=== PATIENT | male | born 1970 | race Caucasian/White ===

== ENCOUNTER 2023-08-25 18:22 | Emergency (ER) | payer MEDICARE, MEDICAID, SELFPAY ==
--- NOTE | ~2023-08-25 | CT_ITS ---
EXAMINATION: NONCONTRAST HEAD CT NONCONTRAST MAXILLOFACIAL CT INDICATION INFORMATION: Trauma. COMPARISON: None. TECHNIQUE: Separate noncontrast CT examinations of the head and maxillofacial bones were performed. Coronal and sagittal images were created for each examination at the technologist workstation. This CT examination was performed using dose optimization techniques as appropriate, variously including the following: *Automated exposure control *Adjustment of mA and/or kV according to patient size (this includes techniques or standardized protocols for targeted exams where dose is matched to indication/reason for exam; i.e. extremities or head) *Use of iterative reconstruction technique DLP: 629 and 303 mGy-cm FINDINGS: Head: Age indeterminate small hypodensity along the anterior-inferior left frontal lobe (3:16). There is no evidence of acute intracranial hemorrhage or edematous territorial infarction. No abnormal mass effect or midline shift is seen. No extra-axial fluid collections are identified. No hydrocephalus. Proportional prominence of the ventricles and sulcal spaces is consistent with mild volume loss. Patchy periventricular and deep white matter hypoattenuation is consistent with mild small vessel ischemic changes. No acute soft tissue abnormality. No calvarial fracture. The mastoid air cells are well aerated. Maxillofacial: Bilateral comminuted nasal alae fractures with greater displacement on the right side. No additional maxillofacial fractures. The frontal, maxillary, ethmoid, and sphenoid sinuses are well aerated. The mandibular heads are well-seated in the condylar fossa. The orbits demonstrate a normal appearance bilaterally. The globes are intact, and there are no suspicious findings to suggest retrobulbar hemorrhage. Visualized portions of the cervical spine are unremarkable. CT/CT facial bones wo IV con IMPRESSION: 1. Age-indeterminate small hypodensity along the anterior-inferior left frontal lobe. Further characterization could be obtained with an MRI of the brain as clinically deemed appropriate. 2. No acute intracranial hemorrhage or edematous territorial infarction. 3. Bilateral comminuted nasal alae fractures with greater displacement on the right side.
--- NOTE | ~2023-08-25 | XR_ITS ---
EXAMINATION: XR KNEE, LEFT CLINICAL INFORMATION: Pain, fall. COMPARISON: None available. TECHNIQUE: Four views of the left knee. FINDINGS: No acute fracture or subluxation. Mild joint space narrowing of the medial compartment. No abnormal soft tissue calcifications. No osseous erosions. No joint effusion. Scattered vascular calcifications. XR/XR knee LT 4V IMPRESSION: 1. No acute fracture or subluxation. 2. Mild degenerative osteoarthritis of the medial compartment.
[2023-08-25 18:48] VITALS: BP 106/72; PULSE 63; RESP 16; TEMP 36.6; O2SAT 96
[2023-08-25 18:53] VITALS: BP 140/90; PULSE 89; RESP 16; O2SAT 98; BMI 20.4
[2023-08-25] MEDS: Acetaminophen 325 MG TABLET 975 MG PO (19:15)
--- NOTE | 2023-08-25 19:43 | ED.GENADULT ---
HPI - General Adult General Chief complaint: Fall Stated complaint: fell face first.does not remember fall, nose bleed Time Seen by Provider: 08/25/23 18:30 Source: patient, RN notes reviewed and old records reviewed Mode of arrival: ambulatory Limitations: no limitations History of Present Illness HPI narrative: 52-year-old male presents for evaluation of left knee pain and facial pain. patient was playing a basketball game with his significant other when he slipped and fell face forward. His significant other is in the room with him and reports that she washed him hit his face on the ground and he had a bloody nose the patient does not remember hitting his head he does complain of some mild facial pain around his nose apparently after he fell he got up complaining of arm pain and then fell back down to the ground he also complains of left knee pain after the fall. The patient reports that he slipped because my shoes are very good and they slipped out from under me. He describes a nonsyncopal fall. Never had any chest pain, shortness of breath Related Data Previous Rx's Medication Instructions Recorded amoxicillin 500 mg tablet 500 mg PO Q8H #15 tabs 08/25/23 Allergies Allergy/AdvReac Type Severity Reaction Status Date / Time No Known Allergies Allergy Verified 08/25/23 18:45 Review of Systems Constitutional: Constitutional: Denies chills, Denies fever(s) and Denies headache(s) Eyes: Eyes: Denies blurry vision ENT: Denies headache(s) and Denies neck pain Cardiovascular: Cardiovascular: Denies chest pain, Denies syncope and Denies dyspnea Respiratory: Respiratory: Denies cough and Denies dyspnea Gastrointestinal: Gastrointestinal: Denies abdominal pain, Denies nausea and Denies vomiting Musculoskeletal: Musculoskeletal: Denies back pain, Reports arthralgias and Denies neck pain Integumentary/Breasts: Skin/Breast: Denies rash Neurologic: Denies syncope and Denies headache(s) [facility] Social History Social History Smoked in Last 30 Days: Yes Use of substances other than those prescribed or required for medical reasons: Yes Substance Use Type: Marijuana Advance Directives: No Advance Directives Information Provided: No Physical Exam ED Vital Signs: Vital Signs - 24 hr 08/25/23 18:48 08/25/23 18:53 Temperature 98 F Pulse Rate 63 Respiratory Rate 16 16 Blood Pressure 106/72 Pulse Oximetry 96 Oxygen Delivery Method Room Air BMI result Body Mass Index 20.4 Const General: healthy appearing, comfortable, no acute distress, alert and awake Nutritional Appearance: well nourished Orientation/consciousness: patient oriented x3 HENMT Throat: Yes posterior oropharynx normal Eyes Eyelids: Yes eyelids normal Conjunctivae: conjunctivae normal Sclerae: sclerae normal Corneas: corneas normal Pupils: Equal, round and reactive pupils present EOM: EOMs intact bilaterally Neck Neck: Yes full ROM Resp Effort & Inspection: normal respiratory effort, able to speak in complete sentences and not labored GI Inspection: No distended Palpation (GI): Soft to palpation, not firm, nontender, no guarding and not rigid General: Yes no CVA tenderness Back/Spine/Pelvis Back: no CVA tenderness Skin General skin exam: elasticity normal Neuro General: patient oriented x3 Cranial nerves: Yes CN's II-XII intact bilaterally, Yes Equal, round and reactive pupils present and Yes Bilaterally intact EOM present Cognition (Neuro): normal cognition Extrem Other: Moving all extremities well without any obvious deformities the patient does have some tenderness to the left patella with no obvious deformity or joint effusion.. Course Reevaluation(s) Reevaluation #1: discussed patient's workup with him including nasal fractures and the brain lesion left frontal lobe. He has no neuro deficits, this is favored to be an incidental finding. will discharge the patient antibiotics and ENT follow-up. [facility] Time: 20:09 Medications Administered Discontinued Medications Generic Name Dose Route Start Last Admin Trade Name Freq PRN Reason Stop Dose Admin Acetaminophen 975 mg 08/25/23 18:45 08/25/23 19:15 Acetaminophen 325 Mg Tablet PO 08/25/23 18:46 975 mg ONCE ONE Administration Medical Decision Making Medical Decision Making [facility] Narrative: A 52-year-old male presents for evaluation after a fall while playing basketball. He has a small abrasion to his nose but no other signs of trauma to head or neck. He has no C-spine tenderness. Given that he does not remember the fall but was witnessed striking his head will do CT scan the brain, facial bones are an x-ray of the left knee. Differential Diagnosis Differential Diagnoses: The differential diagnosis associated with the presentation includes Mechanical fall Contusion Nasal fracture Intracranial hemorrhage Calvarial fracture Left knee sprain Knee fracture Independent Interpretation I performed an independent interpretation of an: Plain X-Ray (No fracture or dislocation of the left knee) and CT Scan ( no obvious intracranial hemorrhage) Radiology Impression Discussion of test interpretation with radiology: I have reviewed the radiologist's reading. ( small left frontal lobe lesion. Bilateral nasal fracture) Discharge Plan Discharge Clinical Impression: Closed fracture nasal bone, Brain lesion Patient Disposition: Home, Self-Care Instructions: Nasal Fracture (ED) Additional Instructions: your x-ray did not show any fractures of your knee. Your CT scans showed a nasal bone fracture for this you may follow-up with Dr. Barrett, ENT you had an incidental finding of a brain lesion in your left frontal lobe. Follow this up with your primary doctor for a brain MRI Prescriptions: New amoxicillin 500 mg tablet 500 mg PO Q8H Qty: 15 0RF Referrals: Vin Barrett [Physician] - ( nasal fracture follow-up)
--- NOTE | 2023-08-25 19:51 | PC.NURSE ---
pt a&o x4, pleasant, calm, and cooperative. pt medicated per mar. asking for food. educated on having to wait until tests/scans are back. pt significant other at bedside. pt reports nose and left knee pain 5/10 and 7/10, respectively. currently resting quietly on stretcher. report given to TRAVIS Boateng.
--- NOTE | 2023-08-25 20:00 | PC.NURSE ---
Patient resting on stretcher with SO, no s/s of distress noted at this time. Patient able to make needs known.
[2023-08-25 20:30] VITALS: BP 112/70; PULSE 65; RESP 18; O2SAT 95
[2023-08-25] MEDS: Amoxicillin 500 MG CAPSULE PO (20:35)
== END 2023-08-25 21:22 | disposition home or self-care (01) ==
PROVIDERS: Emergency Provider Emergency Medicine
DX: S02.2XXA Fracture of nasal bones, initial encounter for closed fracture (principal); W01.198A Fall on same level from slipping, tripping and stumbling with subsequent striking against other object, initial encounter; G93.9 Disorder of brain, unspecified; F12.90 Cannabis use, unspecified, uncomplicated; Y93.67 Activity, basketball; Y92.9 Unspecified place or not applicable; Y99.9 Unspecified external cause status
CPT/HCPCS: 70450; 70486; 73564; 99284

== ENCOUNTER 2024-06-03 08:52 | Inpatient (IN) | payer OTHER, SELFPAY ==
[2024-06-03] VITALS (9 sets, daily range): BP systolic 140–184; BP diastolic 75–106; PULSE 86–115; RESP 16–20; TEMP 36.5–37.1; O2SAT 96–100; BMI 18.4; BMI 19.1
--- NOTE | ~2024-06-03 | XR_ITS ---
EXAMINATION: XR FOOT, LEFT CLINICAL INFORMATION: Multiple months. Question osteomyelitis COMPARISON: None available. TECHNIQUE: AP, lateral, and oblique views of the left foot. FINDINGS: Bones are osteopenic. Regions of marked osteopenia/osteolysis in varying degrees of osseous destruction are evident at the first, second, third, and fifth metatarsal heads and proximal phalangeal bases as well as the great toe distal phalanx, most consistent with osteomyelitis. The osseous destruction in these regions is more notable at the first, second, and third MTP joints. No appreciable findings to indicate involvement of the midfoot including the TMT joints. Soft tissues are markedly swollen and the forefoot. Wounds are evident at the medial and lateral aspects of the first and fifth MTP joints, respectively. XR/XR foot LT min 3V IMPRESSION: Septic arthritis and osteomyelitis at the first, second, third, and fifth MTP joints and great toe distal phalanx.
--- NOTE | ~2024-06-03 | US_ITS ---
EXAMINATION: COLOR-FLOW DUPLEX IMAGING OF THE LEFT LOWER EXTREMITY ARTERIAL SYSTEM, WITH VELOCITY MEASUREMENTS CLINICAL INFORMATION: The patient is a 53 year-old man who presents with osteomyelitis of the left first, second, third and fifth toes. LEFT FEMORAL RUNOFF VELOCITIES: The left common femoral artery peak systolic velocity is 105.0 cm/s. The waveform is triphasic. The left profunda femoral artery peak systolic velocity is 123.0 cm/s. The waveform is triphasic. The left proximal superficial femoral artery peak systolic velocity is 120.0 cm/s. The waveform is triphasic. The left mid superficial femoral artery peak systolic velocity is 172.0 cm/s. The waveform is triphasic. The left distal superficial femoral artery peak systolic velocity is 100.0 cm/s. The waveform is triphasic. The left popliteal artery peak systolic velocity is 107.0 cm/s. The waveform is triphasic. The left anterior tibial artery peak systolic velocity is 118.0 cm/s. The waveform is monophasic. The left dorsalis pedis artery peak systolic velocity is 202.0 cm/s. The waveform is monophasic. The left peroneal artery peak systolic velocity is 84.8 cm/s. The waveform is triphasic. The left posterior tibial artery peak systolic velocity is 87.6 cm/s. The waveform is triphasic. 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
--- NOTE | ~2024-06-03 | CT_ITS ---
EXAMINATION: CT ABDOMEN AND PELVIS WITH CONTRAST CLINICAL INFORMATION: Left upper quadrant abdominal pain, nausea COMPARISON: None available. TECHNIQUE: Multidetector volumetric images were obtained from the superior aspect of the liver through the pubic symphysis following administration 85 mL of Omnipaque 350 intravenous contrast. Sagittal and coronal reformatted images were obtained on the technologist's workstation. Oral contrast: No This CT examination was performed using dose optimization techniques as appropriate, variously including the following: *Automated exposure control *Adjustment of mA and/or kV according to patient size (this includes techniques or standardized protocols for targeted exams where dose is matched to indication/reason for exam; i.e. extremities or head) *Use of iterative reconstruction technique DLP: 328 mGy-cm FINDINGS: LUNG BASES: Unremarkable. ABDOMINAL AND PELVIC WALL: Unremarkable. LIVER AND BILIARY TREE: Unremarkable. GALLBLADDER: Unremarkable. PANCREAS: Unremarkable. SPLEEN: Unremarkable. ADRENAL GLANDS: A 1.4 cm homogeneous left adrenal nodule, 37 Hounsfield units. KIDNEYS AND URETERS: Multiple nonobstructing bilateral renal stones measuring up to 6 mm in the right upper pole. No hydronephrosis. GASTROINTESTINAL TRACT: There is mild gastric wall thickening and hyperenhancement and duodenal wall thickening, recommend correlation with symptoms of gastroenteritis or peptic ulcer disease, and correlation with endoscopy could be considered if/when clinically appropriate. Normal appendix. VASCULAR: Moderate atherosclerosis of the abdominal aorta and branch vessels. LYMPH NODES/PERITONEUM: No lymphadenopathy. FREE FLUID: None. BLADDER: Unremarkable. PELVIC VISCERA: Unremarkable. OSSEOUS STRUCTURES: Unremarkable. CT/CT abdomen pelvis w IV con IMPRESSION: 1. There is mild gastric wall thickening and hyperenhancement and duodenal wall thickening, recommend correlation with symptoms of gastroenteritis or peptic ulcer disease, and correlation with endoscopy could be considered if/when clinically appropriate. 2. Multiple nonobstructing bilateral renal stones measuring up to 6 mm in the right upper pole. No hydronephrosis. 3. A 1.4 cm homogeneous left adrenal nodule, 37 Hounsfield units, probable to reflect an adenoma. Recommend further characterization with CT adrenal protocol in 1 year.
--- NOTE | 2024-06-03 09:24 | ECG_ITS ---
Test Reason : BACK PAIN Blood Pressure : / mmHG Vent. Rate : 094 BPM Atrial Rate : 094 BPM P-R Int : 128 ms QRS Dur : 094 ms QT Int : 384 ms P-R-T Axes : 063 059 058 degrees QTc Int : 480 ms Normal sinus rhythm Prolonged QT Abnormal ECG When compared with ECG of 24-DEC-2004 00:58, Vent. rate has increased BY 37 BPM QT has lengthened Referred By: Lilian Patel Electronically Signed By:HIEN KAM
--- NOTE | 2024-06-03 09:24 | ED_ITS ---
HPI - General Adult General Chief complaint: Back Pain/Injury Stated complaint: BACK PAIN, L FOOT PAIN/INF,HIGH BP 163/98 PER EMS Time Seen by Provider: 06/03/24 09:04 Source: patient Mode of arrival: ambulatory Limitations: no limitations History of Present Illness HPI narrative: Patient is a 53-year-old male who presents to the emergency department for evaluation of multiple complaints. He reports he is a newly diagnosed diabetic within the past year. He states last night he was feeling ?off? described as feeling out of place, clammy, and having diffuse back spasms below his shoulder blades/lateral chest, but felt it all the way down his back. Denies associated chest pain, dizziness, lightheadedness, neck pain, numbness or tingling of the extremities. He states he checked his blood sugar and it was 540. He took his metformin 1 g which he is prescribed, checked his sugar sometime after and it was up to 580. He states that he is compliant with his metformin, he has not yet been told that he needs to take insulin. He did not check his sugars today but he still continues to feel unwell with persistent back pain. He admits to having left upper quadrant abdominal pain and poor oral intake over the past 2 days, reporting he has had a lack of appetite, has been nauseous but no vomiting. He denies any alcohol usage. He admits to intranasal cocaine usage denies any intravenous usage or additional recreational drugs. He expresses concern for a left foot infection, he reports approximately 1 month ago he had a blister that popped and opened up, and has subsequently developed a large wounds, redness swelling and pain with a foul odor. He states he has not yet been seen for this because he ?does not like hospitals?. Related Data Previous Rx's ?Medication ?Instructions ?Recorded amoxicillin 500 mg tablet 500 mg PO Q8H #15 tabs 08/25/23 Allergies Allergy/AdvReac Type Severity Reaction Status Date / Time No Known Allergies Allergy Verified 06/03/24 09:00 Review of Systems 2 Review of Systems: Yes all other systems are reviewed and are negative FORMERLY [facility], [facility] Past Medical History Attestation statement: The following information was validated with the patient. Source: old records reviewed Medical History (Updated 06/03/24 @ 16:43 by Lilian Patel CNP) Non-insulin dependent type 2 diabetes mellitus Social History Social History Alcohol intake: current Alcohol intake frequency: does not drink Patient Tobacco Use Status: Current everyday Tobacco user Smoked in Last 30 Days: Yes Substance Use Type: Marijuana Advance Directives: No Advance Directives Information Provided: No Do you have a plan to hurt others: No Plan Nutrition Risks: No Nutritional Risk Physical Exam ED Vital Signs: Vital Signs - 24 hr 06/03/24 08:57 06/03/24 10:37 06/03/24 11:48 Temperature 97.7 F Pulse Rate 102 H 109 H 111 H Respiratory Rate 20 18 17 Blood Pressure 184/91 H 157/89 H 158/85 H Pulse Oximetry 97 97 99 Oxygen Delivery Method Room Air Room Air Room Air 06/03/24 13:02 06/03/24 13:34 Temperature 98.8 F 98.3 F Pulse Rate 95 98 Respiratory Rate 18 20 Blood Pressure 164/82 H 140/82 H Pulse Oximetry 96 96 Oxygen Delivery Method Room Air Room Air BMI result Body Mass Index 18.4 Appearance: Alert.?Oriented to person, place and time. No acute distress.?Normal affect. Unkempt. Eyes: Pupils equal, round and reactive to light.? ENT: Pharynx normal.?? Neck: Normal inspection.? Neck supple.?? CVS: Heart sounds normal. Hypertensive, mildly tachycardic Pulses normal and equal bilaterally..?? Respiratory: No respiratory distress.? Lung sounds clear to auscultation bilaterally?? Abdomen: Soft and non-tender. Normoactive bowel sounds. No pulsatile mass.?? Skin: Skin warm and dry.? Skin appears pale. Extremities: Left foot erythema, edema, foul smelling meals. No calf ttp?full range of motion to ankle. 2+ PT pulse, unable to palpate DP pulse due to degree of pain Neuro: Moves all extremities spontaneously. Sensation intact bilaterally. CN II- XII intact. No focal neuro deficits. Course Reevaluation(s) Reevaluation #1: CBC reveals for endoscopy leukocytosis 18,000 with left shift, normocytic anemia, thrombocytosis 649,000. XR revealing extensive osteomyelitis septic arthritis of the left MTP joints and 1st distal phalanx. Urinalysis with glucosuria and ketonuria, no evidence of infection. Sepsis fluid bolus was ordered Received call from lab regarding critical lab values; significant lactic acidosis 7.3, random glucose of 502. No acidosis with venous pH, anion gap at 21, I suspect this is secondary to his lactic acidosis and DKA patient to receive insulin regular 5 units IV. Corrected sodium of 135 for hyperglycemia. CRP 13.45, ESR 88. . Reevaluation #2: CT of the abdomen pelvis revealing mild gastric wall thickening and hyperenhancement with duodenal wall thickening radiologist concern for gastroenteritis versus PUD. he is experiencing nausea pain to the left upper quadrant, no vomiting, no hematochezia. Patient to receive pantoprazole IV. Time: 12:17 Reevaluation #3: Repeat lactic acid 3.2, glucose 379 Time: 13:27 Medications Administered Generic Name Dose Route Start Last Admin Trade Name Freq PRN Reason Stop Dose Admin Enoxaparin Sodium 40 mg 06/03/24 16:00 06/03/24 15:57 Enoxaparin Sodium 40 Mg/0.4 Ml Syringe SUBCUT 40 mg Q24H DREA Administration Nicotine 14 mg 06/03/24 14:55 06/03/24 15:54 Nicotine 14 Mg Patch.Td24 TRANSDERMA Not Given DAILY DREA Sodium Chloride 3 ml 06/03/24 16:00 06/03/24 15:56 0.9 % Sodium Chloride Flush 3 Ml Syringe IVFLUSH 3 ml QSHIFT DREA Administration Discontinued Medications Generic Name Dose Route Start Last Admin Trade Name Freq PRN Reason Stop Dose Admin Piperacillin Sod/Tazobactam 50 mls @ 100 mls/hr 06/03/24 09:24 06/03/24 10:56 Sod 3.375 gm/ Sodium Chloride IV 06/03/24 09:53 Infused ONCE ONE Infusion Vancomycin HCl 1,250 mg/ 250 mls @ 166.667 mls/hr 06/03/24 09:24 06/03/24 12:43 Sodium Chloride IV 06/03/24 10:53 Infused ONCE ONE Infusion Sodium Chloride 1,000 mls @ 999 mls/hr 06/03/24 09:30 06/03/24 12:00 Ns IV 06/03/24 10:30 Infused .Q1H1M DREA Infusion Sodium Chloride 1,599 mls @ 1,599 mls/hr 06/03/24 10:47 06/03/24 13:00 Ns 30 ml/kg infuse over 1 hr (1599 ml) 06/03/24 11:46 Infused IV Infusion .Q1H STA Insulin Human Regular 5 unit 06/03/24 10:50 06/03/24 11:15 Insulin Regular, Human 100 Unit/Ml 10 Ml Vial IVPUSH 06/03/24 10:51 5 unit ONCE ONE Administration Iohexol 100 ml 06/03/24 11:07 06/03/24 11:07 Iohexol 350 Mg/Ml 100 Ml Infus..Btl IV 06/03/24 11:08 85 ml ONCE ONE Administration Morphine Sulfate 4 mg 06/03/24 09:29 06/03/24 10:26 Morphine Sulfate 4 Mg/Ml Cartridge IVPUSH 06/03/24 09:30 4 mg ONCE ONE Administration Protocol Ondansetron HCl 4 mg 06/03/24 09:29 06/03/24 10:26 Ondansetron Hcl 4 Mg/2 Ml Vial IVPUSH 06/03/24 09:30 4 mg ONCE ONE Administration Pantoprazole Sodium 40 mg 06/03/24 12:19 06/03/24 12:25 Pantoprazole Sodium 40 Mg/10 Ml Vial IVPUSH 06/03/24 12:20 40 mg ONCE ONE Administration Medical Decision Making Medical Decision Making [facility] Narrative: Patient is a 53-year-old male with past medical history type 2 diabetes, presents emergency department for multiple complaints, back pain, abdominal pain, poor appetite, left foot infection and hyperglycemia as per HPI. Overall he appears unwell, he is ill kempt and frail, arrives hypertensive and tachycardic he hit however is afebrile with a rectal temperature, no respiratory distress. He has tenderness upon palpation in the left upper quadrant there is no rigidity or guarding. He has extensive wounds to his left foot with significant concern for osteomyelitis. Plan to obtain serum labs including lactic acid and blood cultures, EKG, CT of the abdomen and pelvis, XR of the foot plan to cover with Rocephin and vancomycin. Greatest concerns at this time for osteomyelitis of the left foot, DKA, pancreatitis. Pain in his back is beneath the scapula bilaterally towards the lateral chest, denies notable pain to the mid upper back or chest pain, does not appear consistent with AAA/dissection, and pulses are equal bilaterally. Anticipate admission inpatient. Differential Diagnosis Differential Diagnoses: The differential diagnosis associated with the presentation includes (See narrative above) Admission/Observation Consideration of admission/observation: Escalation of care including admission/observation considered Consult Healthcare Provider Management of the patient was discussed with: Hospitalist Lab Data MDM Lab Attestation statement: I reviewed the patient's lab results. (See course narrative) 06/03/24 10:10 06/03/24 12:27 Labs: Lab Results 06/03/24 06/03/24 06/03/24 Range/Units 10:10 10:34 12:20 WBC 18.0 H (4.8-10.8) X10*3/uL RBC 4.19 L (4.60-5.80) X10*6/uL Hgb 12.1 L (14.0-18.0) g/dl Hct 35.6 L (42.0-52.0) % MCV 85.0 (80.0-98.0) fL MCH 28.9 (27.0-33.0) pg MCHC 34.0 (31.0-36.0) g/dl RDW 13.3 (11.0-16.0) % Plt Count 649 H (160-400) X10*3/uL MPV 8.4 L (9.4-12.4) fL Immature Gran % (Auto) 0.7 H (0.0-0.4) % Neut % (Auto) 89.1 H (45-73) % Lymph % (Auto) 6.7 L (20-40) % [place] % (Auto) 3.3 (2-11) % Eos % (Auto) 0.0 (0-4) % Baso % (Auto) 0.2 (0-2) % Lymph # (Auto) 1.2 (1.2-4.9) X10*3/uL [place] # (Auto) 0.6 (0.1-1.2) X10*3/uL Eos # (Auto) 0.0 (0.0-0.4) X10*3/uL Baso # (Auto) 0.0 (0.0-0.2) X10*3/uL Abs Immat Gran (auto) 0.13 H (0.00-0.03) X10*3/uL Absolute Neuts (auto) 16.0 H (2.0-8.3) x10*3/uL Absolute Nucleated RBC 0.000 (0.0-0.012) X10*3/uL Nucleated RBC % (auto) 0.0 (0.0-0.2) /100WBC ESR 88 H (0-15) MM/HR VBG pH 7.40 (7.32-7.43) VBG pCO2 35 mmHg VBG pO2 72 mmHg VBG HCO3 22 (22-26) mmol/L VBG O2 Saturation 92.0 % VBG Base Excess -1.6 mmol/L Sodium 129 L (135-145) mmol/L Potassium 3.6 (3.3-5.1) mmol/L Chloride 93 L (96-108) mmol/L Carbon Dioxide 19 L (22-29) mmol/L Anion Gap 21 H (12-20) BUN 7 L (9-16) mg/dL Creatinine 0.98 (0.5-1.4) mg/dL Estim Creat Clear Calc 64.2 Estimated GFR > 60 POC Glucose 347 H (60-115) mg/dL Random Glucose 502 H* (60-115) mg/dL Estimat Average Glucose 214 mg/dL Hemoglobin A1c % 9.1 H (<6.0) % Lactic Acid 7.3 H* (0.5-2.0) mmol/L Lactic Acid F/U @ 2Hr (0.5-2.0) mmol/L Calcium 9.4 (8.4-10.2) mg/dL Magnesium 1.8 (1.6-2.6) mg/dL Total Bilirubin 0.5 (0.0-1.0) mg/dL AST 9 (5-37) U/L ALT 12 (0-40) U/L Alkaline Phosphatase 148 H (39-117) U/L Troponin I High Sens 5.1 (<3.5-35.0) ng/L C-Reactive Protein 13.45 H (< or = 0.50) mg/dL Total Protein 7.9 (6.5-8.0) g/dL Albumin 3.6 (3.5-5.0) g/dL Lipase 10 (8-78) U/L Beta-Hydroxybutyrate 0.66 H (0.02-0.27) mmol/L Urine Color Yellow Urine Appearance Clear Urine pH 6.5 (5.0-9.0) Ur Specific [place] 1.025 (1.005-1.025) Urine Protein Negative (Neg-Trace) mg/dL Urine Glucose (UA) >=1000 H (Negative) mg/dL Urine Ketones 15 (Negative) mg/dL Urine Blood Negative (Negative) Urine Nitrite Negative (Negative) Ur Leukocyte Esterase Negative (Negative) Urine RBC 0-2 (0-2) /HPF Urine WBC 0-5 (0-5) /HPF Ur Squamous Epith Cells 0-2 (0-2) /HPF Urine Bacteria None Seen (None Seen) Hyaline Casts 0-2 (0-2) /LPF Urine Opiates Screen Not Detected (Not Detect) Ur Buprenorphine Scrn Not Detected (Not Detect) ng/mL Ur Oxycodone Screen Not Detected (Not Detect) ng/mL Urine Methadone Screen Not Detected (Not Detect) ng/mL Urine Fentanyl Screen Not Detected (Not Detect) Ur Barbiturates Screen Not Detected (Not Detect) Ur Phencyclidine Scrn Not Detected (Not Detect) Ur Amphetamines Screen Not Detected (Not Detect) U Benzodiazepines Scrn Not Detected (Not Detect) Urine Cocaine Screen POSITIVE H (Not Detect) U Marijuana (THC) Screen POSITIVE H (Not Detect) Ethyl Alcohol < 10 mg/dL Influenza Type A (PCR) NEGATIVE (Negative) Influenza Type B (PCR) NEGATIVE (Negative) RSV RNA Qual (PCR) NEGATIVE (Negative) SARS-CoV-2 RNA (RT-PCR) NEGATIVE (Negative) 06/03/24 Range/Units 12:27 WBC (4.8-10.8) X10*3/uL RBC (4.60-5.80) X10*6/uL Hgb (14.0-18.0) g/dl Hct (42.0-52.0) % MCV (80.0-98.0) fL MCH (27.0-33.0) pg MCHC (31.0-36.0) g/dl RDW (11.0-16.0) % Plt Count (160-400) X10*3/uL MPV (9.4-12.4) fL Immature Gran % (Auto) (0.0-0.4) % Neut % (Auto) (45-73) % Lymph % (Auto) (20-40) % [place] % (Auto) (2-11) % Eos % (Auto) (0-4) % Baso % (Auto) (0-2) % Lymph # (Auto) (1.2-4.9) X10*3/uL [place] # (Auto) (0.1-1.2) X10*3/uL Eos # (Auto) (0.0-0.4) X10*3/uL Baso # (Auto) (0.0-0.2) X10*3/uL Abs Immat Gran (auto) (0.00-0.03) X10*3/uL Absolute Neuts (auto) (2.0-8.3) x10*3/uL Absolute Nucleated RBC (0.0-0.012) X10*3/uL Nucleated RBC % (auto) (0.0-0.2) /100WBC ESR (0-15) MM/HR VBG pH (7.32-7.43) VBG pCO2 mmHg VBG pO2 mmHg VBG HCO3 (22-26) mmol/L VBG O2 Saturation % VBG Base Excess mmol/L Sodium 132 L (135-145) mmol/L Potassium 4.0 (3.3-5.1) mmol/L Chloride 98 (96-108) mmol/L Carbon Dioxide 19 L (22-29) mmol/L Anion Gap 19 (12-20) BUN 6 L (9-16) mg/dL Creatinine 0.74 (0.5-1.4) mg/dL Estim Creat Clear Calc 85.0 Estimated GFR > 60 POC Glucose (60-115) mg/dL Random Glucose 379 H* (60-115) mg/dL Estimat Average Glucose mg/dL Hemoglobin A1c % (<6.0) % Lactic Acid (0.5-2.0) mmol/L Lactic Acid F/U @ 2Hr 3.2 H* (0.5-2.0) mmol/L Calcium 8.8 D (8.4-10.2) mg/dL Magnesium (1.6-2.6) mg/dL Total Bilirubin (0.0-1.0) mg/dL AST (5-37) U/L ALT (0-40) U/L Alkaline Phosphatase (39-117) U/L Troponin I High Sens (<3.5-35.0) ng/L C-Reactive Protein (< or = 0.50) mg/dL Total Protein (6.5-8.0) g/dL Albumin (3.5-5.0) g/dL Lipase (8-78) U/L Beta-Hydroxybutyrate (0.02-0.27) mmol/L Urine Color Urine Appearance Urine pH (5.0-9.0) Ur Specific [place] (1.005-1.025) Urine Protein (Neg-Trace) mg/dL Urine Glucose (UA) (Negative) mg/dL Urine Ketones (Negative) mg/dL Urine Blood (Negative) Urine Nitrite (Negative) Ur Leukocyte Esterase (Negative) Urine RBC (0-2) /HPF Urine WBC (0-5) /HPF Ur Squamous Epith Cells (0-2) /HPF Urine Bacteria (None Seen) Hyaline Casts (0-2) /LPF Urine Opiates Screen (Not Detect) Ur Buprenorphine Scrn (Not Detect) ng/mL Ur Oxycodone Screen (Not Detect) ng/mL Urine Methadone Screen (Not Detect) ng/mL Urine Fentanyl Screen (Not Detect) Ur Barbiturates Screen (Not Detect) Ur Phencyclidine Scrn (Not Detect) Ur Amphetamines Screen (Not Detect) U Benzodiazepines Scrn (Not Detect) Urine Cocaine Screen (Not Detect) U Marijuana (THC) Screen (Not Detect) Ethyl Alcohol mg/dL Influenza Type A (PCR) (Negative) Influenza Type B (PCR) (Negative) RSV RNA Qual (PCR) (Negative) SARS-CoV-2 RNA (RT-PCR) (Negative) Independent Interpretation I performed an independent interpretation of an: EKG and Plain X-Ray (Osteomyelitis 1st - 5th MTP with extensive erosion) Interpretation: Rate:94 Rhythm:? Normal sinus rhythm Normal P waves.? Normal LUZ.?? Normal QRS complex.?? ST T wave :??No ST elevation, no ST depression, T-wave inversion qTC: 480 The study has been interpreted contemporaneously by me. Radiology Impression Discussion of test interpretation with radiology: I have reviewed the radiologist's reading. Radiologist Impression: XR/XR foot LT min 3V IMPRESSION: Septic arthritis and osteomyelitis at the first, second, third, and fifth MTP joints and great toe distal phalanx. CT/CT abdomen pelvis w IV con IMPRESSION: 1. There is mild gastric wall thickening and hyperenhancement and duodenal wall thickening, recommend correlation with symptoms of gastroenteritis or peptic ulcer disease, and correlation with endoscopy could be considered if/when clinically appropriate. 2. Multiple nonobstructing bilateral renal stones measuring up to 6 mm in the right upper pole. No hydronephrosis. 3. A 1.4 cm homogeneous left adrenal nodule, 37 Hounsfield units, probable to reflect an adenoma. Recommend further characterization with CT adrenal protocol in 1 year. Independent Historian Clinical information obtained from an independent historian. History obtained from or confirmed by: EMS External Record Review External record reviewed: Outpatient record Tests considered The following testing was considered but not selected: See narrative above Critical Care Time Critical Care Time Critical Care Time: Yes Total Critical Care Time: 43 Attestation: I personally attest to this critical care time spent taking care of the patient exclusive of all other billable procedures was approximately 43 minutes including initial evaluation of patient, ordering tests, sepsis protocols, IV morphine and re-evaluation, EKG interpretation, medical consultation, documentation, re-evaluation. Discharge Plan Discharge Clinical Impression: Osteomyelitis, Sepsis Patient Disposition: Admitted As Inpatient
--- NOTE | 2024-06-03 10:04 | PC.NURSE ---
first contact with pt: awake and alert, crying, ambulated from EMS stretcher. room air, resp even and unlabored. speaking in full clear sentences. abd soft. significant wounds to L foot.
--- NOTE | 2024-06-03 10:12 | PC.NURSE ---
new non-adherent and gauze dsg applied to L foot.
[2024-06-03 10:19] LABS: MANUAL DIFF FLAG NO
[2024-06-03 10:21] LABS: Appearance Urine Clear; Basophils Percent Auto 0.2 % (0-2); Color Urine Yellow; Glucose Urine UA >=1000 mg/dL (Negative); Hematocrit 35.6 % (42.0-52.0); Hemoglobin 12.1 g/dl (14.0-18.0); Imm Gran Abs Auto 0.13 X10*3/uL (0.00-0.03); Imm Gran Pct Auto 0.7 % (0.0-0.4); Leukocyte Esterase Urine Negative (Negative); Lymphocytes Absolute Auto 1.2 X10*3/uL (1.2-4.9); Lymphocytes Percent Auto 6.7 % (20-40); Mean Corpuscular Hemoglobin 28.9 pg (27.0-33.0); Mean Platelet Volume 8.4 fL (9.4-12.4); Monocytes Absolute Auto 0.6 X10*3/uL (0.1-1.2); Monocytes Percent Auto 3.3 % (2-11); Neutrophils Percent Auto 89.1 % (45-73); Nitrite Urine Negative (Negative); PH 6.5 (5.0-9.0); Platelet Count 649 X10*3/uL (160-400); Red Blood Count 4.19 X10*6/uL (4.60-5.80); Red Cell Distribution Width 13.3 % (11.0-16.0); Specific Gravity - Urine 1.025 (1.005-1.025); UMIC TRIGGER UACC YES; Urine Blood Negative (Negative); Urine Ketones 15 mg/dL (Negative); Urine Protein Negative (Neg-Trace)
[2024-06-03 10:26] LABS: Bacteria Urine None Seen (None Seen); Hyaline Casts Urine 0-2 /LPF (0-2); RBC Urine 0-2 /HPF (0-2); Squamous Epithelial Cell Urine 0-2 /HPF (0-2); WBC Urine 0-5 /HPF (0-5)
[2024-06-03] MEDS: ondansetron HCL 4 MG/2 ML VIAL IVPUSH (10:26)
[2024-06-03] MEDS: Morphine Sulfate 4 MG/ML CARTRIDGE IVPUSH (10:26)
[2024-06-03] MEDS: 0.9 % Sodium Chloride 1,000 ML 999 ML IV (10:26)
[2024-06-03] MEDS: Piperacillin Sodium/Tazobactam 3.375 GM in 0.9 % Sodium Chloride 50 ML IV ×3 (10:26→23:00)
[2024-06-03 10:31] LABS: Amphetamine Screen Urine Not Detected (Not Detect); Barbiturates, Urine Not Detected (Not Detect); Benzodiazepines Screen Urine Not Detected (Not Detect); Buprenorphine Scr Not Detected (Not Detect); Cannabinoid Screen Urine POSITIVE (Not Detect); Cocaine Screen Urine POSITIVE (Not Detect); Fentanyl, urine Not Detected (Not Detect); Methadone Screen, Urine Not Detected (Not Detect); Opiate Screen Urine Not Detected (Not Detect); Oxycodone Screen Urine Not Detected (Not Detect); Phencyclidine Screen Urine Not Detected (Not Detect)
[2024-06-03 10:43] LABS: VBG Base Excess -1.6 mmol/L; VBG HCO3 22 mmol/L (22-26); VBG pCO2 35 mmHg; VBG pO2 72 mmHg
[2024-06-03 10:43] LABS: Venous Blood Gas Refer to POC result
[2024-06-03 10:43] LABS: Ethanol < 10 mg/dL
[2024-06-03 10:45] LABS: Alanine Aminotransferase 12 U/L (0-40); Albumin Level 3.6 g/dL (3.5-5.0); Alkaline Phosphatase 148 U/L (39-117); Anion Gap 21 (12-20); Aspartate Amino Transferase 9 U/L (5-37); Bilirubin Total 0.5 mg/dL (0.0-1.0); Blood Urea Nitrogen 7 mg/dL (9-16); C Reactive Protein 13.45 mg/dL (< or = 0.50); Calcium 9.4 mg/dL (8.4-10.2); Carbon Dioxide 19 mmol/L (22-29); Chloride 93 mmol/L (96-108); Creatinine Clr Calc Pharmacy 64.2; Estimated Glomerular Filt Rate > 60; Lipase 10 U/L (8-78); Magnesium 1.8 mg/dL (1.6-2.6); Potassium 3.6 mmol/L (3.3-5.1); Sodium 129 mmol/L (135-145); Total Protein 7.9 g/dL (6.5-8.0)
[2024-06-03 10:47] LABS: Glucose Random 502 mg/dL (60-115); Troponin-I High Sensitivity 5.1 ng/L (<3.5-35.0)
[2024-06-03 10:48] LABS: Lactic Acid 7.3 mmol/L (0.5-2.0)
[2024-06-03 11:07] LABS: Beta-Hydroxybutyrate 0.66 mmol/L (0.02-0.27)
[2024-06-03] MEDS: iohexoL 350 MG/ML 100 ML INFUS..BTL IV (11:07)
[2024-06-03 11:09] LABS: Influenza A PCR NEGATIVE (Negative); Influenza B PCR NEGATIVE (Negative); Resp Syncy Virus RNA Qual PCR NEGATIVE (Negative); SARS COV2 PCR INHOUSE NEGATIVE (Negative)
[2024-06-03] MEDS: vancomycin HCL 1,250 MG in 0.9 % Sodium Chloride 250 ML 166.67 MG IV ×2 (11:13→22:21)
[2024-06-03] MEDS: Insulin Regular, Human 100 UNIT/ML 10 ML VIAL IVPUSH (11:15)
[2024-06-03 11:16] LABS: Erythrocyte Sedimentation Rate 88 MM/HR (0-15)
[2024-06-03] MEDS: SODIUM CHLORIDE 1599 ML IV (11:27)
--- NOTE | 2024-06-03 11:35 | PC.NURSE ---
this nurse took report from jean-pierre and assisted him in filling out sepsis checklist, pt curently a&o, IVF hanging, IV abx now hanging per order, pt currently c/o 05/16 back pain- previously medicated for pain, lt foot dressing c/d/i, call [facility]ak within reach, will continue to monitor
[2024-06-03 12:16] LABS: Reflex Lactate? Lactic Acid Added
[2024-06-03] MEDS: Pantoprazole Sodium 40 MG/10 ML VIAL IVPUSH (12:25)
--- NOTE | 2024-06-03 12:31 | PC.NURSE ---
repeat labs drawn, poc obtained, pt medicated per order
--- NOTE | 2024-06-03 12:31 | PC.NURSE ---
IVF continue to run
[2024-06-03 12:33] LABS: Glucose, Whole Blood 347 mg/dL (60-115)
[2024-06-03 13:26] LABS: Anion Gap 19 (12-20); Blood Urea Nitrogen 6 mg/dL (9-16); Calcium 8.8 mg/dL (8.4-10.2); Carbon Dioxide 19 mmol/L (22-29); Chloride 98 mmol/L (96-108); Estimated Glomerular Filt Rate > 60; Sodium 132 mmol/L (135-145)
[2024-06-03 13:28] LABS: Glucose Random 379 mg/dL (60-115); ~Lactic Acid-LAB USE ONLY 3.2 mmol/L (0.5-2.0)
--- NOTE | 2024-06-03 13:44 | PC.NURSE ---
pt currently sleeping, vss, electronic device monitor remains intact nsr to sinus tach [id number] at times, call novak within reach, will continue to monitor
--- NOTE | 2024-06-03 14:04 | PM.IMHP ---
History of Present Illness Date of Service: 06/03/24 Attending physician on admission: Hossein Perales Chief Complaint: Left foot and back pain Pt is a 53-year-old male with a PMH significant for?dxg-uxzqdgg-crnlddwsb type 2 diabetes who presents to the ED with?worsening diabetic left foot ulcers x1 month. Patient reports has been experiencing increasing pain in his left foot for the past 4 weeks with purulent, foul-smelling discharge for the past 3 weeks. Patient presents to the hospital today after feeling ?weird? last night and feeling ?out of body? and that ?something was different?. Checked his sugars and found they were in the 500s so decided to present to the ED for further evaluation. Patient reports he currently is on metformin only and [facility]. Currently is living and housing. Reports smoking half a pack daily along with marijuana and occasionally snorting cocaine. Denies fever, chills, nausea, vomiting, abdominal pain. No chest pain/pressure, palpitations. Denies shortness or breath or difficulty breathing. In the ED pt was tachycardic up to 111 and hypertensive up to 184/91. Labs were significant for leukocytosis of 18.0, H&H 12.1/35.6, platelets 649, ESR 88, sodium 129, chloride 93, initial random glucose 502, lactic acid 7.3 with repeat 3.2, alk-phos 148, C-reactive protein 13.45, and beta hydroxybutyrate mildly elevated at 0.66. UA negative for UTI. Tox screen positive for cocaine and marijuana. Negative for ethyl alcohol. Tested negative for flu, RSV, COVID. X-ray of left foot showed septic arthritis and osteomyelitis at the 1st, 2nd, 3rd, and 5th TMT joints and great toe distal phalanx. CT?of abdomen and pelvis showed mild gastric wall thickening hyperenhancement of duodenal wall thickening, question of gastroenteritis or PUD. Also showed multiple nonobstructing bilateral renal stones up to 6 mm in right upper pole without hydronephrosis. Also showed 1.4 cm homogeneous left adrenal nodule. EKG demonstrated normal sinus rhythmc with QTc 480 without evidence of significant ST elevations or depressions. Pt was treated with 2.6 L IVF, ondansetron, morphine, insulin 5 units, Protonix, vanc and Zosyn. Pt will be admitted to the hospital for treatment and further evaluation of acute left foot osteomyelitis with sepsis. Review of Systems Review of Systems: Left foot pain, foul-smelling and purulent discharge Denies fever, chills, nausea, vomiting, abdominal Chest pain/pressure, palpitations Denies shortness of breath or difficulty breathing [facility] Medical History (Updated 06/03/24 @ 15:29 by CHEMA Meléndez) Non-insulin dependent type 2 diabetes mellitus Social History Alcohol intake: current Alcohol intake frequency: does not drink Smoked in Last 30 Days: Yes Substance Use Type: Marijuana Advance Directives: No Advance Directives Information Provided: No Do you have a plan to hurt others: No Plan Meds Allergies Allergy/AdvReac Type Severity Reaction Status Date / Time No Known Allergies Allergy Verified 06/03/24 09:00 Physical Exam Vital Signs and Narrative: Vital Signs: Last Vital Signs Temp 98.3 F 06/03/24 13:34 Pulse 98 06/03/24 13:34 Resp 20 06/03/24 13:34 BP 140/82 H 06/03/24 13:34 Pulse Ox 96 06/03/24 13:34 O2 Del Method Room Air 06/03/24 13:34 BMI result Body Mass Index 18.4 Constitutional: Alert, in no acute distress. Disheveled, unkempt. Mental Status: Oriented to person, place and time. Eyes: Pupils are equal, round, and reactive to light. Ear, Nose, and Throat: Oropharynx clear, mucous membranes moist. Ears and nose without deformities. Trachea midline. Respiratory: Clear to auscultation bilaterally. No wheezing, rales, or rhonchi. Cardiovascular: S1, S2 regular. No murmurs, rubs, or gallops. Gastrointestinal: Abdomen soft, non-tender, non-distended. Normal bowel sounds. Neurologic: Cranial nerves II-XII are grossly intact bilaterally. No focal neurological deficits. Moves all extremities spontaneously. Skin: Warm, dry. Extremities: Left foot warmth, swelling, and erythema. Chronic wounds with foul-smelling and purulent discharge on medial and lateral aspects as pictured below. Psychiatric: Normal mood and affect. Results Labs 06/03/24 10:10 06/03/24 12:27 Labs: Laboratory Results - last 24 hr 07/28/24 07/28/24 07/28/24 10:10 10:34 12:20 MCV 85.0 MCH 28.9 MCHC 34.0 RDW 13.3 Plt Count 649 H MPV 8.4 L Immature Gran % (Auto) 0.7 H Neut % (Auto) 89.1 H Lymph % (Auto) 6.7 L [place] % (Auto) 3.3 Eos % (Auto) 0.0 Baso % (Auto) 0.2 Lymph # (Auto) 1.2 [place] # (Auto) 0.6 Eos # (Auto) 0.0 Baso # (Auto) 0.0 Abs Immat Gran (auto) 0.13 H Absolute Neuts (auto) 16.0 H Absolute Nucleated RBC 0.000 Nucleated RBC % (auto) 0.0 ESR 88 H VBG pH 7.40 VBG pCO2 35 VBG pO2 72 VBG HCO3 22 VBG O2 Saturation 92.0 VBG Base Excess -1.6 Anion Gap 21 H Estim Creat Clear Calc 64.2 Estimated GFR > 60 POC Glucose 347 H Random Glucose 502 H* Lactic Acid 7.3 H* Lactic Acid F/U @ 2Hr Calcium 9.4 Magnesium 1.8 Total Bilirubin 0.5 AST 9 ALT 12 Alkaline Phosphatase 148 H Troponin I High Sens 5.1 C-Reactive Protein 13.45 H Total Protein 7.9 Albumin 3.6 Lipase 10 Beta-Hydroxybutyrate 0.66 H Urine Color Yellow Urine Appearance Clear Urine pH 6.5 Ur Specific [place] 1.025 Urine Protein Negative Urine Glucose (UA) >=1000 H Urine Ketones 15 Urine Blood Negative Urine Nitrite Negative Ur Leukocyte Esterase Negative Urine RBC 0-2 Urine WBC 0-5 Ur Squamous Epith Cells 0-2 Urine Bacteria None Seen Hyaline Casts 0-2 Urine Opiates Screen Not Detected Ur Buprenorphine Scrn Not Detected Ur Oxycodone Screen Not Detected Urine Methadone Screen Not Detected Urine Fentanyl Screen Not Detected Ur Barbiturates Screen Not Detected Ur Phencyclidine Scrn Not Detected Ur Amphetamines Screen Not Detected U Benzodiazepines Scrn Not Detected Urine Cocaine Screen POSITIVE H U Marijuana (THC) Screen POSITIVE H Ethyl Alcohol < 10 Influenza Type A (PCR) NEGATIVE Influenza Type B (PCR) NEGATIVE RSV RNA Qual (PCR) NEGATIVE SARS-CoV-2 RNA (RT-PCR) NEGATIVE 06/03/24 12:27 MCV MCH MCHC RDW Plt Count MPV Immature Gran % (Auto) Neut % (Auto) Lymph % (Auto) [place] % (Auto) Eos % (Auto) Baso % (Auto) Lymph # (Auto) [place] # (Auto) Eos # (Auto) Baso # (Auto) Abs Immat Gran (auto) Absolute Neuts (auto) Absolute Nucleated RBC Nucleated RBC % (auto) ESR VBG pH VBG pCO2 VBG pO2 VBG HCO3 VBG O2 Saturation VBG Base Excess Anion Gap 19 Estim Creat Clear Calc 85.0 Estimated GFR > 60 POC Glucose Random Glucose 379 H* Lactic Acid Lactic Acid F/U @ 2Hr 3.2 H* Calcium 8.8 D Magnesium Total Bilirubin AST ALT Alkaline Phosphatase Troponin I High Sens C-Reactive Protein Total Protein Albumin Lipase Beta-Hydroxybutyrate Urine Color Urine Appearance Urine pH Ur Specific [place] Urine Protein Urine Glucose (UA) Urine Ketones Urine Blood Urine Nitrite Ur Leukocyte Esterase Urine RBC Urine WBC Ur Squamous Epith Cells Urine Bacteria Hyaline Casts Urine Opiates Screen Ur Buprenorphine Scrn Ur Oxycodone Screen Urine Methadone Screen Urine Fentanyl Screen Ur Barbiturates Screen Ur Phencyclidine Scrn Ur Amphetamines Screen U Benzodiazepines Scrn Urine Cocaine Screen U Marijuana (THC) Screen Ethyl Alcohol Influenza Type A (PCR) Influenza Type B (PCR) RSV RNA Qual (PCR) SARS-CoV-2 RNA (RT-PCR) Imaging Radiologist's Impressions: Impressions Foot X-Ray 06/03/24 09:45 IMPRESSION: Septic arthritis and osteomyelitis at the first, second, third, and fifth MTP joints and great toe distal phalanx. Abdomen/Pelvis CT 06/03/24 11:09 IMPRESSION: 1. There is mild gastric wall thickening and hyperenhancement and duodenal wall thickening, recommend correlation with symptoms of gastroenteritis or peptic ulcer disease, and correlation with endoscopy could be considered if/when clinically appropriate. 2. Multiple nonobstructing bilateral renal stones measuring up to 6 mm in the right upper pole. No hydronephrosis. 3. A 1.4 cm homogeneous left adrenal nodule, 37 Hounsfield units, probable to reflect an adenoma. Recommend further characterization with CT adrenal protocol in 1 year. Assessment and Plan (1) Osteomyelitis: Qualifiers: Osteomyelitis type: other acute Osteomyelitis location: foot Laterality: left Qualified Code(s): M86.172 - Other acute osteomyelitis, left ankle and foot Status: Acute Plan Pt is a 53-year-old male with a PMH significant for?lbj-ipjkrdf-vjsevhoms type 2 diabetes who presents to the ED with?worsening diabetic left foot ulcers x1 month. Pt will be admitted to the hospital for treatment and further evaluation of acute left foot osteomyelitis with sepsis. Left foot osteomyelitis with severe sepsis Secondary to chronic diabetic foot ulcers Pt with foul-smelling & purulent discharge, Elevated ESR and CRP, x-ray of left foot showing septic arthritis and osteomyelitis at the 1st, 2nd, 3rd, and 5th MTP joints and great toe distal phalanx Pt meets sepsis criteria: Tachycardia, leukocytosis; lactic acid 7.3 Patient was administered sepsis bolus IVF and started on broad-spectrum antibiotics Will treat with vancomycin and Zosyn, started 06/03/2024 Analgesics for pain management Vascular surgery consult Pt currently appears set on trying IV abx rather than amputation Follow cultures Hyperglycemia/uncontrolled type 2 diabetes Patient reports currently only on metformin POC 502 at time of presentation A1c 9.1, beta hydroxybutyrate 0.66 Patient received 5 units insulin in the ED Will currently cover with sliding scale insulin Diabetic diet Hyponatremia Pt's sodium 129 at time of presentation, increased to 132 after fluids Follow BMP Adrenal nodule CT of abdomen and pelvis found 1.4 cm homogeneous left adrenal nodule Recommendation is for CT adrenal protocol in 1 year Full Code Attending:?Dr. Perales DVT Prophylaxis: Lovenox Pt will require a hospitalization of at least two nights for treatment of?acute left foot osteomyelitis with sepsis. Patient will require administration of IV antibiotics, close monitoring of labs, and specialist consultation with vascular surgery for possible amputation. Quality Stroke Does the patient have a stroke diagnosis?: No VTE Prior VTE?: No VTE Risk Level:: Medical - moderate - high VTE Device Contraindication: Treatment Not Indicated VTE Drug Contraindication: N/A - Med Ordered
[2024-06-03 14:57] LABS: Estimated Average Glucose 214 mg/dL; Hemoglobin A1c % 9.1 % (<6.0)
[2024-06-03 15:07] LABS: Cancel Lactic Acid Canceled
[2024-06-03 15:08] LABS: Reflex Lactate? 2 N
--- NOTE | 2024-06-03 15:54 | PC.NURSE ---
pt currently refusing nicoderm patch.
[2024-06-03] MEDS: 0.9 % Sodium Chloride Flush 3 ML SYRINGE IVFLUSH (15:56)
[2024-06-03] MEDS: Enoxaparin Sodium 40 MG/0.4 ML SYRINGE SUBCUT (15:57)
--- NOTE | 2024-06-03 15:58 | PC.NURSE ---
pt medicated per order
[2024-06-03 17:14] LABS: Glucose, Whole Blood 269 mg/dL (60-115)
--- NOTE | 2024-06-03 17:50 | PC.NURSE ---
iv abx hung per order
--- NOTE | 2024-06-03 17:55 | PHA.MEDREC ---
Pharmacy Consult ? Medication Reconciliation Pharmacy has completed the medication reconciliation. Patient states they haven't taken atorvastatin in a month, but state that they should still be on it. Report that they haven't taken it in over a month because of noncompliance. Metformin is ER.
[2024-06-03] MEDS: Insulin Lispro 100 UNIT/ML 3 ML VIAL SUBCUT ×2 (18:05→20:34)
[2024-06-03 20:26] LABS: Glucose, Whole Blood 179 mg/dL (60-115)
[2024-06-04] MEDS: 0.9 % Sodium Chloride Flush 3 ML SYRINGE IVFLUSH ×4 (00:18→19:48)
[2024-06-04 03:25] VITALS: BP 150/73; PULSE 85; RESP 18; TEMP 36.5; O2SAT 99
[2024-06-04] MEDS: Piperacillin Sodium/Tazobactam 3.375 GM in 0.9 % Sodium Chloride 50 ML IV ×4 (04:04→22:30)
[2024-06-04 06:46] LABS: Anion Gap 15 (12-20); Blood Urea Nitrogen 7 mg/dL (9-16); Calcium 8.8 mg/dL (8.4-10.2); Carbon Dioxide 23 mmol/L (22-29); Chloride 101 mmol/L (96-108); Creatinine Clr Calc Pharmacy 88.2; Estimated Glomerular Filt Rate > 60; Glucose Random 182 mg/dL (60-115); Potassium 3.6 mmol/L (3.3-5.1); Sodium 135 mmol/L (135-145)
[2024-06-04 06:59] LABS: Hematocrit 31.1 % (42.0-52.0); Hemoglobin 10.3 g/dl (14.0-18.0); Mean Corpuscular HGB Conc 33.1 g/dl (31.0-36.0); Mean Corpuscular Hemoglobin 28.6 pg (27.0-33.0); Mean Corpuscular Volume 86.4 fL (80.0-98.0); Mean Platelet Volume 8.4 fL (9.4-12.4); Platelet Count 518 X10*3/uL (160-400); Red Cell Distribution Width 13.5 % (11.0-16.0); White Blood Count 15.6 X10*3/uL (4.8-10.8)
[2024-06-04 07:12] LABS: Glucose, Whole Blood 162 mg/dL (60-115)
[2024-06-04 07:24] VITALS: BP 162/90; PULSE 100; RESP 14; TEMP 36.5; O2SAT 99
[2024-06-04] MEDS: Insulin Lispro 100 UNIT/ML 3 ML VIAL SUBCUT ×3 (07:54→17:19)
[2024-06-04 09:49] LABS: Vancomycin Random 13.6 mcg/mL (15-20)
[2024-06-04] MEDS: Nicotine Polacrilex 2 MG GUM BUCCAL (10:31)
--- NOTE | 2024-06-04 10:48 | P.PNIM_ITS ---
Subjective Subjective Date of Service: 06/04/24 Interval History: Complaining of queasy stomach, denies pain, no fevers, no chills, craving for cigarettes, tolerated diet no nausea no vomiting no abdominal pain no diarrhea no other acute events overnight. Review of Systems All other systems are reviewed and are negative. Physical Exam 2 Vital Signs: Vital Signs: Last Vital Signs Temp 97.7 F 06/04/24 07:24 Pulse 100 06/04/24 07:24 Resp 14 06/04/24 07:24 BP 162/90 H 06/04/24 07:24 Pulse Ox 99 06/04/24 07:24 O2 Del Method Room Air 06/04/24 07:24 BMI result Body Mass Index 19.1 Const: Other: General in no acute distress. Neck supple no JVD. CVS regular rate rhythm, Respiratory lungs clear to auscultation, no respiratory distress, no wheeze, no rhonchi. Gastrointestinal abdomen soft, non tender, bowel sounds audible, no guarding , no rigidity. Extremities see left foot picture in admission note, dressing in place no drainage noted Neuro non focal Skin no rash Psych appropriate affect Objective Data Active Medications Acetaminophen (Acetaminophen 325 Mg Tablet) 650 mg PO Q6H PRN PRN Reason: Pain, Mild (Pain Scale 1-3), fever or headache Albuterol Sulfate (Albuterol Sulfate 90 Mcg 8 Gm Inhaler) 2 puff INHALE DAILY PRN PRN Reason: Shortness Of Breath Or Wheezing Atorvastatin Calcium (Atorvastatin Calcium 40 Mg Tablet) 40 mg PO DAILY [facility] Benzonatate (Benzonatate 100 Mg Capsule) 100 mg PO TID PRN PRN Reason: Cough Calcium Carbonate (Calcium Carbonate 750 Mg Tab.Chew) 750 mg PO Q4H PRN PRN Reason: Heartburn Enoxaparin Sodium (Enoxaparin Sodium 40 Mg/0.4 Ml Syringe) 40 mg SUBCUT Q24H [facility] Last Admin: 06/03/24 15:57 Dose: 40 mg Documented By: ADALGISA Glucose (Glucose Gel 15 Gm Gel..Gram.) 15 gm PO Q15M PRN; Protocol PRN Reason: per Hypoglycemia Standing Ord. Dextrose (D10) 250 mls @ 750 mls/hr IV Q15M PRN; Protocol PRN Reason: per Hypoglycemia Standing Ord. Vancomycin HCl 1,000 mg/ (Sodium Chloride) 270 mls @ 270 mls/hr IV Q12H [facility] Piperacillin Sod/Tazobactam (Sod 3.375 gm/ Sodium Chloride) 50 mls @ 100 mls/hr IV Q6H [facility] Last Admin: 06/04/24 10:31 Dose: 100 mls/hr Documented By: CALEB Insulin Human Lispro (Insulin Lispro 100 Unit/Ml 3 Ml Vial) 0 unit SUBCUT QIDACHS [facility]; Protocol Last Admin: 06/04/24 07:54 Dose: 2 unit Documented By: CALEB Magnesium Hydroxide (Milk Of Magnesia 30 Ml Oral.Susp) 30 ml PO DAILY PRN PRN Reason: Constipation Melatonin (Melatonin 3 Mg Tablet) 6 mg PO BEDTIME PRN PRN Reason: Insomnia Morphine Sulfate (Morphine Sulfate 4 Mg/Ml Cartridge) 4 mg IVPUSH Q4H PRN; Protocol PRN Reason: Pain, Severe (Pain Scale 7-10) Nicotine (Nicotine 14 Mg Patch.Td24) 14 mg TRANSDERMA DAILY [facility] Last Admin: 06/04/24 08:26 Dose: Not Given Documented By: CALEB Non-Admin Reason: Patient Refused Nicotine Polacrilex (Nicotine Polacrilex 2 Mg Gum) 2 mg BUCCAL Q2H PRN PRN Reason: Nicotine Cravings Last Admin: 06/04/24 10:31 Dose: 2 mg Documented By: CALEB Ondansetron HCl (Ondansetron Hcl 4 Mg/2 Ml Vial) 4 mg IVPUSH Q8H PRN PRN Reason: Nausea and Vomiting Oxycodone HCl (Oxycodone Hcl Immed Release 5 Mg Tablet) 5 mg PO Q6H PRN PRN Reason: Pain, Moderate(Pain Scale 4-6) Pharmacy Consult (Consult Rx Vancomycin Dosing) 1 each MISCELLANE DAILY PRN PRN Reason: Consult order Sodium Chloride (0.9 % Sodium Chloride Flush 3 Ml Syringe) [facility] Last Admin: 06/04/24 07:55 Dose: 3 ml Documented By: CALEB Labs 06/04/24 05:52 06/04/24 05:52 Labs: Laboratory Results - last 24 hr 06/03/24 06/03/24 06/03/24 10:10 12:20 12:27 MCV MCH MCHC RDW Plt Count MPV Absolute Nucleated RBC Nucleated RBC % (auto) ESR 88 H Anion Gap 19 Estim Creat Clear Calc 85.0 Estimated GFR > 60 POC Glucose 347 H Random Glucose 502 H* 379 H* Estimat Average Glucose 214 Hemoglobin A1c % 9.1 H Lactic Acid 7.3 H* Lactic Acid F/U @ 2Hr 3.2 H* Calcium 8.8 D Troponin I High Sens 5.1 Beta-Hydroxybutyrate 0.66 H Random Vancomycin Influenza Type A (PCR) NEGATIVE Influenza Type B (PCR) NEGATIVE RSV RNA Qual (PCR) NEGATIVE SARS-CoV-2 RNA (RT-PCR) NEGATIVE 06/03/24 06/03/24 06/04/24 17:10 20:15 05:52 MCV 86.4 MCH 28.6 MCHC 33.1 RDW 13.5 Plt Count 518 H MPV 8.4 L Absolute Nucleated RBC 0.000 Nucleated RBC % (auto) 0.0 ESR Anion Gap 15 Estim Creat Clear Calc 88.2 Estimated GFR > 60 POC Glucose 269 H 179 H Random Glucose 182 H Estimat Average Glucose Hemoglobin A1c % Lactic Acid Lactic Acid F/U @ 2Hr Calcium 8.8 Troponin I High Sens Beta-Hydroxybutyrate Random Vancomycin Influenza Type A (PCR) Influenza Type B (PCR) RSV RNA Qual (PCR) SARS-CoV-2 RNA (RT-PCR) 06/04/24 06/04/24 07:08 09:00 MCV MCH MCHC RDW Plt Count MPV Absolute Nucleated RBC Nucleated RBC % (auto) ESR Anion Gap Estim Creat Clear Calc Estimated GFR POC Glucose 162 H Random Glucose Estimat Average Glucose Hemoglobin A1c % Lactic Acid Lactic Acid F/U @ 2Hr Calcium Troponin I High Sens Beta-Hydroxybutyrate Random Vancomycin 13.6 L Influenza Type A (PCR) Influenza Type B (PCR) RSV RNA Qual (PCR) SARS-CoV-2 RNA (RT-PCR) Assessment and Plan (1) Sepsis: Status: Acute (2) Osteomyelitis: Status: Acute Plan 53-year-old male with a PMH significant for?yht-jpcpbfx-yztchwodw type 2 diabetes who presents to the ED with?worsening diabetic left foot ulcers x1 month. Pt will be admitted to the hospital for treatment and further evaluation of acute left foot osteomyelitis with sepsis. Left foot osteomyelitis with severe sepsis secondary to chronic diabetic foot ulcers. No pain, presented with foul-smelling & purulent discharge, Elevated ESR and CRP, x-ray of left foot showed septic arthritis and osteomyelitis at the 1st, 2nd, 3rd, and 5th MTP joints and great toe distal phalanx. WBC and lactic acidosis trending down . Continue vancomycin and Zosyn, started 06/03/[address] Follow Vascular surgery consult. Follow blood cultures Hyperglycemia/uncontrolled type 2 diabetes only on metformin at home POC 502 at time of presentation, blood sugar improved to 162 this a.m. A1c 9.1, beta hydroxybutyrate 0.66 Continue insulin sliding scale and diabetic diet, will monitor blood sugar and add Lantus. Hyponatremia Likely due to hyperglycemia resolved Hyperlipidemia continue statin Tobacco use disorder continue nicotine patch, added nicotine gum, counseling done. Cocaine/marijuana use disorder obtain addiction consult Adrenal nodule CT of abdomen and pelvis found 1.4 cm homogeneous left adrenal nodule Recommendation is for CT adrenal protocol in 1 year Full Code DVT Prophylaxis: Lovenox Pt will require continued inpatient hospitalization for treatment of?acute left foot osteomyelitis with sepsis. Patient will require administration of IV antibiotics, close monitoring of labs, and specialist consultation with vascular surgery. Quality Stroke Does the patient have a stroke diagnosis?: No VTE Prior VTE?: No VTE Risk Level:: Medical - moderate - high VTE Device Contraindication: Treatment Not Indicated VTE Drug Contraindication: N/A - Med Ordered
[2024-06-04 11:08] VITALS: BMI 19.1
[2024-06-04 11:19] LABS: Glucose, Whole Blood 270 mg/dL (60-115)
[2024-06-04] MEDS: vancomycin HCL 1,000 MG in 0.9 % Sodium Chloride 250 ML 270 MG IV ×2 (11:31→23:48)
--- NOTE | 2024-06-04 11:36 | MHC.CLN ---
NUTRITION CONSULT FOR UNINTENTIONAL WEIGHT LOSS. DIET=DIABETIC 2000 KCALS. QUALIFIES MODERATELY MALNOURISHED IN THE CONTEXT OF SOCIAL/BEHAVIORAL/ENVIRONMENTAL CIRCUMSTANCES. REPORTS 30# WEIGHT LOSS BUT UNABLE TO QUANTIFY. WEIGHT HX SHOWS -6.2% WEIGHT LOSS X 9 MONTHS. BMI=19.1 AND IS 82% OF IBW. REPORTS LACK OF APPETITE. SKIN WITH LEFT FOOT OSTEOMYELITIS. ADDING ENSURE MAX PROTEIN TID. PROVIDES 450 KCALS, 90 G PROTEIN. THIS IS A LOWER CARBOHYDRATE PRODUCT, APPROPRIATE FOR DM. CURRENT HOUSING IS LONG-TERM WITH MINIMAL FOOD PROVIDED. FOLLOW FOR INTAKE AND DIET TOLERANCE. SEE CLINICAL NUTRITION ASSESSMENT 06/04/24.
--- NOTE | 2024-06-04 13:19 | MHC.RECOVRN ---
Met with pt in 362 after consult placed to Addiction Medicine for cocaine and marijuana use. Pt had presented to the ED reporting back pain, left foot infection, and inability to take insulin. Upon provider evaluation, pt admitted for osteomyelitis. Pt laying in bed, awake, alert, engages in conversation. Pt reports using cocaine, IN, $20-$40 daily x 2 months. Prior to that, pt had not used for 6 months. Pt reports using cocaine to manage pain. Pt denies concerns regarding marijuana and cocaine use. Pt states he has not used recovery supports/resources in the past and feels that he does not need them currently. Pt denies cravings for substances. Pt denies use of other substances. Educated pt on possible presence of fentanyl in cocaine, pt reports he feels comfortable with the supplier he has but was receptive to education. Pt agreeable to taking written resources as well as t/w contact information if needed. Denies questions or concerns at this time. Discussed with Alena Gomez APRN.
[2024-06-04 15:52] VITALS: BP 160/80; PULSE 97; RESP 14; TEMP 36.3; O2SAT 99
[2024-06-04 16:04] LABS: Glucose, Whole Blood 252 mg/dL (60-115)
[2024-06-04] MEDS: Enoxaparin Sodium 40 MG/0.4 ML SYRINGE SUBCUT (17:19)
[2024-06-04 19:23] VITALS: BP 143/90; PULSE 107; RESP 18; TEMP 36.3; O2SAT 98
[2024-06-04] MEDS: ondansetron HCL 4 MG/2 ML VIAL IVPUSH (19:47)
[2024-06-04 20:09] LABS: Glucose, Whole Blood 113 mg/dL (60-115)
[2024-06-04] MEDS: Sodium Hypochlorite 0.125% 473 ML SOLUTION 1 APPL TOPICAL (20:25)
--- NOTE | 2024-06-05 00:58 | PM.CNGS ---
History of Present Illness Consult details Consult date: 06/04/24 Requesting physician: Valente Gross Narrative: The pt is a 53 yo male uncontrolled diabetic with left diabetic foot infection - has several wounds worse the medial left foot with some necrotic tissue and involved bone and osteo. xrays showing changes across all the MTP heads consistent with osteo. Pt doesnt take good control of his health. Review of Systems Review of Systems: Yes all other systems are reviewed and are negative PMFSH Past Medical History Medical History (Updated 06/03/24 @ 16:43 by Liilan Patel CNP) Non-insulin dependent type 2 diabetes mellitus Social History Social History Household Members: Other Housing: Other Housing Other:: Homeless [facility] Do you presently have visiting nurse or other home services: No Alcohol intake: current Alcohol intake frequency: does not drink Patient Tobacco Use Status: Never used Tobacco Smoked in Last 30 Days: Yes Use of substances other than those prescribed or required for medical reasons: Yes Substance Use Type: Crack/Cocaine and Inhalants Substance Use Frequency: Daily Currently Displaying Signs/Symptoms of Drug Intoxication Withdrawal: No Have you been hit, kicked, punched, or otherwise hurt by someone within the past year? If so, by whom?: No Do you feel safe in your current relationship?: No Current Relationship Is there a partner from a previous relationship who is making you feel unsafe now?: No Are you made to feel afraid or neglected: No Advance Directives: No Advance Directives Information Provided: No Do you have a plan to hurt others: No Plan Recently lost weight without trying: Yes How much weight loss: 24-33 pounds Eating poorly because of decreased appetite: Yes Nutrition screen score: 6 Nutrition Risks: No Nutritional Risk Poor oral hygiene: Yes Meds Allergies Allergy/AdvReac Type Severity Reaction Status Date / Time No Known Allergies Allergy Verified 06/03/24 09:00 Active Medications: Current Medications Acetaminophen (Acetaminophen 325 Mg Tablet) 650 mg PO Q6H PRN PRN Reason: Pain, Mild (Pain Scale 1-3), fever or headache Albuterol Sulfate (Albuterol Sulfate 90 Mcg 8 Gm Inhaler) 2 puff INHALE DAILY PRN PRN Reason: Shortness Of Breath Or Wheezing Atorvastatin Calcium (Atorvastatin Calcium 40 Mg Tablet) 40 mg PO DAILY DREA Benzonatate (Benzonatate 100 Mg Capsule) 100 mg PO TID PRN PRN Reason: Cough Calcium Carbonate (Calcium Carbonate 750 Mg Tab.Chew) 750 mg PO Q4H PRN PRN Reason: Heartburn Enoxaparin Sodium (Enoxaparin Sodium 40 Mg/0.4 Ml Syringe) 40 mg SUBCUT Q24H [facility] Last Admin: 06/04/24 17:19 Dose: 40 mg Glucose (Glucose Gel 15 Gm Gel..Gram.) 15 gm PO Q15M PRN; Protocol PRN Reason: per Hypoglycemia Standing Ord. Dextrose (D10) 250 mls @ 750 mls/hr IV Q15M PRN; Protocol PRN Reason: per Hypoglycemia Standing Ord. Vancomycin HCl 1,000 mg/ (Sodium Chloride) 270 mls @ 270 mls/hr IV Q12H [facility] Last Infusion: 06/05/24 00:48 Dose: Infused Piperacillin Sod/Tazobactam (Sod 3.375 gm/ Sodium Chloride) 50 mls @ 100 mls/hr IV Q6H [facility] Last Infusion: 06/04/24 23:07 Dose: Infused Insulin Human Lispro (Insulin Lispro 100 Unit/Ml 3 Ml Vial) 0 unit SUBCUT QIDACHS [facility]; Protocol Last Admin: 06/04/24 20:17 Dose: Not Given Magnesium Hydroxide (Milk Of Magnesia 30 Ml Oral.Susp) 30 ml PO DAILY PRN PRN Reason: Constipation Melatonin (Melatonin 3 Mg Tablet) 6 mg PO BEDTIME PRN PRN Reason: Insomnia Morphine Sulfate (Morphine Sulfate 4 Mg/Ml Cartridge) 4 mg IVPUSH Q4H PRN; Protocol PRN Reason: Pain, Severe (Pain Scale 7-10) Nicotine (Nicotine 14 Mg Patch.Td24) 14 mg TRANSDERMA DAILY [facility] Last Admin: 06/04/24 08:26 Dose: Not Given Nicotine Polacrilex (Nicotine Polacrilex 2 Mg Gum) 2 mg BUCCAL Q2H PRN PRN Reason: Nicotine Cravings Last Admin: 06/04/24 10:31 Dose: 2 mg Ondansetron HCl (Ondansetron Hcl 4 Mg/2 Ml Vial) 4 mg IVPUSH Q8H PRN PRN Reason: Nausea and Vomiting Last Admin: 06/04/24 19:47 Dose: 4 mg Oxycodone HCl (Oxycodone Hcl Immed Release 5 Mg Tablet) 5 mg PO Q6H PRN PRN Reason: Pain, Moderate(Pain Scale 4-6) Pharmacy Consult (Consult Rx Vancomycin Dosing) 1 each MISCELLANE DAILY PRN PRN Reason: Consult order Sodium Chloride (0.9 % Sodium Chloride Flush 3 Ml Syringe) 3 ml IVFLUSH QSHIFT [facility] Last Admin: 06/04/24 19:48 Dose: 3 ml Sodium Hypochlorite (Sodium Hypochlorite 0.125% 473 Ml Solution) 1 appl TOPICAL DAILY [facility] Last Admin: 06/04/24 20:25 Dose: 1 appl Home Medications ?Medication ?Instructions ?Recorded ?Confirmed ?Last Taken ?Type albuterol sulfate 90 mcg/actuation 2 puff inhalation DAILY PRN 06/03/24 06/03/24 Unknown History aerosol inhaler Shortness Of Breath Or Wheezing atorvastatin 40 mg tablet 40 mg PO DAILY 06/03/24 06/03/24 1 Month Ago History ~05/04/24 metformin 500 mg tablet,extended 1,000 mg PO DAILY 06/03/24 06/03/24 06/02/24 History release 24hr (osmotic) Physical Exam Vital Signs: Vital Signs: Last Vital Signs Temp 97.3 F 06/04/24 19:23 Pulse 107 H 06/04/24 19:23 Resp 18 06/04/24 19:23 BP 143/90 H 06/04/24 19:23 Pulse Ox 98 06/04/24 19:23 O2 Del Method Room Air 06/04/24 19:23 BMI result Body Mass Index 19.1 Skin: Other: left foot with some erythema and left medial area near the mtp region with open wound with fat and muscle and some necrotic tissue but then a area which tunnels deeper to bone which is necrotic and in some pieces. the dorsal foot on the lateral aspect with an open area which is water filter cleaner with more pink tissue. pt with neuropathy but has sensation when pushing deeper into medial aspect of the wound. Results Labs 06/04/24 05:52 06/04/24 05:52 Labs: Abnormal lab results 06/04/24 06/04/24 06/04/24 Range/Units 05:52 07:08 09:00 WBC 15.6 H (4.8-10.8) X10*3/uL RBC 3.60 L (4.60-5.80) X10*6/uL Hgb 10.3 L (14.0-18.0) g/dl Hct 31.1 L (42.0-52.0) % Plt Count 518 H (160-400) X10*3/uL MPV 8.4 L (9.4-12.4) fL BUN 7 L (9-16) mg/dL POC Glucose 162 H (60-115) mg/dL Random Glucose 182 H (60-115) mg/dL Random Vancomycin 13.6 L (15-20) mcg/mL 06/04/24 06/04/24 Range/Units 11:10 16:00 WBC (4.8-10.8) X10*3/uL RBC (4.60-5.80) X10*6/uL Hgb (14.0-18.0) g/dl Hct (42.0-52.0) % Plt Count (160-400) X10*3/uL MPV (9.4-12.4) fL BUN (9-16) mg/dL POC Glucose 270 H 252 H (60-115) mg/dL Random Glucose (60-115) mg/dL Random Vancomycin (15-20) mcg/mL Short CBC 06/04/24 Range/Units 05:52 WBC 15.6 H (4.8-10.8) X10*3/uL Hgb 10.3 L (14.0-18.0) g/dl Hct 31.1 L (42.0-52.0) % Plt Count 518 H (160-400) X10*3/uL BMP 06/04/24 05:52 Sodium 135 Potassium 3.6 Chloride 101 Carbon Dioxide 23 BUN 7 L Creatinine 0.74 Calcium 8.8 Urine 06/03/24 Range/Units 10:10 Urine Color Yellow Urine Appearance Clear Urine pH 6.5 (5.0-9.0) Ur Specific [place] 1.025 (1.005-1.025) Urine Protein Negative (Neg-Trace) mg/dL Urine Glucose (UA) >=1000 H (Negative) mg/dL All other labs normal. Imaging Additional studies: Chart - [facility] ? Diagnostics Subcategory All Activity ??:?? All Time ??:?? All Subcategories Filter Laboratory Imaging Microbiology Pathology Blood Bank Tests Cardiovascular Other Specialty DATE TYPE STATUS REF RANGE/AUTHOR Hx 06/04/24 15:30 Duplex Scan Lower Extremity Artery Signed Aric Shearer 06/03/24 11:09 Abdomen/Pelvis CT Signed Siena Dodge 06/03/24 09:45 Foot X-Ray Signed Joe Louie 08/25/23 19:06 Knee X-Ray Signed Pam Escalante 08/25/23 19:[address] Signed AlysaoscarPam 08/25/23 19:[address] Signed Pam Escalante Angel L Acute 53, M?1970 MRN#? [id number] ADM IN,?HO.S3??362?-1? 5ft 7in 121lb 14.65oz BSA: 1.62m? BMI: 19.1kg/m? Acc#? [id number] Full Code Historical Visits Allergies No Known Allergies Problems ? ONSET Sepsis Osteomyelitis Vital Signs 06/04/24 19:23 BP 143/90?H Pulse 107?H Resp 18? Temp 97.3 F? O2 Sat 98? Delivery Room Air? Home Meds Confirmed Prescription Monitoring Program MEDICATIONS (INSTRUCTIONS) LAST TAKEN Active albuterol sulfate 2 puffinhalationDAILYPRNShortness Of Breath Or Wheezing Unknown atorvastatin 40 mgPODAILY ~ 05/04/24 metformin 1,000 mgPODAILY 06/02/24 My Widget No Data to Display Diagnostics Reports Gurpreet Moreno??53??M??1970 ? Allergy/Adv: No Known Allergies Close Duplex Scan Lower Extremity Artery (Signed) ManfredAric - 06/04/24 Abdomen/Pelvis CT (Signed) Siena Dodge - 06/03/24 Foot X-Ray (Signed) Joe Louie - 06/03/24 Knee X-Ray (Signed) Pam Escalante - 08/25/[address] (Signed) Pam Escalante - 08/25/[address] (Signed) Pam Escalante - 08/25/23 Launch?Image [address] [address] XRay Report Signed Patient: Gurpreet Moreno MR#: [id number] : 1970 Acct:[id number] Age/Sex: 53 / M ADM Date: 06/03/24 Loc: HO.ED Attending Dr: Ordering Physician: Lilian Patel CNP Date of Service: 06/03/24 Procedure(s): XR foot LT min 3V Accession Number(s): [id number] cc: Lilian Patel CNP~ EXAMINATION: XR FOOT, LEFT CLINICAL INFORMATION: Multiple months. Question osteomyelitis COMPARISON: None available. TECHNIQUE: AP, lateral, and oblique views of the left foot. FINDINGS: Bones are osteopenic. Regions of marked osteopenia/osteolysis in varying degrees of osseous destruction are evident at the first, second, third, and fifth metatarsal heads and proximal phalangeal bases as well as the great toe distal phalanx, most consistent with osteomyelitis. The osseous destruction in these regions is more notable at the first, second, and third MTP joints. No appreciable findings to indicate involvement of the midfoot including the TMT joints. Soft tissues are markedly swollen and the forefoot. Wounds are evident at the medial and lateral aspects of the first and fifth MTP joints, respectively. XR/XR foot LT min 3V IMPRESSION: Septic arthritis and osteomyelitis at the first, second, third, and fifth MTP joints and great toe distal phalanx. Dictated By: Joe Louie MD Signed By: <Electronically signed by Joe Louie MD in OV> 06/03/2452 DD/ TD/TT: Warehouseman: [facility] ? Diagnostics Subcategory All Activity ??:?? All Time ??:?? All Subcategories Filter Laboratory Imaging Microbiology Pathology Blood Bank Tests Cardiovascular Other Specialty DATE TYPE STATUS REF RANGE/AUTHOR Hx 06/04/24 15:30 Duplex Scan Lower Extremity Artery Signed Aric Shearer 06/03/24 11:09 Abdomen/Pelvis CT Signed Siena Dodge 06/03/24 09:45 Foot X-Ray Signed Joe Louie 08/25/23 19:06 Knee X-Ray Signed Pam Escalante 08/25/23 19:[address] Signed Pam Escalante 08/25/23 19:[address] Signed Pam Escalante Angel L Acute 53, M?1970 MRN#? [id number] ADM IN,?HO.S3??362?-1? 5ft 7in 121lb 14.65oz BSA: 1.62m? BMI: 19.1kg/m? Acc#? [id number] Full Code Historical Visits Allergies No Known Allergies Problems ? ONSET Sepsis Osteomyelitis Vital Signs 06/04/24 19:23 BP 143/90?H Pulse 107?H Resp 18? Temp 97.3 F? O2 Sat 98? Delivery Room Air? Home Meds Confirmed Prescription Monitoring Program MEDICATIONS (INSTRUCTIONS) LAST TAKEN Active albuterol sulfate 2 puffinhalationDAILYPRNShortness Of Breath Or Wheezing Unknown atorvastatin 40 mgPODAILY ~ 05/04/24 metformin 1,000 mgPODAILY 06/02/24 My Widget No Data to Display Diagnostics Reports Gurpreet Moreno??53??M??1970 ? Allergy/Adv: No Known Allergies Close Duplex Scan Lower Extremity Artery (Signed) Aric Shearer - 06/04/24 Abdomen/Pelvis CT (Signed) Siena Dodge - 06/03/24 Foot X-Ray (Signed) Joe Louie - 06/03/24 Knee X-Ray (Signed) Pam Escalante - 08/25/[address] (Signed) Pam Escalante - 08/25/[address] (Signed) Pam Escalante - 08/25/23 Launch?Image [place] [address] Ultrasound Report Signed Patient: Gurpreet Moreno MR#: [id number] : 1970 Acct:[id number] Age/Sex: 53 / M ADM Date: 06/03/24 Loc: .S3 362-[address]: Valente Gross MD Ordering Physician: Valente Gross MD Date of Service: 06/04/24 Procedure(s): US arterial duplex LE LT Accession Number(s): [id number] cc: Valente Gross MD; Physician,Unknown ~ EXAMINATION: COLOR-FLOW DUPLEX IMAGING OF THE LEFT LOWER EXTREMITY ARTERIAL SYSTEM, WITH VELOCITY MEASUREMENTS CLINICAL INFORMATION: The patient is a 53 year-old man who presents with osteomyelitis of the left first, second, third and fifth toes. LEFT FEMORAL RUNOFF VELOCITIES: The left common femoral artery peak systolic velocity is 105.0 cm/s. The waveform is triphasic. The left profunda femoral artery peak systolic velocity is 123.0 cm/s. The waveform is triphasic. The left proximal superficial femoral artery peak systolic velocity is 120.0 cm/s. The waveform is triphasic. The left mid superficial femoral artery peak systolic velocity is 172.0 cm/s. The waveform is triphasic. The left distal superficial femoral artery peak systolic velocity is 100.0 cm/s. The waveform is triphasic. The left popliteal artery peak systolic velocity is 107.0 cm/s. The waveform is triphasic. The left anterior tibial artery peak systolic velocity is 118.0 cm/s. The waveform is monophasic. The left dorsalis pedis artery peak systolic velocity is 202.0 cm/s. The waveform is monophasic. The left peroneal artery peak systolic velocity is 84.8 cm/s. The waveform is triphasic. The left posterior tibial artery peak systolic velocity is 87.6 cm/s. The waveform is triphasic. 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 Dictated By: Aric Shearer MD Signed By: <Electronically signed by Aric Shearer MD in OV> 06/05/24 0031 DD/ 1530 TD/TT: Warehouseman: [facility] ? Diagnostics Subcategory All Activity ??:?? All Time ??:?? All Subcategories Filter Laboratory Imaging Microbiology Pathology Blood Bank Tests Cardiovascular Other Specialty DATE TYPE STATUS REF RANGE/AUTHOR Hx 06/04/24 15:30 Duplex Scan Lower Extremity Artery Signed Aric Shearer 06/03/24 11:09 Abdomen/Pelvis CT Signed Siena Dodge 06/03/24 09:45 Foot X-Ray Signed Joe Louie 08/25/23 19:06 Knee X-Ray Signed Pam Escalante 08/25/23 19:[address] Signed Pam Escalante 08/25/23 19:[address] Signed Pam Escalante Angel L Acute 53, M?1970 MRN#? [id number] ADM IN,?HO.S3??362?-1? 5ft 7in 121lb 14.65oz BSA: 1.62m? BMI: 19.1kg/m? Acc#? [id number] Full Code Historical Visits Allergies No Known Allergies Problems ? ONSET Sepsis Osteomyelitis Vital Signs 06/04/24 19:23 BP 143/90?H Pulse 107?H Resp 18? Temp 97.3 F? O2 Sat 98? Delivery Room Air? Home Meds Confirmed Prescription Monitoring Program MEDICATIONS (INSTRUCTIONS) LAST TAKEN Active albuterol sulfate 2 puffinhalationDAILYPRNShortness Of Breath Or Wheezing Unknown atorvastatin 40 mgPODAILY ~ 05/04/24 metformin 1,000 mgPODAILY 06/02/24 My Widget No Data to Display Diagnostics Reports Gurpreet Moreno??53??M??1970 ? Allergy/Adv: No Known Allergies Close Duplex Scan Lower Extremity Artery (Signed) Aric Shearer - 06/04/24 Abdomen/Pelvis CT (Signed) Siena Dodge - 06/03/24 Foot X-Ray (Signed) Joe Louie - 06/03/24 Knee X-Ray (Signed) Pam Escalante - 08/25/[address] (Signed) Pam Escalante - 08/25/[address] (Signed) Pam Escalante - 08/25/23 Launch?Image [place] [address] Ultrasound Report Signed Patient: Gurpreet Moreno MR#: [id number] : 1970 Acct:[id number] Age/Sex: 53 / M ADM Date: 06/03/24 [facility]: Valente Gross MD Ordering Physician: Valente Gross MD Date of Service: 06/04/24 Procedure(s): US arterial duplex LE LT Accession Number(s): [id number] cc: Valente Gross MD; Physician,Unknown ~ EXAMINATION: COLOR-FLOW DUPLEX IMAGING OF THE LEFT LOWER EXTREMITY ARTERIAL SYSTEM, WITH VELOCITY MEASUREMENTS CLINICAL INFORMATION: The patient is a 53 year-old man who presents with osteomyelitis of the left first, second, third and fifth toes. LEFT FEMORAL RUNOFF VELOCITIES: The left common femoral artery peak systolic velocity is 105.0 cm/s. The waveform is triphasic. The left profunda femoral artery peak systolic velocity is 123.0 cm/s. The waveform is triphasic. The left proximal superficial femoral artery peak systolic velocity is 120.0 cm/s. The waveform is triphasic. The left mid superficial femoral artery peak systolic velocity is 172.0 cm/s. The waveform is triphasic. The left distal superficial femoral artery peak systolic velocity is 100.0 cm/s. The waveform is triphasic. The left popliteal artery peak systolic velocity is 107.0 cm/s. The waveform is triphasic. The left anterior tibial artery peak systolic velocity is 118.0 cm/s. The waveform is monophasic. The left dorsalis pedis artery peak systolic velocity is 202.0 cm/s. The waveform is monophasic. The left peroneal artery peak systolic velocity is 84.8 cm/s. The waveform is triphasic. The left posterior tibial artery peak systolic velocity is 87.6 cm/s. The waveform is triphasic. 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 Dictated By: Aric Shearer MD Signed By: <Electronically signed by Aric Shearer MD in OV> 06/05/24 0031 DD/ 1530 TD/TT: Warehouseman: LORIN Assessment and Plan (1) Sepsis: Status: Acute (2) Osteomyelitis: Qualifiers: Osteomyelitis type: other acute Osteomyelitis location: foot Laterality: left Qualified Code(s): M86.172 - Other acute osteomyelitis, left ankle and foot Status: Acute Plan Pt with significant diabetic foot infection with osteo of left foot MTP heads - at this point plan to treat with antibx , some necrotic tissue removed. Dressigns with Dakin solution. ID consult. fu on doppler and consider if will need revascularization. cont with tight glucose control - pt at high risk for needing TMA in future. Procedures Date of Service Date of Service: 06/05/24
[2024-06-05 03:06] VITALS: BP 158/80; PULSE 95; RESP 18; TEMP 36.3; O2SAT 100
[2024-06-05] MEDS: Piperacillin Sodium/Tazobactam 3.375 GM in 0.9 % Sodium Chloride 50 ML IV ×4 (05:15→22:22)
[2024-06-05 06:37] LABS: Hematocrit 32.9 % (42.0-52.0); Hemoglobin 11.1 g/dl (14.0-18.0); Mean Corpuscular HGB Conc 33.7 g/dl (31.0-36.0); Mean Corpuscular Volume 85.9 fL (80.0-98.0); Mean Platelet Volume 8.6 fL (9.4-12.4); Platelet Count 488 X10*3/uL (160-400); Red Blood Count 3.83 X10*6/uL (4.60-5.80); Red Cell Distribution Width 13.5 % (11.0-16.0); White Blood Count 9.5 X10*3/uL (4.8-10.8)
[2024-06-05 06:53] LABS: Anion Gap 15 (12-20); Blood Urea Nitrogen 9 mg/dL (9-16); Calcium 9.1 mg/dL (8.4-10.2); Carbon Dioxide 25 mmol/L (22-29); Chloride 96 mmol/L (96-108); Creatinine Clr Calc Pharmacy 79.6; Estimated Glomerular Filt Rate > 60; Glucose Random 325 mg/dL (60-115); Potassium 3.9 mmol/L (3.3-5.1); Sodium 132 mmol/L (135-145)
[2024-06-05 07:37] VITALS: BP 151/89; PULSE 100; RESP 14; TEMP 36.4; O2SAT 99
[2024-06-05 07:37] LABS: Glucose, Whole Blood 291 mg/dL (60-115)
[2024-06-05] MEDS: Insulin Glargine,Hum.rec.anlog 100 UNIT/ML 10 ML VIAL 10 UNIT SUBCUT (08:01)
[2024-06-05] MEDS: Atorvastatin Calcium 40 MG TABLET PO (08:01)
[2024-06-05] MEDS: 0.9 % Sodium Chloride Flush 3 ML SYRINGE IVFLUSH ×3 (08:02→21:02)
[2024-06-05] MEDS: Insulin Lispro 100 UNIT/ML 3 ML VIAL SUBCUT ×4 (08:02→21:01)
[2024-06-05] MEDS: Nicotine 14 MG PATCH.TD24 TRANSDERMA (08:02)
--- NOTE | 2024-06-05 09:41 | HE.PHANOTE ---
RE: VANCO DOSING Random came back as 14. Continue with dose of 1000 mg q12h, next random is scheduled for 06/06/24 @0900.
--- NOTE | 2024-06-05 10:32 | HO.WOUND ---
Wound Consult: Initial 53yr old male admitted to [facility] on 06/03/24 - See H&P for detailed history and admission. Wound consult placed for Left Foot Diabetic wound present on admission. Chart review reveals patient was seen yesterday by Dr. Moctezuma from [facility] and she made topical recommendations. Updated order for staff to be able to chart against in worklist. Patient not seen by this creative services writer as orders are in place - will defer to General Surgery. Reconsult should inpatient nurse topical recommendations be needed.
[2024-06-05 11:31] LABS: Glucose, Whole Blood 165 mg/dL (60-115)
[2024-06-05] MEDS: vancomycin HCL 1,000 MG in 0.9 % Sodium Chloride 250 ML 270 MG IV ×2 (11:46→22:54)
--- NOTE | 2024-06-05 12:19 | MHC.CM.PN ---
IMM 06/04/24 Male 53 yrs DX Osteomyelitis He is [facility]. He does not know the name of his PCP. He lives in [place] congreg[place] housing. He is independent with all functional mobility. He has been performing wound care independently prior to admit. He is willing to accept Home services for wound care+assessment. His Home care preference is [facility]. A referral has been sent to the agency. DP home with [facility] via [facility] shuttle.
--- NOTE | 2024-06-05 13:45 | P.PNIM_ITS ---
Subjective Subjective Date of Service: 06/05/24 Interval History: Being followed for septic arthritis and osteomyelitis of 1st , 2nd, 3rd and 5th MTP joints and great toe distal phalanx. Complaining of mild nausea , no vomiting, no abdominal pain, denies foot pain, no fevers, no chills, no other acute issues overnight. Review of Systems All other systems are reviewed and are negative. Physical Exam 2 Vital Signs: Vital Signs: Last Vital Signs Temp 97.6 F 06/05/24 07:37 Pulse 100 06/05/24 07:37 Resp 14 06/05/24 07:37 BP 151/89 H 06/05/24 07:37 Pulse Ox 99 06/05/24 07:37 O2 Del Method Room Air 06/05/24 07:37 BMI result Body Mass Index 19.1 Const: Other: General in no acute distress. Neck supple no JVD. CVS regular rate rhythm, Respiratory lungs clear to auscultation, no respiratory distress, no wheeze, no rhonchi. Gastrointestinal abdomen soft, non tender, bowel sounds audible, no guarding , no rigidity. Extremities see left foot picture in admission note, dressing in place, no drainage noted. Neuro non focal Skin no rash Psych appropriate affect Objective Data Active Medications Acetaminophen (Acetaminophen 325 Mg Tablet) 650 mg PO Q6H PRN PRN Reason: Pain, Mild (Pain Scale 1-3), fever or headache Albuterol Sulfate (Albuterol Sulfate 90 Mcg 8 Gm Inhaler) 2 puff INHALE DAILY PRN PRN Reason: Shortness Of Breath Or Wheezing Atorvastatin Calcium (Atorvastatin Calcium 40 Mg Tablet) 40 mg PO DAILY [facility] Last Admin: 06/05/24 08:01 Dose: 40 mg Documented By: CALEB Benzonatate (Benzonatate 100 Mg Capsule) 100 mg PO TID PRN PRN Reason: Cough Calcium Carbonate (Calcium Carbonate 750 Mg Tab.Chew) 750 mg PO Q4H PRN PRN Reason: Heartburn Enoxaparin Sodium (Enoxaparin Sodium 40 Mg/0.4 Ml Syringe) 40 mg SUBCUT Q24H [facility] Last Admin: 06/04/24 17:19 Dose: 40 mg Documented By: CALEB Glucose (Glucose Gel 15 Gm Gel..Gram.) 15 gm PO Q15M PRN; Protocol PRN Reason: per Hypoglycemia Standing Ord. Dextrose (D10) 250 mls @ 750 mls/hr IV Q15M PRN; Protocol PRN Reason: per Hypoglycemia Standing Ord. Vancomycin HCl 1,000 mg/ (Sodium Chloride) 270 mls @ 270 mls/hr IV Q12H [facility] Last Infusion: 06/05/24 12:57 Dose: Infused Documented By: CALEB Piperacillin Sod/Tazobactam (Sod 3.375 gm/ Sodium Chloride) 50 mls @ 100 mls/hr IV Q6H [facility] Last Infusion: 06/05/24 11:40 Dose: Infused Documented By: CALEB Insulin Glargine (Insulin Glargine,Hum.Rec.Anlog 100 Unit/Ml 10 Ml Vial) 10 unit SUBCUT DAILY [facility] Last Admin: 06/05/24 08:01 Dose: 10 unit Documented By: CALEB Insulin Human Lispro (Insulin Lispro 100 Unit/Ml 3 Ml Vial) 0 unit SUBCUT QIDACHS [facility]; Protocol Last Admin: 06/05/24 11:46 Dose: 2 unit Documented By: CALEB Magnesium Hydroxide (Milk Of Magnesia 30 Ml Oral.Susp) 30 ml PO DAILY PRN PRN Reason: Constipation Melatonin (Melatonin 3 Mg Tablet) 6 mg PO BEDTIME PRN PRN Reason: Insomnia Morphine Sulfate (Morphine Sulfate 4 Mg/Ml Cartridge) 4 mg IVPUSH Q4H PRN; Protocol PRN Reason: Pain, Severe (Pain Scale 7-10) Nicotine (Nicotine 14 Mg Patch.Td24) 14 mg TRANSDERMA DAILY [facility] Last Admin: 06/05/24 08:02 Dose: 14 mg Documented By: CALEB Nicotine Polacrilex (Nicotine Polacrilex 2 Mg Gum) 2 mg BUCCAL Q2H PRN PRN Reason: Nicotine Cravings Last Admin: 06/04/24 10:31 Dose: 2 mg Documented By: CALEB Ondansetron HCl (Ondansetron Hcl 4 Mg/2 Ml Vial) 4 mg IVPUSH Q8H PRN PRN Reason: Nausea and Vomiting Last Admin: 06/04/24 19:47 Dose: 4 mg Documented By: ODRISOrly Oxycodone HCl (Oxycodone Hcl Immed Release 5 Mg Tablet) 5 mg PO Q6H PRN PRN Reason: Pain, Moderate(Pain Scale 4-6) Pharmacy Consult (Consult Rx Vancomycin Dosing) 1 each MISCELLANE DAILY PRN PRN Reason: Consult order Sodium Chloride (0.9 % Sodium Chloride Flush 3 Ml Syringe) 3 ml IVFLUSH QSHIFT [facility] Last Admin: 06/05/24 08:02 Dose: 3 ml Documented By: CALEB Sodium Hypochlorite (Sodium Hypochlorite 0.125% 473 Ml Solution) 1 appl TOPICAL DAILY [facility] Last Admin: 06/04/24 20:25 Dose: 1 appl Documented By: JEFRY Labs 06/05/24 05:38 06/05/24 05:38 Labs: Laboratory Results - last 24 hr 06/04/24 06/04/24 06/05/24 16:00 19:27 05:38 MCV 85.9 MCH 29.0 MCHC 33.7 RDW 13.5 Plt Count 488 H MPV 8.6 L Absolute Nucleated RBC 0.000 Nucleated RBC % (auto) 0.0 Anion Gap 15 Estim Creat Clear Calc 79.6 Estimated GFR > 60 POC Glucose 252 H 113 Random Glucose 325 H Calcium 9.1 Random Vancomycin 06/05/24 06/05/24 06/05/24 07:32 09:13 11:23 MCV MCH MCHC RDW Plt Count MPV Absolute Nucleated RBC Nucleated RBC % (auto) Anion Gap Estim Creat Clear Calc Estimated GFR POC Glucose 291 H 165 H Random Glucose Calcium Random Vancomycin 14.0 L Microbiology Microbiology Results: Microbiology 06/03/24 10:23 Blood Culture - Preliminary Blood - Venous No growth after 48 hours. 06/03/24 10:10 Blood Culture - Preliminary Blood - Venous No growth after 48 hours. Assessment and Plan (1) Sepsis: Status: Acute (2) Osteomyelitis: Status: Acute Plan 53-year-old male with a PMH significant for?lvx-[id number]-[id number] type 2 diabetes who presents to the ED with?worsening diabetic left foot ulcers x1 month. Pt will be admitted to the hospital for treatment and further evaluation of acute left foot osteomyelitis with sepsis. Left foot osteomyelitis with severe sepsis secondary to chronic diabetic foot ulcers. No pain, presented with foul-smelling & purulent discharge, Elevated ESR and CRP, x-ray of left foot showed septic arthritis and osteomyelitis at the 1st, 2nd, 3rd, and 5th MTP joints and great toe distal phalanx. WBC normalized , lactic acidosis trending down . Continue vancomycin and Zosyn, started 06/03/2024 blood cultures x2 negative times 24 hours Arterial ultrasound showed hemodynamically significant left anterior tibialis and dorsalis pedis, arteries, has good pulses. Seen by General surgery Dr. Moctezuma some necrotic tissue removed/patient at high risk for needing TMA Follow ID consult for choice and duration of antibiotic versus TMA Hyperglycemia/uncontrolled type 2 diabetes only on metformin at home POC 502 at time of presentation, blood sugar improved ,A1c 9.1, beta hydroxybutyrate 0.66 Continue insulin sliding scale and diabetic diet, Lantus 10 units at a.m. added. Acute Hyponatremia likely due to hyperglycemia stable Hyperlipidemia continue statin Tobacco use disorder continue nicotine patch, and nicotine gum, counseling done. Cocaine/marijuana use disorder , seen by Addiction Team written resources provided, patient denies craving for substances. Adrenal nodule CT of abdomen and pelvis found 1.4 cm homogeneous left adrenal nodule Recommendation is for CT adrenal protocol in 1 year Moderate protein calorie malnutrition continue ensure max t.i.d. Full Code DVT Prophylaxis: Lovenox Pt will require continued inpatient hospitalization for treatment of?acute left foot osteomyelitis with sepsis. Patient will require administration of IV antibiotics, close monitoring of labs, and specialist consultation with vascular surgery. Quality Stroke Does the patient have a stroke diagnosis?: No VTE Prior VTE?: No VTE Risk Level:: Medical - moderate - high VTE Device Contraindication: Treatment Not Indicated VTE Drug Contraindication: N/A - Med Ordered
--- NOTE | 2024-06-05 14:07 | PM.CNGS ---
History of Present Illness Consult details Consult date: 06/05/24 Reason for consult: wound care Narrative: Pleasant 53-year-old gentleman who presented to the hospital on 06/03/2024. He was found to have nonhealing left foot diabetic ulcers which have been progressing for the past month. Of note they had a foul odor and he found his blood sugars to be greater than 500 and was subsequently brought into the emergency room. He currently smokes about a half a pack per day and occasional marijuana and cocaine use. He now presents to us for vascular evaluation. Review of Systems Review of Systems: Yes all other systems are reviewed and are negative Constitutional: Constitutional: Reports no additional constitutional complaints ENT: Reports Normal hearing present Cardiovascular: Cardiovascular: Denies chest pain, Denies chest pain at rest, Denies chest pain with activity and Denies pedal edema Respiratory: Respiratory: Denies cough Gastrointestinal: Gastrointestinal: Denies abdominal pain Musculoskeletal: Musculoskeletal: Denies abnormal gait, Denies muscle cramps and Denies radiating pain into limb Integumentary/Breasts: Skin/Breast: Denies skin ulcer and Denies wounds Neurologic: Reports Normal hearing present and Denies abnormal gait Psychiatric: Psychiatric: Reports no additional psychiatric complaints PMFSH Past Medical History Medical History (Updated 06/05/24 @ 14:16 by Jhon Grimm MD) Non-insulin dependent type 2 diabetes mellitus Social History Social History Household Members: Other Housing: Other Housing Other:: Homeless [facility] Do you presently have visiting nurse or other home services: No Alcohol intake: current Alcohol intake frequency: does not drink Patient Tobacco Use Status: Never used Tobacco Smoked in Last 30 Days: Yes Use of substances other than those prescribed or required for medical reasons: Yes Substance Use Type: Crack/Cocaine and Inhalants Substance Use Frequency: Daily Currently Displaying Signs/Symptoms of Drug Intoxication Withdrawal: No Have you been hit, kicked, punched, or otherwise hurt by someone within the past year? If so, by whom?: No Do you feel safe in your current relationship?: No Current Relationship Is there a partner from a previous relationship who is making you feel unsafe now?: No Are you made to feel afraid or neglected: No Advance Directives: No Advance Directives Information Provided: No Do you have a plan to hurt others: No Plan Recently lost weight without trying: Yes How much weight loss: 24-33 pounds Eating poorly because of decreased appetite: Yes Nutrition screen score: 6 Nutrition Risks: No Nutritional Risk Poor oral hygiene: Yes service: Yes Meds Allergies Allergy/AdvReac Type Severity Reaction Status Date / Time No Known Allergies Allergy Verified 06/03/24 09:00 Active Medications: Current Medications Acetaminophen (Acetaminophen 325 Mg Tablet) 650 mg PO Q6H PRN PRN Reason: Pain, Mild (Pain Scale 1-3), fever or headache Albuterol Sulfate (Albuterol Sulfate 90 Mcg 8 Gm Inhaler) 2 puff INHALE DAILY PRN PRN Reason: Shortness Of Breath Or Wheezing Atorvastatin Calcium (Atorvastatin Calcium 40 Mg Tablet) 40 mg PO DAILY [facility] Last Admin: 06/05/24 08:01 Dose: 40 mg Benzonatate (Benzonatate 100 Mg Capsule) 100 mg PO TID PRN PRN Reason: Cough Calcium Carbonate (Calcium Carbonate 750 Mg Tab.Chew) 750 mg PO Q4H PRN PRN Reason: Heartburn Enoxaparin Sodium (Enoxaparin Sodium 40 Mg/0.4 Ml Syringe) 40 mg SUBCUT Q24H [facility] Last Admin: 06/04/24 17:19 Dose: 40 mg Glucose (Glucose Gel 15 Gm Gel..Gram.) 15 gm PO Q15M PRN; Protocol PRN Reason: per Hypoglycemia Standing Ord. Dextrose (D10) 250 mls @ 750 mls/hr IV Q15M PRN; Protocol PRN Reason: per Hypoglycemia Standing Ord. Vancomycin HCl 1,000 mg/ (Sodium Chloride) 270 mls @ 270 mls/hr IV Q12H [facility] Last Infusion: 06/05/24 12:57 Dose: Infused Piperacillin Sod/Tazobactam (Sod 3.375 gm/ Sodium Chloride) 50 mls @ 100 mls/hr IV Q6H [facility] Last Infusion: 06/05/24 11:40 Dose: Infused Insulin Glargine (Insulin Glargine,Hum.Rec.Anlog 100 Unit/Ml 10 Ml Vial) 10 unit SUBCUT DAILY [facility] Last Admin: 06/05/24 08:01 Dose: 10 unit Insulin Human Lispro (Insulin Lispro 100 Unit/Ml 3 Ml Vial) 0 unit SUBCUT QIDACHS [facility]; Protocol Last Admin: 06/05/24 11:46 Dose: 2 unit Magnesium Hydroxide (Milk Of Magnesia 30 Ml Oral.Susp) 30 ml PO DAILY PRN PRN Reason: Constipation Melatonin (Melatonin 3 Mg Tablet) 6 mg PO BEDTIME PRN PRN Reason: Insomnia Morphine Sulfate (Morphine Sulfate 4 Mg/Ml Cartridge) 4 mg IVPUSH Q4H PRN; Protocol PRN Reason: Pain, Severe (Pain Scale 7-10) Nicotine (Nicotine 14 Mg Patch.Td24) 14 mg TRANSDERMA DAILY [facility] Last Admin: 06/05/24 08:02 Dose: 14 mg Nicotine Polacrilex (Nicotine Polacrilex 2 Mg Gum) 2 mg BUCCAL Q2H PRN PRN Reason: Nicotine Cravings Last Admin: 06/04/24 10:31 Dose: 2 mg Ondansetron HCl (Ondansetron Hcl 4 Mg/2 Ml Vial) 4 mg IVPUSH Q8H PRN PRN Reason: Nausea and Vomiting Last Admin: 06/04/24 19:47 Dose: 4 mg Oxycodone HCl (Oxycodone Hcl Immed Release 5 Mg Tablet) 5 mg PO Q6H PRN PRN Reason: Pain, Moderate(Pain Scale 4-6) Pharmacy Consult (Consult Rx Vancomycin Dosing) 1 each MISCELLANE DAILY PRN PRN Reason: Consult order Sodium Chloride (0.9 % Sodium Chloride Flush 3 Ml Syringe) 3 ml IVFLUSH QSHIFT [facility] Last Admin: 06/05/24 08:02 Dose: 3 ml Sodium Hypochlorite (Sodium Hypochlorite 0.125% 473 Ml Solution) 1 appl TOPICAL DAILY [facility] Last Admin: 06/04/24 20:25 Dose: 1 appl Home Medications ?Medication ?Instructions ?Recorded ?Confirmed ?Last Taken ?Type albuterol sulfate 90 mcg/actuation 2 puff inhalation DAILY PRN 06/03/24 06/03/24 Unknown History aerosol inhaler Shortness Of Breath Or Wheezing atorvastatin 40 mg tablet 40 mg PO DAILY 06/03/24 06/03/24 1 Month Ago History ~05/04/24 metformin 500 mg tablet,extended 1,000 mg PO DAILY 06/03/24 06/03/24 06/02/24 History release 24hr (osmotic) Physical Exam Vital Signs: Vital Signs: Last Vital Signs Temp 97.6 F 06/05/24 07:37 Pulse 100 06/05/24 07:37 Resp 14 06/05/24 07:37 BP 151/89 H 06/05/24 07:37 Pulse Ox 99 06/05/24 07:37 O2 Del Method Room Air 06/05/24 07:37 BMI result Body Mass Index 19.1 Const: General: cooperative, healthy appearing and comfortable Orientation/consciousness: oriented to person, oriented to place and oriented to time HEENT: Head: Yes normal to inspection Neck: Neck: Yes normal visual inspection Carotids: no bruits Chest: Chest palpation & inspection: normal inspection of the chest Resp: Effort & Inspection: normal respiratory effort and able to speak in complete sentences Auscultation: clear to auscultation bilaterally, no crackles, no rales, no rhonchi and no wheezes Cardio: Other: Palpable left dorsalis pedis pulse Rate: regular rate Rhythm: regular rhythm Heart sounds: S1 normal heart sound present and S2 normal heart sound present Bruits: no carotid bruits Peripheral pulses: Peripheral pulses 2+ throughout GI: Inspection: Yes normal to inspection Skin: Other: Left foot ulcers over medial malleolus and dorsum of foot. Wounds: no wounds Hair: normal Neuro: General: oriented to person, oriented to place and oriented to time Cranial nerves: Yes CN's II-XII intact bilaterally and Yes Normal hearing present Cognition (Neuro): normal cognition Motor exam (neuro): 5/5 motor strength present throughout Extrem: Other: venous exam: No significant superficial varicosities or spider telangiectasias, minimal edema General: No clubbing, No cyanosis and No edema Psych: Appearance: grossly normal Mental Status: mental status grossly normal Speech and movement: Normal speech and movement present Results Labs 06/05/24 05:38 06/05/24 05:38 Labs: Abnormal lab results 06/04/24 06/05/24 06/05/24 Range/Units 16:00 05:38 07:32 RBC 3.83 L (4.60-5.80) X10*6/uL Hgb 11.1 L (14.0-18.0) g/dl Hct 32.9 L (42.0-52.0) % Plt Count 488 H (160-400) X10*3/uL MPV 8.6 L (9.4-12.4) fL Sodium 132 L (135-145) mmol/L POC Glucose 252 H 291 H (60-115) mg/dL Random Glucose 325 H (60-115) mg/dL Random Vancomycin (15-20) mcg/mL 06/05/24 06/05/24 Range/Units 09:13 11:23 RBC (4.60-5.80) X10*6/uL Hgb (14.0-18.0) g/dl Hct (42.0-52.0) % Plt Count (160-400) X10*3/uL MPV (9.4-12.4) fL Sodium (135-145) mmol/L POC Glucose 165 H (60-115) mg/dL Random Glucose (60-115) mg/dL Random Vancomycin 14.0 L (15-20) mcg/mL Short CBC 06/05/24 Range/Units 05:38 WBC 9.5 (4.8-10.8) X10*3/uL Hgb 11.1 L (14.0-18.0) g/dl Hct 32.9 L (42.0-52.0) % Plt Count 488 H (160-400) X10*3/uL BMP 06/05/24 05:38 Sodium 132 L Potassium 3.9 Chloride 96 Carbon Dioxide 25 BUN 9 Creatinine 0.82 Calcium 9.1 Urine 06/03/24 Range/Units 10:10 Urine Color Yellow Urine Appearance Clear Urine pH 6.5 (5.0-9.0) Ur Specific Vantage 1.025 (1.005-1.025) Urine Protein Negative (Neg-Trace) mg/dL Urine Glucose (UA) >=1000 H (Negative) mg/dL All other labs normal. Imaging Additional studies: Arterial ultrasound reviewed with tibial artery stenosis? X-ray demonstrates osteomyelitis of toes Assessment and Plan (1) Diabetic ulcer of left lower leg: Status: Acute Plan In short patient has nonhealing ulcers of the left lower extremity. In terms of his arterial status he does have a palpable pulse even though noninvasive does question some stenosis. At the current time the wounds do appear clean. Would attempt a trial of IV antibiotics. Would await Infectious Disease consult. If it appears non salvageable will require transmetatarsal amputation. Will be available for that. Thank you for allowing us to assist in his care. Procedures Date of Service Date of Service: 06/05/24
[2024-06-05 16:00] VITALS: BP 147/87; PULSE 100; RESP 14; TEMP 36.1; O2SAT 99
[2024-06-05 16:14] LABS: Glucose, Whole Blood 242 mg/dL (60-115)
[2024-06-05] MEDS: Enoxaparin Sodium 40 MG/0.4 ML SYRINGE SUBCUT (16:44)
[2024-06-05] MEDS: Nicotine Polacrilex 2 MG GUM BUCCAL (18:19)
[2024-06-05] MEDS: Sodium Hypochlorite 0.125% 473 ML SOLUTION 1 APPL TOPICAL (19:45)
[2024-06-05 19:53] VITALS: BP 152/83; PULSE 91; RESP 16; TEMP 36.3; O2SAT 99
[2024-06-05 20:43] LABS: Glucose, Whole Blood 209 mg/dL (60-115)
[2024-06-06 02:50] VITALS: BP 126/87; PULSE 86; RESP 15; TEMP 36.3; O2SAT 99
[2024-06-06] MEDS: Piperacillin Sodium/Tazobactam 3.375 GM in 0.9 % Sodium Chloride 50 ML IV ×4 (05:07→21:30)
[2024-06-06 07:30] LABS: Glucose, Whole Blood 278 mg/dL (60-115)
[2024-06-06 07:34] VITALS: BP 136/86; PULSE 81; RESP 16; TEMP 36.7; O2SAT 99
[2024-06-06] MEDS: Insulin Lispro 100 UNIT/ML 3 ML VIAL SUBCUT ×4 (08:01→21:17)
[2024-06-06] MEDS: Insulin Glargine,Hum.rec.anlog 100 UNIT/ML 10 ML VIAL 10 UNIT SUBCUT (08:01)
[2024-06-06] MEDS: Nicotine 14 MG PATCH.TD24 TRANSDERMA (08:02)
[2024-06-06] MEDS: Atorvastatin Calcium 40 MG TABLET PO (08:02)
[2024-06-06] MEDS: 0.9 % Sodium Chloride Flush 3 ML SYRINGE IVFLUSH ×3 (08:02→23:10)
[2024-06-06] MEDS: Sodium Hypochlorite 0.125% 473 ML SOLUTION 1 APPL TOPICAL (08:07)
[2024-06-06 09:26] LABS: Creatinine Clr Calc Pharmacy 89.4; Estimated Glomerular Filt Rate > 60
[2024-06-06 09:36] LABS: Vancomycin Random 15.9 mcg/mL (15-20)
--- NOTE | 2024-06-06 09:46 | MHC.CLN ---
F/U DIET=DIABETIC 2000 KCALS. ENSURE MAX PROTEIN TID. PROVIDES 450 KCALS, 90 G PROTEIN. THIS IS A LOWER CARBOHYDRATE PRODUCT, APPROPRIATE FOR DM. INTAKE APPEARS GOOD, 75-100%. FOLLOW FOR INTAKE.
--- NOTE | 2024-06-06 09:51 | HE.PHANOTE ---
RE: Vancomycin Trough came back at 15.9. Renal function improved, keeping the same dose and next trough to be drawnn on 06/07 @0900. Predicted trough 13.3, AUC 489.
--- NOTE | 2024-06-06 11:05 | HO.PM.IMPN ---
Subjective Subjective Date of Service: 06/06/24 Interval History: no acute complaints ENT Ears, Nose, Mouth, and Throat: Reports Normal hearing present Neurologic Neurologic: Reports Normal hearing present Physical Exam Vital Signs: Vital Signs: Last Vital Signs Temp 98.0 F 06/06/24 07:34 Pulse 81 06/06/24 07:34 Resp 16 06/06/24 07:34 BP 136/86 06/06/24 07:34 Pulse Ox 99 06/06/24 07:34 O2 Del Method Room Air 06/06/24 07:34 BMI result Body Mass Index 19.1 Const: General: cooperative, healthy appearing and comfortable Orientation/consciousness: oriented to person, oriented to place and oriented to time HEENT: Head: Yes normal to inspection Neck: Neck: Yes normal visual inspection Carotids: no bruits Chest: Chest palpation & inspection: normal inspection of the chest Resp: Effort & Inspection: normal respiratory effort and able to speak in complete sentences Auscultation: clear to auscultation bilaterally, no crackles, no rales, no rhonchi and no wheezes Cardio: Other: Palpable left dorsalis pedis pulse Rate: regular rate Rhythm: regular rhythm Heart sounds: S1 normal heart sound present and S2 normal heart sound present Bruits: no carotid bruits Peripheral pulses: Peripheral pulses 2+ throughout GI: Inspection: Yes normal to inspection Skin: Other: Left foot ulcers over medial malleolus and dorsum of foot. Wounds: no wounds Hair: normal Neuro: General: oriented to person, oriented to place and oriented to time Cranial nerves: Yes CN's II-XII intact bilaterally and Yes Normal hearing present Cognition (Neuro): normal cognition Motor exam (neuro): 5/5 motor strength present throughout Extrem: Other: venous exam: No significant superficial varicosities or spider telangiectasias, minimal edema General: No clubbing, No cyanosis and No edema Psych: Appearance: grossly normal Mental Status: mental status grossly normal Speech and movement: Normal speech and movement present Objective Data Active Medications Acetaminophen (Acetaminophen 325 Mg Tablet) 650 mg PO Q6H PRN PRN Reason: Pain, Mild (Pain Scale 1-3), fever or headache Albuterol Sulfate (Albuterol Sulfate 90 Mcg 8 Gm Inhaler) 2 puff INHALE DAILY PRN PRN Reason: Shortness Of Breath Or Wheezing Atorvastatin Calcium (Atorvastatin Calcium 40 Mg Tablet) 40 mg PO DAILY [facility] Last Admin: 06/06/24 08:02 Dose: 40 mg Documented By: MARLEN Benzonatate (Benzonatate 100 Mg Capsule) 100 mg PO TID PRN PRN Reason: Cough Calcium Carbonate (Calcium Carbonate 750 Mg Tab.Chew) 750 mg PO Q4H PRN PRN Reason: Heartburn Enoxaparin Sodium (Enoxaparin Sodium 40 Mg/0.4 Ml Syringe) 40 mg SUBCUT Q24H [facility] Last Admin: 06/05/24 16:44 Dose: 40 mg Documented By: VILMA Glucose (Glucose Gel 15 Gm Gel..Gram.) 15 gm PO Q15M PRN; Protocol PRN Reason: per Hypoglycemia Standing Ord. Dextrose (D10) 250 mls @ 750 mls/hr IV Q15M PRN; Protocol PRN Reason: per Hypoglycemia Standing Ord. Vancomycin HCl 1,000 mg/ (Sodium Chloride) 270 mls @ 270 mls/hr IV Q12H [facility] Last Infusion: 06/05/24 23:54 Dose: Infused Documented By: JEFRY Piperacillin Sod/Tazobactam (Sod 3.375 gm/ Sodium Chloride) 50 mls @ 100 mls/hr IV Q6H [facility] [place] Last Infusion: 06/06/24 11:00 Dose: Infused Documented By: MARLEN Insulin Glargine (Insulin Glargine,Hum.Rec.Anlog 100 Unit/Ml 10 Ml Vial) 10 unit SUBCUT DAILY [facility] [place] Last Admin: 06/06/24 08:01 Dose: 10 unit Documented By: MARLEN Insulin Human Lispro (Insulin Lispro 100 Unit/Ml 3 Ml Vial) 0 unit SUBCUT QIDACHS [facility] [place]; Protocol Last Admin: 06/06/24 08:01 Dose: 6 unit Documented By: MARLEN Magnesium Hydroxide (Milk Of Magnesia 30 Ml Oral.Susp) 30 ml PO DAILY PRN PRN Reason: Constipation Melatonin (Melatonin 3 Mg Tablet) 6 mg PO BEDTIME PRN PRN Reason: Insomnia Morphine Sulfate (Morphine Sulfate 4 Mg/Ml Cartridge) 4 mg IVPUSH Q4H PRN; Protocol PRN Reason: Pain, Severe (Pain Scale 7-10) Nicotine (Nicotine 14 Mg Patch.Td24) 14 mg TRANSDERMA DAILY [facility] [place] Last Admin: 06/06/24 08:02 Dose: 14 mg Documented By: MARLEN Nicotine Polacrilex (Nicotine Polacrilex 2 Mg Gum) 2 mg BUCCAL Q2H PRN PRN Reason: Nicotine Cravings Last Admin: 06/05/24 18:19 Dose: 2 mg Documented By: CALEB Ondansetron HCl (Ondansetron Hcl 4 Mg/2 Ml Vial) 4 mg IVPUSH Q8H PRN PRN Reason: Nausea and Vomiting Last Admin: 06/04/24 19:47 Dose: 4 mg Documented By: JEFRY Oxycodone HCl (Oxycodone Hcl Immed Release 5 Mg Tablet) 5 mg PO Q6H PRN PRN Reason: Pain, Moderate(Pain Scale 4-6) Pharmacy Consult (Consult Rx Vancomycin Dosing) 1 each MISCELLANE DAILY PRN PRN Reason: Consult order Sodium Chloride (0.9 % Sodium Chloride Flush 3 Ml Syringe) 3 ml IVFLUSH QSHIFT [facility] [place] Last Admin: 06/06/24 08:02 Dose: 3 ml Documented By: MARLEN Sodium Hypochlorite (Sodium Hypochlorite 0.125% 473 Ml Solution) 1 appl TOPICAL DAILY [facility] [place] Last Admin: 06/06/24 08:07 Dose: 1 appl Documented By: MARLEN Labs 06/05/24 05:38 06/06/24 08:59 Labs: Laboratory Results - last 24 hr 06/05/24 06/05/24 06/05/24 11:23 16:06 20:31 Estim Creat Clear Calc Estimated GFR POC Glucose 165 H 242 H 209 H Random Vancomycin 06/06/24 06/06/24 07:24 08:59 Estim Creat Clear Calc 89.4 Estimated GFR > 60 POC Glucose 278 H Random Vancomycin 15.9 Microbiology Microbiology Results: Microbiology 06/03/24 10:23 Blood Culture - Preliminary Blood - Venous No growth after 48 hours. 06/03/24 10:10 Blood Culture - Preliminary Blood - Venous No growth after 48 hours. Assessment and Plan (1) Sepsis: Status: Acute (2) Osteomyelitis: Status: Acute Plan 53M PMH DM presented with?worsening diabetic left foot ulcers x1 month Left foot osteomyelitis with severe sepsis secondary to chronic diabetic foot ulcers. No pain, presented with foul-smelling & purulent discharge, Elevated ESR and CRP, x-ray of left foot showed septic arthritis and osteomyelitis at the 1st, 2nd, 3rd, and 5th MTP joints and great toe distal phalanx. Continue vancomycin and Zosyn, started 06/03/2024 Arterial ultrasound showed hemodynamically significant left anterior tibialis and dorsalis pedis, arteries, has good pulses. Seen by General surgery Dr. Moctezuma some necrotic tissue removed/patient at high risk for needing TMA seen by vascular, recommending iv abx for now, if fails may need TMA Follow ID consult for choice and duration of antibiotic versus TMA Hyperglycemia/uncontrolled type 2 diabetes only on metformin at home POC 502 at time of presentation, blood sugar improved ,A1c 9.1, beta hydroxybutyrate 0.66 Continue insulin sliding scale and diabetic diet, Lantus 10 units at a.m. added. Hyperlipidemia continue statin Tobacco use disorder continue nicotine patch, and nicotine gum, counseling done. Cocaine/marijuana use disorder seen by Addiction Team written resources provided, patient denies craving for substances. Adrenal nodule CT of abdomen and pelvis found 1.4 cm homogeneous left adrenal nodule Recommendation is for CT adrenal protocol in 1 year Moderate protein calorie malnutrition continue ensure max t.i.d. Full Code DVT Prophylaxis: Lovenox reason for continued hospitalization:iv abx for om, specilaist consultatoin Quality Stroke Does the patient have a stroke diagnosis?: No VTE Prior VTE?: No VTE Risk Level:: Medical - moderate - high VTE Device Contraindication: Treatment Not Indicated VTE Drug Contraindication: N/A - Med Ordered
[2024-06-06 11:06] LABS: Glucose, Whole Blood 190 mg/dL (60-115)
[2024-06-06] MEDS: vancomycin HCL 1,000 MG in 0.9 % Sodium Chloride 250 ML 270 MG IV ×2 (11:24→22:09)
--- NOTE | 2024-06-06 14:44 | MHC.CM.PN ---
Per MD rounds no discharge today. Blood cultures are pending. The patient may require LT IV ABX. DP Home with services vs STR via BLS vs [facility] Shuttle.
[2024-06-06] MEDS: oxyCODONE HCl Immed Release 5 MG TABLET PO ×2 (15:17→21:18)
[2024-06-06] MEDS: Enoxaparin Sodium 40 MG/0.4 ML SYRINGE SUBCUT (15:17)
[2024-06-06 15:19] VITALS: BP 132/85; PULSE 89; RESP 16; TEMP 36.5; O2SAT 100
--- NOTE | 2024-06-06 16:04 | W.PM.IDCN ---
History of Present Illness Data of Consult Service Date: 06/06/24 Requesting physician: Chinedu Aguillon Primary Care Provider: Unknown Physician HPI Reason for consult: left foot infection He presents with left foot redness and ulcer for last five days. He had sneaker caused lesion he says. He has had antibiotics outpatient with no improvement. He has not had problems with feet before. He is a . Review of Systems Review of Systems: Yes all other systems are reviewed and are negative PMFSH Past Medical History Medical History Non-insulin dependent type 2 diabetes mellitus Family History Family history: reviewed and not pertinent Social History Social History Household Members: Other Housing: Other Housing Other:: Homeless Housing Do you presently have visiting nurse or other home services: No Alcohol intake: current Alcohol intake frequency: does not drink Patient Tobacco Use Status: Never used Tobacco Smoked in Last 30 Days: Yes Use of substances other than those prescribed or required for medical reasons: Yes Substance Use Type: Crack/Cocaine and Inhalants Substance Use Frequency: Daily Currently Displaying Signs/Symptoms of Drug Intoxication Withdrawal: No Have you been hit, kicked, punched, or otherwise hurt by someone within the past year? If so, by whom?: No Do you feel safe in your current relationship?: No Current Relationship Is there a partner from a previous relationship who is making you feel unsafe now?: No Are you made to feel afraid or neglected: No Advance Directives: No Advance Directives Information Provided: No Do you have a plan to hurt others: No Plan Recently lost weight without trying: Yes How much weight loss: 24-33 pounds Eating poorly because of decreased appetite: Yes Nutrition screen score: 6 Nutrition Risks: No Nutritional Risk Poor oral hygiene: Yes service: Yes Meds Allergies Allergy/AdvReac Type Severity Reaction Status Date / Time No Known Allergies Allergy Verified 06/03/24 09:00 Active Medications: Current Medications Acetaminophen (Acetaminophen 325 Mg Tablet) 650 mg PO Q6H PRN PRN Reason: Pain, Mild (Pain Scale 1-3), fever or headache Albuterol Sulfate (Albuterol Sulfate 90 Mcg 8 Gm Inhaler) 2 puff INHALE DAILY PRN PRN Reason: Shortness Of Breath Or Wheezing Atorvastatin Calcium (Atorvastatin Calcium 40 Mg Tablet) 40 mg PO DAILY [facility] Last Admin: 06/06/24 08:02 Dose: 40 mg Benzonatate (Benzonatate 100 Mg Capsule) 100 mg PO TID PRN PRN Reason: Cough Calcium Carbonate (Calcium Carbonate 750 Mg Tab.Chew) 750 mg PO Q4H PRN PRN Reason: Heartburn Enoxaparin Sodium (Enoxaparin Sodium 40 Mg/0.4 Ml Syringe) 40 mg SUBCUT Q24H [facility] Last Admin: 06/06/24 15:17 Dose: 40 mg Glucose (Glucose Gel 15 Gm Gel..Gram.) 15 gm PO Q15M PRN; Protocol PRN Reason: per Hypoglycemia Standing Ord. Dextrose (D10) 250 mls @ 750 mls/hr IV Q15M PRN; Protocol PRN Reason: per Hypoglycemia Standing Ord. Vancomycin HCl 1,000 mg/ (Sodium Chloride) 270 mls @ 270 mls/hr IV Q12H [facility] Last Infusion: 06/06/24 12:34 Dose: Infused Piperacillin Sod/Tazobactam (Sod 3.375 gm/ Sodium Chloride) 50 mls @ 100 mls/hr IV Q6H [facility] Last Infusion: 06/06/24 11:00 Dose: Infused Insulin Glargine (Insulin Glargine,Hum.Rec.Anlog 100 Unit/Ml 10 Ml Vial) 10 unit SUBCUT DAILY [facility] Last Admin: 06/06/24 08:01 Dose: 10 unit Insulin Human Lispro (Insulin Lispro 100 Unit/Ml 3 Ml Vial) 0 unit SUBCUT QIDACHS [facility]; Protocol Last Admin: 06/06/24 11:24 Dose: 2 unit Magnesium Hydroxide (Milk Of Magnesia 30 Ml Oral.Susp) 30 ml PO DAILY PRN PRN Reason: Constipation Melatonin (Melatonin 3 Mg Tablet) 6 mg PO BEDTIME PRN PRN Reason: Insomnia Morphine Sulfate (Morphine Sulfate 4 Mg/Ml Cartridge) 4 mg IVPUSH Q4H PRN; Protocol PRN Reason: Pain, Severe (Pain Scale 7-10) Nicotine (Nicotine 14 Mg Patch.Td24) 14 mg TRANSDERMA DAILY [facility] Last Admin: 06/06/24 08:02 Dose: 14 mg Nicotine Polacrilex (Nicotine Polacrilex 2 Mg Gum) 2 mg BUCCAL Q2H PRN PRN Reason: Nicotine Cravings Last Admin: 06/05/24 18:19 Dose: 2 mg Ondansetron HCl (Ondansetron Hcl 4 Mg/2 Ml Vial) 4 mg IVPUSH Q8H PRN PRN Reason: Nausea and Vomiting Last Admin: 06/04/24 19:47 Dose: 4 mg Oxycodone HCl (Oxycodone Hcl Immed Release 5 Mg Tablet) 5 mg PO Q6H PRN PRN Reason: Pain, Moderate(Pain Scale 4-6) Last Admin: 06/06/24 15:17 Dose: 5 mg Pharmacy Consult (Consult Rx Vancomycin Dosing) 1 each MISCELLANE DAILY PRN PRN Reason: Consult order Sodium Chloride (0.9 % Sodium Chloride Flush 3 Ml Syringe) 3 ml IVFLUSH [facility] Last Admin: 06/06/24 08:02 Dose: 3 ml Sodium Hypochlorite (Sodium Hypochlorite 0.125% 473 Ml Solution) 1 appl TOPICAL DAILY [facility] Last Admin: 06/06/24 08:07 Dose: 1 appl Home Medications ?Medication ?Instructions ?Recorded ?Confirmed ?Last Taken ?Type albuterol sulfate 90 mcg/actuation 2 puff inhalation DAILY PRN 06/03/24 06/03/24 Unknown History aerosol inhaler Shortness Of Breath Or Wheezing atorvastatin 40 mg tablet 40 mg PO DAILY 06/03/24 06/03/24 1 Month Ago History ~05/04/24 metformin 500 mg tablet,extended 1,000 mg PO DAILY 06/03/24 06/03/24 06/02/24 History release 24hr (osmotic) Physical Exam Vital Signs: Vital Signs: Last Vital Signs Temp 97.7 F 06/06/24 15:19 Pulse 89 06/06/24 15:19 Resp 16 06/06/24 15:19 BP 132/85 06/06/24 15:19 Pulse Ox 100 06/06/24 15:19 O2 Del Method Room Air 06/06/24 15:19 BMI result Body Mass Index 19.1 Const: General: cooperative HEENT: Head: Yes normal to inspection Face and sinus: Yes normal facial exam Mouth: Normal oral and palatal mucosa present Teeth and gingiva: dentition normal Eyes: General: appearance normal, both eyes and all related structures Pupils: Equal, round and reactive pupils present Resp: Effort & Inspection: normal respiratory effort Cardio: Rate: regular rate Rhythm: regular rhythm GI: Palpation (GI): Soft to palpation and nontender : General: Yes no CVA tenderness Back/Spine/Pelvis: Back: no CVA tenderness Skin: General skin exam: no rashes or lesions noted Neuro: General: moves all extremities Cranial nerves: Yes Equal, round and reactive pupils present Extrem: Other: plantar area ulcer serous General: Yes normal to inspection Psych: Appearance: grossly normal Results Labs 06/05/24 05:38 06/06/24 08:59 Labs: BMP 06/06/24 08:59 Creatinine 0.73 Microbiology Microbiology Results: Microbiology 06/03/24 10:23 Blood - Venous Blood Culture - Preliminary No growth after 48 hours. 06/03/24 10:10 Blood - Venous Blood Culture - Preliminary No growth after 48 hours. Assessment and Plan (1) Diabetic ulcer of left lower leg: Status: Acute (2) Diabetic foot ulcer: Status: Acute Plan He has OM left foot Ertapenem for six weeks. Weekly CBC and creatinine.
[2024-06-06 16:06] LABS: Glucose, Whole Blood 168 mg/dL (60-115)
[2024-06-06 19:50] VITALS: BP 134/86; PULSE 90; RESP 16; TEMP 36.6; O2SAT 99
[2024-06-06 20:05] LABS: Glucose, Whole Blood 205 mg/dL (60-115)
[2024-06-07 04:00] VITALS: BP 143/85; PULSE 97; RESP 16; TEMP 36; O2SAT 98
[2024-06-07] MEDS: Piperacillin Sodium/Tazobactam 3.375 GM in 0.9 % Sodium Chloride 50 ML IV ×4 (05:06→22:20)
[2024-06-07 06:17] LABS: Hematocrit 38.2 % (42.0-52.0); Hemoglobin 12.3 g/dl (14.0-18.0); Mean Corpuscular HGB Conc 32.2 g/dl (31.0-36.0); Mean Corpuscular Hemoglobin 28.7 pg (27.0-33.0); Mean Platelet Volume 8.6 fL (9.4-12.4); Platelet Count 495 X10*3/uL (160-400); Red Blood Count 4.29 X10*6/uL (4.60-5.80); Red Cell Distribution Width 13.2 % (11.0-16.0); White Blood Count 10.8 X10*3/uL (4.8-10.8)
[2024-06-07 06:39] LABS: Anion Gap 12 (12-20); Blood Urea Nitrogen 17 mg/dL (9-16); Calcium 8.9 mg/dL (8.4-10.2); Carbon Dioxide 31 mmol/L (22-29); Chloride 98 mmol/L (96-108); Creatinine Clr Calc Pharmacy 82.6; Estimated Glomerular Filt Rate > 60; Glucose Fasting 196 mg/dL (60-99); Potassium 4.1 mmol/L (3.3-5.1); Sodium 137 mmol/L (135-145)
[2024-06-07 07:32] LABS: Glucose, Whole Blood 220 mg/dL (60-115)
[2024-06-07 07:40] VITALS: BP 132/86; PULSE 95; RESP 16; TEMP 36; O2SAT 100
[2024-06-07] MEDS: Insulin Lispro 100 UNIT/ML 3 ML VIAL SUBCUT ×4 (07:55→22:23)
[2024-06-07] MEDS: 0.9 % Sodium Chloride Flush 3 ML SYRINGE IVFLUSH ×3 (07:55→22:22)
[2024-06-07] MEDS: Atorvastatin Calcium 40 MG TABLET PO (07:55)
[2024-06-07] MEDS: Nicotine 14 MG PATCH.TD24 TRANSDERMA (07:55)
[2024-06-07] MEDS: Insulin Glargine,Hum.rec.anlog 100 UNIT/ML 10 ML VIAL 10 UNIT SUBCUT (07:55)
[2024-06-07] MEDS: Sodium Hypochlorite 0.125% 473 ML SOLUTION 1 APPL TOPICAL (07:56)
--- NOTE | 2024-06-07 08:48 | PM.DS ---
DS: Providers Provider Date of Service: 06/11/24 Date of admission: 06/03/24 14:46 Primary care physician: Unknown Physician Consults: 06/04/24 07:00 Consult to Vascular Surgery Routine Consulting Provider: [facility] Reason for consultation: Acute osteo of multiple digits left foot 06/04/24 11:10 Addiction Medicine Routine Consulting Provider: Addiction Covering Reason for consultation: cocaine/marijuana use Has provider been notified: No 06/04/24 15:22 Consult to Wound Care Routine Reason for consultation: Ulcers to left foot. 06/05/24 07:42 Consult to Infectious Diseases Routine Consulting Provider: [facility] Reason for consultation: left foot osteo Has provider been notified: No DS: Diagnosis Discharge Diagnosis (1) Diabetic ulcer of left lower leg: Status: Acute (2) Diabetic foot ulcer: Status: Acute DS: Summary Hospital Course Hospital Course: from initial hpi: 53-year-old male with a PMH significant for?fag-qggvjej-cqtqeqajk type 2 diabetes who presents to the ED with?worsening diabetic left foot ulcers x1 month. Patient reports has been experiencing increasing pain in his left foot for the past 4 weeks with purulent, foul-smelling discharge for the past 3 weeks. Patient presents to the hospital today after feeling ?weird? last night and feeling ?out of body? and that ?something was different?. Checked his sugars and found they were in the 500s so decided to present to the ED for further evaluation. Patient reports he currently is on metformin only and [facility]. Currently is living and housing. Reports smoking half a pack daily along with marijuana and occasionally snorting cocaine. Denies fever, chills, nausea, vomiting, abdominal pain. No chest pain/pressure, palpitations. Denies shortness or breath or difficulty breathing. In the ED pt was tachycardic up to 111 and hypertensive up to 184/91. Labs were significant for leukocytosis of 18.0, H&H 12.1/35.6, platelets 649, ESR 88, sodium 129, chloride 93, initial random glucose 502, lactic acid 7.3 with repeat 3.2, alk-phos 148, C-reactive protein 13.45, and beta hydroxybutyrate mildly elevated at 0.66. UA negative for UTI. Tox screen positive for cocaine and marijuana. Negative for ethyl alcohol. Tested negative for flu, RSV, COVID. X-ray of left foot showed septic arthritis and osteomyelitis at the 1st, 2nd, 3rd, and 5th TMT joints and great toe distal phalanx. CT?of abdomen and pelvis showed mild gastric wall thickening hyperenhancement of duodenal wall thickening, question of gastroenteritis or PUD. Also showed multiple nonobstructing bilateral renal stones up to 6 mm in right upper pole without hydronephrosis. Also showed 1.4 cm homogeneous left adrenal nodule. EKG demonstrated normal sinus rhythmc with QTc 480 without evidence of significant ST elevations or depressions. Pt was treated with 2.6 L IVF, ondansetron, morphine, insulin 5 units, Protonix, vanc and Zosyn. Pt will be admitted to the hospital for treatment and further evaluation of acute left foot osteomyelitis with sepsis. hospital course: Patient was admitted for left foot osteomyelitis with severe sepsis secondary to chronic diabetic foot ulcers and peripheral vascular disease. He was treated with IV vancomycin and Zosyn. Arterial ultrasound showed hemodynamically significant left anterior tibialis and dorsalis pedis stenosis, was seen by vascular felt patient had good pulses and did not recommend vascular intervention at this time. Was seen by infectious disease who recommended 6 weeks of IV antibiotics with ertapenem 1 g daily (end date 07/14/24) if no success will be referred for vascular surgery for possible TMA. Was also seen by General surgery who performed bedside debridement and recommended dakin wet to dry dressing on pt wounds on left foot. pack the gazue with dakins into the pocket on the medial foot area. For diabetes with hyperglycemia was given basal bolus insulin with improvement. On discharge metformin has been increased to 1 g b.i.d.. For hyperlipidemia was continue on statin. For incidental finding of adrenal nodule CT abdomen pelvis repeat with adrenal protocol in 1 year. For moderate protein calorie malnutrition he was given ensure. Time Attestation Discharge Coordination Time (in mins): 32 Quality: Safe Use of Opioids Does Pt have an Active Cancer Diagnosis on the Problem List?: No Quality: Stroke Does the patient have a stroke diagnosis?: No Physical Exam Vital Signs: Vital Signs: Last Vital Signs Temp 96.8 F 06/07/24 07:40 Pulse 95 06/07/24 07:40 Resp 16 06/07/24 07:40 BP 132/86 06/07/24 07:40 Pulse Ox 100 06/07/24 07:40 O2 Del Method Room Air 06/07/24 07:40 BMI result Body Mass Index 19.1 Const: General: cooperative HEENT: Head: Yes normal to inspection Face and sinus: Yes normal facial exam Mouth: Normal oral and palatal mucosa present Teeth and gingiva: dentition normal Eyes: General: appearance normal, both eyes and all related structures Pupils: Equal, round and reactive pupils present Resp: Effort & Inspection: normal respiratory effort Cardio: Rate: regular rate Rhythm: regular rhythm GI: Palpation (GI): Soft to palpation and nontender : General: Yes no CVA tenderness Back/Spine/Pelvis: Back: no CVA tenderness Skin: General skin exam: no rashes or lesions noted Neuro: General: moves all extremities Cranial nerves: Yes Equal, round and reactive pupils present Extrem: Other: plantar area ulcer serous General: Yes normal to inspection Psych: Appearance: grossly normal DS: Data Data Completed and Pending Labs on day of discharge: Laboratory Results - last 24 hr 06/06/24 06/06/24 06/06/24 08:59 11:00 16:03 WBC RBC Hgb Hct MCV MCH MCHC RDW Plt Count MPV Absolute Nucleated RBC Nucleated RBC % (auto) Sodium Potassium Chloride Carbon Dioxide Anion Gap BUN Creatinine 0.73 Estim Creat Clear Calc 89.4 Estimated GFR > 60 POC Glucose 190 H 168 H Fasting Glucose Calcium Random Vancomycin 15.9 06/06/24 06/07/24 06/07/24 20:02 05:13 07:29 WBC 10.8 RBC 4.29 L Hgb 12.3 L Hct 38.2 L MCV 89.0 MCH 28.7 MCHC 32.2 RDW 13.2 Plt Count 495 H MPV 8.6 L Absolute Nucleated RBC 0.000 Nucleated RBC % (auto) 0.0 Sodium 137 Potassium 4.1 Chloride 98 Carbon Dioxide 31 H Anion Gap 12 BUN 17 H Creatinine 0.79 Estim Creat Clear Calc 82.6 Estimated GFR > 60 POC Glucose 205 H 220 H Fasting Glucose 196 H Calcium 8.9 Random Vancomycin Preliminary micro results at discharge 06/03/24 10:23 Blood Culture - Preliminary Blood - Venous No growth after 48 hours. 06/03/24 10:10 Blood Culture - Preliminary Blood - Venous No growth after 48 hours. Discharge Plan Discharge Anticipated Discharge Date/Time: 06/07/24 08:45 Patient Disposition: Home Health Service Discharge Diagnosis: om Referrals: [facility] [Other] - 1 Week (Home infusion, Medication and IV supplies) [facility] [Outside] - 1 Week Malka Pollard MD [Physician] - 1 Week Physician,Tee J [Primary Care Provider] - 1 Week Discharge Medications: New metformin 1,000 mg tablet 1,000 mg PO BIDWMEAL Qty: 180 0RF ertapenem 1 gram Recon Soln 1 g IV ONCE PRN (Reason: before discharge) 42 Days Qty: 0 0RF Continued atorvastatin 40 mg Tablet 40 mg PO DAILY albuterol sulfate 90 mcg/actuation Hfa Aerosol Inhaler 2 puff INHALATION DAILY PRN (Reason: Shortness Of Breath Or Wheezing) Discontinued metformin 500 mg Tablet Extended Release 24hr 1,000 mg PO DAILY Discharge Orders: Discharge Order (Routine); Ordered 06/11/24 Ordered By: Chinedu Aguillon Diet: Diabetic diet Activity on Discharge: As tolerated Stand Alone Forms: Patient Portal Discharge page Print Language: Indonesian Care Plan Goals: recovery Health Concerns: om, dm Plan of Treatment: increase metformin to 1gm bid, 6 weeks iv ertapanem, follow up id and vascular dakin wet to dry dressing on pt wounds on left foot. pack the gazue with dakins into the pocket on the medial foot area. Assessment: see above
[2024-06-07 09:08] LABS: Vancomycin Random 15.4 mcg/mL (15-20)
--- NOTE | 2024-06-07 09:18 | HE.PHANOTE ---
VANCO Changing vanco dose to 750 Q8H to try and bump trough up a bit, pt renal function is stable. Next trough to be drawn / @0900, predicted trough 17.9, predicted AUC 575.
--- NOTE | 2024-06-07 10:15 | P.PNIM_ITS ---
Subjective Subjective Date of Service: 06/07/24 Interval History: no acute complaints ENT Ears, Nose, Mouth, and Throat: Reports Normal hearing present Neurologic Neurologic: Reports Normal hearing present Physical Exam 2 Vital Signs: Vital Signs: Last Vital Signs Temp 96.8 F 06/07/24 07:40 Pulse 95 06/07/24 07:40 Resp 16 06/07/24 07:40 BP 132/86 06/07/24 07:40 Pulse Ox 100 06/07/24 07:40 O2 Del Method Room Air 06/07/24 07:40 BMI result Body Mass Index 19.1 Const: General: cooperative HEENT: Head: Yes normal to inspection Face and sinus: Yes normal facial exam Mouth: Normal oral and palatal mucosa present Teeth and gingiva: d entition normal Eyes: General: appearance normal, both eyes and all related structures P upils: Equal, round and reactive pupils present Resp: Effort & Inspection: normal respiratory effort Cardio: Rate: regular rate Rhythm: regular rhythm GI: Palpation (GI): Soft to palpation and nontender : General: Yes no CVA tenderness Back/Spine/Pelvis: Back: no CVA tenderness Skin: General skin exam: no rashes or lesions noted Neuro: General: moves all extremities Cranial nerves: Yes Equal, round and reactive pupils present and Yes Normal hearing present Extrem: Other: plantar area ulcer serous General: Yes normal to inspection Psych: Appearance: grossly normal Objective Data Active Medications Acetaminophen (Acetaminophen 325 Mg Tablet) 650 mg PO Q6H PRN PRN Reason: Pain, Mild (Pain Scale 1-3), fever or headache Albuterol Sulfate (Albuterol Sulfate 90 Mcg 8 Gm Inhaler) 2 puff INHALE DAILY PRN PRN Reason: Shortness Of Breath Or Wheezing Atorvastatin Calcium (Atorvastatin Calcium 40 Mg Tablet) 40 mg PO DAILY [facility] Last Admin: 06/07/24 07:55 Dose: 40 mg Documented By: LEW Benzonatate (Benzonatate 100 Mg Capsule) 100 mg PO TID PRN PRN Reason: Cough Calcium Carbonate (Calcium Carbonate 750 Mg Tab.Chew) 750 mg PO Q4H PRN PRN Reason: Heartburn Enoxaparin Sodium (Enoxaparin Sodium 40 Mg/0.4 Ml Syringe) 40 mg SUBCUT Q24H [facility] Last Admin: 06/06/24 15:17 Dose: 40 mg Documented By: MARLEN Glucose (Glucose Gel 15 Gm Gel..Gram.) 15 gm PO Q15M PRN; Protocol PRN Reason: per Hypoglycemia Standing Ord. Dextrose (D10) 250 mls @ 750 mls/hr IV Q15M PRN; Protocol PRN Reason: per Hypoglycemia Standing Ord. Piperacillin Sod/Tazobactam (Sod 3.375 gm/ Sodium Chloride) 50 mls @ 100 mls/hr IV Q6H [facility] Last Infusion: 06/07/24 05:47 Dose: Infused Documented By: DEMARIO Ertapenem 1 gm/ Sodium (Chloride) 50 mls @ 100 mls/hr IV ONCE PRN PRN Reason: before discharge Vancomycin HCl 750 mg/ Sodium (Chloride) 265 mls @ 265 mls/hr IV Q8H [facility] Insulin Glargine (Insulin Glargine,Hum.Rec.Anlog 100 Unit/Ml 10 Ml Vial) 10 unit SUBCUT DAILY [facility] Last Admin: 06/07/24 07:55 Dose: 10 unit Documented By: LEW Insulin Human Lispro (Insulin Lispro 100 Unit/Ml 3 Ml Vial) 0 unit SUBCUT QIDACHS [facility]; Protocol Last Admin: 06/07/24 07:55 Dose: 4 unit Documented By: LEW Magnesium Hydroxide (Milk Of Magnesia 30 Ml Oral.Susp) 30 ml PO DAILY PRN PRN Reason: Constipation Melatonin (Melatonin 3 Mg Tablet) 6 mg PO BEDTIME PRN PRN Reason: Insomnia Morphine Sulfate (Morphine Sulfate 4 Mg/Ml Cartridge) 4 mg IVPUSH Q4H PRN; Protocol PRN Reason: Pain, Severe (Pain Scale 7-10) Nicotine (Nicotine 14 Mg Patch.Td24) 14 mg TRANSDERMA DAILY [facility] Last Admin: 06/07/24 07:55 Dose: 14 mg Documented By: LEW Nicotine Polacrilex (Nicotine Polacrilex 2 Mg Gum) 2 mg BUCCAL Q2H PRN PRN Reason: Nicotine Cravings Last Admin: 06/05/24 18:19 Dose: 2 mg Documented By: CALEB Ondansetron HCl (Ondansetron Hcl 4 Mg/2 Ml Vial) 4 mg IVPUSH Q8H PRN PRN Reason: Nausea and Vomiting Last Admin: 06/04/24 19:47 Dose: 4 mg Documented By: JEFRY Oxycodone HCl (Oxycodone Hcl Immed Release 5 Mg Tablet) 5 mg PO Q6H PRN PRN Reason: Pain, Moderate(Pain Scale 4-6) Last Admin: 06/06/24 21:18 Dose: 5 mg Documented By: DEMARIO Comments: for back pain 05/16, pt requested oxy Pharmacy Consult (Consult Rx Vancomycin Dosing) 1 each MISCELLANE DAILY PRN PRN Reason: Consult order Sodium Chloride (0.9 % Sodium Chloride Flush 3 Ml Syringe) 3 ml IVFLUSH QSHIFT [facility] Last Admin: 06/07/24 07:55 Dose: 3 ml Documented By: LEW Sodium Hypochlorite (Sodium Hypochlorite 0.125% 473 Ml Solution) 1 appl TOPICAL DAILY [facility] Last Admin: 06/07/24 07:56 Dose: 1 appl Documented By: LEW Labs 06/07/24 05:13 06/07/24 05:13 Labs: Laboratory Results - last 24 hr 06/06/24 06/06/24 06/06/24 11:00 16:03 20:02 MCV MCH MCHC RDW Plt Count MPV Absolute Nucleated RBC Nucleated RBC % (auto) Anion Gap Estim Creat Clear Calc Estimated GFR POC Glucose 190 H 168 H 205 H Fasting Glucose Calcium Random Vancomycin 06/07/24 06/07/24 06/07/24 05:13 07:29 08:46 MCV 89.0 MCH 28.7 MCHC 32.2 RDW 13.2 Plt Count 495 H MPV 8.6 L Absolute Nucleated RBC 0.000 Nucleated RBC % (auto) 0.0 Anion Gap 12 Estim Creat Clear Calc 82.6 Estimated GFR > 60 POC Glucose 220 H Fasting Glucose 196 H Calcium 8.9 Random Vancomycin 15.4 Assessment and Plan (1) Sepsis: Status: Acute (2) Osteomyelitis: Status: Acute Plan 53M PMH DM presented with?worsening diabetic left foot ulcers x1 month Left foot osteomyelitis with severe sepsis secondary to chronic diabetic foot ulcers. No pain, presented with foul-smelling & purulent discharge, Elevated ESR and CRP, x-ray of left foot showed septic arthritis and osteomyelitis at the 1st, 2nd, 3rd, and 5th MTP joints and great toe distal phalanx. Continue vancomycin and Zosyn, started 06/03/2024 Arterial ultrasound showed hemodynamically significant left anterior tibialis and dorsalis pedis, arteries, has good pulses. Seen by General surgery Dr. Moctezuma some necrotic tissue removed/patient at high risk for needing TMA seen by vascular, recommending iv abx for now, if fails may need TMA plan for 6 weeks iv ertapenem, end date 07/14/24 Hyperglycemia/uncontrolled type 2 diabetes only on metformin at home POC 502 at time of presentation, blood sugar improved ,A1c 9.1, beta hydroxybutyrate 0.66 Continue insulin sliding scale and diabetic diet, Lantus 10 units at a.m. added. Hyperlipidemia continue statin Tobacco use disorder continue nicotine patch, and nicotine gum, counseling done. Cocaine/marijuana use disorder seen by Addiction Team written resources provided, patient denies craving for substances. Adrenal nodule CT of abdomen and pelvis found 1.4 cm homogeneous left adrenal nodule Recommendation is for CT adrenal protocol in 1 year Moderate protein calorie malnutrition continue ensure max t.i.d. Full Code DVT Prophylaxis: Lovenox reason for continued hospitalization:iv abx for om, dispo planning Quality Stroke Does the patient have a stroke diagnosis?: No VTE Prior VTE?: No VTE Risk Level:: Medical - moderate - high VTE Device Contraindication: Treatment Not Indicated VTE Drug Contraindication: N/A - Med Ordered
[2024-06-07] MEDS: oxyCODONE HCl Immed Release 5 MG TABLET PO ×2 (10:23→17:30)
[2024-06-07] MEDS: vancomycin HCL 750 MG in 0.9 % Sodium Chloride 250 ML 265 MG IV ×2 (10:55→18:09)
[2024-06-07 11:22] LABS: Glucose, Whole Blood 184 mg/dL (60-115)
--- NOTE | 2024-06-07 13:27 | HO.VASCPN ---
Subjective Subjective Date of Service: 06/07/24 Patient reports: no new complaints Interval history: Complex 53-year-old gentleman with diabetic ulcers of left lower extremity. Reports no significant issues overnight. Current time asymptomatic and afebrile with a temp of 96.8 degrees rest of the vitals are stable. Reports that his foot is doing fairly well overall. Continues to have IV antibiotic therapy. Physical Exam Vital Signs: Vital Signs: Last Vital Signs Temp 96.8 F 06/07/24 07:40 Pulse 95 06/07/24 07:40 Resp 16 06/07/24 07:40 BP 132/86 06/07/24 07:40 Pulse Ox 100 06/07/24 07:40 O2 Del Method Room Air 06/07/24 07:40 BMI result Body Mass Index 19.1 Const: General: cooperative, healthy appearing and comfortable Orientation/consciousness: oriented to person, oriented to place and oriented to time HEENT: Head: Yes normal to inspection Neck: Neck: Yes normal visual inspection Carotids: no bruits Chest: Chest palpation & inspection: normal inspection of the chest Resp: Effort & Inspection: normal respiratory effort and able to speak in complete sentences Auscultation: clear to auscultation bilaterally, no crackles, no rales, no rhonchi and no wheezes Cardio: Rate: regular rate Rhythm: regular rhythm Heart sounds: S1 normal heart sound present and S2 normal heart sound present Bruits: no carotid bruits Peripheral pulses: Peripheral pulses 2+ throughout GI: Inspection: Yes normal to inspection Skin: Other: Left leg dressing clean dry intact Wounds: wounds noted Hair: normal Neuro: General: oriented to person, oriented to place and oriented to time Cranial nerves: Yes CN's II-XII intact bilaterally and Yes Normal hearing present Cognition (Neuro): normal cognition Motor exam (neuro): 5/5 motor strength present throughout Extrem: Other: venous exam: No significant superficial varicosities or spider telangiectasias, minimal edema General: No clubbing, No cyanosis and No edema Psych: Appearance: grossly normal Mental Status: mental status grossly normal Speech and movement: Normal speech and movement present Progress Note: A&P Assessment and plan (1) Diabetic ulcer of left lower leg: Status: Acute Assessment and Plan: In short patient has nonhealing left foot diabetic ulcer. The current time it appears to be stable. Does not appear to be arterial in nature as he does have palpable pulses and testing was relatively within normal limits. I did appreciate infectious disease notes of 6 weeks of IV antibiotic therapy. Continued local wound care and he can follow up with us as an outpatient. Thank you for allowing us to assist in his care. If there are any questions or concerns please do not hesitate to contact us. Time Spent With Patient Time: Total time managing care of this patient today ____ minutes. Procedures Date of Service Date of Service: 06/07/24 Quality Stroke Does the patient have a stroke diagnosis?: No VTE Prior VTE?: No VTE Risk Level:: Medical - moderate - high VTE Device Contraindication: Treatment Not Indicated VTE Drug Contraindication: N/A - Med Ordered
[2024-06-07 13:48] VITALS: BP 132/86; PULSE 95; O2SAT 100
[2024-06-07 14:09] VITALS: BP 121/78; PULSE 88; RESP 16; TEMP 36; O2SAT 98
--- NOTE | 2024-06-07 16:55 | P.PICC_ITS ---
PICC Line Insertion NPICC Diagnosis: Left foot infection Indication: Trailer Steerer antibiotic Pertinent Labs: Reviewed Technique: Following informed consent including risks, benefits and alternatives and using sterile technique including cap and mask, sterile gown, glove and drape, the left arm was prepped and draped in the usual sterile fashion of full barrier technique with CHG. Following completion of [place] Protocol the skin and soft tissues were anesthetized with 1% Lidocaine plain. Using ultrasound guidance, the left basilic vein access was obtained in a single attempt by this RN. Over an 0.018 wire through peel-away sheath, a by this RN in a single lumen 4 thai PASV PICC line was positioned. Catheter length is 49 cm internal length, the external length is at the 0 cm external aicha, for a total trimmed length of 49 cm. The procedure was performed in S272. Tip verification was performed by Johnathan Bermudez with Sherlock 3CG. Tip located in SVC. Ultrasound was used to document vein patency and for needle entry. A formal ultrasound picture and cardiac rhythm strip was recorded. Vascular Motor Inspection Mechanic has released the line for use and it is currently dressed with a StatLock, Tegaderm, and CHG disc. Verification has been performed for blood return and line patency. Arm Circumference: 22.5 cm Equipment: AppCard PowerPICC Solo Catheter with Sherlock 3CG Catheter Type: 4 thai single lumen PASV PICC Lot #: [id number]
[2024-06-07 17:25] LABS: Glucose, Whole Blood 221 mg/dL (60-115)
[2024-06-07] MEDS: Enoxaparin Sodium 40 MG/0.4 ML SYRINGE SUBCUT (17:30)
[2024-06-07 17:34] VITALS: BP 134/60; PULSE 108; RESP 18; TEMP 36; O2SAT 99
[2024-06-07 20:00] VITALS: BP 123/83; PULSE 96; RESP 16; TEMP 36.8; O2SAT 98
[2024-06-07 20:58] LABS: Glucose, Whole Blood 163 mg/dL (60-115)
[2024-06-07] MEDS: 0.9 % Sodium Chloride Flush 10 ML SYRINGE 5 ML IVFLUSH (22:22)
[2024-06-08 02:35] VITALS: BP 127/82; PULSE 98; RESP 18; TEMP 36.3; O2SAT 99
[2024-06-08] MEDS: oxyCODONE HCl Immed Release 5 MG TABLET PO ×3 (02:37→22:58)
[2024-06-08] MEDS: vancomycin HCL 750 MG in 0.9 % Sodium Chloride 250 ML 265 MG IV ×3 (02:43→18:16)
[2024-06-08] MEDS: Piperacillin Sodium/Tazobactam 3.375 GM in 0.9 % Sodium Chloride 50 ML IV ×4 (05:48→22:58)
[2024-06-08 06:39] LABS: Creatinine Clr Calc Pharmacy 88.2; Estimated Glomerular Filt Rate > 60
[2024-06-08 07:38] VITALS: BP 135/90; PULSE 86; RESP 16; TEMP 36.3; O2SAT 98
[2024-06-08 07:53] LABS: Glucose, Whole Blood 179 mg/dL (60-115)
[2024-06-08] MEDS: Atorvastatin Calcium 40 MG TABLET PO (08:10)
[2024-06-08] MEDS: Nicotine 14 MG PATCH.TD24 TRANSDERMA (08:10)
[2024-06-08] MEDS: Insulin Glargine,Hum.rec.anlog 100 UNIT/ML 10 ML VIAL 10 UNIT SUBCUT (08:10)
[2024-06-08] MEDS: 0.9 % Sodium Chloride Flush 10 ML SYRINGE 5 ML IVFLUSH ×3 (08:10→20:38)
[2024-06-08] MEDS: Insulin Lispro 100 UNIT/ML 3 ML VIAL SUBCUT ×4 (08:10→20:37)
[2024-06-08] MEDS: 0.9 % Sodium Chloride Flush 3 ML SYRINGE IVFLUSH ×3 (08:11→20:39)
[2024-06-08] MEDS: Sodium Hypochlorite 0.125% 473 ML SOLUTION 1 APPL TOPICAL (08:17)
[2024-06-08 09:17] LABS: Vancomycin Random 18.4 mcg/mL (15-20)
--- NOTE | 2024-06-08 09:26 | HE.PHANOTE ---
RE: VANCO DOSING Random came back as 18.4. Continue with dose of 750 mg q8h for 1 more dose (due to indication), scheduled another random today 06/08 @1700 and may adjust dose then.
--- NOTE | 2024-06-08 09:32 | HO.PM.IMPN ---
Subjective Subjective Date of Service: 06/08/24 Interval History: no acute complaints ENT Ears, Nose, Mouth, and Throat: Reports Normal hearing present Neurologic Neurologic: Reports Normal hearing present Physical Exam Vital Signs: Vital Signs: Last Vital Signs Temp 97.3 F 06/08/24 07:38 Pulse 86 06/08/24 07:38 Resp 16 06/08/24 07:38 BP 135/90 H 06/08/24 07:38 Pulse Ox 98 06/08/24 07:38 O2 Del Method Room Air 06/08/24 07:38 BMI result Body Mass Index 19.1 Const: General: cooperative, healthy appearing and comfortable Orientation/consciousness: oriented to person, oriented to place and oriented to time HEENT: Head: Yes normal to inspection Neck: Neck: Yes normal visual inspection Carotids: no bruits Chest: Chest palpation & inspection: normal inspection of the chest Resp: Effort & Inspection: normal respiratory effort and able to speak in complete sentences Auscultation: clear to auscultation bilaterally, no crackles, no rales, no rhonchi and no wheezes Cardio: Rate: regular rate Rhythm: regular rhythm Heart sounds: S1 normal heart sound present and S2 normal heart sound present Bruits: no carotid bruits Peripheral pulses: Peripheral pulses 2+ throughout GI: Inspection: Yes normal to inspection Skin: Other: Left leg dressing clean dry intact Wounds: wounds noted Hair: normal Neuro: General: oriented to person, oriented to place and oriented to time Cranial nerves: Yes Normal hearing present Cognition (Neuro): normal cognition Motor exam (neuro): 5/5 motor strength present throughout Extrem: Other: venous exam: No significant superficial varicosities or spider telangiectasias, minimal edema General: No clubbing, No cyanosis and No edema Psych: Appearance: grossly normal Mental Status: mental status grossly normal Speech and movement: Normal speech and movement present Objective Data Active Medications Acetaminophen (Acetaminophen 325 Mg Tablet) 650 mg PO Q6H PRN PRN Reason: Pain, Mild (Pain Scale 1-3), fever or headache Albuterol Sulfate (Albuterol Sulfate 90 Mcg 8 Gm Inhaler) 2 puff INHALE DAILY PRN PRN Reason: Shortness Of Breath Or Wheezing Atorvastatin Calcium (Atorvastatin Calcium 40 Mg Tablet) 40 mg PO DAILY [facility] Last Admin: 06/08/24 08:10 Dose: 40 mg Documented By: HO.PRESTOS Benzonatate (Benzonatate 100 Mg Capsule) 100 mg PO TID PRN PRN Reason: Cough Calcium Carbonate (Calcium Carbonate 750 Mg Tab.Chew) 750 mg PO Q4H PRN PRN Reason: Heartburn Enoxaparin Sodium (Enoxaparin Sodium 40 Mg/0.4 Ml Syringe) 40 mg SUBCUT Q24H [facility] Last Admin: 06/07/24 17:30 Dose: 40 mg Documented By: LEW Glucose (Glucose Gel 15 Gm Gel..Gram.) 15 gm PO Q15M PRN; Protocol PRN Reason: per Hypoglycemia Standing Ord. Dextrose (D10) 250 mls @ 750 mls/hr IV Q15M PRN; Protocol PRN Reason: per Hypoglycemia Standing Ord. Piperacillin Sod/Tazobactam (Sod 3.375 gm/ Sodium Chloride) 50 mls @ 100 mls/hr IV Q6H [facility] Last Infusion: 06/08/24 06:24 Dose: Infused Documented By: DEMARIO Ertapenem 1 gm/ Sodium (Chloride) 50 mls @ 100 mls/hr IV ONCE PRN PRN Reason: before discharge Vancomycin HCl 750 mg/ Sodium (Chloride) 265 mls @ 265 mls/hr IV Q8H [facility] Last Infusion: 06/08/24 03:56 Dose: Infused Documented By: DEMARIO Insulin Glargine (Insulin Glargine,Hum.Rec.Anlog 100 Unit/Ml 10 Ml Vial) 10 unit SUBCUT DAILY [facility] Last Admin: 06/08/24 08:10 Dose: 10 unit Documented By: LEW Insulin Human Lispro (Insulin Lispro 100 Unit/Ml 3 Ml Vial) 0 unit SUBCUT QIDACHS [facility]; Protocol Last Admin: 06/08/24 08:10 Dose: 2 unit Documented By: LEW Magnesium Hydroxide (Milk Of Magnesia 30 Ml Oral.Susp) 30 ml PO DAILY PRN PRN Reason: Constipation Melatonin (Melatonin 3 Mg Tablet) 6 mg PO BEDTIME PRN PRN Reason: Insomnia Nicotine (Nicotine 14 Mg Patch.Td24) 14 mg TRANSDERMA DAILY [facility] Last Admin: 06/08/24 08:10 Dose: 14 mg Documented By: LEW Nicotine Polacrilex (Nicotine Polacrilex 2 Mg Gum) 2 mg BUCCAL Q2H PRN PRN Reason: Nicotine Cravings Last Admin: 06/05/24 18:19 Dose: 2 mg Documented By: CALEB Ondansetron HCl (Ondansetron Hcl 4 Mg/2 Ml Vial) 4 mg IVPUSH Q8H PRN PRN Reason: Nausea and Vomiting Last Admin: 06/04/24 19:47 Dose: 4 mg Documented By: ODRISOrly Oxycodone HCl (Oxycodone Hcl Immed Release 5 Mg Tablet) 5 mg PO Q6H PRN PRN Reason: Pain, Moderate(Pain Scale 4-6) Last Admin: 06/08/24 02:37 Dose: 5 mg Documented By: DEMARIO Pharmacy Consult (Consult Rx Vancomycin Dosing) 1 each MISCELLANE DAILY PRN PRN Reason: Consult order Sodium Chloride (0.9 % Sodium Chloride Flush 3 Ml Syringe) 3 ml IVFLUSH QSHIFT [facility] Last Admin: 06/08/24 08:11 Dose: 3 ml Documented By: ELW Sodium Chloride (0.9 % Sodium Chloride Flush 10 Ml Syringe) 5 ml IVFLUSH TID [facility] Last Admin: 06/08/24 08:10 Dose: 5 ml Documented By: LEW Sodium Hypochlorite (Sodium Hypochlorite 0.125% 473 Ml Solution) 1 appl TOPICAL DAILY [facility] Last Admin: 06/08/24 08:17 Dose: 1 appl Documented By: LEW Labs 06/07/24 05:13 06/08/24 05:17 Labs: Laboratory Results - last 24 hr 06/07/24 06/07/24 06/07/24 11:18 17:21 20:54 Hold Purple Top Estim Creat Clear Calc Estimated GFR POC Glucose 184 H 221 H 163 H Random Vancomycin 06/08/24 06/08/24 06/08/24 05:17 07:42 08:54 Hold Purple Top SEE NOTE Estim Creat Clear Calc 88.2 Estimated GFR > 60 POC Glucose 179 H Random Vancomycin 18.4 Assessment and Plan (1) Sepsis: Status: Acute (2) Osteomyelitis: Status: Acute Plan 53M PMH DM presented with?worsening diabetic left foot ulcers x1 month Left foot osteomyelitis with severe sepsis secondary to chronic diabetic foot ulcers. No pain, presented with foul-smelling & purulent discharge, Elevated ESR and CRP, x-ray of left foot showed septic arthritis and osteomyelitis at the 1st, 2nd, 3rd, and 5th MTP joints and great toe distal phalanx. Continue vancomycin and Zosyn, started 06/03/2024 Arterial ultrasound showed hemodynamically significant left anterior tibialis and dorsalis pedis, arteries, has good pulses. Seen by General surgery Dr. Moctezuma some necrotic tissue removed/patient at high risk for needing TMA seen by vascular, recommending iv abx for now, if fails may need TMA plan for 6 weeks iv ertapenem, end date 07/14/24 Hyperglycemia/uncontrolled type 2 diabetes only on metformin at home POC 502 at time of presentation, blood sugar improved ,A1c 9.1, beta hydroxybutyrate 0.66 Continue insulin sliding scale and diabetic diet, Lantus 10 units at a.m. added. Hyperlipidemia continue statin Tobacco use disorder continue nicotine patch, and nicotine gum, counseling done. Cocaine/marijuana use disorder seen by Addiction Team written resources provided, patient denies craving for substances. Adrenal nodule CT of abdomen and pelvis found 1.4 cm homogeneous left adrenal nodule Recommendation is for CT adrenal protocol in 1 year Moderate protein calorie malnutrition continue ensure max t.i.d. Full Code DVT Prophylaxis: Lovenox reason for continued hospitalization:iv abx for om, dispo planning Quality Stroke Does the patient have a stroke diagnosis?: No VTE Prior VTE?: No VTE Risk Level:: Medical - moderate - high VTE Device Contraindication: Treatment Not Indicated VTE Drug Contraindication: N/A - Med Ordered
[2024-06-08 11:45] LABS: Glucose, Whole Blood 300 mg/dL (60-115)
--- NOTE | 2024-06-08 11:56 | MHC.CM.PN ---
Addendum entered by Bhavana Bro 06/08/24 16:19: [facility] RN PROVIDED TEACH AND REPORTED NO CONCERNS WITH THIS PT MANAGING HIS MEDS AT HOME UPDATES SENT TO [facility] FOR [facility] SUPPLIES / SERVICES PT AWARE THIS WILL LIKELY BE COMPLETED ON TUESDAY Original Note: CM MET WITH PT WHO STATES HE DOES NOT WANT TO GO TO A SNF FOR 6 WEEKS AND FEELS IT IS UNFAIR THAT HE IS BEING PUNISHED FOR BEING HONEST. CM EXPLAINED THIS WAS NOT MEANT TO BE PUNISHMENT, HOWEVER HIS SAFETY IS IMPORTANT. JARON ALSO EXPLAINED SINCE HE DOES NOT HAVE HELP AT HOME, IT MAY BE DIFFICULT TO MANAGE THIS ON HIS OWN. PER DISCUSSION, HE AGREES TO MEET WITH [facility] RN FOR TEACHING AND UNDERSTANDS DCP WILL BE DISCUSSED FURTHER AFTER THAT. PT HAS MET WITH [facility] RN AND DOES APPEAR ABLE TO MANAGE HIS MEDS AT HOME. UPDATES SENT TO [facility] TO DETERMINE IF THEY WILL STILL ACCEPT PT [facility]SO [facility] TODAY PTS HI SERVICES/MEDS/SUPPLIES, WILL REQUIRE AUTH
--- NOTE | 2024-06-08 12:16 | MHC.CLN ---
F/U PO INTAKE 75-100% DIET=DIABETIC 2000 KCALS. ENSURE MAX PROTEIN TID PROVIDES 450 KCALS, 90 G PROTEIN THIS IS A LOWER CARBOHYDRATE PRODUCT, APPROPRIATE FOR DM MONITOR PO INTAKE AND ENCOURAGE SUPPLEMENTS
[2024-06-08 13:16] VITALS: BP 135/90; PULSE 86; O2SAT 98
[2024-06-08] MEDS: Enoxaparin Sodium 40 MG/0.4 ML SYRINGE SUBCUT (14:44)
[2024-06-08 15:10] VITALS: BP 103/64; PULSE 92; RESP 18; TEMP 36.6; O2SAT 97
[2024-06-08 16:26] LABS: Glucose, Whole Blood 221 mg/dL (60-115)
[2024-06-08] MEDS: Nicotine Polacrilex 2 MG GUM BUCCAL (16:49)
[2024-06-08 18:08] LABS: Vancomycin Random 17.7 mcg/mL (15-20)
--- NOTE | 2024-06-08 18:16 | HE.PHANOTE ---
Renal function in improving. Trough returned as 17.7. Continue 750mg q8h with predicted AUC 540, and predicted trough 16.5. Next trough is 8/3 at 1700.
[2024-06-08 19:23] VITALS: BP 124/86; PULSE 108; RESP 18; TEMP 36.4; O2SAT 98
[2024-06-08 20:26] LABS: Glucose, Whole Blood 342 mg/dL (60-115)
[2024-06-09] MEDS: vancomycin HCL 750 MG in 0.9 % Sodium Chloride 250 ML 265 MG IV ×2 (03:06→11:58)
[2024-06-09 03:13] VITALS: BP 133/86; PULSE 95; RESP 16; TEMP 36.1; O2SAT 100
[2024-06-09] MEDS: Piperacillin Sodium/Tazobactam 3.375 GM in 0.9 % Sodium Chloride 50 ML IV ×4 (04:13→22:53)
[2024-06-09 06:55] LABS: Creatinine Clr Calc Pharmacy 78.6; Estimated Glomerular Filt Rate > 60
[2024-06-09 07:24] VITALS: BP 122/81; PULSE 86; RESP 16; TEMP 36.2; O2SAT 97
[2024-06-09 07:49] LABS: Glucose, Whole Blood 191 mg/dL (60-115)
[2024-06-09] MEDS: Atorvastatin Calcium 40 MG TABLET PO (07:56)
[2024-06-09] MEDS: 0.9 % Sodium Chloride Flush 3 ML SYRINGE IVFLUSH ×2 (07:56→16:41)
[2024-06-09] MEDS: Insulin Lispro 100 UNIT/ML 3 ML VIAL SUBCUT ×4 (07:56→20:57)
[2024-06-09] MEDS: 0.9 % Sodium Chloride Flush 10 ML SYRINGE 5 ML IVFLUSH ×3 (07:56→20:57)
[2024-06-09] MEDS: Nicotine 14 MG PATCH.TD24 TRANSDERMA (07:57)
[2024-06-09] MEDS: Insulin Glargine,Hum.rec.anlog 100 UNIT/ML 10 ML VIAL 10 UNIT SUBCUT (07:57)
[2024-06-09] MEDS: Sodium Hypochlorite 0.125% 473 ML SOLUTION 1 APPL TOPICAL (08:01)
--- NOTE | 2024-06-09 08:39 | P.PNIM_ITS ---
Subjective Subjective Date of Service: 06/09/24 Interval History: no acute complaints ENT Ears, Nose, Mouth, and Throat: Reports Normal hearing present Neurologic Neurologic: Reports Normal hearing present Physical Exam 2 Vital Signs: Vital Signs: Last Vital Signs Temp 97.2 F 06/09/24 07:24 Pulse 86 06/09/24 07:24 Resp 16 06/09/24 07:24 BP 122/81 06/09/24 07:24 Pulse Ox 97 06/09/24 07:24 O2 Del Method Room Air 06/09/24 07:24 BMI result Body Mass Index 19.1 Const: General: cooperative, healthy appearing and comfortable O rientation/consciousness: oriented to person, oriented to place and oriented to time HEENT: Head: Yes normal to inspection Neck: Neck: Yes normal visual inspection Carotids: no bruits Chest: Chest palpation & inspection: normal inspection of the chest Resp: Effort & Inspection: normal respiratory effort and able to speak in complete sentences Auscultation: clear to auscultation bilaterally, no crackles, no rales, no rhonchi and no wheezes Cardio: Rate: regular rate Rhythm: regular rhythm Heart sounds: S1 normal heart sound present and S2 normal heart sound present Bruits: no carotid bruits Peripheral pulses: Peripheral pulses 2+ throughout GI: Inspection: Yes normal to inspection Skin: Other: Left leg dressing clean dry intact Wounds: wounds noted Hair: normal Neuro: General: oriented to person, oriented to place and oriented to time Cranial nerves: Yes Normal hearing present Cognition (Neuro): normal cognition Motor exam (neuro): 5/5 motor strength present throughout Extrem: Other: venous exam: No significant superficial varicosities or spider telangiectasias, minimal edema General: No clubbing, No cyanosis and No edema Psych: Appearance: grossly normal Mental Status: mental status grossly normal Speech and movement: Normal speech and movement present Objective Data Active Medications Acetaminophen (Acetaminophen 325 Mg Tablet) 650 mg PO Q6H PRN PRN Reason: Pain, Mild (Pain Scale 1-3), fever or headache Albuterol Sulfate (Albuterol Sulfate 90 Mcg 8 Gm Inhaler) 2 puff INHALE DAILY PRN PRN Reason: Shortness Of Breath Or Wheezing Atorvastatin Calcium (Atorvastatin Calcium 40 Mg Tablet) 40 mg PO DAILY DREA Last Admin: 06/09/24 07:56 Dose: 40 mg Documented By: HO.PARROWA Benzonatate (Benzonatate 100 Mg Capsule) 100 mg PO TID PRN PRN Reason: Cough Calcium Carbonate (Calcium Carbonate 750 Mg Tab.Chew) 750 mg PO Q4H PRN PRN Reason: Heartburn Enoxaparin Sodium (Enoxaparin Sodium 40 Mg/0.4 Ml Syringe) 40 mg SUBCUT Q24H [facility] Last Admin: 06/08/24 14:44 Dose: 40 mg Documented By: JOCELYN Glucose (Glucose Gel 15 Gm Gel..Gram.) 15 gm PO Q15M PRN; Protocol PRN Reason: per Hypoglycemia Standing Ord. Dextrose (D10) 250 mls @ 750 mls/hr IV Q15M PRN; Protocol PRN Reason: per Hypoglycemia Standing Ord. Piperacillin Sod/Tazobactam (Sod 3.375 gm/ Sodium Chloride) 50 mls @ 100 mls/hr IV Q6H [facility] Last Infusion: 06/09/24 04:49 Dose: Infused Documented By: KAL Ertapenem 1 gm/ Sodium (Chloride) 50 mls @ 100 mls/hr IV ONCE PRN PRN Reason: before discharge Vancomycin HCl 750 mg/ Sodium (Chloride) 265 mls @ 265 mls/hr IV Q8H [facility] Last Infusion: 06/09/24 04:17 Dose: Infused Documented By: KAL Insulin Glargine (Insulin Glargine,Hum.Rec.Anlog 100 Unit/Ml 10 Ml Vial) 10 unit SUBCUT DAILY [facility] Last Admin: 06/09/24 07:57 Dose: 10 unit Documented By: CHIO Insulin Human Lispro (Insulin Lispro 100 Unit/Ml 3 Ml Vial) 0 unit SUBCUT QIDACHS [facility]; Protocol Last Admin: 06/09/24 07:56 Dose: 2 unit Documented By: CHIO Magnesium Hydroxide (Milk Of Magnesia 30 Ml Oral.Susp) 30 ml PO DAILY PRN PRN Reason: Constipation Melatonin (Melatonin 3 Mg Tablet) 6 mg PO BEDTIME PRN PRN Reason: Insomnia Nicotine (Nicotine 14 Mg Patch.Td24) 14 mg TRANSDERMA DAILY [facility] Last Admin: 06/09/24 07:57 Dose: 14 mg Documented By: CHIO Nicotine Polacrilex (Nicotine Polacrilex 2 Mg Gum) 2 mg BUCCAL Q2H PRN PRN Reason: Nicotine Cravings Last Admin: 06/08/24 16:49 Dose: 2 mg Documented By: LEW Ondansetron HCl (Ondansetron Hcl 4 Mg/2 Ml Vial) 4 mg IVPUSH Q8H PRN PRN Reason: Nausea and Vomiting Last Admin: 06/04/24 19:47 Dose: 4 mg Documented By: ODRISOrly Oxycodone HCl (Oxycodone Hcl Immed Release 5 Mg Tablet) 5 mg PO Q6H PRN PRN Reason: Pain, Moderate(Pain Scale 4-6) Last Admin: 06/08/24 22:58 Dose: 5 mg Documented By: KAL Pharmacy Consult (Consult Rx Vancomycin Dosing) 1 each MISCELLANE DAILY PRN PRN Reason: Consult order Sodium Chloride (0.9 % Sodium Chloride Flush 3 Ml Syringe) 3 ml IVFLUSH QSHIFT [facility] Last Admin: 06/09/24 07:56 Dose: 3 ml Documented By: CHIO Sodium Chloride (0.9 % Sodium Chloride Flush 10 Ml Syringe) 5 ml IVFLUSH TID [facility] Last Admin: 06/09/24 07:56 Dose: 5 ml Documented By: CHIO Sodium Hypochlorite (Sodium Hypochlorite 0.125% 473 Ml Solution) 1 appl TOPICAL DAILY [facility] Last Admin: 06/09/24 08:01 Dose: 1 appl Documented By: CHIO Labs 06/07/24 05:13 06/09/24 05:30 Labs: Laboratory Results - last 24 hr 06/08/24 06/08/24 06/08/24 08:54 11:35 16:18 Hold Purple Top Estim Creat Clear Calc Estimated GFR POC Glucose 300 H 221 H Random Vancomycin 18.4 06/08/24 06/08/24 06/09/24 17:31 20:18 05:30 Hold Purple Top SEE NOTE Estim Creat Clear Calc 78.6 Estimated GFR > 60 POC Glucose 342 H Random Vancomycin 17.7 06/09/24 07:20 Hold Purple Top Estim Creat Clear Calc Estimated GFR POC Glucose 191 H Random Vancomycin Microbiology Microbiology Results: Microbiology 06/03/24 10:23 Blood Culture - Final Blood - Venous No growth after 5 days. 06/03/24 10:10 Blood Culture - Final Blood - Venous No growth after 5 days. Assessment and Plan (1) Sepsis: Status: Acute (2) Osteomyelitis: Status: Acute Plan 53M PMH DM presented with?worsening diabetic left foot ulcers x1 month Left foot osteomyelitis with severe sepsis secondary to chronic diabetic foot ulcers. No pain, presented with foul-smelling & purulent discharge, Elevated ESR and CRP, x-ray of left foot showed septic arthritis and osteomyelitis at the 1st, 2nd, 3rd, and 5th MTP joints and great toe distal phalanx. Continue vancomycin and Zosyn, started 06/03/2024 Arterial ultrasound showed hemodynamically significant left anterior tibialis and dorsalis pedis, arteries, has good pulses. Seen by General surgery Dr. Moctezuma some necrotic tissue removed/patient at high risk for needing TMA seen by vascular, recommending iv abx for now, if fails may need TMA plan for 6 weeks iv ertapenem, end date 07/14/24 Hyperglycemia/uncontrolled type 2 diabetes only on metformin at home POC 502 at time of presentation, blood sugar improved ,A1c 9.1, beta hydroxybutyrate 0.66 Continue insulin sliding scale and diabetic diet, Lantus 10 units at a.m. added. Hyperlipidemia continue statin Tobacco use disorder continue nicotine patch, and nicotine gum, counseling done. Cocaine/marijuana use disorder seen by Addiction Team written resources provided, patient denies craving for substances. Adrenal nodule CT of abdomen and pelvis found 1.4 cm homogeneous left adrenal nodule Recommendation is for CT adrenal protocol in 1 year Moderate protein calorie malnutrition continue ensure max t.i.d. Full Code DVT Prophylaxis: Lovenox reason for continued hospitalization:awaiting auth Quality Stroke Does the patient have a stroke diagnosis?: No VTE Prior VTE?: No VTE Risk Level:: Medical - moderate - high VTE Device Contraindication: Treatment Not Indicated VTE Drug Contraindication: N/A - Med Ordered
[2024-06-09] MEDS: oxyCODONE HCl Immed Release 5 MG TABLET PO (11:18)
[2024-06-09] MEDS: Nicotine Polacrilex 2 MG GUM BUCCAL ×2 (11:20→14:16)
[2024-06-09 11:38] LABS: Glucose, Whole Blood 230 mg/dL (60-115)
[2024-06-09 15:33] VITALS: BP 114/66; PULSE 87; RESP 20; TEMP 36.4; O2SAT 98
[2024-06-09 16:14] LABS: Glucose, Whole Blood 234 mg/dL (60-115)
[2024-06-09] MEDS: Enoxaparin Sodium 40 MG/0.4 ML SYRINGE SUBCUT (16:44)
[2024-06-09 17:19] LABS: Vancomycin Random 20.2 mcg/mL (15-20)
--- NOTE | 2024-06-09 17:31 | HE.PHANOTE ---
RE: VANCO DOSING Trough came back as 20.2. Dose is reduced to 1000 mg q12h, next random is scheduled for 06/10/24 @1700.
[2024-06-09] MEDS: vancomycin HCL 1,000 MG in 0.9 % Sodium Chloride 250 ML 270 MG IV (18:30)
[2024-06-09 19:19] VITALS: BP 110/74; PULSE 96; RESP 20; TEMP 36.6; O2SAT 98
[2024-06-09 20:42] LABS: Glucose, Whole Blood 265 mg/dL (60-115)
[2024-06-10] MEDS: oxyCODONE HCl Immed Release 5 MG TABLET PO ×3 (02:59→23:22)
[2024-06-10 03:56] VITALS: BP 132/82; PULSE 100; RESP 18; TEMP 36.8; O2SAT 99
[2024-06-10] MEDS: Piperacillin Sodium/Tazobactam 3.375 GM in 0.9 % Sodium Chloride 50 ML IV (05:03)
[2024-06-10] MEDS: vancomycin HCL 1,000 MG in 0.9 % Sodium Chloride 250 ML 270 MG IV (06:28)
[2024-06-10 07:04] LABS: Creatinine Clr Calc Pharmacy 84.7; Estimated Glomerular Filt Rate > 60
[2024-06-10 07:44] VITALS: BP 127/79; PULSE 78; RESP 17; TEMP 36.4; O2SAT 99
[2024-06-10 07:58] LABS: Glucose, Whole Blood 224 mg/dL (60-115)
[2024-06-10] MEDS: Insulin Lispro 100 UNIT/ML 3 ML VIAL SUBCUT ×4 (08:05→21:09)
[2024-06-10] MEDS: Nicotine 14 MG PATCH.TD24 TRANSDERMA (08:05)
[2024-06-10] MEDS: 0.9 % Sodium Chloride Flush 10 ML SYRINGE 5 ML IVFLUSH ×3 (08:06→21:10)
[2024-06-10] MEDS: Insulin Glargine,Hum.rec.anlog 100 UNIT/ML 10 ML VIAL 10 UNIT SUBCUT (08:06)
[2024-06-10] MEDS: 0.9 % Sodium Chloride Flush 3 ML SYRINGE IVFLUSH ×2 (08:06→16:58)
[2024-06-10] MEDS: Atorvastatin Calcium 40 MG TABLET PO (08:12)
[2024-06-10] MEDS: Sodium Hypochlorite 0.125% 473 ML SOLUTION 1 APPL TOPICAL (08:12)
--- NOTE | 2024-06-10 08:21 | HO.PM.IMPN ---
Subjective Subjective Date of Service: 06/10/24 Interval History: no acute complaints ENT Ears, Nose, Mouth, and Throat: Reports Normal hearing present Neurologic Neurologic: Reports Normal hearing present Physical Exam Vital Signs: Vital Signs: Last Vital Signs Temp 97.6 F 06/10/24 07:44 Pulse 78 06/10/24 07:44 Resp 17 06/10/24 07:44 BP 127/79 06/10/24 07:44 Pulse Ox 99 06/10/24 07:44 O2 Del Method Room Air 06/10/24 07:44 BMI result Body Mass Index 19.1 Const: General: cooperative, healthy appearing and comfortable Orientation/consciousness: oriented to person, oriented to place and oriented to time HEENT: Head: Yes normal to inspection Neck: Neck: Yes normal visual inspection Carotids: no bruits Chest: Chest palpation & inspection: normal inspection of the chest Resp: Effort & Inspection: normal respiratory effort and able to speak in complete sentences Auscultation: clear to auscultation bilaterally, no crackles, no rales, no rhonchi and no wheezes Cardio: Rate: regular rate Rhythm: regular rhythm Heart sounds: S1 normal heart sound present and S2 normal heart sound present Bruits: no carotid bruits Peripheral pulses: Peripheral pulses 2+ throughout GI: Inspection: Yes normal to inspection Skin: Other: Left leg dressing clean dry intact Wounds: wounds noted Hair: normal Neuro: General: oriented to person, oriented to place and oriented to time Cranial nerves: Yes Normal hearing present Cognition (Neuro): normal cognition Motor exam (neuro): 5/5 motor strength present throughout Extrem: Other: venous exam: No significant superficial varicosities or spider telangiectasias, minimal edema General: No clubbing, No cyanosis and No edema Psych: Appearance: grossly normal Mental Status: mental status grossly normal Speech and movement: Normal speech and movement present Objective Data Active Medications Acetaminophen (Acetaminophen 325 Mg Tablet) 650 mg PO Q6H PRN PRN Reason: Pain, Mild (Pain Scale 1-3), fever or headache Albuterol Sulfate (Albuterol Sulfate 90 Mcg 8 Gm Inhaler) 2 puff INHALE DAILY PRN PRN Reason: Shortness Of Breath Or Wheezing Atorvastatin Calcium (Atorvastatin Calcium 40 Mg Tablet) 40 mg PO DAILY DREA Last Admin: 06/10/24 08:12 Dose: 40 mg Documented By: HO.PARROWA Benzonatate (Benzonatate 100 Mg Capsule) 100 mg PO TID PRN PRN Reason: Cough Calcium Carbonate (Calcium Carbonate 750 Mg Tab.Chew) 750 mg PO Q4H PRN PRN Reason: Heartburn Enoxaparin Sodium (Enoxaparin Sodium 40 Mg/0.4 Ml Syringe) 40 mg SUBCUT Q24H [facility] Last Admin: 06/09/24 16:44 Dose: 40 mg Documented By: CHIO Glucose (Glucose Gel 15 Gm Gel..Gram.) 15 gm PO Q15M PRN; Protocol PRN Reason: per Hypoglycemia Standing Ord. Dextrose (D10) 250 mls @ 750 mls/hr IV Q15M PRN; Protocol PRN Reason: per Hypoglycemia Standing Ord. Ertapenem 1 gm/ Sodium (Chloride) 50 mls @ 100 mls/hr IV ONCE PRN PRN Reason: before discharge Meropenem 1 gm/ Sodium (Chloride) 100 mls @ 200 mls/hr IV Q8H [facility] Last Admin: 06/10/24 08:10 Dose: 200 mls/hr Documented By: CHIO Insulin Glargine (Insulin Glargine,Hum.Rec.Anlog 100 Unit/Ml 10 Ml Vial) 10 unit SUBCUT DAILY [facility] Last Admin: 06/10/24 08:06 Dose: 10 unit Documented By: CHIO Insulin Human Lispro (Insulin Lispro 100 Unit/Ml 3 Ml Vial) 0 unit SUBCUT QIDACHS [facility]; Protocol Last Admin: 06/10/24 08:05 Dose: 4 unit Documented By: CHIO Magnesium Hydroxide (Milk Of Magnesia 30 Ml Oral.Susp) 30 ml PO DAILY PRN PRN Reason: Constipation Melatonin (Melatonin 3 Mg Tablet) 6 mg PO BEDTIME PRN PRN Reason: Insomnia Nicotine (Nicotine 14 Mg Patch.Td24) 14 mg TRANSDERMA DAILY [facility] Last Admin: 06/10/24 08:05 Dose: 14 mg Documented By: CHIO Nicotine Polacrilex (Nicotine Polacrilex 2 Mg Gum) 2 mg BUCCAL Q2H PRN PRN Reason: Nicotine Cravings Last Admin: 06/09/24 14:16 Dose: 2 mg Documented By: CHIO Ondansetron HCl (Ondansetron Hcl 4 Mg/2 Ml Vial) 4 mg IVPUSH Q8H PRN PRN Reason: Nausea and Vomiting Last Admin: 06/04/24 19:47 Dose: 4 mg Documented By: ODRISOrly Oxycodone HCl (Oxycodone Hcl Immed Release 5 Mg Tablet) 5 mg PO Q6H PRN PRN Reason: Pain, Moderate(Pain Scale 4-6) Last Admin: 06/10/24 02:59 Dose: 5 mg Documented By: KAL Sodium Chloride (0.9 % Sodium Chloride Flush 3 Ml Syringe) 3 ml IVFLUSH QSHIFT [facility] Last Admin: 06/10/24 08:06 Dose: 3 ml Documented By: CHIO Sodium Chloride (0.9 % Sodium Chloride Flush 10 Ml Syringe) 5 ml IVFLUSH TID [facility] Last Admin: 06/10/24 08:06 Dose: 5 ml Documented By: CHIO Sodium Hypochlorite (Sodium Hypochlorite 0.125% 473 Ml Solution) 1 appl TOPICAL DAILY [facility] Last Admin: 06/10/24 08:12 Dose: 1 appl Documented By: CHIO Labs 06/07/24 05:13 06/10/24 06:05 Labs: Laboratory Results - last 24 hr 06/09/24 06/09/24 06/09/24 11:30 16:07 16:58 Estim Creat Clear Calc Estimated GFR POC Glucose 230 H 234 H Random Vancomycin 20.2 H 06/09/24 06/10/24 06/10/24 20:38 06:05 07:47 Estim Creat Clear Calc 84.7 Estimated GFR > 60 POC Glucose 265 H 224 H Random Vancomycin Assessment and Plan (1) Sepsis: Status: Acute (2) Osteomyelitis: Status: Acute Plan 53M PMH DM presented with?worsening diabetic left foot ulcers x1 month Left foot osteomyelitis with severe sepsis secondary to chronic diabetic foot ulcers. No pain, presented with foul-smelling & purulent discharge, Elevated ESR and CRP, x-ray of left foot showed septic arthritis and osteomyelitis at the 1st, 2nd, 3rd, and 5th MTP joints and great toe distal phalanx. will change vancomycin and Zosyn, started 06/03/2024 to meropenem (started 06/10/24) Arterial ultrasound showed hemodynamically significant left anterior tibialis and dorsalis pedis, arteries, has good pulses. Seen by General surgery Dr. Moctezuma some necrotic tissue removed/patient at high risk for needing TMA seen by vascular, recommending iv abx for now, if fails may need TMA plan for 6 weeks iv ertapenem, end date 07/14/24 Hyperglycemia/uncontrolled type 2 diabetes only on metformin at home POC 502 at time of presentation, blood sugar improved ,A1c 9.1, beta hydroxybutyrate 0.66 Continue insulin sliding scale and diabetic diet, Lantus 10 units at a.m. added. Hyperlipidemia continue statin Tobacco use disorder continue nicotine patch, and nicotine gum, counseling done. Cocaine/marijuana use disorder seen by Addiction Team written resources provided, patient denies craving for substances. Adrenal nodule CT of abdomen and pelvis found 1.4 cm homogeneous left adrenal nodule Recommendation is for CT adrenal protocol in 1 year Moderate protein calorie malnutrition continue ensure max t.i.d. Full Code DVT Prophylaxis: Lovenox reason for continued hospitalization:awaiting auth Quality Stroke Does the patient have a stroke diagnosis?: No VTE Prior VTE?: No VTE Risk Level:: Medical - moderate - high VTE Device Contraindication: Treatment Not Indicated VTE Drug Contraindication: N/A - Med Ordered
[2024-06-10 11:42] LABS: Glucose, Whole Blood 217 mg/dL (60-115)
[2024-06-10] MEDS: Nicotine Polacrilex 2 MG GUM BUCCAL ×2 (12:28→17:03)
[2024-06-10 15:31] VITALS: BP 119/66; PULSE 84; RESP 18; TEMP 36.4; O2SAT 100
[2024-06-10 16:24] LABS: Glucose, Whole Blood 170 mg/dL (60-115)
[2024-06-10] MEDS: Enoxaparin Sodium 40 MG/0.4 ML SYRINGE SUBCUT (16:58)
[2024-06-10 19:54] VITALS: BP 114/72; PULSE 113; RESP 18; TEMP 36.9; O2SAT 99
[2024-06-10 20:42] LABS: Glucose, Whole Blood 332 mg/dL (60-115)
[2024-06-11 04:00] VITALS: BP 126/86; PULSE 94; RESP 16; TEMP 36.7; O2SAT 99
[2024-06-11 06:24] LABS: Creatinine Clr Calc Pharmacy 80.5; Estimated Glomerular Filt Rate > 60
[2024-06-11 07:39] VITALS: BP 144/81; PULSE 95; RESP 18; TEMP 36.3; O2SAT 100
[2024-06-11 07:51] LABS: Glucose, Whole Blood 198 mg/dL (60-115)
[2024-06-11] MEDS: Insulin Glargine,Hum.rec.anlog 100 UNIT/ML 10 ML VIAL 10 UNIT SUBCUT (08:38)
[2024-06-11] MEDS: Insulin Lispro 100 UNIT/ML 3 ML VIAL SUBCUT ×2 (08:39→12:11)
[2024-06-11] MEDS: 0.9 % Sodium Chloride Flush 10 ML SYRINGE 5 ML IVFLUSH (08:40)
[2024-06-11] MEDS: Atorvastatin Calcium 40 MG TABLET PO (08:40)
[2024-06-11] MEDS: Nicotine 14 MG PATCH.TD24 TRANSDERMA (08:40)
--- NOTE | 2024-06-11 09:44 | P.F2F_ITS ---
Service Date Service Date: 06/11/24 Encounter Date of encounter: 06/11/24 Reasons for Services Signs and symptoms assessed: difficulty ambulating Reason for correction: wound care (dakin wet to dry dressing on pt wounds on left foot. pack the gazue with dakins into the pocket on the medial foot area.), medication management, medication treatment and teach disease management Homebound: Leaving the home is medically contraindicated at this time without the asist of a device and/or another person due th the listed conditions above and below. Reason homebound: poor balance / fall risk Certification: Based on the above findings, I certify that this patient is confined to the home and needs intermittent correction care, physical therapy and/or speech therapy, or continues to need occupational therapy. The patient is under my care, and I have initiated the establishment of the plan of care. The patient will be followed by a physician who will periodically review the plan of care. Time Spent With Patient Time: Total time managing care of this patient today ____ minutes.
[2024-06-11] MEDS: oxyCODONE HCl Immed Release 5 MG TABLET PO (10:24)
[2024-06-11] MEDS: Sodium Hypochlorite 0.125% 473 ML SOLUTION 1 APPL TOPICAL (10:27)
[2024-06-11 11:23] LABS: Glucose, Whole Blood 315 mg/dL (60-115)
--- NOTE | 2024-06-11 12:36 | MHC.CM.PN ---
IMM 06/11/24 Discharge to home today with [facility] and [facility] infusion. 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
[2024-06-11] MEDS: Ertapenem Sodium 1 GM in 0.9 % Sodium Chloride 50 ML IV (13:34)
== END 2024-06-11 15:10 | disposition home health service (06) | DRG 872 ==
LOC: HO.ED 10:42 → HO.EDOVER 15:06 → HO.S3 17:20
PROVIDERS: Hospitalist; Nurse Practitioner Family; Admitting Provider Student in an Organized Health Care Education/Training Program; Emergency Provider Emergency Medicine; Visit Provider Internal Medicine
DX: A41.9 Sepsis, unspecified organism (principal); M86.172 Other acute osteomyelitis, left ankle and foot; E44.0 Moderate protein-calorie malnutrition; Z68.1 Body mass index [BMI] 19.9 or less, adult; E11.52 Type 2 diabetes mellitus with diabetic peripheral angiopathy with gangrene; I70.262 Atherosclerosis of native arteries of extremities with gangrene, left leg; M00.9 Pyogenic arthritis, unspecified; E78.5 Hyperlipidemia, unspecified; F14.90 Cocaine use, unspecified, uncomplicated; F12.90 Cannabis use, unspecified, uncomplicated; E11.40 Type 2 diabetes mellitus with diabetic neuropathy, unspecified; L97.524 Non-pressure chronic ulcer of other part of left foot with necrosis of bone; E11.69 Type 2 diabetes mellitus with other specified complication; R65.20 Severe sepsis without septic shock; E11.65 Type 2 diabetes mellitus with hyperglycemia; Z20.822 Contact with and (suspected) exposure to COVID-19; Z79.84 Long term (current) use of oral hypoglycemic drugs; Z79.899 Other long term (current) drug therapy
CPT/HCPCS: 0241U; 36415; 36573; 73630; 74177; 80048; 80053; 80202; 80307; 81001; 82010; 82565; 82803; 82947; 83036; 83605; 83690; 83735; 84484; 85025; 85027; 85652; 86140; 87040; 93005; 93926; 97161; 99285; C1751; J1335; J1650; J2185; J2270; J2405; J2470; J2543; J3370; J3371; Q9967

== ENCOUNTER → 2024-06-03 09:24 | Outpatient (BNV) | payer MEDICARE, SELFPAY | PROVIDERS: Emergency Provider Emergency Medicine; Visit Provider Internal Medicine | DX: R94.31 Abnormal electrocardiogram [ECG] [EKG] (principal) | CPT/HCPCS: 93010 ==

== ENCOUNTER → 2024-06-03 14:46 | Outpatient (BNV) | payer MEDICARE, SELFPAY | PROVIDERS: Admitting Provider Student in an Organized Health Care Education/Training Program; Emergency Provider Emergency Medicine; Visit Provider Surgery | DX: A41.9 Sepsis, unspecified organism (principal); M86.172 Other acute osteomyelitis, left ankle and foot | CPT/HCPCS: 99222 ==

== ENCOUNTER → 2024-06-03 14:46 | Outpatient (BNV) | payer MEDICARE, SELFPAY | PROVIDERS: Admitting Provider Student in an Organized Health Care Education/Training Program; Emergency Provider Emergency Medicine; Visit Provider Surgery Vascular Surgery | DX: E11.621 Type 2 diabetes mellitus with foot ulcer (principal); L97.929 Non-pressure chronic ulcer of unspecified part of left lower leg with unspecified severity | CPT/HCPCS: 99222; 99232 ==

== ENCOUNTER → 2024-06-03 14:46 | Outpatient (BNV) | payer OTHER, SELFPAY | PROVIDERS: Admitting Provider Student in an Organized Health Care Education/Training Program; Emergency Provider Emergency Medicine; Visit Provider Internal Medicine | DX: E11.622 Type 2 diabetes mellitus with other skin ulcer (principal); L97.929 Non-pressure chronic ulcer of unspecified part of left lower leg with unspecified severity; E11.621 Type 2 diabetes mellitus with foot ulcer; L97.509 Non-pressure chronic ulcer of other part of unspecified foot with unspecified severity | CPT/HCPCS: 99222 ==

== ENCOUNTER → 2024-06-03 14:46 | Outpatient (BNV) | payer MEDICARE, SELFPAY | PROVIDERS: Admitting Provider Student in an Organized Health Care Education/Training Program; Emergency Provider Emergency Medicine; Visit Provider Hospitalist | DX: A41.9 Sepsis, unspecified organism (principal); E11.621 Type 2 diabetes mellitus with foot ulcer; L97.529 Non-pressure chronic ulcer of other part of left foot with unspecified severity; M86.172 Other acute osteomyelitis, left ankle and foot | CPT/HCPCS: 99223; 99231; 99232; 99233; 99239; G0180 ==

== ENCOUNTER 2024-06-20 11:51 | Outpatient (REF) | payer MEDICARE, SELFPAY ==
[2024-06-20 16:09] LABS: MANUAL DIFF FLAG NO
[2024-06-20 16:28] LABS: Basophils Absolute Auto 0.1 X10*3/uL (0.0-0.2); Basophils Percent Auto 1.2 % (0-2); Eosinophils Absolute Auto 0.4 X10*3/uL (0.0-0.4); Eosinophils Percent Auto 4.1 % (0-4); Hematocrit 33.4 % (42.0-52.0); Hemoglobin 10.3 g/dl (14.0-18.0); Imm Gran Abs Auto 0.04 X10*3/uL (0.00-0.03); Imm Gran Pct Auto 0.4 % (0.0-0.4); Lymphocytes Absolute Auto 2.6 X10*3/uL (1.2-4.9); Lymphocytes Percent Auto 28.6 % (20-40); Mean Corpuscular HGB Conc 30.8 g/dl (31.0-36.0); Mean Corpuscular Hemoglobin 28.2 pg (27.0-33.0); Mean Corpuscular Volume 91.5 fL (80.0-98.0); Mean Platelet Volume 9.5 fL (9.4-12.4); Monocytes Absolute Auto 0.7 X10*3/uL (0.1-1.2); Monocytes Percent Auto 7.2 % (2-11); Neutrophils Absolute Auto 5.3 x10*3/uL (2.0-8.3); Neutrophils Percent Auto 58.5 % (45-73); Platelet Count 382 X10*3/uL (160-400); Red Blood Count 3.65 X10*6/uL (4.60-5.80); Red Cell Distribution Width 15.7 % (11.0-16.0); White Blood Count 9.1 X10*3/uL (4.8-10.8)
[2024-06-20 17:02] LABS: Alanine Aminotransferase 23 U/L (0-40); Albumin Level 2.3 g/dL (3.5-5.0); Alkaline Phosphatase 109 U/L (39-117); Anion Gap 8 (12-20); Aspartate Amino Transferase 20 U/L (5-37); Bilirubin Total 0.1 mg/dL (0.0-1.0); Blood Urea Nitrogen 10 mg/dL (9-16); Carbon Dioxide 18 mmol/L (22-29); Chloride 118 mmol/L (96-108); Estimated Glomerular Filt Rate > 60; Glucose Random 121 mg/dL (60-115); Potassium 3.1 mmol/L (3.3-5.1); Sodium 141 mmol/L (135-145); Total Protein 4.5 g/dL (6.5-8.0)
== END 2024-06-20 11:52 | disposition home or self-care (01) ==
LOC: HO.HVNA 11:51
PROVIDERS: Visit Provider Internal Medicine
DX: E11.622 Type 2 diabetes mellitus with other skin ulcer (principal)
CPT/HCPCS: 36415; 80053; 85025

== ENCOUNTER 2024-06-27 14:20 | Outpatient (REF) | payer MEDICARE, SELFPAY ==
[2024-06-27 14:23] LABS: MANUAL DIFF FLAG NO
[2024-06-27 14:27] LABS: Basophils Absolute Auto 0.1 X10*3/uL (0.0-0.2); Basophils Percent Auto 0.9 % (0-2); Eosinophils Absolute Auto 0.5 X10*3/uL (0.0-0.4); Hematocrit 35.6 % (42.0-52.0); Hemoglobin 11.3 g/dl (14.0-18.0); Imm Gran Abs Auto 0.06 X10*3/uL (0.00-0.03); Imm Gran Pct Auto 0.6 % (0.0-0.4); Lymphocytes Percent Auto 32.6 % (20-40); Mean Corpuscular HGB Conc 31.7 g/dl (31.0-36.0); Mean Corpuscular Hemoglobin 28.7 pg (27.0-33.0); Mean Corpuscular Volume 90.4 fL (80.0-98.0); Mean Platelet Volume 9.3 fL (9.4-12.4); Monocytes Absolute Auto 0.6 X10*3/uL (0.1-1.2); Monocytes Percent Auto 6.7 % (2-11); NRBC Pct Auto 0.3 /100WBC (0.0-0.2); Neutrophils Percent Auto 54.2 % (45-73); Platelet Count 441 X10*3/uL (160-400); Red Blood Count 3.94 X10*6/uL (4.60-5.80); Red Cell Distribution Width 15.8 % (11.0-16.0); White Blood Count 9.3 X10*3/uL (4.8-10.8)
[2024-06-27 16:37] LABS: Anion Gap 12 (12-20); Blood Urea Nitrogen 12 mg/dL (9-16); Carbon Dioxide 24 mmol/L (22-29); Chloride 108 mmol/L (96-108); Estimated Glomerular Filt Rate > 60; Glucose Random 123 mg/dL (60-115); Potassium 4.5 mmol/L (3.3-5.1); Sodium 139 mmol/L (135-145)
== END 2024-06-27 14:21 | disposition home or self-care (01) ==
LOC: HO.HVNA 14:20
PROVIDERS: Visit Provider Internal Medicine
DX: M86.172 Other acute osteomyelitis, left ankle and foot (principal); Z79.2 Long term (current) use of antibiotics
CPT/HCPCS: 36415; 80048; 85025

== ENCOUNTER 2024-07-04 14:21 | Outpatient (REF) | payer MEDICARE, SELFPAY ==
[2024-07-04 14:25] LABS: MANUAL DIFF FLAG NO
[2024-07-04 14:33] LABS: Basophils Absolute Auto 0.1 X10*3/uL (0.0-0.2); Eosinophils Absolute Auto 0.5 X10*3/uL (0.0-0.4); Eosinophils Percent Auto 5.1 % (0-4); Hematocrit 35.9 % (42.0-52.0); Hemoglobin 11.7 g/dl (14.0-18.0); Imm Gran Abs Auto 0.06 X10*3/uL (0.00-0.03); Imm Gran Pct Auto 0.6 % (0.0-0.4); Lymphocytes Absolute Auto 2.8 X10*3/uL (1.2-4.9); Lymphocytes Percent Auto 30.3 % (20-40); Mean Corpuscular HGB Conc 32.6 g/dl (31.0-36.0); Mean Corpuscular Volume 88.9 fL (80.0-98.0); Mean Platelet Volume 9.7 fL (9.4-12.4); Monocytes Absolute Auto 0.6 X10*3/uL (0.1-1.2); Monocytes Percent Auto 6.9 % (2-11); Neutrophils Absolute Auto 5.2 x10*3/uL (2.0-8.3); Neutrophils Percent Auto 56.1 % (45-73); Platelet Count 392 X10*3/uL (160-400); Red Blood Count 4.04 X10*6/uL (4.60-5.80); Red Cell Distribution Width 15.9 % (11.0-16.0); White Blood Count 9.3 X10*3/uL (4.8-10.8)
[2024-07-04 15:58] LABS: Anion Gap 15 (12-20); Blood Urea Nitrogen 20 mg/dL (9-16); Calcium 9.2 mg/dL (8.4-10.2); Carbon Dioxide 21 mmol/L (22-29); Chloride 108 mmol/L (96-108); Estimated Glomerular Filt Rate > 60; Glucose Random 193 mg/dL (60-115); Potassium 4.7 mmol/L (3.3-5.1); Sodium 139 mmol/L (135-145)
== END 2024-07-04 14:22 | disposition home or self-care (01) ==
LOC: HO.HVNA 14:21
PROVIDERS: Visit Provider Internal Medicine
DX: M86.172 Other acute osteomyelitis, left ankle and foot (principal); Z79.2 Long term (current) use of antibiotics
CPT/HCPCS: 36415; 80048; 85025

== ENCOUNTER 2024-07-11 14:36 | Outpatient (REF) | payer MEDICARE, SELFPAY ==
[2024-07-11 14:39] LABS: MANUAL DIFF FLAG NO
[2024-07-11 14:43] LABS: Basophils Absolute Auto 0.1 X10*3/uL (0.0-0.2); Basophils Percent Auto 1.1 % (0-2); Eosinophils Absolute Auto 0.6 X10*3/uL (0.0-0.4); Eosinophils Percent Auto 7.1 % (0-4); Hematocrit 37.1 % (42.0-52.0); Hemoglobin 12.2 g/dl (14.0-18.0); Imm Gran Abs Auto 0.03 X10*3/uL (0.00-0.03); Imm Gran Pct Auto 0.4 % (0.0-0.4); Lymphocytes Absolute Auto 3.1 X10*3/uL (1.2-4.9); Lymphocytes Percent Auto 38.2 % (20-40); Mean Corpuscular HGB Conc 32.9 g/dl (31.0-36.0); Mean Corpuscular Hemoglobin 29.2 pg (27.0-33.0); Mean Corpuscular Volume 88.8 fL (80.0-98.0); Mean Platelet Volume 9.9 fL (9.4-12.4); Monocytes Absolute Auto 0.6 X10*3/uL (0.1-1.2); Monocytes Percent Auto 7.6 % (2-11); Neutrophils Absolute Auto 3.7 x10*3/uL (2.0-8.3); Neutrophils Percent Auto 45.6 % (45-73); Platelet Count 359 X10*3/uL (160-400); Red Blood Count 4.18 X10*6/uL (4.60-5.80); Red Cell Distribution Width 15.5 % (11.0-16.0); White Blood Count 8.2 X10*3/uL (4.8-10.8)
[2024-07-11 15:23] LABS: Anion Gap 12 (12-20); Blood Urea Nitrogen 10 mg/dL (9-16); Carbon Dioxide 24 mmol/L (22-29); Chloride 107 mmol/L (96-108); Estimated Glomerular Filt Rate > 60; Glucose Random 96 mg/dL (60-115); Potassium 4.6 mmol/L (3.3-5.1); Sodium 138 mmol/L (135-145)
== END 2024-07-11 14:37 | disposition home or self-care (01) ==
LOC: HO.HVNA 14:36
PROVIDERS: Visit Provider Internal Medicine
DX: M86.172 Other acute osteomyelitis, left ankle and foot (principal); A41.9 Sepsis, unspecified organism
CPT/HCPCS: 36415; 80048; 85025

== ENCOUNTER 2024-07-16 11:18 | Outpatient (AMB) | payer MEDICARE, SELFPAY ==
--- NOTE | 2024-07-16 11:24 | A.OFFVIS_ITS ---
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 He has no complaints and foot stable. [facility] Medical History Non-insulin dependent type 2 diabetes mellitus Social History Household Members: Other Housing: Other Housing Other:: Homeless Housing Do you presently have visiting nurse or other home services: No Alcohol intake: current Alcohol intake frequency: does not drink Patient Tobacco Use Status: Never used Tobacco Substance Use Type: Crack/Cocaine and Inhalants service: Yes Review of Systems Const All systems reviewed & are unremarkable except as noted in HPI and below Physical Exam Vital Signs: Last Vital Signs Pulse 96 07/16/24 11:35 BP 102/64 07/16/24 11:35 BMI result Body Mass Index 20.4 Const Other: General: cooperative Orientation/consciousness: patient oriented x3 HEENT Other: Head: Yes normal to inspection Mouth: Normal oral and palatal mucosa present Eyes General: appearance normal, both eyes and all related structures Pupils: Equal, round and reactive pupils present Resp Effort & Inspection: normal respiratory effort Cardio Rate: regular rate Rhythm: regular rhythm GI Palpation (GI): Soft to palpation and nontender General: Yes no CVA tenderness Back/Spine/Pelvis Back: no CVA tenderness Skin General skin exam: no rashes or lesions noted Neuro General: patient oriented x3 Cranial nerves: Yes CN's II-XII intact bilaterally and Yes Equal, round and reactive pupils present Extrem General: Yes normal to inspection Psych Appearance: grossly normal Assessment & Plan Assessment & Plan (1) Diabetic ulcer of left lower leg: Comment: Ulcers stable at this time. Code(s): E11.622 - Type 2 diabetes mellitus with other skin ulcer; L97.929 - Non-pressure chronic ulcer of unspecified part of left lower leg with unspecified severity Category: Medical Plan: Continue Wound Care. No additional medication at this time. Orders: Orders 2 IR cvc remove any age 0907/16/24 E11.622 - Type 2 diabetes mellitus with other skin ulcer, L97.929 - Non-pressure chronic ulcer of unspecified part of left lower leg with unspecified severity Medications: New 2 doxycycline hyclate 100 mg PO BID 60 caps 0RF 30 days Coding Level of Care Code Est Pt Level 3 (88977) Diagnoses Diabetic ulcer of left lower leg E11.622; L97.929
[2024-07-16 11:35] VITALS: BP 102/64; PULSE 96; BMI 20.4
== END 2024-07-16 11:58 | disposition home or self-care (01) ==
LOC: HO.HID 11:18
PROVIDERS: Visit Provider Internal Medicine
DX: E11.622 Type 2 diabetes mellitus with other skin ulcer (principal); L97.929 Non-pressure chronic ulcer of unspecified part of left lower leg with unspecified severity
CPT/HCPCS: 99213

== ENCOUNTER → 2024-07-16 11:18 | Outpatient (BNVA) | payer MEDICARE, SELFPAY | PROVIDERS: Visit Provider Internal Medicine | DX: E11.622 Type 2 diabetes mellitus with other skin ulcer (principal); L97.929 Non-pressure chronic ulcer of unspecified part of left lower leg with unspecified severity | CPT/HCPCS: 99212 ==

== ENCOUNTER 2024-08-13 13:15 | Outpatient (AMB) | payer MEDICARE, SELFPAY ==
--- NOTE | 2024-08-13 13:19 | MHC.OFFVIS ---
Vital Signs 08/13/24 13:27 Height 5 ft 7 in Weight 134 lb BMI 21.0 Pulse 129 H Pulse Source Pulse Oximeter Temp 98.0 F Temp Source Oral Pulse Oximetry (%) 99 Oxygen Delivery Method Room Air Intake Visit Reasons: Foot Wound Allergies No Known Allergies Allergy (Verified 08/13/24 13:28) HPI HPI Foot Wound: Details: He has left foot OM and has taken Ertapenem and then started Doxycycline. He has not seen Wound Clinic. [facility] Medical History Non-insulin dependent type 2 diabetes mellitus Social History Household Members: Other Housing: Other Housing Other:: Homeless [place] [facility] Do you presently have visiting nurse or other home services: No Alcohol intake: current Alcohol intake frequency: does not drink Patient Tobacco Use Status: Never used Tobacco Substance Use Type: Crack/Cocaine and Inhalants service: Yes Review of Systems Const All systems reviewed & are unremarkable except as noted in HPI and below Physical Exam Vital Signs: Last Vital Signs Temp 98.0 F 08/13/24 13:27 Pulse 129 H 08/13/24 13:27 Pulse Ox 99 08/13/24 13:27 Oxygen Delivery Method Room Air 08/13/24 13:27 BMI result Body Mass Index 21.0 Const General: cooperative Orientation/consciousness: patient oriented x3 HEENT Head: Yes normal to inspection Mouth: Normal oral and palatal mucosa present Eyes General: appearance normal, both eyes and all related structures Pupils: Equal, round and reactive pupils present Resp Effort & Inspection: normal respiratory effort Cardio Rate: regular rate Rhythm: regular rhythm GI Palpation (GI): Soft to palpation and nontender General: Yes no CVA tenderness Back/Spine/Pelvis Back: no CVA tenderness Skin General skin exam: no rashes or lesions noted Neuro General: patient oriented x3 Cranial nerves: Yes CN's II-XII intact bilaterally and Yes Equal, round and reactive pupils present Extrem General: Yes normal to inspection Psych Appearance: grossly normal Assessment & Plan Assessment & Plan (1) Diabetic ulcer of left lower leg: Comment: Ulcers stable at this time. Code(s): E11.622 - Type 2 diabetes mellitus with other skin ulcer; L97.929 - Non-pressure chronic ulcer of unspecified part of left lower leg with unspecified severity Category: Medical Plan: na (2) Diabetic foot ulcer: Comment: Finish Doxycycline one month. Code(s): E11.621 - Type 2 diabetes mellitus with foot ulcer; L97.509 - Non-pressure chronic ulcer of other part of unspecified foot with unspecified severity Category: Medical Plan: na Coding Level of Care Code Est Pt Level 3 (02759) Diagnoses Diabetic ulcer of left lower leg E11.622; L97.929 Diabetic foot ulcer E11.621; L97.509
[2024-08-13 13:27] VITALS: PULSE 129; TEMP 36.7; O2SAT 99; BMI 21.0
== END 2024-08-13 14:36 | disposition home or self-care (01) ==
LOC: HO.HID 13:15
PROVIDERS: Visit Provider Internal Medicine
DX: E11.622 Type 2 diabetes mellitus with other skin ulcer (principal); L97.929 Non-pressure chronic ulcer of unspecified part of left lower leg with unspecified severity; E11.621 Type 2 diabetes mellitus with foot ulcer; L97.509 Non-pressure chronic ulcer of other part of unspecified foot with unspecified severity
CPT/HCPCS: 99213

== ENCOUNTER → 2024-08-13 13:15 | Outpatient (BNVA) | payer MEDICARE, SELFPAY | PROVIDERS: Visit Provider Internal Medicine | DX: E11.622 Type 2 diabetes mellitus with other skin ulcer (principal); L97.929 Non-pressure chronic ulcer of unspecified part of left lower leg with unspecified severity; E11.621 Type 2 diabetes mellitus with foot ulcer; L97.529 Non-pressure chronic ulcer of other part of left foot with unspecified severity | CPT/HCPCS: 99212 ==

== ENCOUNTER 2024-12-31 09:24 | Inpatient (IN) | payer MEDICARE, SELFPAY ==
[2024-12-31] VITALS (13 sets, daily range): BP systolic 164–212; BP diastolic 89–110; PULSE 87–131; RESP 15–33; TEMP 36.1–37.1; O2SAT 96–99; BMI 19.3
--- NOTE | ~2024-12-31 | CT_ITS ---
EXAMINATION: CT ABDOMEN PELVIS WITH IV CONTRAST, CT CHEST WITH IV CONTRAST INDICATION: rt flank pain COMPARISON: Comparison is made with the prior CT of the abdomen and pelvis dated 06/03/2024.. TECHNIQUE: CT scan of the chest, abdomen and pelvis was performed following administration of 85 mL Omnipaque 350 using standard departmental protocol. Coronal and sagittal reformatted images were generated and reviewed. Oral contrast material was not administered at the request of the referring physician. This CT exam was performed with one or more of the following dose reduction techniques: automated exposure control, adjustment of the mA and/or kV according to patient size, use of iterative reconstruction technique. DLP: 464 mGy-cm CHEST: THYROID: The thyroid is unremarkable. LUNGS: There are tiny opacities in the right upper lobe (series 6, image 57) and in the right lower lobe (series 6, image 113). The left lung is clear. MEDIASTINUM: There is no mediastinal lymphadenopathy. DARIA: There is no hilar lymphadenopathy. CARDIOVASCULATURE: The heart is normal in size. There is no pericardial effusion. The thoracic aorta is normal in caliber. DEGREE OF CORONARY CALCIFICATION: mild PLEURA: There is no pleural effusion. No pneumothorax. MAIN AIRWAYS: The mainstem bronchi and proximal branches are patent. AXILLA: There is no axillary lymphadenopathy. SOFT TISSUES: Unremarkable. BONES: The bones are intact. ABDOMEN: LIVER: The liver is normal in size and contour. No liver mass is identified. The hepatic and portal veins are patent. GALLBLADDER / BILE DUCTS: The gallbladder is unremarkable. There is no intra or extrahepatic biliary ductal dilatation. SPLEEN: The spleen is normal in size. No focal splenic lesion is identified. PANCREAS: The pancreas is unremarkable in appearance. ADRENAL GLANDS: The adrenal glands are diffusely enlarged and hypoattenuating. KIDNEYS/RETROPERITONEUM: There is excretion of contrast in both kidneys, limiting evaluation for calculi. There is no hydronephrosis or hydroureter. No renal masses are identified. LYMPH NODES: No abdominal or pelvic lymphadenopathy. VASCULATURE: The abdominal aorta demonstrates atherosclerotic calcification, but is normal in caliber. MESENTERY/PERITONEUM: No free fluid. No masses. There is no free intraperitoneal gas. STOMACH: The stomach is unremarkable. SMALL BOWEL: The small bowel is normal in caliber. COLON: There is a large amount of stool throughout the colon. APPENDIX: Normal. URINARY BLADDER/PELVIC ORGANS: The urinary bladder is unremarkable. The prostate is normal in size. BONES / SOFT TISSUES: No suspicious bony or soft tissue abnormalities. CT/CT abdomen pelvis w IV con IMPRESSION: 1. Tiny opacities in the right upper and lower lobes which could be inflammatory in nature. Follow-up chest CT in 6 months is recommended. 2. The adrenal glands are diffusely enlarged and hypoattenuating. Findings could represent adrenal hyperplasia. Clinical correlation is recommended. This could be followed at the time of follow-up chest CT for the right upper and lower lobe opacities. 3. Large amount of stool throughout the colon. Electronically signed by: Matt Toscano MD 12/31/2024 01:41 PM [facility]
--- NOTE | ~2024-12-31 | MR_ITS ---
EXAMINATION: MR LUMBAR SPINE WITHOUT AND WITH CONTRAST CLINICAL INFORMATION: Elevated white blood cell count. Low back pain. COMPARISON: None available. TECHNIQUE: MRI of the lumbar spine was obtained using routine sequences with and without contrast. Intravenous contrast: Gadolinium based (Gadavist) 5.5 mL. No reported immediate complications. FINDINGS: Last rib-bearing vertebra labeled T12. No abnormal enhancement within the leptomeningeal compartment. No abnormal enhancement within the thecal sac central spinal canal or the paraspinal compartment. Bone marrow inhomogeneity. No bone marrow STIR signal abnormality. Multilevel marginal osteophyte formation and disc desiccation from L2-3 to L5-S1. Focal hyperintense T2 signal in the posterior intervertebral disc of L3-4 likely a focal annular fissure. 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 The conus medullaris ends at inferior endplate of T12 with normal signal. T12-L1: No disc herniation. No neuroforamina stenosis. L1-2: No disc herniation. No neuroforamina stenosis. Broad-based disc bulging. L2-3: Broad-based disc bulging. Facet joint hypertrophy. Reduced AP diameter of the thecal sac and neuroforamina. No compression upon neural elements. L3-4: Broad-based disc bulging. Facet joint and ligamentum flavum hypertrophy. Reduced AP diameter of the thecal sac and the neural foramina encroaching the neural elements likely compressing the left L3 exiting nerve root as well. L4-5: Broad-based disc bulging and facet joint and ligamentum flavum hypertrophy. Reduced AP diameter of the thecal sac and bilateral neuroforamina stenosis encroaching the neural elements. L5-S1: Broad-based disc bulging. Facet joint hypertrophy. Bilateral neuroforamina stenosis left greater than right likely compressing the left L5 and encroaching the left S1 nerve roots. MR/MR lumbar spine wo/w con IMPRESSION: No discitis or spondylitis. No phlegmon and/or abscess in the prevertebral compartment. Multilevel spondylosis resulting in central spinal canal and bilateral neuroforamina stenosis at L3-4 L4-5 and L5-S1 levels encroaching likely compressing the neural elements. Electronically signed by: Cirilo Webb MD 01/01/2025 01:36 PM EST RP
--- NOTE | ~2024-12-31 | XR_ITS ---
CLINICAL HISTORY: hx osteo. r o infection Exam: AP, lateral, and oblique views of the left foot. Comparison: None. Findings: Extensive abnormality of the 1st metatarsophalangeal joint. There is loss of the normal cortical surface of the base of the proximal phalanx and involving the 1st metatarsal head. There is areas of cortical thickening with likely chronic periosteal reaction. Areas of bony fragmentation are also seen surrounding the 1st metatarsophalangeal joint. No definitive acute fracture or aggressive periosteal reaction seen at the 1st metatarsophalangeal joint. At the 2nd metatarsophalangeal joint, there is abnormal architecture of the 2nd metatarsal head findings concerning for periosteal reaction. There is loss of the normal joint space with juxta-articular sclerosis involving the 2nd metatarsal head and neck. At the 5th metatarsophalangeal joint, there is likely chronic erosions of the 5th metatarsal head and neck as well as the base of the proximal phalanx of the 5th toe. No definitive acute periosteal reaction seen at that site. Lisfranc articulation is anatomically aligned. [id number] degenerative change of the ankle joint. Impression: Multifocal joint centered pathology as above. The appearance of the 2nd metatarsophalangeal joint is the most concerning for an acute process with septic arthritis and surrounding osteomyelitis. Findings of the 1st and 5th metatarsophalangeal joints are more likely chronic in nature. Clinical correlation and correlation with prior imaging studies suggested. This document has been electronically signed by: Elia Sanchez MD on 01/01/2025 07:38:42
[2024-12-31 10:49] LABS: Basophils Absolute Auto 0.1 X10*3/uL (0.0-0.2); Basophils Percent Auto 0.4 % (0-2); Eosinophils Absolute Auto 0.5 X10*3/uL (0.0-0.4); Eosinophils Percent Auto 1.5 % (0-4); Hematocrit 40.3 % (42.0-52.0); Hemoglobin 13.6 g/dl (14.0-18.0); Imm Gran Abs Auto 0.34 X10*3/uL (0.00-0.03); Imm Gran Pct Auto 1.1 % (0.0-0.4); Lymphocytes Absolute Auto 3.6 X10*3/uL (1.2-4.9); Lymphocytes Percent Auto 11.3 % (20-40); MANUAL DIFF FLAG SCAN; Mean Corpuscular HGB Conc 33.7 g/dl (31.0-36.0); Mean Corpuscular Hemoglobin 30.4 pg (27.0-33.0); Mean Corpuscular Volume 90.2 fL (80.0-98.0); Mean Platelet Volume 9.1 fL (9.4-12.4); Monocytes Absolute Auto 1.5 X10*3/uL (0.1-1.2); Monocytes Percent Auto 4.8 % (2-11); Neutrophils Absolute Auto 25.8 x10*3/uL (2.0-8.3); Neutrophils Percent Auto 80.9 % (45-73); Platelet Count 657 X10*3/uL (160-400); Red Blood Count 4.47 X10*6/uL (4.60-5.80); Red Cell Distribution Width 12.9 % (11.0-16.0); SCAN SMEAR FLAG 1
[2024-12-31 10:53] LABS: White Blood Count 31.9 X10*3/uL (4.8-10.8)
[2024-12-31 11:08] LABS: Alanine Aminotransferase 10 U/L (0-40); Albumin Level 4.4 g/dL (3.5-5.0); Alkaline Phosphatase 118 U/L (39-117); Anion Gap 21 (12-20); Aspartate Amino Transferase 19 U/L (5-37); Bilirubin Direct 0.2 mg/dL (0.0-0.5); Bilirubin Total 0.4 mg/dL (0.0-1.0); Blood Urea Nitrogen 13 mg/dL (9-16); Calcium 9.8 mg/dL (8.4-10.2); Carbon Dioxide 19 mmol/L (22-29); Chloride 101 mmol/L (96-108); Creatinine Clr Calc Pharmacy 67.3; Estimated Glomerular Filt Rate > 60; Glucose Random 389 mg/dL (60-115); Lipase 37 U/L (8-78); Magnesium 1.8 mg/dL (1.6-2.6); Potassium 3.4 mmol/L (3.3-5.1); Sodium 138 mmol/L (135-145); Total Protein 8.7 g/dL (6.5-8.0)
[2024-12-31 11:14] LABS: SLIDE REVIEW VERIFIED
--- NOTE | 2024-12-31 11:53 | ED_ITS ---
HPI - General Adult General Chief complaint: General Medical Stated complaint: kidney pain Time Seen by Provider: 12/31/24 11:41 Source: patient Limitations: no limitations History of Present Illness HPI narrative: This is a 54 years old male presented to the emergency department complaining of right flank pain back pain. He has a history of diabetes, pain started yesterday localized in the right flank pain intensity severe Onset (ago): day(s) (1) Location: abdomen (rt flank) Radiation: non-radiation Severity: severe Quality: aching Pain Consistency: constant Relieving factors: none Exacerbating factors: none Associated symptoms: denies other symptoms Related Data Home Medications ?Medication ?Instructions ?Recorded ?Confirmed albuterol sulfate 90 mcg/actuation 2 puff inhalation DAILY PRN 06/03/24 06/03/24 aerosol inhaler Shortness Of Breath Or Wheezing Previous Rx's ?Medication ?Instructions ?Recorded metformin 1,000 mg tablet 1,000 mg PO BIDWMEAL #180 tabs 06/07/24 doxycycline hyclate 100 mg capsule 100 mg PO BID 30 days #60 caps 07/16/24 Allergies Allergy/AdvReac Type Severity Reaction Status Date / Time No Known Allergies Allergy Verified 12/31/24 10:48 Review of Systems 2 Constitutional: Constitutional: Reports no additional constitutional complaints Cardiovascular: Cardiovascular: Reports no additional cardiovascular complaints Neurologic: Reports system reviewed and no additional complaints, except as documented [facility] Past Medical History [facility] Narrative: Diabetes, diabetic foot infection Medical History Non-insulin dependent type 2 diabetes mellitus Social History Social History Household Members: Other Housing: Other Housing Other:: Homeless Housing Do you presently have visiting nurse or other home services: No Alcohol intake: current Alcohol intake frequency: does not drink Patient Tobacco Use Status: Never used Tobacco Substance Use Type: Crack/Cocaine and Inhalants Advance Directives: No Advance Directives Information Provided: No service: Yes Physical Exam ED Vital Signs: Vital Signs - 24 hr 12/31/24 10:44 12/31/24 12:24 12/31/24 12:34 Temperature 98 F Pulse Rate 115 H 122 H 131 H Respiratory Rate 18 33 H 22 H Blood Pressure 194/98 H 212/110 H 197/108 H Pulse Oximetry 99 98 98 Oxygen Delivery Method Room Air Room Air Room Air 12/31/24 13:05 12/31/24 13:32 12/31/24 13:49 Temperature 98.8 F Pulse Rate 127 H 127 H 119 H Respiratory Rate 28 H 22 H 22 H Blood Pressure 203/110 H 192/95 H 207/105 H Pulse Oximetry 99 98 98 Oxygen Delivery Method Room Air Room Air Room Air 12/31/24 14:03 12/31/24 14:46 12/31/24 15:06 Temperature 97.7 F 98.1 F Pulse Rate 117 H 114 H 109 H Respiratory Rate 18 28 H 18 Blood Pressure 186/96 H 191/89 H 195/96 H Pulse Oximetry 98 98 98 Oxygen Delivery Method Room Air Room Air Room Air 12/31/24 15:43 Temperature 97.0 F Pulse Rate 109 H Respiratory Rate 18 Blood Pressure 189/95 H Pulse Oximetry 96 Oxygen Delivery Method Room Air BMI result Body Mass Index 19.3 Mild distress hypertensive tachycardic HENMT Head: Yes normal to inspection Ears: hearing grossly normal bilaterally Face and sinus: Yes normal facial exam Mouth: Normal oral and palatal mucosa present Throat: Yes posterior oropharynx normal Neck Neck: Yes normal visual inspection Chest Chest palpation & inspection: normal inspection of the chest Resp Effort & Inspection: normal respiratory effort Auscultation: clear to auscultation bilaterally Cardio Other: Regular rate and rhythm Jugular venous distension: no JVD Rate: regular rate Rhythm: regular rhythm GI Other: Right flank tenderness Palpation (GI): Soft to palpation Skin General skin exam: no rashes or lesions noted and elasticity normal Rashes: no rashes Extrem General: Yes normal to inspection and Yes full ROM Left upper extremity: normal to inspection Course Reevaluation(s) Reevaluation #1: Doing better at this time repeat electrolytes showed a normal anion gap bicarb is 19, blood sugar 298 lactic acid is 8.5. He has cocaine in the urine. He is very hypertensive. Blood culture done received IV fluid IV antibiotic. I discussed the case with the hospitalist accepted. His BP remain elevated 189/95 does not fit with sepsis Time: 15:18 Medications Administered Generic Name Dose Route Start Last Admin Trade Name Freq PRN Reason Stop Dose Admin Amlodipine Besylate 10 mg 12/31/24 15:50 12/31/24 15:57 Amlodipine Besylate 10 Mg Tablet PO 10 mg DAILY DREA Administration Protocol Ceftriaxone Sodium 1 gm 12/31/24 16:00 12/31/24 15:57 Ceftriaxone Sodium 1 Gm Vial IVPUSH 1 gm Q24H DREA Administration Insulin Glargine 10 unit 12/31/24 16:00 12/31/24 16:01 Insulin Glargine,Hum.Rec.Anlog 100 Unit/Ml 10 Ml Vial SUBCUT 10 unit DAILY DREA Administration Discontinued Medications Generic Name Dose Route Start Last Admin Trade Name Eliel PRN Reason Stop Dose Admin Fentanyl 50 mcg 12/31/24 13:27 12/31/24 13:45 Fentanyl Citrate/Pf 100 Mcg/2 Ml Vial IVPUSH 12/31/24 13:28 50 mcg ONCE ONE Administration Protocol Hydromorphone HCl 0.5 mg 12/31/24 11:43 12/31/24 12:02 Hydromorphone Hcl 0.5 Mg/0.5 Ml Syringe IVPUSH 12/31/24 11:44 0.5 mg ONCE ONE Administration Protocol Sodium Chloride 1,000 mls @ 999 mls/hr 12/31/24 11:45 12/31/24 13:19 Ns IVCONT 12/31/24 12:45 Infused .Q1H1M DREA Infusion Cefepime HCl 2 gm in 50 mls @ 100 mls/hr 12/31/24 12:12 12/31/24 12:50 Maxipime IV 12/31/24 12:41 Infused ONCE ONE Infusion Lactated Ringer's 1,000 mls @ 999 mls/hr 12/31/24 13:30 12/31/24 14:46 Lr IV 12/31/24 14:30 Infused .Q1H1M DREA Infusion Vancomycin HCl 1,000 mg/ 270 mls @ 270 mls/hr 12/31/24 14:32 12/31/24 15:40 Sodium Chloride IV 12/31/24 15:31 270 mls/hr ONCE ONE Administration Insulin Human Lispro 10 unit 12/31/24 11:46 12/31/24 12:16 Insulin Lispro 100 Unit/Ml 3 Ml Vial SUBCUT 12/31/24 11:47 10 unit ONCE ONE Administration Insulin Human Lispro 5 unit 12/31/24 13:33 12/31/24 13:45 Insulin Lispro 100 Unit/Ml 3 Ml Vial SUBCUT 12/31/24 13:34 5 unit ONCE ONE Administration Iohexol 100 ml 12/31/24 13:14 12/31/24 13:14 Iohexol 350 Mg/Ml 100 Ml Infus..Btl IV 12/31/24 13:15 85 ml ONCE ONE Administration Lorazepam 0.5 mg 12/31/24 12:13 12/31/24 12:20 Lorazepam 2 Mg/Ml Vial IVPUSH 12/31/24 12:14 0.5 mg ONCE ONE Administration Lorazepam 1 mg 12/31/24 14:31 12/31/24 15:40 Lorazepam 2 Mg/Ml Vial IVPUSH 12/31/24 14:32 1 mg ONCE ONE Administration Potassium Chloride 40 meq 12/31/24 15:16 12/31/24 15:46 Potassium Chloride Er 20 Meq Tab.Er.Prt PO 12/31/24 15:17 40 meq ONCE ONE Administration Medical Decision Making Medical Decision Making [facility] Narrative: Patient presented to emergency department with a chief complaint of right flank pain we will get a UA CT labs Differential Diagnosis Differential Diagnoses: The differential diagnosis associated with the presentation includes Pyelonephritis/kidney stone Admission/Observation Consideration of admission/observation: Escalation of care including admission/observation considered Consult Healthcare Provider Management of the patient was discussed with: Hospitalist Lab Data [facility] Lab Attestation statement: I reviewed the patient's lab results. 12/31/24 10:35 12/31/24 14:34 Labs: Lab Results 12/31/24 12/31/24 12/31/24 Range/Units 10:35 12:01 12:20 WBC 31.9 H* (4.8-10.8) X10*3/uL RBC 4.47 L (4.60-5.80) X10*6/uL Hgb 13.6 L (14.0-18.0) g/dl Hct 40.3 L (42.0-52.0) % MCV 90.2 (80.0-98.0) fL MCH 30.4 (27.0-33.0) pg MCHC 33.7 (31.0-36.0) g/dl RDW 12.9 (11.0-16.0) % Plt Count 657 H D (160-400) X10*3/uL MPV 9.1 L (9.4-12.4) fL Immature Gran % (Auto) 1.1 H (0.0-0.4) % Neut % (Auto) 80.9 H (45-73) % Lymph % (Auto) 11.3 L (20-40) % Turner % (Auto) 4.8 (2-11) % Eos % (Auto) 1.5 (0-4) % Baso % (Auto) 0.4 (0-2) % Lymph # (Auto) 3.6 (1.2-4.9) X10*3/uL Turner # (Auto) 1.5 H (0.1-1.2) X10*3/uL Eos # (Auto) 0.5 H (0.0-0.4) X10*3/uL Baso # (Auto) 0.1 (0.0-0.2) X10*3/uL Abs Immat Gran (auto) 0.34 H (0.00-0.03) X10*3/uL Absolute Neuts (auto) 25.8 H (2.0-8.3) x10*3/uL Absolute Nucleated RBC 0.000 (0.0-0.012) X10*3/uL Nucleated RBC % (auto) 0.0 (0.0-0.2) /100WBC Smear Tech's Comments VERIFIED Sodium 138 (135-145) mmol/L Potassium 3.4 D (3.3-5.1) mmol/L Chloride 101 (96-108) mmol/L Carbon Dioxide 19 L (22-29) mmol/L Anion Gap 21 H (12-20) BUN 13 (9-16) mg/dL Creatinine 0.94 (0.5-1.4) mg/dL Estim Creat Clear Calc 67.3 Estimated GFR > 60 POC Glucose (60-115) mg/dL Random Glucose 389 H* (60-115) mg/dL Estimat Average Glucose 160 mg/dL Hemoglobin A1c % 7.2 H (<6.0) % Lactic Acid 8.9 H* (0.5-2.0) mmol/L Lactic Acid F/U @ 2Hr (0.5-2.0) mmol/L Calcium 9.8 D (8.4-10.2) mg/dL Magnesium 1.8 (1.6-2.6) mg/dL Total Bilirubin 0.4 (0.0-1.0) mg/dL Direct Bilirubin 0.2 (0.0-0.5) mg/dL AST 19 (5-37) U/L ALT 10 (0-40) U/L Alkaline Phosphatase 118 H (39-117) U/L C-Reactive Protein (< or = 0.50) mg/dL Total Protein 8.7 H (6.5-8.0) g/dL Albumin 4.4 (3.5-5.0) g/dL Lipase 37 (8-78) U/L Beta-Hydroxybutyrate 0.41 H (0.02-0.27) mmol/L Urine Color Yellow Urine Appearance Clear Urine pH 7.0 (5.0-9.0) Ur Specific [place] 1.020 (1.005-1.025) Urine Protein 30 (1+) H (Neg-Trace) mg/dL Urine Glucose (UA) >=1000 H (Negative) mg/dL Urine Ketones 15 (Negative) mg/dL Urine Blood Negative (Negative) Urine Nitrite Negative (Negative) Ur Leukocyte Esterase Negative (Negative) Urine RBC 0-2 (0-2) /HPF Urine WBC 0-5 (0-5) /HPF Ur Squamous Epith Cells 0-2 (0-2) /HPF Urine Bacteria None Seen (None Seen) Hyaline Casts 0-2 (0-2) /LPF Urine Opiates Screen Not Detected (Not Detect) Ur Buprenorphine Scrn Not Detected (Not Detect) ng/mL Ur Oxycodone Screen Not Detected (Not Detect) ng/mL Urine Methadone Screen Not Detected (Not Detect) ng/mL Urine Fentanyl Screen Not Detected (Not Detect) Ur Barbiturates Screen Not Detected (Not Detect) Ur Phencyclidine Scrn Not Detected (Not Detect) Ur Amphetamines Screen Not Detected (Not Detect) U Benzodiazepines Scrn Not Detected (Not Detect) Urine Cocaine Screen POSITIVE H (Not Detect) U Marijuana (THC) Screen POSITIVE H (Not Detect) 12/31/24 12/31/24 12/31/24 Range/Units 13:25 14:33 14:34 WBC (4.8-10.8) X10*3/uL RBC (4.60-5.80) X10*6/uL Hgb (14.0-18.0) g/dl Hct (42.0-52.0) % MCV (80.0-98.0) fL MCH (27.0-33.0) pg MCHC (31.0-36.0) g/dl RDW (11.0-16.0) % Plt Count (160-400) X10*3/uL MPV (9.4-12.4) fL Immature Gran % (Auto) (0.0-0.4) % Neut % (Auto) (45-73) % Lymph % (Auto) (20-40) % Turner % (Auto) (2-11) % Eos % (Auto) (0-4) % Baso % (Auto) (0-2) % Lymph # (Auto) (1.2-4.9) X10*3/uL Turner # (Auto) (0.1-1.2) X10*3/uL Eos # (Auto) (0.0-0.4) X10*3/uL Baso # (Auto) (0.0-0.2) X10*3/uL Abs Immat Gran (auto) (0.00-0.03) X10*3/uL Absolute Neuts (auto) (2.0-8.3) x10*3/uL Absolute Nucleated RBC (0.0-0.012) X10*3/uL Nucleated RBC % (auto) (0.0-0.2) /100WBC Smear Tech's Comments Sodium 139 (135-145) mmol/L Potassium 3.1 L (3.3-5.1) mmol/L Chloride 105 (96-108) mmol/L Carbon Dioxide 19 L (22-29) mmol/L Anion Gap 18 (12-20) BUN 13 (9-16) mg/dL Creatinine 0.81 (0.5-1.4) mg/dL Estim Creat Clear Calc 78.1 Estimated GFR > 60 POC Glucose 341 H 273 H (60-115) mg/dL Random Glucose 298 H (60-115) mg/dL Estimat Average Glucose mg/dL Hemoglobin A1c % (<6.0) % Lactic Acid (0.5-2.0) mmol/L Lactic Acid F/U @ 2Hr 8.5 H* (0.5-2.0) mmol/L Calcium 9.1 D (8.4-10.2) mg/dL Magnesium 1.5 L (1.6-2.6) mg/dL Total Bilirubin (0.0-1.0) mg/dL Direct Bilirubin (0.0-0.5) mg/dL AST (5-37) U/L ALT (0-40) U/L Alkaline Phosphatase (39-117) U/L C-Reactive Protein 0.88 H (< or = 0.50) mg/dL Total Protein (6.5-8.0) g/dL Albumin (3.5-5.0) g/dL Lipase (8-78) U/L Beta-Hydroxybutyrate (0.02-0.27) mmol/L Urine Color Urine Appearance Urine pH (5.0-9.0) Ur Specific [place] (1.005-1.025) Urine Protein (Neg-Trace) mg/dL Urine Glucose (UA) (Negative) mg/dL Urine Ketones (Negative) mg/dL Urine Blood (Negative) Urine Nitrite (Negative) Ur Leukocyte Esterase (Negative) Urine RBC (0-2) /HPF Urine WBC (0-5) /HPF Ur Squamous Epith Cells (0-2) /HPF Urine Bacteria (None Seen) Hyaline Casts (0-2) /LPF Urine Opiates Screen (Not Detect) Ur Buprenorphine Scrn (Not Detect) ng/mL Ur Oxycodone Screen (Not Detect) ng/mL Urine Methadone Screen (Not Detect) ng/mL Urine Fentanyl Screen (Not Detect) Ur Barbiturates Screen (Not Detect) Ur Phencyclidine Scrn (Not Detect) Ur Amphetamines Screen (Not Detect) U Benzodiazepines Scrn (Not Detect) Urine Cocaine Screen (Not Detect) U Marijuana (THC) Screen (Not Detect) Radiology Impression Discussion of test interpretation with radiology: I have reviewed the radiologist's reading. Radiologist Impression: caliber. COLON: There is a large amount of stool throughout the colon. APPENDIX: Normal. URINARY BLADDER/PELVIC ORGANS: The urinary bladder is unremarkable. The prostate is normal in size. BONES / SOFT TISSUES: No suspicious bony or soft tissue abnormalities. CT/CT abdomen pelvis w IV con IMPRESSION: 1. Tiny opacities in the right upper and lower lobes which could be inflammatory in nature. Follow-up chest CT in 6 months is recommended. 2. The adrenal glands are diffusely enlarged and hypoattenuating. Findings could represent adrenal hyperplasia. Clinical correlation is recommended. This could be followed at the time of follow-up chest CT for the right upper and lower lobe opacities. 3. Large amount of stool throughout the colon. External Record Review External record reviewed: Inpatient record Prescription Management I considered prescription management with: Pain Medication Chronic Conditions Patient?s care impacted by: Diabetes Critical Care Time Critical Care Time Critical Care Time: Yes Total Critical Care Time: 90 Attestation: lactic acidosis/IV ativan/IV pain meds Discharge Plan Discharge Clinical Impression: Acute right flank pain, Acidosis, lactic, Cocaine abuse Leukocytosis Qualifiers: Leukocytosis type: unspecified Qualified Code(s): D72.829 - Elevated white blood cell count, unspecified Patient Disposition: Admitted As Inpatient Print Language: Kinyarwanda
[2024-12-31] MEDS: HYDROmorphone HCl 0.5 MG/0.5 ML SYRINGE IVPUSH (12:02)
[2024-12-31] MEDS: 0.9 % Sodium Chloride 1,000 ML 999 ML IVCONT (12:02)
[2024-12-31] MEDS: Insulin Lispro 100 UNIT/ML 3 ML VIAL 10 UNIT SUBCUT (12:16)
[2024-12-31] MEDS: LORazepam 2 MG/ML VIAL 0.5 MG IVPUSH (12:20)
[2024-12-31] MEDS: cefEPime HCl/D5W 2 GM/50 ML PIGGYBACK IV (12:20)
--- NOTE | 2024-12-31 12:20 | PC.NURSE ---
pt presents to the main from triage as a sepsis alert d/t labs drawn in triage. pt extremely tearful. hypertensive. tachycardic. tachypneic. pt reporting 10/10 right sided flank pain radiating to lower back x yesterday. pt denies any n/v/d/fever/chills/urinary sx. denies hx of kidney stones. pt also reporting noncomplaint w/ insulin for some time. 18gIV placed in the AC's bilaterally - labs obtained/sent to lab. medication administered per provider order. effectiveness pending.
[2024-12-31 12:32] LABS: Lactic Acid 8.9 mmol/L (0.5-2.0)
[2024-12-31 12:37] LABS: Appearance Urine Clear; Color Urine Yellow; Glucose Urine UA >=1000 mg/dL (Negative); Leukocyte Esterase Urine Negative (Negative); Nitrite Urine Negative (Negative); UMIC TRIGGER UACC YES; Urine Blood Negative (Negative); Urine Ketones 15 mg/dL (Negative); Urine Protein 30 (1+) mg/dL (Neg-Trace)
[2024-12-31 12:39] LABS: Bacteria Urine None Seen (None Seen); Hyaline Casts Urine 0-2 /LPF (0-2); RBC Urine 0-2 /HPF (0-2); Squamous Epithelial Cell Urine 0-2 /HPF (0-2); WBC Urine 0-5 /HPF (0-5)
[2024-12-31] MEDS: iohexoL 350 MG/ML 100 ML INFUS..BTL IV (13:14)
[2024-12-31 13:28] LABS: Beta-Hydroxybutyrate 0.41 mmol/L (0.02-0.27)
--- OUTSIDE RECORDS SUMMARY | 2024-12-31 13:33 | XMS_ITS | Continuity of Care Document ---
Author Name [facility] Organization DOD-MO Care Team Providers Care Medical Affairs Specialist Name Role Phone DOD-MO Unavailable Unavailable Problems Combined list of problems from Department of Defense and Veterans Affairs facilities. It does not include entries that were removed or entered in error. Problem Status Onset Date Problem Type Date of Resolution Comments Source Anxiety ([facility] [id number]) Active Condition Jan 07, 2020 Entered By: SUPRIYA PIMENTEL Comment: evaluated by psychiatry/ 2019 [facility] Asthma ([facility] [id number]) Active Condition [facility] Diabetes Mellitus Type 2 ([facility] [id number]) Active Condition Jan 07, 2020 Entered By: SUPRIYA PIMENTEL Comment: A1c improved from 8.2-7.2 in Mar, 2019/ no medsNov 2022 Entered By: CARLINE LEE Comment: HbA1c >17 sep 2023 [facility] Erectile Dysfunction ([facility] [id number]) Active Condition [facility] 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, 2023 Entered By: CARLINE LEE Comment: right scrotum [facility] Hyperlipidemia ([facility] [id number]) Active Condition [facility] Mood disorder Active Condition Sep Entered By: CARLINE LEE Comment: depression/a nxiety/PTSD since of mother 2015 [facility] Nicotine dependence Active Condition Sep 20, 2023 Entered By: CARLINE LEE Comment: 1/2 ppd since age 31 [facility] Osteomyelitis Active Condition Jun Entered By: MICHAEL JOHN Comment: Left foot [facility] History of hydrocelectomy Inactive Condition 09/20/2023 [facility] Homeless single person Inactive Condition 09/20/2023 [facility] Diagnosis: ICD-10-CM F17.200 Nicotine dependence, unspecified, uncomplicated Active Diagnosis [facility] Medications Combined list of outpatient medications from Department of Defense and Veterans Affairs facilities.Medications provided include 1) outpatient medications from the last 15 months, and 2) patient-reported medications. Medication Details Route Status Patient Instructions Prescription Expires Prescription Number Last Dispense Date Ordering Provider Order Date Order Qty Source ATORVASTATI N CA 40MG TAB TAKE ONE-HALF TABLET BY MOUTH ONCE DAILY FOR HIGH CHOLESTE ROL ORAL 10/03/2024 [id number] FURCOLO,T JAYJAY 2022 45 [facility] HYDROPHILIC (EQV AQUAPHOR) OINT,TOP APPLY LIBERAL AMOUNT TOPICALL Y ONCE DAILY FOR DRY SKIN TOPICA L ACTIVE 01/09/2025 [id number] FURCOLO,T JAYJAY 2023 454 [facility] METFORMIN HCL 500MG 24HR TAB,SA TAKE TWO TABLETS BY MOUTH ONCE DAILY ORAL 10/03/2024 [id number] FURCOLO,T JAYJAY 2022 180 [facility] SILDENAFIL CITRATE 100MG TAB TAKE ONE TABLET BY MOUTH ONCE DAILY NEEDED FOR ERECTILE DYSFUNCT ION TAKE 1 HOUR PRIOR TO SEXUAL ACTIVITY DOSE INCREASE ORAL ACTIVE 01/09/2025 [id number] 4 FURCOLO,T JAYJAY 2023 6 [facility] SILDENAFIL CITRATE 50MG TAB TAKE ONE TABLET BY MOUTH ONCE DAILY NEEDED TAKE 1 HOUR PRIOR TO SEXUAL ACTIVITY ORAL DISCONT INUED (EDIT) 09/20/2024 [id number] FURCOLO,T JAYJAY 2022 6 [facility] Immunizations Combined list of available immunizations from the Department of Defense and Veterans Affairs facilities. 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 Order Name Results Value Reference Range Date Interpretation Specimen Comments Source HEMOGLOB IN A1C PANEL HEMOGLOBIN A1C/HEMOGL OBIN.TOTAL IN BLOOD BY HPLC 8.2 4.0 - 5.6 01/08 H Specimen Type: BLOOD Comment: Values obtained from A1C measurement s can vary. For atypical A1C assays, a reported value of 7.0 could actually be between 6.72 and 7.28 if measured by a reference method. A reported value of 9.0 could actually be between 8.73 and 9.27. Ref: http://www. ngsp.org/[place] Pdata.asp Ordering Provider: KAYA LEE Report Released Date/Time: Oct 13, 2023 10:55 AM Reporting Lab: [facility] [place] [facility] [address] [facility] [address] Performing Lab: [facility] [place] [facility] [address] [facility] [address] [facility] [place] [facility] LIPID PANEL FASTING CHOLESTERO L [MASS/VOLU ME] IN SERUM OR PLASMA 121 mg/dL 01/08 Specimen Type: SERUM No comment entered. Ordering Provider: KAYA LEE Report Released Date/Time: Oct 13, 2023 10:55 AM Reporting Lab: [facility] [place] [facility] [address] [facility] [address] Performing Lab: [facility] [place] [facility] [address] [facility] [address] [facility] [place] [facility] LIPID PANEL FASTING TRIGLYCERI DE [MASS/VOLU ME] IN SERUM OR PLASMA 81 mg/dL 0 - 150 01/08 Specimen Type: SERUM No comment entered. Ordering Provider: KAYA LEE Report Released Date/Time: Oct 13, 2023 10:55 AM Reporting Lab: [facility] [place] [facility] [address] [facility] [address] Performing Lab: [facility] [place] [facility] [address] [facility] [address] [facility] LIPID PANEL FASTING CHOLESTERO L IN LDL [MASS/VOLU ME] IN SERUM OR PLASMA BY CALCIRVIN N 61 mg/dL 0 - 129 01/08 Specimen Type: SERUM No comment entered. Ordering Provider: KAYA LEE Report Released Date/Time: Oct 13, 2023 10:55 AM Reporting Lab: [facility] [place] [facility] [address] [facility] [address] Performing Lab: [facility] [address] [facility] [address] [facility] LIPID PANEL FASTING CHOLESTERO L.TOTAL/CH OLESTEROL IN HDL [MASS RATIO] IN SERUM OR PLASMA 2.8 01/08 Specimen Type: SERUM No comment entered. Ordering Provider: KAYA LEE Report Released Date/Time: Oct 13, 2023 10:55 AM Reporting Lab: [facility] [place] [address] [address] Performing Lab: [facility] [place] [address] [address] [facility] LIPID PANEL FASTING CHOLESTERO L IN HDL [MASS/VOLU ME] IN SERUM OR PLASMA 44 mg/dL 40 - 60 01/08 Specimen Type: SERUM No comment entered. Ordering Provider: KAYA LEE Report Released Date/Time: Oct 13, 2023 10:55 AM Reporting Lab: [facility] [place] [address] [address] Performing Lab: [facility] [place] [address] [address] [facility] BASIC METABOLI C PANEL (fasting ) UREA NITROGEN [MASS/VOLU ME] IN SERUM OR PLASMA 11 mg/dL 7 - 25 01/08 Specimen Type: SERUM No comment entered. Ordering Provider: KAYA LEE Report Released Date/Time: Oct 13, 2023 10:55 AM Reporting Lab: [facility] [place] [facility] [address] [facility] [address] Performing Lab: [facility] [place] [facility] [address] [facility] [address] [facility] [place] [facility] BASIC METABOLI C PANEL (fasting ) GLUCOSE [MASS/VOLU ME] IN SERUM OR PLASMA 156 mg/dL 65 - 100 01/08 H Specimen Type: SERUM No comment entered. Ordering Provider: KAYA LEE Report Released Date/Time: Oct 13, 2023 10:55 AM Reporting Lab: [facility] [place] [facility] [address] [facility] [address] Performing Lab: [facility]ENTERUSETS [address] [address] [facility]ENTERUSE [facility] BASIC METABOLI C PANEL (fasting ) SODIUM [MOLES/VOL UME] IN SERUM OR PLASMA 137 mmol/L 135 - 145 01/08 Specimen Type: SERUM No comment entered. Ordering Provider: KAYA LEE Report Released Date/Time: Oct 13, 2023 10:55 AM Reporting Lab: [facility] [place] [facility] [address] [facility] [address] Performing Lab: [facility] [place] [facility] [address] [facility] [address] [facility] TRN [facility]USE [facility] BASIC METABOLI C PANEL (fasting ) POTASSIUM [MOLES/VOL UME] IN SERUM OR PLASMA 4.5 mmol/L 3.5 - 5.0 01/08 Specimen Type: SERUM No comment entered. Ordering Provider: KAYA LEE Report Released Date/Time: Oct 13, 2023 10:55 AM Reporting Lab: [facility] [place] [facility] [address] [facility] [address] Performing Lab: [facility] [place] [place] [address] [address] [facility] [place] [facility] BASIC METABOLI C PANEL (fasting ) CHLORIDE [MOLES/VOL UME] IN SERUM OR PLASMA 103 mmol/L 100 - 110 01/08 Specimen Type: SERUM No comment entered. Ordering Provider: KAYA LEE Report Released Date/Time: Oct 13, 2023 10:55 AM Reporting Lab: [facility] CENTERUSETS [address] [address] Performing Lab: [facility] CENTERUSE[address] [address] [facility] HOSPITALRUSA [facility]ITALN [facility] BASIC METABOLI C PANEL (fasting ) CARBON DIOXIDE, TOTAL [MOLES/VOL UME] IN SERUM OR PLASMA 25 meq/L 20 - 30 01/08 Specimen Type: SERUM No comment entered. Ordering Provider: KAYA LEE Report Released Date/Time: Oct 13, 2023 10:55 AM Reporting Lab: [facility]ENTERUSE[address] [address] Performing Lab: [facility] HOSPITALRWALKER BAPTIST MEDICAL CENTERTRN [address] [address] [facility] BASIC METABOLI C PANEL (fasting ) CREATININE [MASS/VOLU ME] IN SERUM OR PLASMA 0.75 mg/dL 0.50 - 1.40 01/08 Specimen Type: SERUM No comment entered. Ordering Provider: KAYA LEE Report Released Date/Time: Oct 13, 2023 10:55 AM Reporting Lab: [facility] CENTERUSE[address] [address] Performing Lab: [facility] CENTERUSE[address] [address] [facility]ITALRL TRN [facility]ENTERUSE [facility] BASIC METABOLI C PANEL (fasting ) GLOMERULAR FILTRATION RATE/1.73 SQ M.PREDICTE D [VOLUME RATE/AREA] IN SERUM, PLASMA OR BLOOD BY CREATININE -BASED FORMULA (CKD-EPI 2020) >90mL/mi n 60 01/08 Specimen Type: SERUM No comment entered. Ordering Provider: KAYA LEE Report Released Date/Time: Oct 13, 2023 10:55 AM Reporting Lab: [facility] WSTRN [address] [address] Performing Lab: [facility] [place] [address] [facility] HOSPITALRWALKER BAPTIST MEDICAL CENTERTRN [facility]ENTERUSE [facility] MICROALB UMIN CREATINI NE RATIO PANEL MICROALBUM IN/CREATIN INE [MASS RATIO] IN URINE 13.0 mg/g 0 - 29.9 01/08 Specimen Type: URINE No comment entered. Ordering Provider: KAYA LEE Report Released Date/Time: Oct 13, 2023 10:55 AM Reporting Lab: [facility]OSPITALRWALKER BAPTIST MEDICAL CENTERTRN [facility]ENTERUSE[address] [address] Performing Lab: [facility]ITALRL TRN [facility]ENTERUSE[address] [address] [facility]OSPITALRWALKER BAPTIST MEDICAL CENTERTRN [facility]ENTERUSE [facility] MICROALB UMIN CREATINI NE RATIO PANEL MICROALBUM IN [MASS/VOLU ME] IN URINE 1.0 mg/dL 01/08 Specimen Type: URINE No comment entered. Ordering Provider: KAYA LEE Report Released Date/Time: Oct 13, 2023 10:55 AM Reporting Lab: [facility]OSPITALRWALKER BAPTIST MEDICAL CENTERTRN [facility]ENTERUSE[address] [address] Performing Lab: [facility]OSPITALRWALKER BAPTIST MEDICAL CENTERTRN [address] [address] [facility]ITALN [facility]ENTERUSE [facility] MICROALB UMIN CREATINI NE RATIO PANEL CREATININE [MASS/VOLU ME] IN URINE 76.71 mg/dL 01/08 Specimen Type: URINE No comment entered. Ordering Provider: KAYA LEE Report Released Date/Time: Oct 13, 2023 10:55 AM Reporting Lab: [facility] HOSPITALRL TRN [facility] CENTERUSE[address] [address] Performing Lab: [facility]OSPITALRL TRN [facility] CENTERUSE[address] [address] [facility] HOSPITALRUSA [facility]ALTH PROVID[facility] HOSPITALN [facility]ENTERUSE [facility] SYPHILIS ABS W/RFLX REAGIN AB [PRESENCE] IN SERUM BY RPR Non Reactive 09/20 Specimen Type: SERUM Comment: No laboratory evidence of syphilis infection. If recent exposure is suspected, re-draw sample in 2-4 weeks and repeat algorithm. Testing performed by T. pallidum specific immunoassay . Ordering Provider: KAYA LEE Report Released Date/Time: Sep 20, 2023 10:15 AM Reporting Lab: [facility] [address] [facility] [address] Performing Lab: [facility] [address] [facility] [address] [facility] TSH THYROTROPI N [UNITS/VOL UME] IN SERUM OR PLASMA 0.31 u[IU]/mL 0.35 - 5.00 09/20 L Specimen Type: SERUM No comment entered. Ordering Provider: KAYA LEE Report Released Date/Time: Sep 20, 2023 10:11 AM Reporting Lab: [facility] [address] [facility] [address] Performing Lab: [facility] [address] [facility] [address] [facility] [place] [facility] LIVER FUNCTION PROTEIN [MASS/VOLU ME] IN SERUM OR PLASMA 6.8 g/dL 6.0 - 8.3 09/20 Specimen Type: SERUM No comment entered. Ordering Provider: KAYA LEE Report Released Date/Time: Sep 20, 2023 10:11 AM Reporting Lab: [facility] [address] [facility] [address] Performing Lab: [facility] [address] [facility] [address] [facility] [place] [facility] LIVER FUNCTION ALBUMIN [MASS/VOLU ME] IN SERUM OR PLASMA 3.9 g/dL 3.5 - 5.0 09/20 Specimen Type: SERUM No comment entered. Ordering Provider: KAYA LEE Report Released Date/Time: Sep 20, 2023 10:11 AM Reporting Lab: [facility] [address] [facility] [address] Performing Lab: [facility] [address] [facility] [address] [facility] [place] [facility] LIVER FUNCTION ALKALINE PHOSPHATAS E [ENZYMATIC ACTIVITY/V OLUME] IN SERUM OR PLASMA 129 U/L 40 - 150 09/20 Specimen Type: SERUM No comment entered. Ordering Provider: KAYA LEE Report Released Date/Time: Sep 20, 2023 10:11 AM Reporting Lab: [facility] [place] [facility] [address] [facility] [address] Performing Lab: [facility] [place] [facility] [address] [facility] [address] [facility] [facility] LIVER FUNCTION ASPARTATE AMINOTRANS FERASE [ENZYMATIC ACTIVITY/V OLUME] IN SERUM OR PLASMA 13 U/L 5 - 34 09/20 Specimen Type: SERUM No comment entered. Ordering Provider: KAYA LEE Report Released Date/Time: Sep 20, 2023 10:11 AM Reporting Lab: [facility] [place] [facility] [address] [facility] [address] Performing Lab: [facility] [place] [address] [address] [facility] [place] [facility] LIVER FUNCTION ALANINE AMINOTRANS FERASE [ENZYMATIC ACTIVITY/V OLUME] IN SERUM OR PLASMA 19 U/L 09/20 Specimen Type: SERUM No comment entered. Ordering Provider: KAYA LEE Report Released Date/Time: Sep 20, 2023 10:11 AM Reporting Lab: [facility] [place] [facility] [address] [facility] [address] Performing Lab: [facility] [place] [address] [address] [facility] LIVER FUNCTION BILIRUBIN. TOTAL [MASS/VOLU ME] IN SERUM OR PLASMA 0.4 mg/dL 0.2 - 1.2 09/20 Specimen Type: SERUM No comment entered. Ordering Provider: KAYA LEE Report Released Date/Time: Sep 20, 2023 10:11 AM Reporting Lab: [facility] [place] [facility] [address] [facility] [address] Performing Lab: [facility] [place] [address] [address] [facility] HEM[facility] IN A[facility]C PANEL HEMOGLOBIN A1C/HEMOGL OBIN.TOTAL IN BLOOD BY HPLC 11.7 4.0 - 5.6 09/20 H Specimen Type: BLOOD Comment: Values obtained from A1C measurement s can vary. For atypical A1C assays, a reported value of 7.0 could actually be between 6.72 and 7.28 if measured by a reference method. A reported value of 9.0 could actually be between 8.73 and 9.27. Ref: http://www. ngsp.org/[place] Pdata.asp Ordering Provider: KAYA LEE Report Released Date/Time: Sep 20, 2023 10:11 AM Reporting Lab: [address] [address] Performing Lab: [address] [address] [facility] BASIC METABOLI C PANEL (fasting ) UREA NITROGEN [MASS/VOLU ME] IN SERUM OR PLASMA 12 mg/dL 7 - 25 09/20 Specimen Type: SERUM No comment entered. Ordering Provider: KAYA LEE Report Released Date/Time: Sep 20, 2023 10:11 AM Reporting Lab: [address] [address] Performing Lab: [address] [address] [facility] BASIC METABOLI C PANEL (fasting ) GLUCOSE [MASS/VOLU ME] IN SERUM OR PLASMA 338 mg/dL 65 - 100 09/20 H Specimen Type: SERUM No comment entered. Ordering Provider: KAYA LEE Report Released Date/Time: Sep 20, 2023 10:11 AM Reporting Lab: [address] [address] Performing Lab: [address] [address] [facility] BASIC METABOLI C PANEL (fasting ) SODIUM [MOLES/VOL UME] IN SERUM OR PLASMA 134 mmol/L 135 - 145 11/14 /2023 L Specimen Type: SERUM No comment entered. Ordering Provider: KAYA LEE Report Released Date/Time: Sep 20, 2023 10:11 AM Reporting Lab: [facility]ENTERUSETS [facility] [address] [facility] [address] Performing Lab: [facility]ITALRL WSTRN [facility] CENTERUSE[address] [address] [facility]ITALRL WSTRN [facility]ENTERUSE [facility] BASIC METABOLI C PANEL (fasting ) POTASSIUM [MOLES/VOL UME] IN SERUM OR PLASMA 4.8 mmol/L 3.5 - 5.0 09/20 Specimen Type: SERUM No comment entered. Ordering Provider: KAYA LEE Report Released Date/Time: Sep 20, 2023 10:11 AM Reporting Lab: [facility]ENTERUSE[address] [address] Performing Lab: [facility]ENTERUSE[address] [address] [facility]ITALRL WSTRN [facility]ENTERUSE [facility] BASIC METABOLI C PANEL (fasting ) CHLORIDE [MOLES/VOL UME] IN SERUM OR PLASMA 101 mmol/L 100 - 110 09/20 Specimen Type: SERUM No comment entered. Ordering Provider: KAYA LEE Report Released Date/Time: Sep 20, 2023 10:11 AM Reporting Lab: [facility]ENTERUSE[address] [address] Performing Lab: [facility] CENTERUSETS [address] [address] [facility]ITALRL WSTRN [facility]ENTERUSE [facility] BASIC METABOLI C PANEL (fasting ) CARBON DIOXIDE, TOTAL [MOLES/VOL UME] IN SERUM OR PLASMA 23 meq/L 20 - 30 09/20 Specimen Type: SERUM No comment entered. Ordering Provider: KAYA LEE Report Released Date/Time: Sep 20, 2023 10:11 AM Reporting Lab: [facility]ENTERUSE[address] [address] Performing Lab: [facility]ENTERUSE[address] [address] [facility] BASIC METABOLI C PANEL (fasting ) CREATININE [MASS/VOLU ME] IN SERUM OR PLASMA 0.91 mg/dL 0.50 - 1.40 09/20 Specimen Type: SERUM No comment entered. Ordering Provider: KAYA LEE Report Released Date/Time: Sep 20, 2023 10:11 AM Reporting Lab: [address] [address] Performing Lab: [address] [address] [facility] BASIC METABOLI C PANEL (fasting ) GLOMERULAR FILTRATION RATE/1.73 SQ M.PREDICTE D [VOLUME RATE/AREA] IN SERUM, PLASMA OR BLOOD BY CREATININE -BASED FORMULA (CKD-EPI 2020) >90mL/mi n 60 09/20 Specimen Type: SERUM No comment entered. Ordering Provider: KAYA LEE Report Released Date/Time: Sep 20, 2023 10:11 AM Reporting Lab: [address] [address] Performing Lab: [address] [address] [facility] HEPATITI S C ANTIBODY (HCV)-AR C HEPATITIS C VIRUS AB [PRESENCE] IN SERUM NON-REAC TIVE 09/20 Specimen Type: SERUM Comment: Hep C Ab: No HCV antibody detected. If recent infection is suspected or other evidence suggests HCV infection, consider HCV nucleic acid testing Ordering Provider: KAYA LEE Report Released Date/Time: Sep 20, 2023 10:11 AM Reporting Lab: [address] [address] Performing Lab: [address] [address] [facility] Vital Signs Combined list of inpatient and outpatient Vital Signs from Department of Defense and Veterans Affairs, ranging from 12 months to all on record, depending upon the facility. Vital Sign Value Date Comments Source SYSTOLIC BLOOD PRESSURE 123 03/04/20 24 10:15:02 [facility] DIASTOLIC BLOOD PRESSURE 74 01/08/ 024 10:15:02 [facility] PULSE OXIMETRY 97 01/09/2024 10:15:02 [facility] WEIGHT 136 01/09/2024 10:15:02 [facility] BMI 21 kg/m2 01/09/2024 10:15:02 [facility] PAIN 0 01/09/2024 10[facility]15:02 [facility] HEIGHT 67 01/09/2024 10:15:02 [facility] TEMPERATURE 98.3 01/09/2024 10:15:02 [facility] PULSE 75 01/09/2024 10:15:02 [facility] RESPIRATION 18 01/09/2024 10:15:02 [facility] Encounters Combined list of: 1) Encounters from [facility] going backup to the last 18 months, not all [facility] encounters are included; 2) Encounters from the [facility] facilities going backup to 280 months. Location Location Details Encounter Type Encounter Number Reason For Visit Attending Provider ADM Date DC Date Status Disposition Source [facility] Outpatient Encounter [id number] 08/30 [facility] Outpatient [facility]counter [id number] 08/31 [facility] Outpatient [facility]counter [id number] 09/20 [facility] OFFICE O/P EST MOD 30-39 MIN [id number] Diagnos is: ICD-10- CM F17.200 Nicotin e depende nce, unspeci fied, uncompl icated FURCOLO,TI NA 09/20 [facility] Outpatient [facility]counter [id number] 09/21 [facility] Outpatient Encounter [id number] 09/26 [facility] Outpatient Encounter [id number] 10/03 [facility] Outpatient Encounter [id number] 10/03 [facility] Outpatient Encounter [id number] 10/04 [facility] OFFICE O/P EST MOD 30-39 MIN [id number] Diagnos is: ICD-10- CM F17.200 Nicotin e depende nce, unspeci fied, uncompl icated FURCOLO,TI NA 10/13 [facility] Outpatient Encounter [id number] 11/22 [facility] OFFICE O/P EST LOW 20 MIN [id number] Diagnos is: ICD-10- CM F17.200 Nicotin e depende nce, unspeci fied, uncompl icated FURCOLO,TI NA 01/08 [facility] Outpatient Encounter [id number] 04/11 [facility] Outpatient Encounter [id number] 06/03 [facility] Outpatient Encounter [id number] 06/05 [facility] Out[facility] Encounter [id number] 06/06 [facility] Outpatient Encounter [id number] 06/08 [facility] Outpatient Encounter [id number] 06/08 [facility] Outpatient Encounter [id number] [facility] Outpatient Encounter [id number] [facility] Out[facility] Encounter [id number] [facility] Out[facility] Encounter [id number] 1.06/20 [facility] Outpatient Encounter [id number] [facility] Social History Combined list of available smoking, tobacco, and other social history from [facility] of Defense and [facility] facilities. Social History Type Response Date Comment [facility] e Tobacco smoking status NHIS VA-TOBACCO USE WI 30 MIN OF WAKEUP 08/31/2023 [facility] History of tobacco use VA-TOBACCO USER EVERY DAY 08/31/2023 [facility] History of tobacco use VA-TOBACCO USER EVERY DAY 03/11/2021 [facility] History of tobacco use VA-TOBACCO USE LAWYERS NO 12/27/2019 [facility] History of tobacco use VA-TOBACCO USER EVERY DAY 01/19/2019 [facility]
[2024-12-31] MEDS: fentaNYL citrate/PF 100 MCG/2 ML VIAL 50 MCG IVPUSH (13:45)
[2024-12-31] MEDS: Lactated Ringers 1,000 ML 999 ML IV (13:45)
[2024-12-31] MEDS: Insulin Lispro 100 UNIT/ML 3 ML VIAL SUBCUT ×2 (13:45→20:11)
--- NOTE | 2024-12-31 13:57 | PC.NURSE ---
pt remains hypertensive, tachycardic, tachypneic, and hyperglycemic despite previous interventions. pt also still complaining of 10/10 right flank pain at this time. provider notified/aware. additional IVF and medication administered per provider order. CT results remain pending at this time. plan of care ongoing. call novak placed within reach.
--- NOTE | 2024-12-31 14:00 | PC.NURSE ---
pt remains hyperglycemic, tachycardic, hypertensive, tachypneic despite previous interventions. additional IVF/medication administered per provider order. effectiveness pending.
[2024-12-31 14:05] LABS: Reflex Lactate? Lactic Acid Added
[2024-12-31 14:05] LABS: Amphetamine Screen Urine Not Detected (Not Detect); Barbiturates, Urine Not Detected (Not Detect); Benzodiazepines Screen Urine Not Detected (Not Detect); Buprenorphine Scr Not Detected (Not Detect); Cannabinoid Screen Urine POSITIVE (Not Detect); Cocaine Screen Urine POSITIVE (Not Detect); Fentanyl, urine Not Detected (Not Detect); Methadone Screen, Urine Not Detected (Not Detect); Opiate Screen Urine Not Detected (Not Detect); Oxycodone Screen Urine Not Detected (Not Detect); Phencyclidine Screen Urine Not Detected (Not Detect)
[2024-12-31 14:53] LABS: Anion Gap 18 (12-20); Blood Urea Nitrogen 13 mg/dL (9-16); Calcium 9.1 mg/dL (8.4-10.2); Carbon Dioxide 19 mmol/L (22-29); Chloride 105 mmol/L (96-108); Creatinine Clr Calc Pharmacy 78.1; Estimated Glomerular Filt Rate > 60; Glucose Random 298 mg/dL (60-115); Potassium 3.1 mmol/L (3.3-5.1); Sodium 139 mmol/L (135-145)
[2024-12-31 15:02] LABS: ~Lactic Acid-LAB USE ONLY 8.5 mmol/L (0.5-2.0)
--- NOTE | 2024-12-31 15:18 | ECG_ITS ---
Test Reason : CP Blood Pressure : */* mmHG Vent. Rate : 123 BPM Atrial Rate : 123 BPM P-R Int : 142 ms QRS Dur : 74 ms QT Int : 322 ms P-R-T Axes : 55 40 65 degrees QTcB Int : 460 ms Sinus tachycardia Otherwise normal ECG When compared with ECG of 31-Dec-2024 10:40, Premature ventricular complexes are no longer Present Referred By: Naveen Lange Electronically Signed By: HIEN KAM
--- NOTE | 2024-12-31 15:20 | ECG_ITS ---
Test Reason : FALL Blood Pressure : */* mmHG Vent. Rate : 117 BPM Atrial Rate : 117 BPM P-R Int : 130 ms QRS Dur : 84 ms QT Int : 346 ms P-R-T Axes : 60 72 71 degrees QTcB Int : 482 ms Sinus tachycardia with occasional Premature ventricular complexes Otherwise normal ECG When compared with ECG of 03-Jun-2024 09:43, Premature ventricular complexes are now Present Referred By: Naveen Lange Electronically Signed By: HIEN KAM
[2024-12-31 15:33] LABS: Glucose, Whole Blood 273 mg/dL (60-115)
[2024-12-31] MEDS: LORazepam 2 MG/ML VIAL 1 MG IVPUSH (15:40)
[2024-12-31] MEDS: vancomycin HCL 1,000 MG in 0.9 % Sodium Chloride 250 ML 270 MG IV (15:40)
[2024-12-31 15:46] LABS: Glucose, Whole Blood 341 mg/dL (60-115)
[2024-12-31] MEDS: Potassium Chloride ER 20 MEQ TAB.ER.PRT 40 MEQ PO (15:46)
[2024-12-31] MEDS: cefTRIAXone sodium 1 GM VIAL IVPUSH (15:57)
[2024-12-31] MEDS: amLODIPine Besylate 10 MG TABLET PO (15:57)
[2024-12-31] MEDS: Insulin Glargine,Hum.rec.anlog 100 UNIT/ML 10 ML VIAL 10 UNIT SUBCUT (16:01)
[2024-12-31 16:10] LABS: Estimated Average Glucose 160 mg/dL; Hemoglobin A1c % 7.2 % (<6.0); Total Hemoglobin (HGBA1C) 3526.6271 umol/L
[2024-12-31 16:16] LABS: C Reactive Protein 0.88 mg/dL (< or = 0.50); Magnesium 1.5 mg/dL (1.6-2.6)
[2024-12-31] MEDS: Magnesium Oxide 400 MG TABLET 800 MG PO (16:34)
[2024-12-31 16:39] LABS: Reflex Lactate? 2 Y
[2024-12-31 16:45] LABS: Procalcitonin 0.52 ng/mL
--- NOTE | 2024-12-31 16:48 | P.HPHOSP_ITS ---
History of Present Illness Date of Service: 12/31/24 Chief Complaint: back pain 54yo M with cocaine abuse, DM2, and PVD with history of left foot osteomyelitis presenting with 1 day history of what the ED physician described as R flank pain but what the patient describes as low back pain. Regardless, the patient is a poor historian and doesn't answer most of my questions and now just states that he feels cold and shaky. He doesn't answer me when I ask him repeatedly if he has a cough or is short of breath or as fever. He was hypertensive as high as 212/110 but is currently 189/85. Initially tachypneic at 33 but now 18; tachycardic as high as 131 but now 109. WBC count of 31.9 with platelet count of 657, Potassium 3.1, magnesium 1.5. Lactate 8.9; 8.5 on repeat. CRP 0.88, PCT 0.52. CT of the abdomen and pelvis showed adrenal hyperplasia. CT of the chest showed tiny RUL and RLL inflammatory opacities. He was given vancomycin and cefepime. He also had mild DKA with bicarbonate of 19 and anion gap of 21, glucose of 389, and beta-hydroxybutyrate of 0.41. After he was given IV insulin and fluids, anion gap closed to 18. He was also given lorazepam. Review of Systems 2 Review of Systems: Yes all other systems are reviewed and are negative [facility] Medical History Non-insulin dependent type 2 diabetes mellitus Social History Household Members: Other Housing: Other Housing Other:: Homeless [facility] Do you presently have visiting nurse or other home services: No Alcohol intake: current Alcohol intake frequency: does not drink Patient Tobacco Use Status: Never used Tobacco Substance Use Type: Crack/Cocaine and Inhalants Advance Directives: No Advance Directives Information Provided: No service: Yes Meds Allergies Allergy/AdvReac Type Severity Reaction Status Date / Time No Known Allergies Allergy Verified 12/31/24 10:48 Active Medications: Current Medications Acetaminophen (Acetaminophen 325 Mg Tablet) 650 mg PO Q6H PRN PRN Reason: Pain, Mild 1-3,fever,headache Amlodipine Besylate (Amlodipine Besylate 10 Mg Tablet) 10 mg PO DAILY [facility]; Protocol Last Admin: 12/31/24 15:57 Dose: 10 mg Calcium Carbonate (Calcium Carbonate 750 Mg Tab.Chew) 750 mg PO Q4H PRN PRN Reason: Heartburn Ceftriaxone Sodium (Ceftriaxone Sodium 1 Gm Vial) 1 gm IVPUSH Q24H [facility] Last Admin: 12/31/24 15:57 Dose: 1 gm Dextrose (Dextrose 50 % 25 Gm/50 Ml Syringe) 25 gm IVPUSH Q15M PRN; Protocol PRN Reason: per Hypoglycemia Standing Ord. Enoxaparin Sodium (Enoxaparin Sodium 40 Mg/0.4 Ml Syringe) 40 mg SUBCUT Q24H [facility] Glucose (Glucose Gel 15 Gm Gel..Gram.) 15 gm PO Q15M PRN; Protocol PRN Reason: per Hypoglycemia Standing Ord. Doxycycline Hyclate 100 mg/ (Sodium Chloride) 250 mls @ 166.67 mls/hr IV Q12H [facility] Insulin Glargine (Insulin Glargine,Hum.Rec.Anlog 100 Unit/Ml 10 Ml Vial) 10 unit SUBCUT DAILY [facility] Last Admin: 12/31/24 16:01 Dose: 10 unit Insulin Human Lispro (Insulin Lispro 100 Unit/Ml 3 Ml Vial) 0 unit SUBCUT QIDACHS [facility]; Protocol Magnesium Hydroxide (Milk Of Magnesia 30 Ml Oral.Susp) 30 ml PO DAILY PRN PRN Reason: Constipation Melatonin (Melatonin 3 Mg Tablet) 6 mg PO BEDTIME PRN PRN Reason: Insomnia Ondansetron HCl (Ondansetron Hcl 4 Mg/2 Ml Vial) 4 mg IVPUSH Q8H PRN PRN Reason: Nausea and Vomiting Sodium Chloride (0.9 % Sodium Chloride Flush 3 Ml Syringe) 3 ml IVFLUSH QSHIFT [facility] Home Medications ?Medication ?Instructions ?Recorded ?Confirmed ?Last Taken ?Type albuterol sulfate 90 mcg/actuation 2 puff inhalation DAILY PRN 06/03/24 06/03/24 Unknown History aerosol inhaler Shortness Of Breath Or Wheezing Physical Exam 2 Vital Signs and Narrative: Vital Signs: Last Vital Signs Temp 97.0 F 12/31/24 15:43 Pulse 109 H 12/31/24 15:43 Resp 18 12/31/24 15:43 BP 189/95 H 12/31/24 15:43 Pulse Ox 96 12/31/24 15:43 O2 Del Method Room Air 12/31/24 15:43 BMI result Body Mass Index 19.3 Gen: in no acute distress, disheveled HEENT: sclera anicteric, moist mucus membranes Neck: supple Lungs: clear to auscultation bilaterally Heart: tachycardic, regular, no murmurs Abd: soft, non-tender, non-distended Ext: no edema Back: tender over upper lumbar spine in midline Skin: warm/well-perfused Neuro: alert but not answering orientation questions, normal strength in all 4 extremities Psych: restricted affect Results Labs 12/31/24 10:35 12/31/24 14:34 Labs: Laboratory Results - last 24 hr 12/31/24 12/31/24 12/31/24 10:35 12:01 12:20 MCV 90.2 MCH 30.4 MCHC 33.7 RDW 12.9 Plt Count 657 H D MPV 9.1 L Immature Gran % (Auto) 1.1 H Neut % (Auto) 80.9 H Lymph % (Auto) 11.3 L [place] % (Auto) 4.8 Eos % (Auto) 1.5 Baso % (Auto) 0.4 Lymph # (Auto) 3.6 [place] # (Auto) 1.5 H Eos # (Auto) 0.5 H Baso # (Auto) 0.1 Abs Immat Gran (auto) 0.34 H Absolute Neuts (auto) 25.8 H Absolute Nucleated RBC 0.000 Nucleated RBC % (auto) 0.0 Smear Tech's Comments VERIFIED Anion Gap 21 H Estim Creat Clear Calc 67.3 Estimated GFR > 60 POC Glucose Random Glucose 389 H* Estimat Average Glucose 160 Hemoglobin A1c % 7.2 H Lactic Acid 8.9 H* Lactic Acid F/U @ 2Hr Calcium 9.8 D Magnesium 1.8 Total Bilirubin 0.4 Direct Bilirubin 0.2 AST 19 ALT 10 Alkaline Phosphatase 118 H C-Reactive Protein Total Protein 8.7 H Albumin 4.4 Lipase 37 Beta-Hydroxybutyrate 0.41 H Procalcitonin Urine Color Yellow Urine Appearance Clear Urine pH 7.0 Ur Specific [place] 1.020 Urine Protein 30 (1+) H Urine Glucose (UA) >=1000 H Urine Ketones 15 Urine Blood Negative Urine Nitrite Negative Ur Leukocyte Esterase Negative Urine RBC 0-2 Urine WBC 0-5 Ur Squamous Epith Cells 0-2 Urine Bacteria None Seen Hyaline Casts 0-2 Urine Opiates Screen Not Detected Ur Buprenorphine Scrn Not Detected Ur Oxycodone Screen Not Detected Urine Methadone Screen Not Detected Urine Fentanyl Screen Not Detected Ur Barbiturates Screen Not Detected Ur Phencyclidine Scrn Not Detected Ur Amphetamines Screen Not Detected U Benzodiazepines Scrn Not Detected Urine Cocaine Screen POSITIVE H U Marijuana (THC) Screen POSITIVE H 12/31/24 12/31/24 12/31/24 13:25 14:33 14:34 MCV MCH MCHC RDW Plt Count MPV Immature Gran % (Auto) Neut % (Auto) Lymph % (Auto) [place] % (Auto) Eos % (Auto) Baso % (Auto) Lymph # (Auto) [place] # (Auto) Eos # (Auto) Baso # (Auto) Abs Immat Gran (auto) Absolute Neuts (auto) Absolute Nucleated RBC Nucleated RBC % (auto) Smear Tech's Comments Anion Gap 18 Estim Creat Clear Calc 78.1 Estimated GFR > 60 POC Glucose 341 H 273 H Random Glucose 298 H Estimat Average Glucose Hemoglobin A1c % Lactic Acid Lactic Acid F/U @ 2Hr 8.5 H* Calcium 9.1 D Magnesium 1.5 L Total Bilirubin Direct Bilirubin AST ALT Alkaline Phosphatase C-Reactive Protein 0.88 H Total Protein Albumin Lipase Beta-Hydroxybutyrate Procalcitonin 0.52 Urine Color Urine Appearance Urine pH Ur Specific [place] Urine Protein Urine Glucose (UA) Urine Ketones Urine Blood Urine Nitrite Ur Leukocyte Esterase Urine RBC Urine WBC Ur Squamous Epith Cells Urine Bacteria Hyaline Casts Urine Opiates Screen Ur Buprenorphine Scrn Ur Oxycodone Screen Urine Methadone Screen Urine Fentanyl Screen Ur Barbiturates Screen Ur Phencyclidine Scrn Ur Amphetamines Screen U Benzodiazepines Scrn Urine Cocaine Screen U Marijuana (THC) Screen Imaging Radiologist's Impressions: Impressions Chest CT 12/31/24 12:36 IMPRESSION: 1. Tiny opacities in the right upper and lower lobes which could be inflammatory in nature. Follow-up chest CT in 6 months is recommended. 2. The adrenal glands are diffusely enlarged and hypoattenuating. Findings could represent adrenal hyperplasia. Clinical correlation is recommended. This could be followed at the time of follow-up chest CT for the right upper and lower lobe opacities. 3. Large amount of stool throughout the colon. Electronically signed by: Matt Toscano MD 12/31/2024 01:41 PM EST RP Abdomen/Pelvis CT 12/31/24 12:53 IMPRESSION: 1. Tiny opacities in the right upper and lower lobes which could be inflammatory in nature. Follow-up chest CT in 6 months is recommended. 2. The adrenal glands are diffusely enlarged and hypoattenuating. Findings could represent adrenal hyperplasia. Clinical correlation is recommended. This could be followed at the time of follow-up chest CT for the right upper and lower lobe opacities. 3. Large amount of stool throughout the colon. Electronically signed by: Matt Toscano MD 12/31/2024 01:41 PM EST RP Assessment and Plan (1) Cocaine abuse: Status: Acute Plan 54yo M with cocaine abuse, DM2, and PVD with history of left foot osteomyelitis presenting with acute flank or back pain [pt is poor historian], found to have hypertensive urgency, tachypnea/tachycardia/lactic acidosis suspected due to cocaine abuse, elevated WBCs, back pain, and RUL/RLL inflammatory lung opacities back pain nodular pneumonia elevated WBC count - admit to telemetry, obtain MRI to r/o osteomyelitis; pt has history of DM osteomyelitis of L foot May-Jul 2024; also check L foot X-ray. BCx sent. Continue vancomycin and also start ceftriaxone. Trend PCT. Check RSV/flu/Covid PCR and MRSA swab. lactic acidosis - most likely due to hypoperfusion from cocaine abuse rather than severe sepsis HTN urgency - due to cocaine. Avoid b-blockers. Give amlodipine + prn lorazepam. hypoMg hypoK - repleted PO; recheck levels in AM adrenal hyperplasia lung nodules - recommend repeat CT A/P in 6 mo DM2 with mild DKA - A1c 7.2. Gap closed. Give correction-dose lispro and start low-dose glargine cocaine abuse - Addiction Medicine consult, prn lorazepam, screen for HBV/HCV/HIV VTE ppx - enoxaparin dispo - TBD code - full I anticipate that the patient will stay at least 2 midnights as an inpatient in the hospital due to the above reasons. It is neither reasonable nor safe to care for them in a less acute setting. Quality Stroke Does the patient have a stroke diagnosis?: No VTE Prior VTE?: No VTE Risk Level:: Medical - moderate - high VTE Device Contraindication: N/A - Device Ordered VTE Drug Contraindication: N/A - Med Ordered
[2024-12-31] MEDS: Enoxaparin Sodium 40 MG/0.4 ML SYRINGE SUBCUT (17:10)
--- NOTE | 2024-12-31 17:11 | PC.NURSE ---
MRI screening form filled out w/ pt, faxed to MRI, placed in pt's chart.
--- NOTE | 2024-12-31 17:17 | PHA.PROG ---
Admission Date/Time: December 31, 2024 17:08 Indication: Respiratory Weight in k.25 kg Adjusted body weight in Kg: Kaufman body weight in Kg: Obesity Dosing Indication % IBW: Serum Creatinine - Last 168 Hours 12/31/24 12/31/24 10:35 14:34 Creatinine 0.94 0.81 Estimated CrCl and GFR - Last 168 Hours 12/31/24 12/31/24 10:35 14:34 Estim Creat Clear Calc 67.3 78.1 Estimated GFR > 60 > 60 Vancomycin Loading Dose: 1000mg x 1 Current Vancomycin Dosing Regimen: 750mg Q12H Vancomycin Monitoring using AUC goal of 400 - 600 range with trough as surrogate marker: 462 mg/L Date and Time for next Vancomycin Level to be drawn: 01/01 @2100 Pharmacist Comments on Vancomycin Plan: predicted trough of 14.2 mg/L Vancomycin dosing will take advantage of [employer] as a clinical decision support tool that uses Bayesian modeling to calculate individual patient's pharmacokinetic parameters and forecast the patient's drug concentration time course with the target goal AUC 24 range of 400 - 600 mg/L/hr.
[2024-12-31 17:29] LABS: ~Lactic Acid-LAB USE ONLY 7.2 mmol/L (0.5-2.0)
--- NOTE | 2024-12-31 17:31 | PC.NURSE ---
critical lab value - lactic of 7.2 received at this time. admitting provider notified/aware.
[2024-12-31 17:37] LABS: Influenza A PCR NEGATIVE (Negative); Influenza B PCR NEGATIVE (Negative); Resp Syncy Virus RNA Qual PCR NEGATIVE (Negative); SARS COV2 PCR INHOUSE NEGATIVE (Negative)
--- NOTE | 2024-12-31 17:41 | PHA.MEDREC ---
Addendum entered by Stella Stewart RPh 12/31/24 17:52: [facility] reviewed Original Note: Pharmacy Consult ? Medication Reconciliation Pharmacy has completed the medication reconciliation. Patient confirmed he is not taking any medicaitons at this time.
[2024-12-31 17:54] LABS: Cancel Lactic Acid Canceled
[2024-12-31 20:05] LABS: Glucose, Whole Blood 294 mg/dL (60-115)
--- NOTE | 2024-12-31 20:14 | PC.NURSE ---
MD made aware of pt pain level and vitals. pt is tachy on monitor at 110 bpm, afebrile, BP 175/95. poc 294, insulin given per sliding scale. pt appears restless then resting comfortably, denies any concerns other than back pain at this time. call novak within reach.
[2024-12-31] MEDS: Labetalol HCL 100 MG/20 ML VIAL 20 MG IVPUSH (20:24)
[2024-12-31] MEDS: traMADoL HCL 50 MG TABLET PO (20:24)
[2024-12-31 21:17] LABS: Glucose, Whole Blood 262 mg/dL (60-115)
[2024-12-31] MEDS: vancomycin HCL 750 MG in 0.9 % Sodium Chloride 250 ML 265 MG IV (22:32)
[2025-01-01] VITALS (7 sets, daily range): BP systolic 140–167; BP diastolic 70–95; PULSE 100–115; RESP 15–20; TEMP 36.3–37.1; O2SAT 96–100
[2025-01-01] MEDS: traMADoL HCL 50 MG TABLET PO ×2 (04:52→19:25)
[2025-01-01 05:10] LABS: Hematocrit 38.9 % (42.0-52.0); Hemoglobin 13.2 g/dl (14.0-18.0); Mean Corpuscular HGB Conc 33.9 g/dl (31.0-36.0); Mean Corpuscular Hemoglobin 30.2 pg (27.0-33.0); Mean Platelet Volume 9.3 fL (9.4-12.4); Platelet Count 438 X10*3/uL (160-400); Red Blood Count 4.37 X10*6/uL (4.60-5.80); Red Cell Distribution Width 13.1 % (11.0-16.0); White Blood Count 27.8 X10*3/uL (4.8-10.8)
[2025-01-01 05:25] LABS: Anion Gap 16 (12-20); Blood Urea Nitrogen 11 mg/dL (9-16); Calcium 9.4 mg/dL (8.4-10.2); Carbon Dioxide 24 mmol/L (22-29); Chloride 103 mmol/L (96-108); Creatinine Clr Calc Pharmacy 94.4; Estimated Glomerular Filt Rate > 60; Glucose Random 181 mg/dL (60-115); Potassium 3.7 mmol/L (3.3-5.1); Sodium 139 mmol/L (135-145)
[2025-01-01 05:43] LABS: Erythrocyte Sedimentation Rate 40 MM/HR (0-15)
[2025-01-01 06:13] LABS: Glucose, Whole Blood 238 mg/dL (60-115)
[2025-01-01 07:30] LABS: Glucose, Whole Blood 229 mg/dL (60-115)
[2025-01-01] MEDS: Insulin Lispro 100 UNIT/ML 3 ML VIAL SUBCUT ×3 (08:09→20:40)
[2025-01-01 08:12] LABS: HBS Num1 0.22 mIU/mL (0-7.99); HBc Num1 0.08 S/CO (0.00-0.79); HBsAGNum1 0.34 S/CO (0.00-0.99); HIV AB/AG Nonreactive (Nonreactive); HIV Num 1 0.06 S/CO (0.00-0.99); Hepatitis B Core Antibody Nonreactive (Nonreactive); Hepatitis B Surface Antigen Negative (Negative); ~HepC Num1 0.12 S/CO (0.00-0.79); ~Hepatitis B Surface Antibody NONREACTIVE (Nonreactive); ~Hepatitis C Antibody Nonreactive (Nonreactive)
[2025-01-01 08:54] LABS: Magnesium 2.1 mg/dL (1.6-2.6)
[2025-01-01] MEDS: cefEPime HCl/D5W 2 GM/50 ML PIGGYBACK IV ×2 (09:18→16:36)
[2025-01-01] MEDS: amLODIPine Besylate 10 MG TABLET PO (09:18)
[2025-01-01] MEDS: Insulin Glargine,Hum.rec.anlog 100 UNIT/ML 10 ML VIAL 10 UNIT SUBCUT (09:18)
[2025-01-01] MEDS: 0.9 % Sodium Chloride Flush 3 ML SYRINGE IVFLUSH ×4 (09:19→22:50)
--- NOTE | 2025-01-01 10:47 | MHC.CM.PN ---
CM met with Patient at bedside, in the ED, and addressed IMM with him (original was given to Patient and a copy will be placed on the chart). Patient lives alone in an apartment and he used no DME [employer]. Patient's PCP is through the [facility] in [place] and Patient will need assist with transport. Home/self care is Patient's goal and CM has initiated and will follow for dc planning.
[2025-01-01] MEDS: vancomycin HCL 750 MG in 0.9 % Sodium Chloride 250 ML 265 MG IV ×2 (11:24→22:44)
[2025-01-01] MEDS: ondansetron HCL 4 MG/2 ML VIAL IVPUSH (11:26)
[2025-01-01 11:42] LABS: MRSA Nasal PCR NEGATIVE (Negative); SA Nasal PCR POSITIVE (Negative)
--- NOTE | 2025-01-01 12:50 | PC.NURSE ---
away for MRI
[2025-01-01] MEDS: gadobutroL 7.5 ML VIAL IVPUSH (13:14)
[2025-01-01 13:42] LABS: Glucose, Whole Blood 160 mg/dL (60-115)
--- NOTE | 2025-01-01 14:16 | P.PNIM_ITS ---
Subjective Subjective Date of Service: 01/01/25 Interval History: afebrile c/o back pain no fever Review of Systems Review of Systems: Yes all other systems are reviewed and are negative Physical Exam 2 Vital Signs: Vital Signs: Last Vital Signs Temp 97.9 F 01/01/25 08:34 Pulse 106 H 01/01/25 08:34 Resp 18 01/01/25 08:34 BP 167/95 H 01/01/25 09:18 Pulse Ox 98 01/01/25 08:34 O2 Del Method Room Air 01/01/25 08:34 BMI result Body Mass Index 19.3 Gen: in no acute distress, disheveled HEENT: sclera anicteric, moist mucus membranes Neck: supple Lungs: clear to auscultation bilaterally Heart: tachycardic, regular, no murmurs Abd: soft, non-tender, non-distended Ext: no edema Back: tender over upper lumbar spine in midline, L foot with healed ulcer over MTP Skin: warm/well-perfused Neuro: alert and oriented x4, normal strength in all 4 extremities Psych: restricted affect Objective Data Active Medications Acetaminophen (Acetaminophen 325 Mg Tablet) 650 mg PO Q6H PRN PRN Reason: Pain, Mild 1-3,fever,headache Amlodipine Besylate (Amlodipine Besylate 10 Mg Tablet) 10 mg PO DAILY DREA; Protocol Last Admin: 01/01/25 09:18 Dose: 10 mg Documented By: MARGAUX Calcium Carbonate (Calcium Carbonate 750 Mg Tab.Chew) 750 mg PO Q4H PRN PRN Reason: Heartburn Dextrose (Dextrose 50 % 25 Gm/50 Ml Syringe) 25 gm IVPUSH Q15M PRN; Protocol PRN Reason: per Hypoglycemia Standing Ord. Enoxaparin Sodium (Enoxaparin Sodium 40 Mg/0.4 Ml Syringe) 40 mg SUBCUT Q24H [facility] Last Admin: 12/31/24 17:10 Dose: 40 mg Documented By: ABNER Glucose (Glucose Gel 15 Gm Gel..Gram.) 15 gm PO Q15M PRN; Protocol PRN Reason: per Hypoglycemia Standing Ord. Vancomycin HCl 750 mg/ Sodium (Chloride) 265 mls @ 265 mls/hr IV Q12H [facility] Last Admin: 01/01/25 11:24 Dose: 265 mls/hr Documented By: SHARAN Cefepime HCl (Maxipime) 2 gm in 50 mls @ 100 mls/hr IV Q8H [facility] Last Admin: 01/01/25 09:18 Dose: 100 mls/hr Documented By: MARGAUX Insulin Glargine (Insulin Glargine,Hum.Rec.Anlog 100 Unit/Ml 10 Ml Vial) 10 unit SUBCUT DAILY [facility] Last Admin: 01/01/25 09:18 Dose: 10 unit Documented By: MARGAUX Insulin Human Lispro (Insulin Lispro 100 Unit/Ml 3 Ml Vial) 0 unit SUBCUT QIDACHS [facility]; Protocol Last Admin: 01/01/25 08:09 Dose: 1 unit Documented By: MARGAUX Lorazepam (Lorazepam 0.5 Mg Tablet) 0.5 mg PO Q6H PRN PRN Reason: Anxiety Magnesium Hydroxide (Milk Of Magnesia 30 Ml Oral.Susp) 30 ml PO DAILY PRN PRN Reason: Constipation Magnesium Hydroxide (Milk Of Magnesia 30 Ml Oral.Susp) 30 ml PO DAILY PRN PRN Reason: Constipation Melatonin (Melatonin 3 Mg Tablet) 6 mg PO BEDTIME PRN PRN Reason: Insomnia Ondansetron HCl (Ondansetron Hcl 4 Mg/2 Ml Vial) 4 mg IVPUSH Q8H PRN PRN Reason: Nausea and Vomiting Last Admin: 01/01/25 11:26 Dose: 4 mg Documented By: SHARAN Pharmacy Consult (Consult Rx Vancomycin Dosing) 1 each MISCELLANE DAILY PRN PRN Reason: Consult order Sodium Chloride (0.9 % Sodium Chloride Flush 3 Ml Syringe) 3 ml IVFLUSH [facility] Last Admin: 01/01/25 09:19 Dose: 3 ml Documented By: MARGAUX Sodium Chloride (0.9 % Sodium Chloride Flush 3 Ml Syringe) 3 ml IVFLUSH [facility] Last Admin: 01/01/25 09:19 Dose: 3 ml Documented By: MARGAUX Tramadol HCl (Tramadol Hcl 50 Mg Tablet) 50 mg PO Q4H PRN PRN Reason: Pain, Severe (Pain Scale 7-10) Last Admin: 01/01/25 04:52 Dose: 50 mg Documented By: HYUN Labs 01/01/25 04:39 01/01/25 04:39 Labs: Laboratory Results - last 24 hr 12/31/24 12/31/24 12/31/24 10:35 13:25 14:33 MCV MCH MCHC RDW Plt Count MPV Absolute Nucleated RBC Nucleated RBC % (auto) ESR Anion Gap Estim Creat Clear Calc Estimated GFR POC Glucose 341 H 273 H Random Glucose Estimat Average Glucose 160 Hemoglobin A1c % 7.2 H Lactic Acid F/U @ 2Hr Lactic Acid F/U @ 4Hr Calcium Magnesium C-Reactive Protein Procalcitonin Nasal Screen MRSA (PCR) Nasal S. aureus Screen Nasal MRSA/S.aureus Interp Hep Bs Antigen Hep Bs Antibody Hep B Core Total Ab Hepatitis C Ab (EIA) HIV 1&2 Ab/P24 Ag 4thGn Influenza Type A (PCR) Influenza Type B (PCR) RSV RNA Qual (PCR) SARS-CoV-2 RNA (RT-PCR) 12/31/24 12/31/24 12/31/24 14:34 15:50 16:56 MCV MCH MCHC RDW Plt Count MPV Absolute Nucleated RBC Nucleated RBC % (auto) ESR Anion Gap 18 Estim Creat Clear Calc 78.1 Estimated GFR > 60 POC Glucose 238 H Random Glucose 298 H Estimat Average Glucose Hemoglobin A1c % Lactic Acid F/U @ 2Hr 8.5 H* Lactic Acid F/U @ 4Hr 7.2 H* Calcium 9.1 D Magnesium 1.5 L C-Reactive Protein 0.88 H Procalcitonin 0.52 Nasal Screen MRSA (PCR) Nasal S. aureus Screen Nasal MRSA/S.aureus Interp Hep Bs Antigen Hep Bs Antibody Hep B Core Total Ab Hepatitis C Ab (EIA) HIV 1&2 Ab/P24 Ag 4thGn Influenza Type A (PCR) NEGATIVE Influenza Type B (PCR) NEGATIVE RSV RNA Qual (PCR) NEGATIVE SARS-CoV-2 RNA (RT-PCR) NEGATIVE 12/31/24 12/31/24 12/31/24 17:41 18:37 20:02 MCV MCH MCHC RDW Plt Count MPV Absolute Nucleated RBC Nucleated RBC % (auto) ESR Anion Gap Estim Creat Clear Calc Estimated GFR POC Glucose 262 H 294 H Random Glucose Estimat Average Glucose Hemoglobin A1c % Lactic Acid F/U @ 2Hr Lactic Acid F/U @ 4Hr Calcium Magnesium C-Reactive Protein Procalcitonin Nasal Screen MRSA (PCR) NEGATIVE Nasal S. aureus Screen POSITIVE A Nasal MRSA/S.aureus Interp SEE NOTE Hep Bs Antigen Hep Bs Antibody Hep B Core Total Ab Hepatitis C Ab (EIA) HIV 1&2 Ab/P24 Ag 4thGn Influenza Type A (PCR) Influenza Type B (PCR) RSV RNA Qual (PCR) SARS-CoV-2 RNA (RT-PCR) 01/01/25 01/01/25 01/01/25 04:39 07:27 13:38 MCV 89.0 MCH 30.2 MCHC 33.9 RDW 13.1 Plt Count 438 H D MPV 9.3 L Absolute Nucleated RBC 0.000 Nucleated RBC % (auto) 0.0 ESR 40 H Anion Gap 16 Estim Creat Clear Calc 94.4 Estimated GFR > 60 POC Glucose 229 H 160 H Random Glucose 181 H Estimat Average Glucose Hemoglobin A1c % Lactic Acid F/U @ 2Hr Lactic Acid F/U @ 4Hr Calcium 9.4 Magnesium 2.1 C-Reactive Protein Procalcitonin Nasal Screen MRSA (PCR) Nasal S. aureus Screen Nasal MRSA/S.aureus Interp Hep Bs Antigen Negative Hep Bs Antibody NONREACTIVE Hep B Core Total Ab Nonreactive Hepatitis C Ab (EIA) Nonreactive HIV 1&2 Ab/P24 Ag 4thGn Nonreactive Influenza Type A (PCR) Influenza Type B (PCR) RSV RNA Qual (PCR) SARS-CoV-2 RNA (RT-PCR) ITS Impressions Chest CT 12/31/24 12:36 IMPRESSION: 1. Tiny opacities in the right upper and lower lobes which could be inflammatory in nature. Follow-up chest CT in 6 months is recommended. 2. The adrenal glands are diffusely enlarged and hypoattenuating. Findings could represent adrenal hyperplasia. Clinical correlation is recommended. This could be followed at the time of follow-up chest CT for the right upper and lower lobe opacities. 3. Large amount of stool throughout the colon. Electronically signed by: Matt Toscano MD 12/31/2024 01:41 PM [facility] Abdomen/Pelvis CT 12/31/24 12:53 IMPRESSION: 1. Tiny opacities in the right upper and lower lobes which could be inflammatory in nature. Follow-up chest CT in 6 months is recommended. 2. The adrenal glands are diffusely enlarged and hypoattenuating. Findings could represent adrenal hyperplasia. Clinical correlation is recommended. This could be followed at the time of follow-up chest CT for the right upper and lower lobe opacities. 3. Large amount of stool throughout the colon. Electronically signed by: Matt Toscano MD 12/31/2024 01:41 PM EST [facility] Lumbar Spine MRI 01/01/25 12:30 IMPRESSION: No discitis or spondylitis. No phlegmon and/or abscess in the prevertebral compartment. Multilevel spondylosis resulting in central spinal canal and bilateral neuroforamina stenosis at L3-4 L4-5 and L5-S1 levels encroaching likely compressing the neural elements. Electronically signed by: Cirilo Webb MD 01/01/2025 01:36 PM EST RP L Microbiology Microbiology Results: Microbiology 12/31/24 12:00 Blood Culture - Preliminary Blood - Venous No growth after 24 hours. Assessment and Plan (1) Diabetic foot ulcer: Status: Acute (2) Diabetic ulcer of left lower leg: Status: Acute Plan d2 for 54yo M with cocaine abuse, DM2, and PVD with history of left foot osteomyelitis presenting with acute flank or back pain [pt is poor historian], found to have hypertensive urgency, tachypnea/tachycardia/lactic acidosis suspected due to cocaine abuse, elevated WBCs, back pain, and RUL/RLL inflammatory lung opacities found to have acute/chronic osteomyelitis L foot acute/chronic osteomyelitis L foot - appears to have acute 2nd MTP joint septic arthritis/osteomyelitis, with 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 WBCs 31+ on admission, coming down. Continue vancomycin + cefepime 12/31-. ID consult pending. Will also consult Gen Surg. nodular pneumonia - on antibiotics as above; repeat CT in 6 mo; trend PCT low back pain - due to spondylosis; no evidence of infection on MRI L-spine lactic acidosis - most likely due to hypoperfusion from cocaine abuse rather than severe sepsis HTN urgency - due to cocaine. Avoid b-blockers. Continue amlodipine + prn lorazepam. hypoMg hypoK - repleted adrenal hyperplasia - recommend repeat CT A/P in 6 mo DM2 with mild DKA - A1c 7.2. Gap closed. Give correction-dose lispro and started low-dose glargine; probably can manage with MTF upon discharge cocaine abuse - Addiction Medicine consult pending, prn lorazepam, screen for HBV/HCV/HIV negative VTE ppx - enoxaparin dispo - TBD In my clinical judgment, the patient requires continued inpatient hospitalization for the following reasons: IV ABX, awaiting specialty consultation Total time managing care of this patient today: 45 minutes. Quality Stroke Does the patient have a stroke diagnosis?: No VTE Prior VTE?: No VTE Risk Level:: Medical - moderate - high VTE Device Contraindication: N/A - Device Ordered VTE Drug Contraindication: N/A - Med Ordered
[2025-01-01 16:33] LABS: Glucose, Whole Blood 159 mg/dL (60-115)
[2025-01-01] MEDS: Enoxaparin Sodium 40 MG/0.4 ML SYRINGE SUBCUT (16:36)
--- NOTE | 2025-01-01 16:39 | P.EN_ITS ---
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
--- NOTE | 2025-01-01 18:28 | P.CONGS_ITS ---
History of Present Illness Consult details Consult date: 01/01/25 Narrative: The pt is a 54 year old male with diabetes and a repeating history of diabetic foot ulcers and infections who has a current and significant cocaine abuse history. 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 He comes in now and workup shows left foot callused lesions no true open wound but imaging shows old and newer appearing osteomyeltis changes. Pt says foot hurts and left foot is worse than the right PMFSH Past Medical History Medical History Non-insulin dependent type 2 diabetes mellitus Social History Social History Household Members: Family Housing: Other Housing Other:: Homeless [place] [facility] Do you presently have visiting nurse or other home services: No Alcohol intake: current Alcohol intake frequency: does not drink Patient Tobacco Use Status: Never used Tobacco Substance Use Type: Crack/Cocaine service: No Meds Allergies Allergy/AdvReac Type Severity Reaction Status Date / Time No Known Allergies Allergy Verified 12/31/24 10:48 Active Medications: Current Medications Acetaminophen (Acetaminophen 325 Mg Tablet) 650 mg PO Q6H PRN PRN Reason: Pain, Mild 1-3,fever,headache Amlodipine Besylate (Amlodipine Besylate 10 Mg Tablet) 10 mg PO DAILY DREA; Protocol Last Admin: 01/01/25 09:18 Dose: 10 mg Calcium Carbonate (Calcium Carbonate 750 Mg Tab.Chew) 750 mg PO Q4H PRN PRN Reason: Heartburn Dextrose (Dextrose 50 % 25 Gm/50 Ml Syringe) 25 gm IVPUSH Q15M PRN; Protocol PRN Reason: per Hypoglycemia Standing Ord. Enoxaparin Sodium (Enoxaparin Sodium 40 Mg/0.4 Ml Syringe) 40 mg SUBCUT Q24H [facility] Last Admin: 01/01/25 16:36 Dose: 40 mg Glucose (Glucose Gel 15 Gm Gel..Gram.) 15 gm PO Q15M PRN; Protocol PRN Reason: per Hypoglycemia Standing Ord. Vancomycin HCl 750 mg/ Sodium (Chloride) 265 mls @ 265 mls/hr IV Q12H [facility] Last Infusion: 01/01/25 16:22 Dose: Infused Cefepime HCl (Maxipime) 2 gm in 50 mls @ 100 mls/hr IV Q8H [facility] Last Infusion: 01/01/25 17:17 Dose: Infused Insulin Glargine (Insulin Glargine,Hum.Rec.Anlog 100 Unit/Ml 10 Ml Vial) 10 unit SUBCUT DAILY [facility] Last Admin: 01/01/25 09:18 Dose: 10 unit Insulin Human Lispro (Insulin Lispro 100 Unit/Ml 3 Ml Vial) 0 unit SUBCUT QIDACHS [facility]; Protocol Last Admin: 01/01/25 16:36 Dose: 2 unit Lorazepam (Lorazepam 0.5 Mg Tablet) 0.5 mg PO Q6H PRN PRN Reason: Anxiety Magnesium Hydroxide (Milk Of Magnesia 30 Ml Oral.Susp) 30 ml PO DAILY PRN PRN Reason: Constipation Magnesium Hydroxide (Milk Of Magnesia 30 Ml Oral.Susp) 30 ml PO DAILY PRN PRN Reason: Constipation Melatonin (Melatonin 3 Mg Tablet) 6 mg PO BEDTIME PRN PRN Reason: Insomnia Ondansetron HCl (Ondansetron Hcl 4 Mg/2 Ml Vial) 4 mg IVPUSH Q8H PRN PRN Reason: Nausea and Vomiting Last Admin: 01/01/25 11:26 Dose: 4 mg Pharmacy Consult (Consult Rx Vancomycin Dosing) 1 each MISCELLANE DAILY PRN PRN Reason: Consult order Sodium Chloride (0.9 % Sodium Chloride Flush 3 Ml Syringe) 3 ml IVFLUSH [facility] Last Admin: 01/01/25 16:37 Dose: Not Given Sodium Chloride (0.9 % Sodium Chloride Flush 3 Ml Syringe) 3 ml IVFLUSH [facility] Last Admin: 01/01/25 16:36 Dose: Not Given Tramadol HCl (Tramadol Hcl 50 Mg Tablet) 50 mg PO Q4H PRN PRN Reason: Pain, Severe (Pain Scale 7-10) Last Admin: 01/01/25 04:52 Dose: 50 mg Home Medications ?Medication ?Instructions ?Recorded ?Confirmed ?Last Taken ?Type No Known Home Meds 12/31/24 12/31/24 Unknown History Physical Exam 2 Vital Signs: Vital Signs: Last Vital Signs Temp 98.6 F 01/01/25 16:33 Pulse 115 H 01/01/25 16:33 Resp 20 01/01/25 16:33 BP 140/76 H 01/01/25 16:33 Pulse Ox 97 01/01/25 16:33 O2 Del Method Room Air 01/01/25 16:33 BMI result Body Mass Index 19.3 Skin: Other: left foot chronic changes thickened skin medial great toe mtp area with thick callus but no drainage. smaller clean plantar callus - mild tnederness with palpation of the plantar area. no erythema. strong palpable pulse on the right but less on the left. Results Labs 01/01/25 04:39 01/01/25 04:39 Labs: Abnormal lab results 12/31/24 12/31/24 12/31/24 Range/Units 15:50 17:41 18:37 WBC (4.8-10.8) X10*3/uL RBC (4.60-5.80) X10*6/uL Hgb (14.0-18.0) g/dl Hct (42.0-52.0) % Plt Count (160-400) X10*3/uL MPV (9.4-12.4) fL ESR (0-15) MM/HR POC Glucose 238 H 262 H (60-115) mg/dL Random Glucose (60-115) mg/dL Nasal S. aureus Screen POSITIVE A (Negative) 12/31/24 01/01/25 01/01/25 Range/Units 20:02 04:39 07:27 WBC 27.8 H (4.8-10.8) X10*3/uL RBC 4.37 L (4.60-5.80) X10*6/uL Hgb 13.2 L (14.0-18.0) g/dl Hct 38.9 L (42.0-52.0) % Plt Count 438 H D (160-400) X10*3/uL MPV 9.3 L (9.4-12.4) fL ESR 40 H (0-15) MM/HR POC Glucose 294 H 229 H (60-115) mg/dL Random Glucose 181 H (60-115) mg/dL Nasal S. aureus Screen (Negative) 01/01/25 01/01/25 Range/Units 13:38 16:30 WBC (4.8-10.8) X10*3/uL RBC (4.60-5.80) X10*6/uL Hgb (14.0-18.0) g/dl Hct (42.0-52.0) % Plt Count (160-400) X10*3/uL MPV (9.4-12.4) fL ESR (0-15) MM/HR POC Glucose 160 H 159 H (60-115) mg/dL Random Glucose (60-115) mg/dL Nasal S. aureus Screen (Negative) Short CBC 01/01/25 Range/Units 04:39 WBC 27.8 H (4.8-10.8) X10*3/uL Hgb 13.2 L (14.0-18.0) g/dl Hct 38.9 L (42.0-52.0) % Plt Count 438 H D (160-400) X10*3/uL BMP 01/01/25 04:39 Sodium 139 Potassium 3.7 Chloride 103 Carbon Dioxide 24 BUN 11 Creatinine 0.67 Calcium 9.4 Urine 12/31/24 Range/Units 12:20 Urine Color Yellow Urine Appearance Clear Urine pH 7.0 (5.0-9.0) Ur Specific [place] 1.020 (1.005-1.025) Urine Protein 30 (1+) H (Neg-Trace) mg/dL Urine Glucose (UA) >=1000 H (Negative) mg/dL All other labs normal. Imaging Additional studies: Chart - [facility] ? Diagnostics Subcategory All Activity ??:?? All Time ??:?? All Subcategories Filter Laboratory Imaging Microbiology Pathology Blood Bank Tests Cardiovascular Other Specialty DATE TYPE STATUS REF RANGE/AUTHOR Hx 01/01/25 12:30 Lumbar Spine MRI Signed Cirilo Carlisle 01/01/25 07:38 Foot X-Ray Signed Elia Sanchez 12/31/24 12:53 Abdomen/Pelvis CT Signed Matt Toscano 12/31/24 12:[address] Signed Matt Toscano 12/31/24 12:[address] Cancelled 06/07/24 16:55 PICC Line Insertion Signed Stephanie Zayas 06/04/24 15:30 Duplex Scan Lower Extremity Artery Signed Aric Shearer 06/03/24 11:09 Abdomen/Pelvis CT Signed Siena Dodge 06/03/24 09:45 Foot X-Ray Signed Joe Louie 08/25/23 19:06 Knee X-Ray Signed Pam Escalante 08/25/23 19:[address] Signed AlysaTamiko mooreana 08/25/23 19:[address] Signed Pam Escalante Angel L Acute 54, M?1970 MRN#? [id number] ADM [facility]??454?-1? 5ft 6in 119lb 9.6oz BSA: 1.59m? BMI: 19.3kg/m? Acc#? [id number] Full Code Historical Visits Allergies No Known Allergies Problems ? ONSET Cocaine abuse Acidosis, lactic Leukocytosis Acute right flank pain Diabetic ulcer of left lower leg Diabetic foot ulcer Vital Signs 01/01/25 23:41 BP 154/95?H Pulse 111?H Resp 16? Temp 97.3 F? O2 Sat 100? Delivery Room Air? Home Meds Confirmed Prescription Monitoring Program MEDICATIONS (INSTRUCTIONS) LAST TAKEN Active No Known Home Meds My Widget No Data to Display Diagnostics Reports Gurpreet Moreno??54??M??1970 ? Allergy/Adv: No Known Allergies Close Lumbar Spine MRI (Signed) Cirilo Carlisle - 01/01/25 Foot X-Ray (Signed) Elia Sanchez - 01/01/25 Abdomen/Pelvis CT (Signed) Matt Toscano - 12/31/[address] (Signed) Matt Toscano - 12/31/[address] (Cancelled) 12/31/24 PICC Line Insertion (Signed) Stephanie Zayas - 06/07/24 Duplex Scan Lower Extremity Artery (Signed) Aric Shearer - 06/04/24 Abdomen/Pelvis CT (Signed) Siena Dodge - 06/03/24 Foot X-Ray (Signed) Joe Louie - 06/03/24 Knee X-Ray (Signed) Pam Escalante - 08/25/[address] (Signed) Pam Escalante - 08/25/[address] (Signed) Pam Escalante - 08/25/23 Launch?Image [address] [address] XRay Report Signed Patient: Gurpreet Moreno MR#: [id number] : 1970 Acct:[id number] Age/Sex: 54 / M ADM Date: 12/31/24 Loc: [facility] [place] [facility]: Vazquez Marlow MD Ordering Physician: Vazquez Marlow MD Date of Service: 01/01/25 Procedure(s): XR foot LT 2V Accession Number(s): [id number] cc: Vazquez Marlow MD; Physician,None ~ CLINICAL HISTORY: hx osteo. r o infection Exam: AP, lateral, and oblique views of the left foot. Comparison: None. Findings: Extensive abnormality of the 1st metatarsophalangeal joint. There is loss of the normal cortical surface of the base of the proximal phalanx and involving the 1st metatarsal head. There is areas of cortical thickening with likely chronic periosteal reaction. Areas of bony fragmentation are also seen surrounding the 1st metatarsophalangeal joint. No definitive acute fracture or aggressive periosteal reaction seen at the 1st metatarsophalangeal joint. At the 2nd metatarsophalangeal joint, there is abnormal architecture of the 2nd metatarsal head findings concerning for periosteal reaction. There is loss of the normal joint space with juxta-articular sclerosis involving the 2nd metatarsal head and neck. At the 5th metatarsophalangeal joint, there is likely chronic erosions of the 5th metatarsal head and neck as well as the base of the proximal phalanx of the 5th toe. No definitive acute periosteal reaction seen at that site. Lisfranc articulation is anatomically aligned. [id number] degenerative change of the ankle joint. Impression: Multifocal joint centered pathology as above. The appearance of the 2nd metatarsophalangeal joint is the most concerning for an acute process with septic arthritis and surrounding osteomyelitis. Findings of the 1st and 5th metatarsophalangeal joints are more likely chronic in nature. Clinical correlation and correlation with prior imaging studies suggested. 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 pt too high risk to do picc line and iv antibx. would not be compliant with any treatment. at this point priority is med issues - ID to decide if po course of antibiotics would be helpful. Procedures Date of Service Date of Service: 01/02/25
[2025-01-01 19:52] LABS: Glucose, Whole Blood 156 mg/dL (60-115)
--- NOTE | 2025-01-01 21:35 | HE.PHANOTE ---
RE: vanco trough came back at 9.0; increased dose to 750mg Q8H with predicted trough of 12.2, AUC of 457 mg/L. Next level 01/02 @2100
[2025-01-02] MEDS: cefEPime HCl/D5W 2 GM/50 ML PIGGYBACK IV ×3 (00:38→18:37)
[2025-01-02 04:00] VITALS: BP 150/99; PULSE 115; RESP 18; TEMP 36.7; O2SAT 98
[2025-01-02] MEDS: traMADoL HCL 50 MG TABLET PO ×2 (04:25→08:22)
[2025-01-02] MEDS: vancomycin HCL 750 MG in 0.9 % Sodium Chloride 250 ML 265 MG IV ×2 (06:23→18:00)
[2025-01-02 07:15] VITALS: BP 164/100; PULSE 112; RESP 20; TEMP 36.6; O2SAT 99
[2025-01-02 07:17] LABS: Hematocrit 41.1 % (42.0-52.0); Hemoglobin 14.1 g/dl (14.0-18.0); Mean Corpuscular HGB Conc 34.3 g/dl (31.0-36.0); Mean Corpuscular Hemoglobin 30.3 pg (27.0-33.0); Mean Corpuscular Volume 88.4 fL (80.0-98.0); Mean Platelet Volume 9.2 fL (9.4-12.4); Platelet Count 363 X10*3/uL (160-400); Red Blood Count 4.65 X10*6/uL (4.60-5.80); Red Cell Distribution Width 13.2 % (11.0-16.0); White Blood Count 27.4 X10*3/uL (4.8-10.8)
[2025-01-02 07:37] LABS: Anion Gap 13 (12-20); Blood Urea Nitrogen 13 mg/dL (9-16); Calcium 9.3 mg/dL (8.4-10.2); Carbon Dioxide 24 mmol/L (22-29); Chloride 103 mmol/L (96-108); Creatinine Clr Calc Pharmacy 90.4; Estimated Glomerular Filt Rate > 60; Glucose Random 196 mg/dL (60-115); Potassium 4.5 mmol/L (3.3-5.1); Sodium 135 mmol/L (135-145)
[2025-01-02 07:55] LABS: Glucose, Whole Blood 245 mg/dL (60-115)
[2025-01-02] MEDS: amLODIPine Besylate 10 MG TABLET PO (08:21)
[2025-01-02] MEDS: Insulin Lispro 100 UNIT/ML 3 ML VIAL SUBCUT (08:21)
[2025-01-02] MEDS: 0.9 % Sodium Chloride Flush 3 ML SYRINGE IVFLUSH (08:24)
[2025-01-02] MEDS: Insulin Glargine,Hum.rec.anlog 100 UNIT/ML 10 ML VIAL 10 UNIT SUBCUT (10:01)
--- NOTE | 2025-01-02 10:41 | MHC.CM.PN ---
Per ROUNDS discussion, dc planning is pending ID; CM will follow.
[2025-01-02 10:49] VITALS: BP 165/103; PULSE 113; RESP 20; TEMP 36.4; O2SAT 97
[2025-01-02 10:54] LABS: Glucose, Whole Blood 132 mg/dL (60-115)
--- NOTE | 2025-01-02 10:55 | P.PNIM_ITS ---
Subjective Subjective Date of Service: 01/02/25 Interval History: no complaints Physical Exam 2 Vital Signs: Vital Signs: Last Vital Signs Temp 97.5 F 01/02/25 10:49 Pulse 113 H 01/02/25 10:49 Resp 20 01/02/25 10:49 BP 165/103 H 01/02/25 10:49 Pulse Ox 97 01/02/25 10:49 O2 Del Method Room Air 01/02/25 10:49 BMI result Body Mass Index 19.3 Skin: Other: left foot chronic changes thickened skin medial great toe mtp area with thick callus but no drainage. smaller clean plantar callus - mild tnederness with palpation of the plantar area. no erythema. strong palpable pulse on the right but less on the left. Objective Data Active Medications Acetaminophen (Acetaminophen 325 Mg Tablet) 650 mg PO Q6H PRN PRN Reason: Pain, Mild 1-3,fever,headache Amlodipine Besylate (Amlodipine Besylate 10 Mg Tablet) 10 mg PO DAILY [facility]; Protocol Last Admin: 01/02/25 08:21 Dose: 10 mg Documented By: JUAN Calcium Carbonate (Calcium Carbonate 750 Mg Tab.Chew) 750 mg PO Q4H PRN PRN Reason: Heartburn Dextrose (Dextrose 50 % 25 Gm/50 Ml Syringe) 25 gm IVPUSH Q15M PRN; Protocol PRN Reason: per Hypoglycemia Standing Ord. Enoxaparin Sodium (Enoxaparin Sodium 40 Mg/0.4 Ml Syringe) 40 mg SUBCUT Q24H [facility] Last Admin: 01/01/25 16:36 Dose: 40 mg Documented By: TERE Glucose (Glucose Gel 15 Gm Gel..Gram.) 15 gm PO Q15M PRN; Protocol PRN Reason: per Hypoglycemia Standing Ord. Cefepime HCl (Maxipime) 2 gm in 50 mls @ 100 mls/hr IV Q8H [facility] Last Admin: 01/02/25 08:23 Dose: 100 mls/hr Documented By: JUAN Vancomycin HCl 750 mg/ Sodium (Chloride) 265 mls @ 265 mls/hr IV Q8H [facility] Last Infusion: 01/02/25 08:24 Dose: Infused Documented By: JUAN Insulin Glargine (Insulin Glargine,Hum.Rec.Anlog 100 Unit/Ml 10 Ml Vial) 10 unit SUBCUT DAILY [facility] Last Admin: 01/02/25 10:01 Dose: 10 unit Documented By: JUAN Insulin Human Lispro (Insulin Lispro 100 Unit/Ml 3 Ml Vial) 0 unit SUBCUT QIDACHS [facility]; Protocol Last Admin: 01/02/25 08:21 Dose: 4 unit Documented By: JUAN Lorazepam (Lorazepam 0.5 Mg Tablet) 0.5 mg PO Q6H PRN PRN Reason: Anxiety Magnesium Hydroxide (Milk Of Magnesia 30 Ml Oral.Susp) 30 ml PO DAILY PRN PRN Reason: Constipation Magnesium Hydroxide (Milk Of Magnesia 30 Ml Oral.Susp) 30 ml PO DAILY PRN PRN Reason: Constipation Melatonin (Melatonin 3 Mg Tablet) 6 mg PO BEDTIME PRN PRN Reason: Insomnia Ondansetron HCl (Ondansetron Hcl 4 Mg/2 Ml Vial) 4 mg IVPUSH Q8H PRN PRN Reason: Nausea and Vomiting Last Admin: 01/01/25 11:26 Dose: 4 mg Documented By: SHARAN Pharmacy Consult (Consult Rx Vancomycin Dosing) 1 each MISCELLANE DAILY PRN PRN Reason: Consult order Sodium Chloride (0.9 % Sodium Chloride Flush 3 Ml Syringe) 3 ml IVFLUSH [facility] Last Admin: 01/02/25 08:24 Dose: 3 ml Documented By: JUAN Sodium Chloride (0.9 % Sodium Chloride Flush 3 Ml Syringe) 3 ml IVFLUSH [facility] Last Admin: 01/02/25 08:24 Dose: Not Given Documented By: JUAN Non-Admin Reason: Duplicate Order Tramadol HCl (Tramadol Hcl 50 Mg Tablet) 50 mg PO Q4H PRN PRN Reason: Pain, Severe (Pain Scale 7-10) Last Admin: 01/02/25 08:22 Dose: 50 mg Documented By: JUAN Labs 01/02/25 06:28 01/02/25 06:32 Labs: Laboratory Results - last 24 hr 12/31/24 01/01/25 01/01/25 17:41 13:38 16:30 MCV MCH MCHC RDW Plt Count MPV Absolute Nucleated RBC Nucleated RBC % (auto) Anion Gap Estim Creat Clear Calc Estimated GFR POC Glucose 160 H 159 H Random Glucose Calcium Procalcitonin Nasal Screen MRSA (PCR) NEGATIVE Nasal S. aureus Screen POSITIVE A Nasal MRSA/S.aureus Interp SEE NOTE Vancomycin Trough 01/01/25 01/01/25 01/02/25 19:17 21:05 06:28 MCV 88.4 MCH 30.3 MCHC 34.3 RDW 13.2 Plt Count 363 MPV 9.2 L Absolute Nucleated RBC 0.000 Nucleated RBC % (auto) 0.0 Anion Gap Estim Creat Clear Calc Estimated GFR POC Glucose 156 H Random Glucose Calcium Procalcitonin Nasal Screen MRSA (PCR) Nasal S. aureus Screen Nasal MRSA/S.aureus Interp Vancomycin Trough 9.0 L 01/02/25 01/02/25 01/02/25 06:32 07:14 10:47 MCV MCH MCHC RDW Plt Count MPV Absolute Nucleated RBC Nucleated RBC % (auto) Anion Gap 13 Estim Creat Clear Calc 90.4 Estimated GFR > 60 POC Glucose 245 H 132 H Random Glucose 196 H Calcium 9.3 Procalcitonin 1.00 Nasal Screen MRSA (PCR) Nasal S. aureus Screen Nasal MRSA/S.aureus Interp Vancomycin Trough Microbiology Microbiology Results: Microbiology 12/31/24 12:20 Blood Culture - Preliminary Blood - Venous No growth after 24 hours. 12/31/24 12:00 Blood Culture - Preliminary Blood - Venous No growth after 24 hours. 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 WBCs 31+ on admission, coming down. Continue vancomycin + cefepime 12/31-. ID consult pending. nodular pneumonia on antibiotics as above; repeat CT in 6 mo; trend PCT low back pain due to spondylosis; no evidence of infection on MRI L-spine lactic acidosis most likely due to hypoperfusion from cocaine abuse rather than severe sepsis HTN urgency due to cocaine. Avoid b-blockers. Continue amlodipine + prn lorazepam. hypoMg hypoK repleted adrenal hyperplasia recommend repeat CT A/P in 6 mo DM2 with mild DKA A1c 7.2. Gap closed. Give correction-dose lispro and started low-dose glargine; probably can manage with MTF upon discharge cocaine abuse Addiction Medicine consult, prn lorazepam, screen for HBV/HCV/HIV negative VTE ppx enoxaparin dispo TBD reason for continued hospitalization:iv abx, id eval Total time managing care of this patient today: 45 minutes. Quality Stroke Does the patient have a stroke diagnosis?: No VTE Prior VTE?: No VTE Risk Level:: Medical - moderate - high VTE Device Contraindication: N/A - Device Ordered VTE Drug Contraindication: N/A - Med Ordered
[2025-01-02 15:50] VITALS: BP 151/99; PULSE 126; RESP 18; TEMP 36.6; O2SAT 97
--- NOTE | 2025-01-02 16:02 | P.CNID_ITS ---
History of Present Illness Data of Consult Service Date: 01/02/25 Requesting physician: Chinedu Aguillon Primary Care Provider: Sarina Delacruz MD [facility] Reason for consult: leukocytosis He presents with right flank pain 7/10 foe two days as well as LS spine pain. He has negative MRI at this time LS spine area. He has no abscess or obstruction seen on CT abdomen. He is not on oxygen and says left foot is good and feels just fine He has seen me August and has been treated with six weeks Ertapenem and then po Doxycycline for Left foot OM. He has leukocytosis. He uses cocaine. He has DM He has 2nd MTP SA/OM and chronic OM 1,5th digit foot and has had procalcitonin 1.0 There are tiny opacities RUL and RLL. Review of Systems 2 Review of Systems: Yes all other systems are reviewed and are negative [facility] Past Medical History Medical History Non-insulin dependent type 2 diabetes mellitus Family History Family history: reviewed and not pertinent Social History Social History Household Members: Family Housing: Other Housing Other:: Homeless Housing Do you presently have visiting nurse or other home services: No Alcohol intake: current Alcohol intake frequency: does not drink Patient Tobacco Use Status: Never used Tobacco Substance Use Type: Crack/Cocaine service: No Meds Allergies Allergy/AdvReac Type Severity Reaction Status Date / Time No Known Allergies Allergy Verified 12/31/24 10:48 Active Medications: Current Medications Acetaminophen (Acetaminophen 325 Mg Tablet) 650 mg PO Q6H PRN PRN Reason: Pain, Mild 1-3,fever,headache Amlodipine Besylate (Amlodipine Besylate 10 Mg Tablet) 10 mg PO DAILY [facility]; Protocol Last Admin: 01/02/25 08:21 Dose: 10 mg Calcium Carbonate (Calcium Carbonate 750 Mg Tab.Chew) 750 mg PO Q4H PRN PRN Reason: Heartburn Dextrose (Dextrose 50 % 25 Gm/50 Ml Syringe) 25 gm IVPUSH Q15M PRN; Protocol PRN Reason: per Hypoglycemia Standing Ord. Enoxaparin Sodium (Enoxaparin Sodium 40 Mg/0.4 Ml Syringe) 40 mg SUBCUT Q24H [facility] Last Admin: 01/01/25 16:36 Dose: 40 mg Glucose (Glucose Gel 15 Gm Gel..Gram.) 15 gm PO Q15M PRN; Protocol PRN Reason: per Hypoglycemia Standing Ord. Cefepime HCl (Maxipime) 2 gm in 50 mls @ 100 mls/hr IV Q8H [facility] Last Infusion: 01/02/25 13:57 Dose: Infused Vancomycin HCl 750 mg/ Sodium (Chloride) 265 mls @ 265 mls/hr IV Q8H [facility] Last Infusion: 01/02/25 08:24 Dose: Infused Insulin Glargine (Insulin Glargine,Hum.Rec.Anlog 100 Unit/Ml 10 Ml Vial) 10 unit SUBCUT DAILY [facility] Last Admin: 01/02/25 10:01 Dose: 10 unit Insulin Human Lispro (Insulin Lispro 100 Unit/Ml 3 Ml Vial) 0 unit SUBCUT QIDACHS [facility]; Protocol Last Admin: 01/02/25 11:37 Dose: Not Given Lorazepam (Lorazepam 0.5 Mg Tablet) 0.5 mg PO Q6H PRN PRN Reason: Anxiety Magnesium Hydroxide (Milk Of Magnesia 30 Ml Oral.Susp) 30 ml PO DAILY PRN PRN Reason: Constipation Magnesium Hydroxide (Milk Of Magnesia 30 Ml Oral.Susp) 30 ml PO DAILY PRN PRN Reason: Constipation Melatonin (Melatonin 3 Mg Tablet) 6 mg PO BEDTIME PRN PRN Reason: Insomnia Ondansetron HCl (Ondansetron Hcl 4 Mg/2 Ml Vial) 4 mg IVPUSH Q8H PRN PRN Reason: Nausea and Vomiting Last Admin: 01/01/25 11:26 Dose: 4 mg Pharmacy Consult (Consult Rx Vancomycin Dosing) 1 each MISCELLANE DAILY PRN PRN Reason: Consult order Sodium Chloride (0.9 % Sodium Chloride Flush 3 Ml Syringe) [facility] Last Admin: 01/02/25 08:24 Dose: 3 ml Sodium Chloride (0.9 % Sodium Chloride Flush 3 Ml Syringe) 3 ml IVFLUSH [facility] Last Admin: 01/02/25 08:24 Dose: Not Given Tramadol HCl (Tramadol Hcl 50 Mg Tablet) 50 mg PO Q4H PRN PRN Reason: Pain, Severe (Pain Scale 7-10) Last Admin: 01/02/25 08:22 Dose: 50 mg Home Medications ?Medication ?Instructions ?Recorded ?Confirmed ?Last Taken ?Type No Known Home Meds 12/31/24 12/31/24 Unknown History Physical Exam 2 Vital Signs: Vital Signs: Last Vital Signs Temp 97.9 F 01/02/25 15:50 Pulse 126 H 01/02/25 15:50 Resp 18 01/02/25 15:50 BP 151/99 H 01/02/25 15:50 Pulse Ox 97 01/02/25 15:50 O2 Del Method Room Air 01/02/25 15:50 BMI result Body Mass Index 19.3 Const: General: cooperative HEENT: Head: Yes normal to inspection Face and sinus: Yes normal facial exam Mouth: Normal oral and palatal mucosa present Teeth and gingiva: d entition normal Eyes: General: appearance normal, both eyes and all related structures P upils: Equal, round and reactive pupils present Resp: Effort & Inspection: normal respiratory effort Cardio: Rate: regular rate Rhythm: regular rhythm GI: Palpation (GI): Soft to palpation and nontender : General: Yes no CVA tenderness Back/Spine/Pelvis: Back: no CVA tenderness Skin: General skin exam: no rashes or lesions noted Neuro: General: moves all extremities Cranial nerves: Yes Equal, round and reactive pupils present Extrem: Other: left foot looking clearer than ever,some eschar resolved laterally Psych: Appearance: grossly normal Results Labs 01/02/25 06:28 01/02/25 06:32 Labs: Short CBC 01/02/25 Range/Units 06:28 WBC 27.4 H (4.8-10.8) X10*3/uL Hgb 14.1 (14.0-18.0) g/dl Hct 41.1 L (42.0-52.0) % Plt Count 363 (160-400) X10*3/uL BMP 01/02/25 06:32 Sodium 135 Potassium 4.5 D Chloride 103 Carbon Dioxide 24 BUN 13 Creatinine 0.70 Calcium 9.3 Microbiology Microbiology Results: Microbiology 12/31/24 12:20 Blood - Venous Blood Culture - Preliminary No growth after 48 hours. 12/31/24 12:00 Blood - Venous Blood Culture - Preliminary No growth after 48 hours. Assessment and Plan (1) Cocaine abuse: Status: Acute (2) Acidosis, lactic: Status: Acute (3) Leukocytosis: Qualifiers: Leukocytosis type: unspecified Qualified Code(s): D72.829 - Elevated white blood cell count, unspecified Status: Acute (4) Diabetic ulcer of left lower leg: Status: Acute Plan Leukocytosis,likely due to cocaine use affecting lung as well as possible bronchitis and/or cellulitis. There is no evidence of clinically worsening OM at this time and has just finished six week treatment within last three to four months. Leukocytosis is improving Treat possible bacterial bronchitis. Can use po Doxycycline for 10 days. Stop trending procalcitonin as appears no clinically significant lung infection.
[2025-01-02 16:09] LABS: Glucose, Whole Blood 114 mg/dL (60-115)
[2025-01-02] MEDS: Enoxaparin Sodium 40 MG/0.4 ML SYRINGE SUBCUT (17:57)
[2025-01-02] MEDS: Acetaminophen 325 MG TABLET 650 MG PO (18:02)
[2025-01-02 19:31] VITALS: BP 155/95; PULSE 110; RESP 16; TEMP 36; O2SAT 96
[2025-01-02 21:01] LABS: Glucose, Whole Blood 92 mg/dL (60-115)
[2025-01-02 22:15] LABS: Vancomycin Random 24.7 mcg/mL (15-20)
[2025-01-03] VITALS: BP 154/93; PULSE 123; RESP 16; TEMP 36.5; O2SAT 96
[2025-01-03] MEDS: cefEPime HCl/D5W 2 GM/50 ML PIGGYBACK IV ×3 (00:49→18:31)
[2025-01-03] MEDS: 0.9 % Sodium Chloride Flush 3 ML SYRINGE IVFLUSH ×3 (00:58→09:28)
[2025-01-03 03:19] VITALS: BP 150/98; PULSE 85; RESP 16; TEMP 37.1; O2SAT 97
[2025-01-03] MEDS: traMADoL HCL 50 MG TABLET PO ×3 (03:23→19:43)
[2025-01-03] MEDS: LORazepam 0.5 MG TABLET PO ×2 (03:24→19:43)
[2025-01-03] MEDS: vancomycin HCL 750 MG in 0.9 % Sodium Chloride 250 ML 265 MG IV ×2 (06:16→19:44)
[2025-01-03 06:41] LABS: Hematocrit 42.9 % (42.0-52.0); Hemoglobin 14.7 g/dl (14.0-18.0); Mean Corpuscular HGB Conc 34.3 g/dl (31.0-36.0); Mean Corpuscular Volume 87.6 fL (80.0-98.0); Mean Platelet Volume 9.3 fL (9.4-12.4); Platelet Count 369 X10*3/uL (160-400); Red Cell Distribution Width 13.1 % (11.0-16.0)
[2025-01-03 06:58] LABS: Anion Gap 12 (12-20); Blood Urea Nitrogen 17 mg/dL (9-16); Calcium 9.3 mg/dL (8.4-10.2); Carbon Dioxide 24 mmol/L (22-29); Chloride 103 mmol/L (96-108); Creatinine Clr Calc Pharmacy 91.7; Estimated Glomerular Filt Rate > 60; Glucose Random 95 mg/dL (60-115); Potassium 4.2 mmol/L (3.3-5.1); Sodium 135 mmol/L (135-145)
[2025-01-03 07:17] VITALS: BP 152/90; PULSE 124; RESP 20; TEMP 36.6; O2SAT 97
[2025-01-03 07:29] LABS: Glucose, Whole Blood 116 mg/dL (60-115)
[2025-01-03] MEDS: amLODIPine Besylate 10 MG TABLET PO (09:24)
--- NOTE | 2025-01-03 10:56 | HO.PM.IMPN ---
Subjective Subjective Date of Service: 01/03/25 Interval History: no complaints Physical Exam Vital Signs: Vital Signs: Last Vital Signs Temp 97.9 F 01/03/25 07:17 Pulse 124 H 01/03/25 07:17 Resp 20 01/03/25 07:17 BP 152/90 H 01/03/25 07:17 Pulse Ox 97 01/03/25 07:17 O2 Del Method Room Air 01/03/25 07:17 BMI result Body Mass Index 19.3 Const: General: cooperative HEENT: Head: Yes normal to inspection Face and sinus: Yes normal facial exam Mouth: Normal oral and palatal mucosa present Teeth and gingiva: dentition normal Eyes: General: appearance normal, both eyes and all related structures Pupils: Equal, round and reactive pupils present Resp: Effort & Inspection: normal respiratory effort Cardio: Rate: regular rate Rhythm: regular rhythm GI: Palpation (GI): Soft to palpation and nontender : General: Yes no CVA tenderness Back/Spine/Pelvis: Back: no CVA tenderness Skin: General skin exam: no rashes or lesions noted Neuro: General: moves all extremities Cranial nerves: Yes Equal, round and reactive pupils present Extrem: Other: left foot looking clearer than ever,some eschar resolved laterally Psych: Appearance: grossly normal Objective Data Active Medications Acetaminophen (Acetaminophen 325 Mg Tablet) 650 mg PO Q6H PRN PRN Reason: Pain, Mild 1-3,fever,headache Last Admin: 01/02/25 18:02 Dose: 650 mg Documented By: JUAN Amlodipine Besylate (Amlodipine Besylate 10 Mg Tablet) 10 mg PO DAILY [facility]; Protocol Last Admin: 01/03/25 09:24 Dose: 10 mg Documented By: JUAN Calcium Carbonate (Calcium Carbonate 750 Mg Tab.Chew) 750 mg PO Q4H PRN PRN Reason: Heartburn Dextrose (Dextrose 50 % 25 Gm/50 Ml Syringe) 25 gm IVPUSH Q15M PRN; Protocol PRN Reason: per Hypoglycemia Standing Ord. Enoxaparin Sodium (Enoxaparin Sodium 40 Mg/0.4 Ml Syringe) 40 mg SUBCUT Q24H [facility] Last Admin: 01/02/25 17:57 Dose: 40 mg Documented By: JUAN Glucose (Glucose Gel 15 Gm Gel..Gram.) 15 gm PO Q15M PRN; Protocol PRN Reason: per Hypoglycemia Standing Ord. Cefepime HCl (Maxipime) 2 gm in 50 mls @ 100 mls/hr IV Q8H [facility] Last Infusion: 01/03/25 10:35 Dose: Infused Documented By: JUAN Vancomycin HCl 750 mg/ Sodium (Chloride) 265 mls @ 265 mls/hr IV Q8H [facility] Last Infusion: 01/03/25 09:21 Dose: Infused Documented By: JUAN Insulin Glargine (Insulin Glargine,Hum.Rec.Anlog 100 Unit/Ml 10 Ml Vial) 10 unit SUBCUT DAILY [facility] Last Admin: 01/03/25 09:21 Dose: Not Given Documented By: JUAN Non-Admin Reason: No Insulin Coverage Insulin Human Lispro (Insulin Lispro 100 Unit/Ml 3 Ml Vial) 0 unit SUBCUT QIDACHS [facility]; Protocol Last Admin: 01/03/25 09:20 Dose: Not Given Documented By: JUAN Non-Admin Reason: No Insulin Coverage Lorazepam (Lorazepam 0.5 Mg Tablet) 0.5 mg PO Q6H PRN PRN Reason: Anxiety Last Admin: 01/03/25 03:24 Dose: 0.5 mg Documented By: SHELBY Magnesium Hydroxide (Milk Of Magnesia 30 Ml Oral.Susp) 30 ml PO DAILY PRN PRN Reason: Constipation Magnesium Hydroxide (Milk Of Magnesia 30 Ml Oral.Susp) 30 ml PO DAILY PRN PRN Reason: Constipation Melatonin (Melatonin 3 Mg Tablet) 6 mg PO BEDTIME PRN PRN Reason: Insomnia Ondansetron HCl (Ondansetron Hcl 4 Mg/2 Ml Vial) 4 mg IVPUSH Q8H PRN PRN Reason: Nausea and Vomiting Last Admin: 01/01/25 11:26 Dose: 4 mg Documented By: SHARAN Pharmacy Consult (Consult Rx Vancomycin Dosing) 1 each MISCELLANE DAILY PRN PRN Reason: Consult order Sodium Chloride (0.9 % Sodium Chloride Flush 3 Ml Syringe) 3 ml IVFLUSH [facility] Last Admin: 01/03/25 09:28 Dose: 3 ml Documented By: JUAN Sodium Chloride (0.9 % Sodium Chloride Flush 3 Ml Syringe) 3 ml IVFLUSH [facility] Last Admin: 01/03/25 09:20 Dose: Not Given Documented By: JUAN Non-Admin Reason: Duplicate Order Tramadol HCl (Tramadol Hcl 50 Mg Tablet) 50 mg PO Q4H PRN PRN Reason: Pain, Severe (Pain Scale 7-10) Last Admin: 01/03/25 03:23 Dose: 50 mg Documented By: SHELBY Labs 01/03/25 05:43 01/03/25 05:43 Labs: Laboratory Results - last 24 hr 01/02/25 01/02/25 01/02/25 15:53 20:58 21:02 MCV MCH MCHC RDW Plt Count MPV Absolute Nucleated RBC Nucleated RBC % (auto) Anion Gap Estim Creat Clear Calc Estimated GFR POC Glucose 114 92 Random Glucose Calcium Random Vancomycin 24.7 H 01/03/25 01/03/25 05:43 07:15 MCV 87.6 MCH 30.0 MCHC 34.3 RDW 13.1 Plt Count 369 MPV 9.3 L Absolute Nucleated RBC 0.000 Nucleated RBC % (auto) 0.0 Anion Gap 12 Estim Creat Clear Calc 91.7 Estimated GFR > 60 POC Glucose 116 H Random Glucose 95 Calcium 9.3 Random Vancomycin Microbiology Microbiology Results: Microbiology 12/31/24 12:20 Blood Culture - Preliminary Blood - Venous No growth after 48 hours. 12/31/24 12:00 Blood Culture - Preliminary Blood - Venous No growth after 48 hours. 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 WBCs 31+ on admission, coming down. Continue vancomycin + cefepime 12/31-. ID appreciated plan for 10 days doxy. nodular pneumonia on antibiotics as above; repeat CT in 6 mo; trend PCT low back pain due to spondylosis; no evidence of infection on MRI L-spine lactic acidosis most likely due to hypoperfusion from cocaine abuse rather than severe sepsis HTN urgency due to cocaine. Avoid b-blockers. Continue amlodipine + prn lorazepam. hypoMg hypoK repleted adrenal hyperplasia recommend repeat CT A/P in 6 mo DM2 with mild DKA A1c 7.2. Gap closed. Give correction-dose lispro and started low-dose glargine; probably can manage with MTF upon discharge cocaine abuse Addiction Medicine consult, prn lorazepam, screen for HBV/HCV/HIV negative VTE ppx enoxaparin dispo TBD reason for continued hospitalization:iv abx, leukocytosis Total time managing care of this patient today: 45 minutes. Quality Stroke Does the patient have a stroke diagnosis?: No VTE Prior VTE?: No VTE Risk Level:: Medical - moderate - high VTE Device Contraindication: N/A - Device Ordered VTE Drug Contraindication: N/A - Med Ordered
[2025-01-03 11:26] VITALS: BP 139/99; PULSE 84; RESP 20; TEMP 36.9; O2SAT 97
[2025-01-03 11:32] LABS: Vancomycin Random 24.1 mcg/mL (15-20)
[2025-01-03 11:33] LABS: Glucose, Whole Blood 194 mg/dL (60-115)
--- NOTE | 2025-01-03 11:43 | HE.PHANOTE ---
RE:brynn decreased dose to 750mg Q12H predicted trough of 14, AUC of 468. Next level to be drawn 01/04 @1800
[2025-01-03] MEDS: Insulin Lispro 100 UNIT/ML 3 ML VIAL SUBCUT (12:07)
[2025-01-03 15:20] VITALS: BP 136/88; PULSE 114; RESP 18; TEMP 37.1; O2SAT 94
[2025-01-03 15:48] LABS: Glucose, Whole Blood 108 mg/dL (60-115)
[2025-01-03] MEDS: Enoxaparin Sodium 40 MG/0.4 ML SYRINGE SUBCUT (18:32)
[2025-01-03 20:00] VITALS: BP 134/86; PULSE 118; RESP 16; TEMP 37.1; O2SAT 93
[2025-01-04] VITALS: BP 130/82; PULSE 110; RESP 16; TEMP 36.6
[2025-01-04] MEDS: cefEPime HCl/D5W 2 GM/50 ML PIGGYBACK IV ×3 (01:01→16:27)
[2025-01-04] MEDS: 0.9 % Sodium Chloride Flush 3 ML SYRINGE IVFLUSH ×3 (01:01→15:18)
[2025-01-04 01:28] LABS: Glucose, Whole Blood 133 mg/dL (60-115)
[2025-01-04 04:00] VITALS: BP 132/92; PULSE 104; RESP 16; TEMP 36.7; O2SAT 92
[2025-01-04 06:49] LABS: Hematocrit 41.5 % (42.0-52.0); Mean Corpuscular HGB Conc 33.7 g/dl (31.0-36.0); Mean Corpuscular Hemoglobin 29.7 pg (27.0-33.0); Mean Corpuscular Volume 87.9 fL (80.0-98.0); Mean Platelet Volume 9.2 fL (9.4-12.4); Platelet Count 346 X10*3/uL (160-400); Red Blood Count 4.72 X10*6/uL (4.60-5.80); Red Cell Distribution Width 12.6 % (11.0-16.0); White Blood Count 11.8 X10*3/uL (4.8-10.8)
[2025-01-04 06:59] LABS: Anion Gap 11 (12-20); Blood Urea Nitrogen 17 mg/dL (9-16); Calcium 9.4 mg/dL (8.4-10.2); Carbon Dioxide 26 mmol/L (22-29); Chloride 101 mmol/L (96-108); Creatinine Clr Calc Pharmacy 85.5; Estimated Glomerular Filt Rate > 60; Glucose Random 111 mg/dL (60-115); Potassium 4.3 mmol/L (3.3-5.1); Sodium 134 mmol/L (135-145)
[2025-01-04 07:27] LABS: Glucose, Whole Blood 113 mg/dL (60-115)
[2025-01-04 07:28] VITALS: BP 134/92; PULSE 110; RESP 18; TEMP 36.7; O2SAT 94
[2025-01-04] MEDS: amLODIPine Besylate 10 MG TABLET PO (08:59)
[2025-01-04] MEDS: vancomycin HCL 750 MG in 0.9 % Sodium Chloride 250 ML 265 MG IV ×2 (09:00→21:05)
[2025-01-04] MEDS: Insulin Glargine,Hum.rec.anlog 100 UNIT/ML 10 ML VIAL 10 UNIT SUBCUT (09:02)
[2025-01-04] MEDS: traMADoL HCL 50 MG TABLET PO ×2 (09:06→19:50)
--- NOTE | 2025-01-04 09:25 | P.PNIM_ITS ---
Subjective Subjective Date of Service: 01/04/25 Interval History: no complaints Physical Exam 2 Vital Signs: Vital Signs: Last Vital Signs Temp 98.0 F 01/04/25 07:28 Pulse 110 H 01/04/25 07:28 Resp 18 01/04/25 07:28 BP 134/92 H 01/04/25 07:28 Pulse Ox 94 01/04/25 07:28 O2 Del Method Room Air 01/04/25 07:28 BMI result Body Mass Index 19.3 Const: General: cooperative HEENT: Head: Yes normal to inspection Face and sinus: Yes normal facial exam Mouth: Normal oral and palatal mucosa present Teeth and gingiva: d entition normal Eyes: General: appearance normal, both eyes and all related structures P upils: Equal, round and reactive pupils present Resp: Effort & Inspection: normal respiratory effort Cardio: Rate: regular rate Rhythm: regular rhythm GI: Palpation (GI): Soft to palpation and nontender : General: Yes no CVA tenderness Back/Spine/Pelvis: Back: no CVA tenderness Skin: General skin exam: no rashes or lesions noted Neuro: General: moves all extremities Cranial nerves: Yes Equal, round and reactive pupils present Extrem: Other: left foot looking clearer than ever,some eschar resolved laterally Psych: Appearance: grossly normal Objective Data Active Medications Acetaminophen (Acetaminophen 325 Mg Tablet) 650 mg PO Q6H PRN PRN Reason: Pain, Mild 1-3,fever,headache Last Admin: 01/02/25 18:02 Dose: 650 mg Documented By: JUAN Amlodipine Besylate (Amlodipine Besylate 10 Mg Tablet) 10 mg PO DAILY [facility]; Protocol Last Admin: 01/04/25 08:59 Dose: 10 mg Documented By: TOBY Calcium Carbonate (Calcium Carbonate 750 Mg Tab.Chew) 750 mg PO Q4H PRN PRN Reason: Heartburn Dextrose (Dextrose 50 % 25 Gm/50 Ml Syringe) 25 gm IVPUSH Q15M PRN; Protocol PRN Reason: per Hypoglycemia Standing Ord. Enoxaparin Sodium (Enoxaparin Sodium 40 Mg/0.4 Ml Syringe) 40 mg SUBCUT Q24H [facility] Last Admin: 01/03/25 18:32 Dose: 40 mg Documented By: JUAN Glucose (Glucose Gel 15 Gm Gel..Gram.) 15 gm PO Q15M PRN; Protocol PRN Reason: per Hypoglycemia Standing Ord. Cefepime HCl (Maxipime) 2 gm in 50 mls @ 100 mls/hr IV Q8H [facility] Last Infusion: 01/04/25 01:31 Dose: Infused Documented By: SHELBY Vancomycin HCl 750 mg/ Sodium (Chloride) 265 mls @ 265 mls/hr IV Q12H [facility] Last Admin: 01/04/25 09:00 Dose: 265 mls/hr Documented By: TOBY Insulin Glargine (Insulin Glargine,Hum.Rec.Anlog 100 Unit/Ml 10 Ml Vial) 10 unit SUBCUT DAILY [facility] Last Admin: 01/04/25 09:02 Dose: 10 unit Documented By: TOBY Insulin Human Lispro (Insulin Lispro 100 Unit/Ml 3 Ml Vial) 0 unit SUBCUT QIDACHS [facility]; Protocol Last Admin: 01/04/25 07:53 Dose: Not Given Documented By: TOBY Non-Admin Reason: poc= 113 Lorazepam (Lorazepam 0.5 Mg Tablet) 0.5 mg PO Q6H PRN PRN Reason: Anxiety Last Admin: 01/03/25 19:43 Dose: 0.5 mg Documented By: SHELBY Magnesium Hydroxide (Milk Of Magnesia 30 Ml Oral.Susp) 30 ml PO DAILY PRN PRN Reason: Constipation Magnesium Hydroxide (Milk Of Magnesia 30 Ml Oral.Susp) 30 ml PO DAILY PRN PRN Reason: Constipation Melatonin (Melatonin 3 Mg Tablet) 6 mg PO BEDTIME PRN PRN Reason: Insomnia Ondansetron HCl (Ondansetron Hcl 4 Mg/2 Ml Vial) 4 mg IVPUSH Q8H PRN PRN Reason: Nausea and Vomiting Last Admin: 01/01/25 11:26 Dose: 4 mg Documented By: SHARAN Pharmacy Consult (Consult Rx Vancomycin Dosing) 1 each MISCELLANE DAILY PRN PRN Reason: Consult order Sodium Chloride (0.9 % Sodium Chloride Flush 3 Ml Syringe) 3 ml IVFLUSH [facility] Last Admin: 01/04/25 09:01 Dose: 3 ml Documented By: TOBY Sodium Chloride (0.9 % Sodium Chloride Flush 3 Ml Syringe) 3 ml IVFLUSH [facility] Last Admin: 01/04/25 09:02 Dose: Not Given Documented By: TOBY Non-Admin Reason: med already given Tramadol HCl (Tramadol Hcl 50 Mg Tablet) 50 mg PO Q4H PRN PRN Reason: Pain, Severe (Pain Scale 7-10) Last Admin: 01/04/25 09:06 Dose: 50 mg Documented By: TOBY Labs 01/04/25 05:44 01/04/25 05:44 Labs: Laboratory Results - last 24 hr 01/03/25 01/03/25 01/03/25 10:59 11:25 15:44 MCV MCH MCHC RDW Plt Count MPV Absolute Nucleated RBC Nucleated RBC % (auto) Anion Gap Estim Creat Clear Calc Estimated GFR POC Glucose 194 H 108 Random Glucose Calcium Random Vancomycin 24.1 H 01/03/25 01/04/25 01/04/25 19:46 05:44 07:21 MCV 87.9 MCH 29.7 MCHC 33.7 RDW 12.6 Plt Count 346 MPV 9.2 L Absolute Nucleated RBC 0.000 Nucleated RBC % (auto) 0.0 Anion Gap 11 L Estim Creat Clear Calc 85.5 Estimated GFR > 60 POC Glucose 133 H 113 Random Glucose 111 Calcium 9.4 Random Vancomycin Assessment and Plan (1) Diabetic foot ulcer: Status: Acute (2) Diabetic ulcer of left lower leg: Status: Acute Plan 54M PMH cocaine abuse, DM2, and PVD with history of left foot osteomyelitis presenting with acute flank or back pain [pt is poor historian], found to have hypertensive urgency, tachypnea/tachycardia/lactic acidosis suspected due to cocaine abuse, elevated WBCs, back pain, and RUL/RLL inflammatory lung opacities found to have acute/chronic osteomyelitis L foot acute/chronic osteomyelitis L foot appears to have acute 2nd MTP joint septic arthritis/osteomyelitis, with chronic 1st/5th MTP joint osteomyelitis follow BCx. WBCs 31+ on admission, coming down. Continue vancomycin + cefepime 12/31-. ID appreciated plan for 10 days doxy. nodular pneumonia on antibiotics as above; repeat CT in 6 mo; trend PCT low back pain due to spondylosis; no evidence of infection on MRI L-spine lactic acidosis most likely due to hypoperfusion from cocaine abuse rather than severe sepsis HTN urgency due to cocaine. Avoid b-blockers. Continue amlodipine + prn lorazepam. hypoMg hypoK repleted adrenal hyperplasia with sinus tachycardia check if metabolically active - cortisol at midnight renin, elodia, metanephrins, tsh recommend repeat CT A/P in 6 mo DM2 with mild DKA A1c 7.2. Gap closed. Give correction-dose lispro and started low-dose glargine; probably can manage with MTF upon discharge cocaine abuse Addiction Medicine consult, prn lorazepam, screen for HBV/HCV/HIV negative VTE ppx enoxaparin dispo TBD reason for continued hospitalization:sinus tach Total time managing care of this patient today: 45 minutes. Quality Stroke Does the patient have a stroke diagnosis?: No VTE Prior VTE?: No VTE Risk Level:: Medical - moderate - high VTE Device Contraindication: N/A - Device Ordered VTE Drug Contraindication: N/A - Med Ordered
--- NOTE | 2025-01-04 09:49 | MHC.CM.PN ---
Addendum entered by Garima Lizarraga 01/04/25 09:52: CM spoke with Marva @ [facility] @ [phone] and informed her of Patient's admission to [facility] [place]. Original Note: PCP is Dr. Sarina Delacruz.
--- NOTE | 2025-01-04 10:41 | MHC.CM.PN ---
Per ROUNDS DISCUSSION, PATIENT IS NOT YET MEDICALLY CLEARED FOR DC (Sinus tach); HOME IS THE GOAL AND cm WILL CONTINUE TO FOLLOW.
[2025-01-04 10:53] LABS: Thyroid Stimulating Hormone 1.29 uIU/mL (0.32-4.0)
[2025-01-04 11:05] LABS: Glucose, Whole Blood 159 mg/dL (60-115)
[2025-01-04 11:15] VITALS: BP 136/84; PULSE 109; RESP 18; TEMP 37.1; O2SAT 94
[2025-01-04] MEDS: Insulin Lispro 100 UNIT/ML 3 ML VIAL SUBCUT ×2 (11:21→16:27)
[2025-01-04] MEDS: Nicotine 21 MG PATCH.TD24 TRANSDERMA (15:17)
[2025-01-04 15:22] VITALS: BP 132/81; PULSE 103; RESP 18; TEMP 37.1; O2SAT 95
[2025-01-04 16:26] LABS: Glucose, Whole Blood 214 mg/dL (60-115)
[2025-01-04] MEDS: Enoxaparin Sodium 40 MG/0.4 ML SYRINGE SUBCUT (16:27)
--- NOTE | 2025-01-04 17:28 | HO.WOUND ---
Wound Consult: Initial 54yr old male? admitted to [facility] [place] on 12/31/24 - See progress notes and H&P for detailed history.? Wound consult placed for Left Foot.? Patient chart reviewed and discussed with direct care nurse. No open wounds noted - dry stable callus noted - patient was seen and followed by General Surgery team - will defer interventions to them as no open wounds at this time. No topical interventions needed at this time.
[2025-01-04] MEDS: Nicotine Polacrilex 2 MG GUM BUCCAL ×2 (17:31→19:50)
[2025-01-04 18:21] LABS: Vancomycin Random 15.5 mcg/mL (15-20)
[2025-01-04 19:55] VITALS: BP 139/85; PULSE 117; RESP 20; TEMP 36.6; O2SAT 98
[2025-01-04 20:58] LABS: Glucose, Whole Blood 107 mg/dL (60-115)
[2025-01-05] VITALS: BP 129/85; PULSE 91; RESP 20; TEMP 36.4; O2SAT 98
[2025-01-05] MEDS: cefEPime HCl/D5W 2 GM/50 ML PIGGYBACK IV ×2 (01:25→09:34)
[2025-01-05] MEDS: traMADoL HCL 50 MG TABLET PO ×2 (01:32→09:34)
[2025-01-05 01:53] LABS: Cortisol Random 9.4 ug/dL
[2025-01-05 03:49] VITALS: BP 130/89; PULSE 106; RESP 20; TEMP 36.9; O2SAT 97
[2025-01-05 07:09] LABS: Hematocrit 38.3 % (42.0-52.0); Hemoglobin 13.2 g/dl (14.0-18.0); Mean Corpuscular HGB Conc 34.5 g/dl (31.0-36.0); Mean Corpuscular Hemoglobin 30.1 pg (27.0-33.0); Mean Corpuscular Volume 87.4 fL (80.0-98.0); Mean Platelet Volume 9.2 fL (9.4-12.4); Platelet Count 331 X10*3/uL (160-400); Red Blood Count 4.38 X10*6/uL (4.60-5.80); Red Cell Distribution Width 12.4 % (11.0-16.0)
[2025-01-05 07:26] LABS: Anion Gap 11 (12-20); Blood Urea Nitrogen 19 mg/dL (9-16); Calcium 9.2 mg/dL (8.4-10.2); Carbon Dioxide 25 mmol/L (22-29); Chloride 103 mmol/L (96-108); Creatinine Clr Calc Pharmacy 83.2; Estimated Glomerular Filt Rate > 60; Glucose Random 98 mg/dL (60-115); Potassium 4.1 mmol/L (3.3-5.1); Sodium 135 mmol/L (135-145)
[2025-01-05 07:45] VITALS: BP 138/86; PULSE 94; RESP 18; TEMP 36.9; O2SAT 98
[2025-01-05 07:51] LABS: Glucose, Whole Blood 105 mg/dL (60-115)
--- NOTE | 2025-01-05 09:28 | P.DS_ITS ---
DS: Providers Provider Date of Service: 01/05/25 Date of admission: 12/31/24 17:08 Date of discharge: 01/05/25 Primary care physician: Sarina Delacruz MD Consults: 12/31/24 15:42 Addiction Medicine Routine Consulting Provider: Addiction Covering Reason for consultation: cocaine 01/01/25 08:28 Consult to Infectious Diseases Routine Consulting Provider: [facility] [place] Reason for consultation: septic arthritis and surrounding osteomyelitis L foot 01/01/25 14:28 Consult to General Surgery Routine Consulting Provider: [facility] [place] General Surgeons Reason for consultation: acute 2nd MTP joint septic arthritis/osteomyelitis, with chronic 1st/5th M 01/01/25 17:14 Consult to Wound Care Routine Reason for consultation: left foot, 2nd toe DS: Diagnosis Discharge Diagnosis (1) Diabetic foot ulcer: Status: Acute (2) Diabetic ulcer of left lower leg: Status: Acute DS: Summary Hospital Course Hospital Course: from initial hpi: 54yo M with cocaine abuse, DM2, and PVD with history of left foot osteomyelitis presenting with 1 day history of what the ED physician described as R flank pain but what the patient describes as low back pain. Regardless, the patient is a poor historian and doesn't answer most of my questions and now just states that he feels cold and shaky. He doesn't answer me when I ask him repeatedly if he has a cough or is short of breath or as fever. He was hypertensive as high as 212/110 but is currently 189/85. Initially tachypneic at 33 but now 18; tachycardic as high as 131 but now 109. WBC count of 31.9 with platelet count of 657, Potassium 3.1, magnesium 1.5. Lactate 8.9; 8.5 on repeat. CRP 0.88, PCT 0.52. CT of the abdomen and pelvis showed adrenal hyperplasia. CT of the chest showed tiny RUL and RLL inflammatory opacities. He was given vancomycin and cefepime. He also had mild DKA with bicarbonate of 19 and anion gap of 21, glucose of 389, and beta-hydroxybutyrate of 0.41. After he was given IV insulin and fluids, anion gap closed to 18. He was also given lorazepam. hospital course: Patient was admitted for acute on chronic osteomyelitis of the left foot due to diabetes and peripheral vascular disease. Was treated with IV vancomycin cefepime, seen by surgery and Infectious Disease who recommended transitioned to 10 days of p.o. doxycycline. Patient's leukocytosis returned to normal. For nodular pneumonia completed course of antibiotics, repeat CT scan in 1 months is recommended. For low back pain MRI ruled out infection. For acute lactic acidosis most likely due to cocaine not sepsis. For hypertensive urgency was started on amlodipine and significantly improved. For acute hypomagnesemia and hypokalemia received repletion. For incidental finding of adrenal hyperplasia on CT scan along with sinus tachycardia and hypertension concern for being metabolically active. Midnight cortisol was slightly elevated at 9.4. TSH was normal. Renin, aldosterone, metanephrines were sent and are pending. Patient should follow up with endocrinology as outpatient. For diabetes type 2 with mild DKA resolved with insulin. On discharge will restart metformin. For cocaine dependence was seen by Addiction Medicine. Patient is feeling better will be discharged home. Time Attestation Discharge Coordination Time (in mins): 32 Quality: Safe Use of Opioids Does Pt have an Active Cancer Diagnosis on the Problem List?: No Quality: Stroke Does the patient have a stroke diagnosis?: No Physical Exam Vital Signs: Vital Signs: Last Vital Signs Temp 98.4 F 01/05/25 07:45 Pulse 94 01/05/25 07:45 Resp 18 01/05/25 07:45 BP 138/86 01/05/25 07:45 Pulse Ox 98 01/05/25 07:45 O2 Del Method Room Air 01/05/25 07:45 BMI result Body Mass Index 19.3 Const: General: cooperative HEENT: Head: Yes normal to inspection Face and sinus: Yes normal facial exam Mouth: Normal oral and palatal mucosa present Teeth and gingiva: dentition normal Eyes: General: appearance normal, both eyes and all related structures Pupils: Equal, round and reactive pupils present Resp: Effort & Inspection: normal respiratory effort Cardio: Rate: regular rate Rhythm: regular rhythm GI: Palpation (GI): Soft to palpation and nontender : General: Yes no CVA tenderness Back/Spine/Pelvis: Back: no CVA tenderness Skin: General skin exam: no rashes or lesions noted Neuro: General: moves all extremities Cranial nerves: Yes Equal, round and reactive pupils present Extrem: Other: left foot looking clearer than ever,some eschar resolved laterally Psych: Appearance: grossly normal DS: Data Data Completed and Pending Completed studies during hospitalization [Text1]: Procedures Insertion of Infusion Device into Superior Vena Cava, Percutaneous Approach (06/03/24) Ultrasonography of Superior Vena Cava, Guidance (06/03/24) Labs on day of discharge: Laboratory Results - last 24 hr 01/04/25 01/04/25 01/04/25 05:44 11:01 16:22 WBC RBC Hgb Hct MCV MCH MCHC RDW Plt Count MPV Absolute Nucleated RBC Nucleated RBC % (auto) Sodium Potassium Chloride Carbon Dioxide Anion Gap BUN Creatinine Estim Creat Clear Calc Estimated GFR POC Glucose 159 H 214 H Random Glucose Calcium Magnesium TSH 1.29 Random Cortisol Random Vancomycin 01/04/25 01/04/25 01/05/25 17:52 20:54 01:08 WBC RBC Hgb Hct MCV MCH MCHC RDW Plt Count MPV Absolute Nucleated RBC Nucleated RBC % (auto) Sodium Potassium Chloride Carbon Dioxide Anion Gap BUN Creatinine Estim Creat Clear Calc Estimated GFR POC Glucose 107 Random Glucose Calcium Magnesium TSH Random Cortisol 9.4 Random Vancomycin 15.5 01/05/25 01/05/25 06:38 07:42 WBC 10.0 RBC 4.38 L Hgb 13.2 L Hct 38.3 L MCV 87.4 MCH 30.1 MCHC 34.5 RDW 12.4 Plt Count 331 MPV 9.2 L Absolute Nucleated RBC 0.000 Nucleated RBC % (auto) 0.0 Sodium 135 Potassium 4.1 Chloride 103 Carbon Dioxide 25 Anion Gap 11 L BUN 19 H Creatinine 0.76 Estim Creat Clear Calc 83.2 Estimated GFR > 60 POC Glucose 105 Random Glucose 98 Calcium 9.2 Magnesium 2.0 TSH Random Cortisol Random Vancomycin Preliminary micro results at discharge 12/31/24 12:20 Blood Culture - Preliminary Blood - Venous No growth after 48 hours. 12/31/24 12:00 Blood Culture - Preliminary Blood - Venous No growth after 48 hours. Discharge Plan Discharge Anticipated Discharge Date/Time: 01/05/25 09:24 Patient Disposition: Home, Self-Care Discharge Diagnosis: dfu, adrenal hyperplasia Referrals: Matt Alvarado MD [Physician] - 1 Week (adrenal hyperplasia, sinus tach, ?elevated midnight cortisol, other labs pending) Sarina Delacruz MD [Primary Care Provider] - 1 Week Discharge Medications: New amlodipine 10 mg Tablet 10 mg PO DAILY Qty: 90 0RF Protocol: Hold for SBP< HOLD for SBP < : 90 nicotine 21 mg/24 hr Patch 24 Hour 21 mg transdermal DAILY Qty: 14 0RF doxycycline hyclate 100 mg capsule 100 mg PO BID Qty: 20 0RF metformin 1,000 mg tablet 1,000 mg PO BIDWMEAL Qty: 180 0RF Discharge Orders: Discharge Order (Routine); Ordered 01/05/25 Ordered By: Chinedu Aguillon Diet: Diabetic diet Activity on Discharge: As tolerated Stand Alone Forms: Patient Portal Discharge page Print Language: Turkmen Care Plan Goals: Recovery, workup adrenal hyperplasia Health Concerns: Polysubstance dependence, diabetic foot ulcer, adrenal hyperplasia Plan of Treatment: Ten days of doxycycline, started on amlodipine, metformin Follow up with endocrinology and primary care doctor For nodular pneumonia seen on imaging repeat CT chest in several weeks to confirm clearance. Assessment: See above
[2025-01-05] MEDS: vancomycin HCL 750 MG in 0.9 % Sodium Chloride 250 ML 265 MG IV (09:34)
[2025-01-05] MEDS: Insulin Glargine,Hum.rec.anlog 100 UNIT/ML 10 ML VIAL 10 UNIT SUBCUT (09:35)
[2025-01-05] MEDS: amLODIPine Besylate 10 MG TABLET PO (09:35)
[2025-01-05] MEDS: Nicotine Polacrilex 2 MG GUM BUCCAL (09:35)
[2025-01-05] MEDS: Nicotine 21 MG PATCH.TD24 TRANSDERMA (09:35)
[2025-01-05] MEDS: 0.9 % Sodium Chloride Flush 3 ML SYRINGE IVFLUSH (09:36)
--- NOTE | 2025-01-05 11:19 | MHC.CM.PN ---
IMM 01/05/25 Patient is discharged to home self care. He requested a bus pass to transport home. The bus pass has been provided.
[2025-01-05 12:00] VITALS: BP 120/79; PULSE 96; RESP 14; TEMP 37.2; O2SAT 97
[2025-01-05] MEDS: Insulin Lispro 100 UNIT/ML 3 ML VIAL SUBCUT (12:45)
[2025-01-05 12:57] LABS: Glucose, Whole Blood 218 mg/dL (60-115)
[2025-01-11 05:59] LABS: Metanephrine, Free <25 pg/mL (<=57); Normetanephrines, Free 100 pg/mL (<=148); Total Metanephrine, Free 100 pg/mL (<=205)
[2025-01-14 06:19] LABS: Plasma Renin Activity 1.61 ng/mL/h (0.25-5.82)
== END 2025-01-05 14:03 | disposition home or self-care (01) | DRG 917 ==
LOC: HO.ED 15:16 → HO.EDOVER 17:15 → HO.IMC 01-01 14:50
PROVIDERS: Emergency Medicine; Admitting Provider Family Medicine; Emergency Provider Emergency Medicine; PCP Internal Medicine; Visit Provider Internal Medicine
DX: T40.5X1A Poisoning by cocaine, accidental (unintentional), initial encounter (principal); E11.10 Type 2 diabetes mellitus with ketoacidosis without coma; J18.9 Pneumonia, unspecified organism; M86.172 Other acute osteomyelitis, left ankle and foot; M86.672 Other chronic osteomyelitis, left ankle and foot; E87.21 Acute metabolic acidosis; E87.6 Hypokalemia; E11.51 Type 2 diabetes mellitus with diabetic peripheral angiopathy without gangrene; F14.10 Cocaine abuse, uncomplicated; I16.0 Hypertensive urgency; M47.819 Spondylosis without myelopathy or radiculopathy, site unspecified; E83.42 Hypomagnesemia; E27.8 Other specified disorders of adrenal gland; E11.69 Type 2 diabetes mellitus with other specified complication; Z20.822 Contact with and (suspected) exposure to COVID-19
CPT/HCPCS: 0241U; 36415; 71260; 72158; 73620; 74177; 80048; 80076; 80202; 80307; 81001; 82010; 82088; 82533; 82947; 83036; 83605; 83690; 83735; 83835; 84145; 84443; 85025; 85027; 85652; 86140; 86704; 86706; 86803; 87040; 87340; 87389; 87640; 87641; 93005; 99285; A9585; J0692; J0696; J1171; J1650; J1920; J2060; J2405; J3010; J3370; J7120; Q9967; S9485

== ENCOUNTER → 2024-12-31 11:41 | Outpatient (BNV) | payer MEDICARE, SELFPAY | PROVIDERS: Emergency Provider Emergency Medicine; Visit Provider Family Medicine | DX: E11.621 Type 2 diabetes mellitus with foot ulcer (principal); L97.509 Non-pressure chronic ulcer of other part of unspecified foot with unspecified severity; E11.622 Type 2 diabetes mellitus with other skin ulcer; L97.929 Non-pressure chronic ulcer of unspecified part of left lower leg with unspecified severity | CPT/HCPCS: 99232; 99233 ==

== ENCOUNTER → 2024-12-31 11:48 | Outpatient (BNV) | payer MEDICARE, SELFPAY | PROVIDERS: Emergency Provider Emergency Medicine; Visit Provider Radiology Diagnostic Radiology | DX: R91.8 Other nonspecific abnormal finding of lung field (principal); E25.0 Congenital adrenogenital disorders associated with enzyme deficiency; K59.00 Constipation, unspecified | CPT/HCPCS: 71260; 74177 ==

== ENCOUNTER → 2024-12-31 15:18 | Outpatient (BNV) | payer MEDICARE, SELFPAY | PROVIDERS: Admitting Provider Family Medicine; Emergency Provider Emergency Medicine; Visit Provider Internal Medicine | DX: R00.0 Tachycardia, unspecified (principal); I49.3 Ventricular premature depolarization | CPT/HCPCS: 93010 ==

== ENCOUNTER 2024-12-31 17:08 | Outpatient (BNV) | payer MEDICARE, SELFPAY | END 2025-01-01 07:15 | PROVIDERS: Admitting Provider Family Medicine; Emergency Provider Emergency Medicine; Visit Provider Radiology Diagnostic Radiology | DX: M48.062 Spinal stenosis, lumbar region with neurogenic claudication (principal); M99.63 Osseous and subluxation stenosis of intervertebral foramina of lumbar region; M86.172 Other acute osteomyelitis, left ankle and foot; M00.842 Arthritis due to other bacteria, left hand | CPT/HCPCS: 72158 ==

== ENCOUNTER → 2024-12-31 17:08 | Outpatient (BNV) | payer MEDICARE, SELFPAY | PROVIDERS: Admitting Provider Family Medicine; Emergency Provider Emergency Medicine; Visit Provider Surgery | DX: E11.621 Type 2 diabetes mellitus with foot ulcer (principal); L97.509 Non-pressure chronic ulcer of other part of unspecified foot with unspecified severity | CPT/HCPCS: 99222 ==

== ENCOUNTER → 2024-12-31 17:08 | Outpatient (BNV) | payer MEDICARE, SELFPAY | PROVIDERS: Admitting Provider Family Medicine; Emergency Provider Emergency Medicine; PCP Internal Medicine; Visit Provider Internal Medicine | DX: F14.10 Cocaine abuse, uncomplicated (principal); E87.20 Acidosis, unspecified; D72.829 Elevated white blood cell count, unspecified; E11.622 Type 2 diabetes mellitus with other skin ulcer; L97.929 Non-pressure chronic ulcer of unspecified part of left lower leg with unspecified severity | CPT/HCPCS: 99222 ==

== ENCOUNTER 2025-01-22 12:49 | Outpatient (AMB) | payer MEDICARE, SELFPAY ==
--- NOTE | 2025-01-22 12:52 | A.OFFVIS_ITS ---
Vital Signs 01/22/25 12:56 Height 5 ft 6 in Weight 115 lb 8.356 oz BMI 18.6 BP 90/72 Blood Pressure Location Rt brachial Position Sitting Pulse 137 H Pulse Source Pulse Oximeter Pulse Oximetry (%) 98 Oxygen Delivery Method Room Air Intake Visit Reasons: Adrenal hyperplasia, elevated midnight cortisol. Intake Note: New patient seen at [facility] on 12/31/24, referred to Endo for Adrenal Hyperplasia, elevated midnight cortisol. Rfid Analyst Required: No Accompanied by: Self / Same As Patient Allergies No Known Allergies Allergy (Verified 01/22/25 12:57) Medication List - Last Reconciled 01/22/25 by Matt Alvarado MD amlodipine 10 mg See Protocol PO DAILY doxycycline hyclate 100 mg PO BID metformin 1,000 mg PO BIDWMEAL nicotine 21 mg transdermal DAILY HPI Comments Details: 54 YO M with PMHx [] who is seen in consultation at the request of PCP for bilateral adrenal hyperplasia . The patient is a 54-year-old male presenting for evaluation of lesions found on the adrenal glands. A CT scan initially noted these lesions during a hospital visit approximately six months prior, with subsequent imaging confirming enlargement of both adrenal glands. The patient reports significant unintentional weight loss, losing around 100 pounds in a span of a year after weighing 235 pounds. Despite dietary efforts, he has not been able to regain the weight. He denies having symptoms such as headache, sweating, or abdominal discomfort; however, he experiences frequent diarrhea, likely linked to Metformin intake, and has noticed increased bruising tendency and lightheadedness while standing. His family history includes maternal bronchial asthma, diabetes, and hypertension. Had CT abdomen/pelvis date for which revealed (see below) Denies history of spells with headache, flushing, diaphoresis, abdominal pain or diarrhea. Denies any weight gain, frequent infections, +easy bruisability, -development of violaceous striae. History of HTN, controlled on 1 agents. No history of anticoagulant use. Has weight loss 100 lbs in 1 yr , +orthostatic symptoms,- hypoglycemia. No history of malignancy or TB. - Endocrine: Denies headache, sweating episodes, abdominal pain, diarrhea (other than related to Metformin) - Cardiovascular: Reports lightheadedness when standing - Hematologic: Reports increased bruising - General: Reports significant weight loss Imagin12/31/24 ADRENAL GLANDS: The adrenal glands are diffusely enlarged and hypoattenuating. KIDNEYS/RETROPERITONEUM: There is excretion of contrast in both kidneys, limiting evaluation for calculi. There is no hydronephrosis or hydroureter. No renal masses are identified. LYMPH NODES: No abdominal or pelvic lymphadenopathy. VASCULATURE: The abdominal aorta demonstrates atherosclerotic calcification, but is normal in caliber. MESENTERY/PERITONEUM: No free fluid. No masses. There is no free intraperitoneal gas. STOMACH: The stomach is unremarkable. SMALL BOWEL: The small bowel is normal in caliber. COLON: There is a large amount of stool throughout the colon. APPENDIX: Normal. URINARY BLADDER/PELVIC ORGANS: The urinary bladder is unremarkable. The prostate is normal in size. BONES / SOFT TISSUES: No suspicious bony or soft tissue abnormalities. CT/CT abdomen pelvis w IV con IMPRESSION: 1. Tiny opacities in the right upper and lower lobes which could be inflammatory in nature. Follow-up chest CT in 6 months is recommended. 2. The adrenal glands are diffusely enlarged and hypoattenuating. Findings could represent adrenal hyperplasia. Clinical correlation is recommended. This could be followed at the time of follow-up chest CT for the right upper and lower lobe opacities 06/04/24 with contrast L adrenal nodule .4 cm 37 HU Labs: [facility] Medical History (Updated 01/22/25 @ 13:06 by Matt Alvarado MD) Adrenal hyperplasia Non-insulin dependent type 2 diabetes mellitus Surgical History Hx of tonsillectomy Family History Mother No problems noted. Social History Household Members: Family Housing: Other Housing Other:: Homeless Housing Do you presently have visiting nurse or other home services: No Alcohol intake: current Alcohol intake frequency: does not drink Patient Tobacco Use Status: Never used Tobacco Substance Use Type: Crack/Cocaine service: No Physical Exam Vital Signs: BMI result Body Mass Index 18.6 Const Other: Appear somewhat cachectic on physical examination. There was no cushingoid appearance. There is no hyperpigmentation or hyperpigmentation of the skin or buccal hyperpigmentation Assessment & Plan Assessment & Plan (1) Adrenal hyperplasia: Code(s): E27.8 - Other specified disorders of adrenal gland Category: Medical Plan: 1. Adrenal gland enlargement: Bilateral adrenal gland enlargement suggests either benign or malignant causes. Evaluation with contrast-enhanced CT scan with adrenal washout will help differentiate between possible lesions. Cortisol evaluation and dexamethasone suppression testing are currently in place to ascertain any hyperfunctioning or non-functioning adrenals. I will also check aldosterone/renin as well as 17 hydroxy progesterone to rule out CAH. Lastly an a.m. cortisol level be checked with possible stimulation test to rule out adrenal insufficiency. Also, I will speak with Infectious Disease about potentially ruling out tuberculosis or fungal infection in this patient with bilateral hyperplasia. 2. Type 2 Diabetes Mellitus: There is an urgent need to stabilize glycemic levels. Coordination with the diabetes team is essential to develop an appropriate management plan. 4. Unintentional weight loss: While this symptom suggests potential adrenal compromise, dietary direct selling counselor post-adrenal evaluation will ensure this symptomology is addressed holistically. The patient had an opportunity to ask questions regarding treatment plan. The patient expressed understanding and agreement with the above treatment plan. Patient was informed and verbally consented to the use of an ambient scribe for clinic note documentation during this visit. Orders: Orders Cortisol Random Today E27.8 - Other specified disorders of adrenal gland 17 Hydroxyprogesterone Today E27.8 - Other specified disorders of adrenal gland DHEA Sulfate Today E27.8 - Other specified disorders of adrenal gland CT abdomen wo/w IV con Today E27.8 - Other specified disorders of adrenal gland Aldosterone Today E27.8 - Other specified disorders of adrenal gland Renin Today E27.8 - Other specified disorders of adrenal gland Cortisol Random 1 Week E27.8 - Other specified disorders of adrenal gland Dexamethasone 1 Week E27.8 - Other specified disorders of adrenal gland Angiotensin Converting Enzyme Today E27.8 - Other specified disorders of adrenal gland Medications: New dexamethasone 1 mg PO DAILY 1 tab 0RF Coding Level of Care Code New Pt Level 4 (31805) Diagnoses Adrenal hyperplasia E27.8
[2025-01-22 12:56] VITALS: BP 90/72; PULSE 137; O2SAT 98; BMI 18.6
--- OUTSIDE RECORDS SUMMARY | 2025-01-22 15:00 | XMS_ITS | Continuity of Care Document ---
Author Name [facility] Organization [facility] Care Team Providers Care Sustainability Purchasing Agent Name Role Phone [facility] Unavailable Unavailable Problems Combined list of problems from Department of Defense and Veterans Affairs facilities. It does not include entries that were removed or entered in error. Problem Status Onset Date Problem Type Date of Resolution Comments Source Anxiety ([facility] [id number]) Active Condition Jan 07, 2020 Entered By: SUPRIYA PIMENTEL Comment: evaluated by psychiatry/ 2019 [facility] Asthma ([facility] [id number]) Active Condition [facility] Diabetes Mellitus Type 2 ([facility] [id number]) Active Condition Jan 07, 2020 Entered By: SUPRIYA PIMENTEL Comment: A1c improved from 8.2-7.2 in Mar, 2019/ no medsNov 2022 Entered By: CARLINE LEE Comment: HbA1c >17 sep 2023 [facility] Erectile Dysfunction ([facility] [id number]) Active Condition [facility] 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 Homeless single person Inactive Condition 09/20/2023 [facility] Diagnosis: ICD-10-CM F17.200 Nicotine dependence, unspecified, uncomplicated Active Diagnosis [facility] Medications Combined list of outpatient medications from Department of Defense and Veterans Affairs facilities.Medications provided include 1) outpatient medications from the last 15 months, and 2) patient-reported medications. Medication Details Route Status Patient Instructions Prescription Expires Prescription Number Last Dispense Date Ordering Provider Order Date Order Qty Source HYDROPHILIC (EQV AQUAPHOR) OINT,TOP APPLY LIBERAL AMOUNT TOPICALL Y ONCE DAILY FOR DRY SKIN TOPICA L 01/09/2025 [id number] FURCOJORDONT JAYJAY 2023 454 [facility] METFORMIN HCL 500MG 24HR TAB,SA TAKE TWO TABLETS BY MOUTH ONCE DAILY ORAL 10/03/2024 [id number] JESUST JAYJAY 2022 180 [facility] SILDENAFIL CITRATE 100MG TAB TAKE ONE TABLET BY MOUTH ONCE DAILY NEEDED FOR ERECTILE DYSFUNCT ION TAKE 1 HOUR PRIOR TO SEXUAL ACTIVITY DOSE INCREASE ORAL 01/09/2025 [id number] FURCOLOT JAYJAY 2023 6 [facility] SILDENAFIL CITRATE 50MG TAB TAKE ONE TABLET BY MOUTH ONCE DAILY NEEDED TAKE 1 HOUR PRIOR TO SEXUAL ACTIVITY ORAL DISCONT INUED (EDIT) 09/20/2024 [id number] 6 [facility] Immunizations Combined list of available immunizations from the Department of Defense and Veterans Affairs facilities. Immunization Series Date Given Administered By Site Reaction Lot Number CVX Code Drug Neonatal Social Worker Status Comments Source TDAP 2018 115 complet ed Site: Left Deltoid [facility] Results Combined list of recent chemistry, hematology [...] Oct 13, 2023 10:55 AM Reporting Lab: [address] [address] Performing Lab: [address] [address] [facility] BASIC METABOLI C PANEL (fasting ) UREA NITROGEN [MASS/VOLU ME] IN SERUM OR PLASMA 11 mg/dL 7 - 25 01/08 Specimen Type: SERUM No comment entered. Ordering Provider: KAYA LEE Report Released Date/Time: Oct 13, 2023 10:55 AM Reporting [facility] [address] [address] Performing Lab: [facility] CHILDRENUSE[address] [address] [facility] BASIC METABOLI C PANEL (fasting ) GLUCOSE [MASS/VOLU ME] IN SERUM OR PLASMA 156 mg/dL 65 - 100 01/08 H Specimen Type: SERUM No comment entered. Ordering Provider: KAYA LEE Report Released Date/Time: Oct 13, 2023 10:55 AM Reporting Lab: [facility]ILDRENUSE[address] [address] Performing [facility]: [facility] [address] [address] [facility] BASIC METABOLI C PANEL (fasting ) SODIUM [MOLES/VOL UME] IN SERUM OR PLASMA 137 mmol/L 135 - 145 01/08 Specimen Type: SERUM No comment entered. Ordering Provider: KAYA LEE Report Released Date/Time: Oct 13, 2023 10:55 AM Reporting Lab: [facility]PITALRTANNER [facility] AL[facility]AMATRN [facility] CHILDRENUSETS [address] [address] Performing Lab: [facility]OSPITALRELBA [facility]AL [facility]OSPITALN [address] [address] [facility]PITALRTANNER [facility] ALABAMATRN [facility]ILDRENUSE [facility] BASIC METABOLI C PANEL (fasting ) POTASSIUM [MOLES/VOL UME] IN SERUM OR PLASMA 4.5 mmol/L 3.5 - 5.0 01/08 Specimen Type: SERUM No comment entered. Ordering Provider: KAYA LEE Report Released Date/Time: Oct 13, 2023 10:55 AM Reporting Lab: [facility]ITALRTAN[facility] AL[facility]AMATRN [address] [address] Performing Lab: [facility]ITALRTAN[facility] AL[facility]AMATRN [address] [address] [facility]ITALRTAN[facility]ATRN [facility] BASIC METABOLI C PANEL (fasting ) CHLORIDE [MOLES/VOL UME] IN SERUM OR PLASMA 103 mmol/L 100 - 110 01/08 Specimen Type: SERUM No comment entered. Ordering Provider: KAYA LEE Report Released Date/Time: Oct 13, 2023 10:55 AM Reporting Lab: [facility]PITALRTAN[facility] AL[facility]AMATRN [address] [address] Performing Lab: [facility] HOSPITALRL TRN [facility] CHILDRENUSE[address] [address] [facility] HOSPITALRL TRN [facility] CHILDRENUSE [facility] BASIC METABOLI C PANEL (fasting ) CARBON DIOXIDE, TOTAL [MOLES/VOL UME] IN SERUM OR PLASMA 25 meq/L 20 - 30 01/08 Specimen Type: SERUM No comment entered. Ordering Provider: KAYA LEE Report Released Date/Time: Oct 13, 2023 10:55 AM Reporting Lab: [facility]ITALRTAN[facility] AL[facility]AMATRN [address] [address] Performing Lab: [facility]OSPITALRELBA [facility]AL HOSPITALN [address] [address] [facility] HOSPITALRL TRN [facility] CHILDRENUSE [facility] BASIC METABOLI C PANEL (fasting ) CREATININE [MASS/VOLU ME] IN SERUM OR PLASMA 0.75 mg/dL 0.50 - 1.40 01/08 Specimen Type: SERUM No comment entered. Ordering Provider: KAYA LEE Report Released Date/Time: Oct 13, 2023 10:55 AM Reporting Lab: [facility]OSPITALRL WSTRN [facility] CHILDRENUSETS [address] [address] Performing Lab: [place] [facility] [facility] CHILDRENUSETS [address] [address] [facility]OSPITALRELBA GENERAL HOSPITALN [facility] BASIC METABOLI C PANEL (fasting ) GLOMERULAR FILTRATION RATE/1.73 SQ M.PREDICTE D [VOLUME RATE/AREA] IN SERUM, PLASMA OR BLOOD BY CREATININE -BASED FORMULA (CKD-EPI 2020) >90mL/mi n 60 01/08 Specimen Type: SERUM No comment entered. Ordering Provider: KAYA LEE Report Released Date/Time: Oct 13, 2023 10:55 AM Reporting Lab: [facility] HOSPITALRL TRN MASSUSE[address] [address] Performing Lab: [facility]OSPITALRL TRN [facility] CHILDRENUSETS [address] [address] [facility] LIPID PANEL FASTING CHOLESTERO L [MASS/VOLU ME] IN SERUM OR PLASMA 121 mg/dL 01/08 Specimen Type: SERUM No comment entered. Ordering Provider: KAYA LEE Report Released Date/Time: Oct 13, 2023 10:55 AM Reporting Lab: [facility]OSPITALRL WSTRN [place] [address] [address] Performing Lab: [facility]OSPITALRL TRN [facility] CHILDRENUSETS [address] [address] [facility]PITALRELBA GENERAL HOSPITALN [facility] LIPID PANEL FASTING TRIGLYCERI DE [MASS/VOLU ME] IN SERUM OR PLASMA 81 mg/dL 0 - 150 01/08 Specimen Type: SERUM No comment entered. Ordering Provider: KAYA LEE Report Released Date/Time: Oct 13, 2023 10:55 AM Reporting Lab: [facility] [facility] [address] [address] Performing Lab: [facility] [place] [facility] [address] [address] [facility] LIPID PANEL FASTING CHOLESTERO L IN LDL [MASS/VOLU ME] IN SERUM OR PLASMA BY CALCULATIO N 61 mg/dL 0 - 129 01/08 Specimen Type: SERUM No comment entered. Ordering Provider: KAYA LEE Report Released Date/Time: Oct 13, 2023 10:55 AM Reporting Lab: [facility] [place] [facility] [address] [address] Performing Lab: [place] [facility] [place] [facility] [address] [address] [facility]OSPITALRL WSTRN [place]USE [facility] LIPID PANEL FASTING CHOLESTERO L.TOTAL/CH OLESTEROL IN HDL [MASS RATIO] IN SERUM OR PLASMA 2.8 01/08 Specimen Type: SERUM No comment entered. Ordering Provider: KAYA LEE Report Released Date/Time: Oct 13, 2023 10:55 AM Reporting Lab: [facility] [place] [facility] [address] [address] Performing Lab: [facility] [place] [facility] [address] [address] [facility]OSPITALRL WSTRN [place] [facility] LIPID PANEL FASTING CHOLESTERO L IN HDL [MASS/VOLU ME] IN SERUM OR PLASMA 44 mg/dL 40 - 60 01/08 Specimen Type: SERUM No comment entered. Ordering Provider: KAYA LEE Report Released Date/Time: Oct 13, 2023 10:55 AM Reporting Lab: [facility] [place] [facility] [address] [address] Performing Lab: [facility] [place] [facility] [address] [address] [place] [facility] [facility] MICROALB UMIN CREATINI NE RATIO PANEL MICROALBUM IN/CREATIN INE [MASS RATIO] IN URINE 13.0 mg/g 0 - 29.9 01/08 Specimen Type: URINE No comment entered. Ordering Provider: KAYA LEE Report Released Date/Time: Oct 13, 2023 10:55 AM Reporting Lab: [facility] [place] [facility] [address] [address] Performing Lab: [place] [facility] [place] [facility] CHILDRENUSETS [facility] [address] [address] [facility] [place] [facility] MICROALB UMIN CREATINI NE RATIO PANEL MICROALBUM IN [MASS/VOLU ME] IN URINE 1.0 mg/dL 01/08 Specimen Type: URINE No comment entered. Ordering Provider: KAYA LEE Report Released Date/Time: Oct 13, 2023 10:55 AM Reporting Lab: [place] [facility] [place] [facility] CHILDRENUSETS [facility] [address] [address] Performing Lab: [facility]PITALRL WSTRN [facility]DRENUSEEAST[facility] [place] [facility] [address] [address] [facility]ITALRL WSTRN [place] [facility] MICROALB UMIN CREATINI NE RATIO PANEL CREATININE [MASS/VOLU ME] IN URINE 76.71 mg/dL 01/08 Specimen Type: URINE No comment entered. Ordering Provider: KAYA LEE Report Released Date/Time: Oct 13, 2023 10:55 AM Reporting Lab: [facility]OSPITALRL WSTRN [facility] CHILDRENUSETS [address] [address] Performing Lab: [facility]OSPITALRL WSTRN [facility] CHILDRENUSE[address] [address] [facility]OSPITALRL WSTRN [facility]ILDRENUSE [facility] [place] SYPHILIS ABS W/RFLX REAGIN AB [PRESENCE] IN SERUM BY RPR Non Reactive 09/20 Specimen Type: SERUM Comment: No laboratory evidence of syphilis infection. If recent exposure is suspected, re-draw sample in 2-4 weeks and repeat algorithm. Testing performed by T. pallidum specific immunoassay . Ordering Provider: KAYA LEE Report Released Date/Time: Sep 20, 2023 10:15 AM Reporting Lab: [facility]OSPITALRL TRN [facility]ENUSEE[facility] [place] [facility] [address] [address] Performing Lab: [facility]OSPITALRL TRN [facility]ENUSEEAST[facility] [place] [facility] [address] [facility] [address] [facility] [facility] TSH THYROTROPI N [UNITS/VOL UME] IN SERUM OR PLASMA 0.31 u[IU]/mL 0.35 - 5.00 09/20 L Specimen Type: SERUM No comment entered. Ordering Provider: KAYA LEE Report Released Date/Time: Sep 20, 2023 10:11 AM Reporting Lab: [facility] [place] [facility] [address] [address] Performing Lab: [facility] [place] [facility] [address] [address] [place] [facility] [place] [facility] LIVER FUNCTION PROTEIN [MASS/VOLU ME] IN SERUM OR PLASMA 6.8 g/dL 6.0 - 8.3 09/20 Specimen Type: SERUM No comment entered. Ordering Provider: KAYA LEE Report Released Date/Time: Sep 20, 2023 10:11 AM Reporting Lab: [facility] [place] [address] [address] Performing Lab: [facility] [place] [address] [address] [facility] [place] [facility] LIVER FUNCTION ALBUMIN [MASS/VOLU ME] IN SERUM OR PLASMA 3.9 g/dL 3.5 - 5.0 09/20 Specimen Type: SERUM No comment entered. Ordering Provider: KAYA LEE Report Released Date/Time: Sep 20, 2023 10:11 AM Reporting Lab: [facility] [place] [facility] [address] [address] Performing Lab: [facility] [place] [facility] [address] [address] [facility] [place] [facility] LIVER FUNCTION ALKALINE PHOSPHATAS E [ENZYMATIC ACTIVITY/V OLUME] IN SERUM OR PLASMA 129 U/L 40 - 150 09/20 Specimen Type: SERUM No comment entered. Ordering Provider: KAYA LEE Report Released Date/Time: Sep 20, 2023 10:11 AM Reporting Lab: [facility] [place] [address] [place] [address] Performing Lab: [facility]OSPITALRTAN[facility] AL[facility]AMATRN [facility]ENUSEE[facility] [place] [facility] [address] [address] [facility]ITALRELBA GENERAL HOSPITALN [facility]ENUSE [facility] LIVER FUNCTION ASPARTATE AMINOTRANS FERASE [ENZYMATIC ACTIVITY/V OLUME] IN SERUM OR PLASMA 13 U/L 5 - 34 09/20 Specimen Type: SERUM No comment entered. Ordering Provider: KAYA LEE Report Released Date/Time: Sep 20, 2023 10:11 AM Reporting Lab: [facility]OSPITALRL TRN [facility]ENUSEEAST[facility] [place] [facility] [address] [address] Performing Lab: [facility]OSPITALRL TRN [facility]ENUSEEAST[facility] [place] [facility] [address] [address] [facility] LIVER FUNCTION ALANINE AMINOTRANS FERASE [ENZYMATIC ACTIVITY/V OLUME] IN SERUM OR PLASMA 19 U/L 09/20 Specimen Type: SERUM No comment entered. Ordering Provider: KAYA LEE Report Released Date/Time: Sep 20, 2023 10:11 AM Reporting Lab: [facility]OSPITALRL TRN [facility] [address] [address] Performing Lab: [facility]OSPITALRL TRN [facility]ENUSEEAST[facility] [place] [facility] [address] [address] [facility] LIVER FUNCTION BILIRUBIN. TOTAL [MASS/VOLU ME] IN SERUM OR PLASMA 0.4 mg/dL 0.2 - 1.2 09/20 Specimen Type: SERUM No comment entered. Ordering Provider: KAYA LEE Report Released Date/Time: Sep 20, 2023 10:11 AM Reporting Lab: [facility]OSPITALRL TRN [facility]ENUSEEAST[facility] [place] [facility] [address] [address] Performing Lab: [facility]OSPITALRELBA GENERAL HOSPITALN [facility] CHILDRENUSE[address] [address] [facility] HEMOGLOB IN A1C PANEL HEMOGLOBIN A1C/HEMOGL OBIN.TOTAL [...] Sep 20, 2023 10:11 AM Reporting Lab: [facility]ITALRL [place] [place] [address] [address] Performing Lab: [facility]PITALRL [place] [place] [address] [address] [facility]OSPITALRL WSTRN MASSUSE [facility] BASIC METABOLI C PANEL (fasting ) UREA NITROGEN [MASS/VOLU ME] IN SERUM OR PLASMA 12 mg/dL 7 - 25 09/20 Specimen Type: SERUM No comment entered. Ordering Provider: KAYA LEE Report Released Date/Time: Sep 20, 2023 10:11 AM Reporting Lab: [facility]ITALRL [facility] [place] [address] [address] Performing Lab: [place] [facility] [place] [address] [address] [facility]PITALR WSTRN MASSUSE [facility] BASIC METABOLI C PANEL (fasting ) GLUCOSE [MASS/VOLU ME] IN SERUM OR PLASMA 338 mg/dL 65 - 100 09/20 H Specimen Type: SERUM No comment entered. Ordering Provider: KAYA LEE Report Released Date/Time: Sep 20, 2023 10:11 AM Reporting Lab: [facility]ITALRL [facility] [place] [address] [address] Performing Lab: [place] [facility] [place] [address] [address] [facility]OSPITALRTANNER MEDICAL CENTER EAST ALABAMATRN [place]CHUSE [facility] BASIC METABOLI C PANEL (fasting ) SODIUM [MOLES/VOL UME] IN SERUM OR PLASMA 134 mmol/L 135 - 145 09/20 L Specimen Type: SERUM No comment entered. Ordering Provider: KAYA LEE Report Released Date/Time: Sep 20, 2023 10:11 AM Reporting Lab: [facility]ITALRL [facility] [place] [address] [address] Performing Lab: [facility]OSPITALRL [facility]STRN [place] [facility] [address] [address] [facility]OSPITALRL WSTRN [facility] CHILDRENUSE [facility] BASIC METABOLI C PANEL (fasting ) POTASSIUM [MOLES/VOL UME] IN SERUM OR PLASMA 4.8 mmol/L 3.5 - 5.0 09/20 Specimen Type: SERUM No comment entered. Ordering Provider: KAYA LEE Report Released Date/Time: Sep 20, 2023 10:11 AM Reporting Lab: [facility]PITALRL WSTRN [place] [facility] [address] [address] Performing Lab: [facility]OSPITALRL WSTRN [facility]ENUSEE[facility] [place] [facility] [address] [address] [facility]OSPITALRTANNER [facility]ICAL [facility] EAST ALABAMATRN [facility]ILDRENUSE [facility] BASIC METABOLI C PANEL (fasting ) CHLORIDE [MOLES/VOL UME] IN SERUM OR PLASMA 101 mmol/L 100 - 110 09/20 Specimen Type: SERUM No comment entered. Ordering Provider: KAYA LEE Report Released Date/Time: Sep 20, 2023 10:11 AM Reporting Lab: [facility]OSPITALRL TRN [facility] CHILDRENUSETS [facility] [address] [address] Performing Lab: [facility]OSPITALRL WSTRN [facility] CHILDRENUSETS [facility] [address] [address] [facility]OSPITALRL TRN [facility] CHILDRENUSE [facility] BASIC METABOLI C PANEL (fasting ) CARBON DIOXIDE, TOTAL [MOLES/VOL UME] IN SERUM OR PLASMA 23 meq/L 20 - 30 09/20 Specimen Type: SERUM No comment entered. Ordering Provider: KAYA LEE Report Released Date/Time: Sep 20, 2023 10:11 AM Reporting Lab: [facility]OSPITALRL TRN [facility] CHILDRENUSETS [facility] [address] [address] Performing Lab: [facility]OSPITALRL WSTRN [facility] CHILDRENUSETS [facility] [address] [address] [facility]PITALRELBA GENERAL HOSPITALN [facility] BASIC METABOLI C PANEL (fasting ) CREATININE [MASS/VOLU ME] IN SERUM OR PLASMA 0.91 mg/dL 0.50 - 1.40 09/20 Specimen Type: SERUM No comment entered. Ordering Provider: KAYA LEE Report Released Date/Time: Sep 20, 2023 10:11 AM Reporting Lab: [facility]OSPITALRTANNER [facility] EAST ALABAMATRN [facility] CHILDRENUSETS [facility] [address] [address] Performing Lab: [facility]OSPITALRL WSTRN [facility] CHILDRENUSETS [facility] [address] [address] [facility]PITALRELBA GENERAL HOSPITALN MASSUSE [facility] BASIC METABOLI C PANEL (fasting ) GLOMERULAR FILTRATION RATE/1.73 SQ M.PREDICTE D [VOLUME RATE/AREA] IN SERUM, PLASMA OR BLOOD BY CREATININE -BASED FORMULA (CKD-EPI 2020) >90mL/mi n 60 09/20 Specimen Type: SERUM No comment entered. Ordering Provider: KAYA LEE Report Released Date/Time: Sep 20, 2023 10:11 AM Reporting Lab: [facility]OSPITALRL TRN [facility]ENUSEEAST[facility] [place] [facility] [address] [address] Performing Lab: [facility]PITALRELBA GENERAL HOSPITALN [facility] CHILDRENUSE[address] [address] [facility]N [facility] CHILDRENUSE [facility] HEPATITI S C ANTIBODY (HCV)-AR C HEPATITIS C VIRUS AB [PRESENCE] IN SERUM NON-REAC TIVE 09/20 Specimen Type: SERUM Comment: Hep C Ab: No HCV antibody detected. If recent infection is suspected or other evidence suggests HCV infection, consider HCV nucleic acid testing Ordering Provider: KAYA LEE Report Released Date/Time: Sep 20, 2023 10:11 AM Reporting Lab: [facility]PITALRELBA GENERAL HOSPITALN [facility] CHILDRENUSE[address] [address] Performing Lab: [facility] HOSPITALRL [facility]ENTERN [facility] FOR CHILDRENUSE[address] [address] [facility]N [facility] CHILDRENUSE [facility] Encounters Combined list of: 1) Encounters from Department of Veterans Affairs facilities going backup to the last 18 months, not all VA inpatient encounters are included; 2) Encounters from the Department of Defense facilities going backup to 280 months. Location Location Details Encounter Type Encounter Number Reason For Visit Attending Provider ADM Date DC Date Status [facility] Outpatient Encounter [id number] 10/24 /2023 [facility] [id number] 08/31 [facility]counter [id number] 09/20 [facility] OFFICE O/P EST MOD 30-39 MIN [id number] Diagnos is: ICD-10- CM F17.200 Nicotin e depende nce, unspeci fied, uncompl icated FURCOLO,TI NA 09/20 [facility]counter [id number] 09/21 [facility]counter [id number] 09/26 [facility]counter [id number] 10/03 [facility]counter [id number] 10/03 [facility] [id number] 10/04 [facility] OFF[facility] O/P EST MOD 30-39 MIN [id number] Diagnos is: ICD-10- CM F17.200 Nicotin e depende nce, unspeci fied, uncompl icated FURCOLO,TI NA 10/13 [facility] [facility] En[facility] [id number] 11/22 [facility] OFF[facility] O/P EST LOW 20 MIN [id number] Diagnos is: ICD-10- CM F17.200 Nicotin e depende nce, unspeci fied, uncompl icated FURCOLO,TI NA 01/08 [facility] [id number] 04/11 [facility] [id number] 06/03 [facility] [id number] 06/05 [facility] [id number] 06/06 [facility] [id number] 06/08 [facility] [id number] 06/08 [facility] [id number] 06/11 [facility] [id number] 06/12 [facility] [id number] 06/12 [place] [facility] [place] [facility] [place] [facility] Outpatient [facility]counter [id number] 06/20 [facility] [place] [facility] [place] Outpatient Encounter [id number] 10/15 [place] [facility] [place] [facility] Social History Combined list of available smoking, tobacco, and other social history from Department of Defense and Veterans Affairs facilities. Social History Type Response Date Comment Sourc e Tobacco smoking status NHIS VA-TOBACCO USER EVERY DAY 08/31/2023 [facility] [place] [facility] History of tobacco use VA-TOBACCO USE WI 30 MIN OF WAKEUP 08/31/2023 [facility] [place] [facility] History of tobacco use VA-TOBACCO USER EVERY DAY 03/11/2021 [facility] [place] [facility] History of tobacco use VA-TOBACCO USE MED NO 12/27/2019 [place] [facility] [place] [facility] History [facility] tobacco use VA-TOBACCO USER EVERY DAY 01/19/2019 [facility] [place] [facility] Plan of Care List of future care activities from Department of Veterans Affairs facilities. Additional future care activities may be listed in the Assessment and Plan section. Date/Time Care Activity Care Activity Detail Facili ty 01/14/2025 Laboratory - Blanket W[facility] Operator ry Order OCCULT BLOOD FIT X1 SCREEN (MFP ONLY) STOOL FECES SP [facility] [place] [facility]
== END 2025-01-22 13:38 | disposition home or self-care (01) ==
LOC: HO.ENCR 12:50
PROVIDERS: PCP Internal Medicine; Visit Provider Internal Medicine Endocrinology, Diabetes & Metabolism
DX: E27.8 Other specified disorders of adrenal gland (principal)
CPT/HCPCS: 99204

== ENCOUNTER → 2025-01-22 12:49 | Outpatient (BNVA) | payer MEDICARE, SELFPAY | PROVIDERS: PCP Internal Medicine; Visit Provider Internal Medicine Endocrinology, Diabetes & Metabolism | DX: E27.8 Other specified disorders of adrenal gland (principal) | CPT/HCPCS: 99202 ==